=== PATIENT | male | born 1950 | race Caucasian/White ===

== ENCOUNTER 2020-01-05 08:23 | Outpatient (REF) | payer MEDICARE, SELFPAY ==
[2020-01-05 10:24] LABS: Basophils Absolute Auto 0.1 X10*3/uL (0.0-0.2); Basophils Percent Auto 0.5 % (0-2); Eosinophils Absolute Auto 1.3 X10*3/uL (0.0-0.4); Eosinophils Percent Auto 11.3 % (0-4); Hematocrit 42.3 % (42-52); Hemoglobin 14.7 g/dl (14.0-18.0); Imm Gran Abs Auto 0.03 X10*3/uL (0.00-0.03); Imm Gran Pct Auto 0.3 % (0.0-0.4); Lymphocytes Absolute Auto 5.7 X10*3/uL (1.2-4.9); Lymphocytes Percent Auto 49.9 % (20-40); MANUAL DIFF FLAG SCAN; Mean Corpuscular HGB Conc 34.8 g/dl (31.0-36.0); Mean Corpuscular Volume 97.9 fL (80-98); Mean Platelet Volume 10.9 fL (9.4-12.4); Monocytes Absolute Auto 1.2 X10*3/uL (0.1-1.2); Monocytes Percent Auto 10.2 % (2-11); Neutrophils Absolute Auto 3.2 X10*3/uL (2.0-8.3); Neutrophils Percent Auto 27.8 % (45-73); Platelet Count 380 X10*3/uL (160-400); Red Blood Count 4.32 X10*6/uL (4.60-5.80); Red Cell Distribution Width 15.2 % (11.0-16.0); SCAN SMEAR FLAG 1; White Blood Count 11.5 X10*3/uL (4.8-10.8)
[2020-01-05 10:30] LABS: Glucose Urine UA NEG (NEG); Leukocyte Esterase Urine NEG (NEG); Nitrite Urine NEG (NEG); Specific Gravity - Urine 1.025 (1.005-1.025); Urine Blood 1+ (NEG); Urine Ketones NEG (NEG); Urine Protein NEG (NEG-TRACE)
[2020-01-05 10:32] LABS: Appearance Urine CLEAR; Color Urine YELLOW
[2020-01-05 10:47] LABS: Alanine Aminotransferase 21 U/L (0-40); Albumin Level 4.1 g/dL (3.5-5.0); Alkaline Phosphatase 109 U/L (39-117); Anion Gap 13 (12-20); Aspartate Amino Transferase 24 U/L (5-37); Bilirubin Total 2.7 mg/dL (0.0-1.0); Blood Urea Nitrogen 24 mg/dL (9-16); Calcium 9.5 mg/dL (8.4-10.2); Carbon Dioxide 26 mmol/L (22-29); Chloride 104 mmol/L (96-108); Cholesterol 118 mg/dL; Estimated Glomerular Filt Rate > 60; Glucose Fasting 87 mg/dL (60-99); HDL Cholesterol 35 mg/dL; LDL Cholesterol Calculated 65 mg/dl; Potassium 4.7 mmol/l (3.3-5.1); Sodium 138 mmol/L (135-145); Triglycerides 93 mg/dL
[2020-01-05 10:57] LABS: SLIDE REVIEW VERIFIED
[2020-01-05 11:11] LABS: TSH reflex Free T4 2.04 mIU/mL (0.32-4.0); Vitamin D 25-OH Total 44.1 ng/mL (>30)
[2020-01-05 11:21] LABS: Folate 6.2 ng/mL (> or = 4.0); Vitamin B12 301 pg/mL (200-900)
[2020-01-05 13:56] LABS: RBC Urine 0-2 /HPF (0); WBC Urine 0 /HPF (0-4)
== END 2020-01-05 08:24 | disposition home or self-care (01) ==
LOC: HO.LAB 08:23
PROVIDERS: PCP Internal Medicine; Visit Provider Internal Medicine
DX: I25.10 Atherosclerotic heart disease of native coronary artery without angina pectoris (principal); E78.5 Hyperlipidemia, unspecified; K21.9 Gastro-esophageal reflux disease without esophagitis; R20.2 Paresthesia of skin; E55.9 Vitamin D deficiency, unspecified; E66.3 Overweight; I44.2 Atrioventricular block, complete; Z86.2 Personal history of diseases of the blood and blood-forming organs and certain disorders involving the immune mechanism
CPT/HCPCS: 36415; 80053; 80061; 81001; 82306; 82607; 82746; 84443; 85025

== ENCOUNTER → 2020-03-02 08:56 | Outpatient (BNV) | payer MEDICARE, SELFPAY | PROVIDERS: PCP Internal Medicine; Visit Provider Internal Medicine Medical Oncology | DX: R91.1 Solitary pulmonary nodule (principal) | CPT/HCPCS: 99213; 99214 ==

== ENCOUNTER → 2020-03-25 10:17 | Outpatient (BNVA) | payer MEDICARE, SELFPAY | PROVIDERS: PCP Internal Medicine; Visit Provider Internal Medicine Cardiovascular Disease | DX: Z45.018 Encounter for adjustment and management of other part of cardiac pacemaker (principal); I25.10 Atherosclerotic heart disease of native coronary artery without angina pectoris; I10 Essential (primary) hypertension; E78.00 Pure hypercholesterolemia, unspecified | CPT/HCPCS: 99212 ==

== ENCOUNTER 2020-04-28 08:46 | Outpatient (REF) | payer MEDICARE, SELFPAY ==
[2020-04-28 10:27] LABS: Basophils Absolute Auto 0.1 X10*3/uL (0.0-0.2); Basophils Percent Auto 0.7 % (0-2); Eosinophils Absolute Auto 1.2 X10*3/uL (0.0-0.4); Hematocrit 42.3 % (42-52); Hemoglobin 14.7 g/dl (14.0-18.0); Imm Gran Abs Auto 0.04 X10*3/uL (0.00-0.03); Imm Gran Pct Auto 0.3 % (0.0-0.4); Lymphocytes Absolute Auto 5.3 X10*3/uL (1.2-4.9); Lymphocytes Percent Auto 46.1 % (20-40); MANUAL DIFF FLAG SCAN; Mean Corpuscular HGB Conc 34.8 g/dl (31.0-36.0); Mean Corpuscular Hemoglobin 34.5 pg (27.0-33.0); Mean Corpuscular Volume 99.3 fL (80-98); Monocytes Absolute Auto 1.3 X10*3/uL (0.1-1.2); Monocytes Percent Auto 11.2 % (2-11); Neutrophils Absolute Auto 3.7 X10*3/uL (2.0-8.3); Neutrophils Percent Auto 31.7 % (45-73); Platelet Count 407 X10*3/uL (160-400); Red Blood Count 4.26 X10*6/uL (4.60-5.80); Red Cell Distribution Width 15.3 % (11.0-16.0); SCAN SMEAR FLAG 1; White Blood Count 11.6 X10*3/uL (4.8-10.8)
[2020-04-28 10:48] LABS: Glucose Urine UA NEG (NEG); Leukocyte Esterase Urine NEG (NEG); Nitrite Urine NEG (NEG); Urine Blood 1+ (NEG); Urine Ketones NEG (NEG); Urine Protein NEG (NEG-TRACE)
[2020-04-28 10:56] LABS: Appearance Urine CLEAR; Color Urine YELLOW
[2020-04-28 11:05] LABS: Alanine Aminotransferase 19 U/L (0-40); Alkaline Phosphatase 107 U/L (39-117); Anion Gap 13 (12-20); Aspartate Amino Transferase 25 U/L (5-37); Bilirubin Total 2.8 mg/dL (0.0-1.0); Blood Urea Nitrogen 24 mg/dL (9-16); Calcium 9.2 mg/dL (8.4-10.2); Carbon Dioxide 27 mmol/L (22-29); Chloride 103 mmol/L (96-108); Cholesterol 113 mg/dL; Estimated Glomerular Filt Rate > 60; Glucose Fasting 85 mg/dL (60-99); HDL Cholesterol 37 mg/dL; LDL Cholesterol Calculated 61 mg/dl; Potassium 4.9 mmol/L (3.3-5.1); Sodium 138 mmol/L (135-145); Total Protein 7.8 g/dL (6.5-8.0); Triglycerides 79 mg/dL
[2020-04-28 11:14] LABS: TSH reflex Free T4 2.56 uIU/mL (0.32-4.0); Vitamin D 25-OH Total 39.8 ng/mL (>30)
[2020-04-28 11:40] LABS: Squamous Epithelial Cell Urine TRACE /LPF; WBC Urine 0 /HPF (0-4)
[2020-04-28 12:11] LABS: SLIDE REVIEW VERIFIED
== END 2020-04-28 08:47 | disposition home or self-care (01) ==
LOC: HO.LAB 08:46
PROVIDERS: PCP Internal Medicine; Visit Provider Internal Medicine
DX: I25.10 Atherosclerotic heart disease of native coronary artery without angina pectoris (principal); K21.9 Gastro-esophageal reflux disease without esophagitis; E78.00 Pure hypercholesterolemia, unspecified; I44.2 Atrioventricular block, complete; E66.3 Overweight; R31.1 Benign essential microscopic hematuria; E55.9 Vitamin D deficiency, unspecified
CPT/HCPCS: 36415; 80053; 80061; 81001; 81003; 82306; 84443; 85025

== ENCOUNTER 2020-08-20 10:25 | Outpatient (REF) | payer MEDICARE, SELFPAY ==
[2020-08-20 11:24] LABS: Glucose Urine UA NEG (NEG); Leukocyte Esterase Urine NEG (NEG); Nitrite Urine NEG (NEG); Urine Blood 1+ (NEG); Urine Ketones NEG (NEG); Urine Protein TRACE MG/DL (NEG-TRACE)
[2020-08-20 11:28] LABS: Appearance Urine CLEAR; Color Urine YELLOW
[2020-08-20 11:40] LABS: Basophils Absolute Auto 0.1 X10*3/uL (0.0-0.2); Basophils Percent Auto 0.5 % (0-2); Eosinophils Absolute Auto 1.2 X10*3/uL (0.0-0.4); Eosinophils Percent Auto 9.9 % (0-4); Hematocrit 37.7 % (42-52); Hemoglobin 13.6 g/dl (14.0-18.0); Imm Gran Abs Auto 0.08 X10*3/uL (0.00-0.03); Imm Gran Pct Auto 0.7 % (0.0-0.4); Lymphocytes Percent Auto 51.3 % (20-40); MANUAL DIFF FLAG SCAN; Mean Corpuscular HGB Conc 36.1 g/dl (31.0-36.0); Mean Corpuscular Hemoglobin 36.4 pg (27.0-33.0); Mean Corpuscular Volume 100.8 fL (80-98); Monocytes Absolute Auto 1.2 X10*3/uL (0.1-1.2); Monocytes Percent Auto 10.5 % (2-11); Neutrophils Absolute Auto 3.2 X10*3/uL (2.0-8.3); Neutrophils Percent Auto 27.1 % (45-73); Platelet Count 415 X10*3/uL (160-400); Red Blood Count 3.74 X10*6/uL (4.60-5.80); Red Cell Distribution Width 15.1 % (11.0-16.0); SCAN SMEAR FLAG 1; White Blood Count 11.7 X10*3/uL (4.8-10.8)
[2020-08-20 12:00] LABS: Squamous Epithelial Cell Urine TRACE /LPF; WBC Urine 0 /HPF (0-4)
[2020-08-20 12:04] LABS: SLIDE REVIEW VERIFIED
[2020-08-20 12:13] LABS: TSH reflex Free T4 1.55 uIU/mL (0.32-4.0)
[2020-08-20 12:20] LABS: Alanine Aminotransferase 18 U/L (0-40); Albumin Level 4.1 g/dL (3.5-5.0); Alkaline Phosphatase 112 U/L (39-117); Anion Gap 14 (12-20); Aspartate Amino Transferase 25 U/L (5-37); Bilirubin Total 5.3 mg/dL (0.0-1.0); Blood Urea Nitrogen 22 mg/dL (9-16); Calcium 9.3 mg/dL (8.4-10.2); Carbon Dioxide 25 mmol/L (22-29); Chloride 106 mmol/L (96-108); Cholesterol 106 mg/dL; Estimated Glomerular Filt Rate > 60; Glucose Fasting 88 mg/dL (60-99); HDL Cholesterol 38 mg/dL; LDL Cholesterol Calculated 53 mg/dl; Potassium 4.8 mmol/L (3.3-5.1); Sodium 140 mmol/L (135-145); Triglycerides 76 mg/dL
== END 2020-08-20 10:26 | disposition home or self-care (01) ==
LOC: HO.LAB 10:25
PROVIDERS: Absent Provider Internal Medicine; PCP Internal Medicine; Visit Provider Internal Medicine Medical Oncology
DX: R31.1 Benign essential microscopic hematuria (principal); D59.10 Autoimmune hemolytic anemia, unspecified; E78.00 Pure hypercholesterolemia, unspecified; E66.3 Overweight; E55.9 Vitamin D deficiency, unspecified
CPT/HCPCS: 36415; 80053; 80061; 81001; 82306; 84443; 85025

== ENCOUNTER 2020-10-11 03:55 | Emergency (ER) | payer MEDICARE, SELFPAY ==
--- NOTE | ~2020-10-11 | US_ITS ---
EXAMINATION: US ABDOMEN LIMITED CLINICAL INFORMATION: Right upper quadrant pain. COMPARISON: Previous CT of the abdomen and pelvis September 2020 and abdominal ultrasound April 2018 TECHNIQUE: Real-time imaging of the right upper quadrant abdominal viscera. Exam is limited due to body habitus and bowel gas. FINDINGS: PANCREAS: Not visualized due to bowel gas LIVER: Visualization of the liver is limited. Liver echotexture is normal. The liver is normal in size. No focal liver lesion or biliary duct dilatation. GALLBLADDER: There are multiple gallstones in the gallbladder. The gallbladder is normal in size. The gallbladder wall is minimally thickened measuring 4 mm. No gallbladder wall edema or pericholecystic fluid is seen. COMMON BILE DUCT: Normal in caliber measuring 0.3 cm in diameter. RIGHT KIDNEY: Normal. No hydronephrosis. No renal calculi or focal parenchymal lesions. The kidney measures 9.7 cm in maximum dimension. FREE FLUID: None. US/US abdomen limited IMPRESSION: Limited exam. Gallstones. Minimal minimally thickened gallbladder wall.
--- NOTE | ~2020-10-11 | CT_ITS ---
EXAMINATION: CT ABDOMEN AND PELVIS WITH CONTRAST CLINICAL INFORMATION: Epigastric and diffuse abdominal pain COMPARISON: 04/27/2018 TECHNIQUE: Multidetector volumetric images were obtained from the superior aspect of the liver through the pubic symphysis following administration 85 mL of Omnipaque 350 intravenous contrast. Sagittal and coronal reformatted images were obtained on the technologist's workstation. Oral contrast: No This CT examination was performed using dose optimization techniques as appropriate, variously including the following: *Automated exposure control *Adjustment of mA and/or kV according to patient size (this includes techniques or standardized protocols for targeted exams where dose is matched to indication/reason for exam; i.e. extremities or head) *Use of iterative reconstruction technique DLP: 562 mGy-cm FINDINGS: LUNG BASES: The visualized lung bases demonstrate subpleural reticulation which may reflect early pulmonary fibrosis. LIVER, GALLBLADDER, AND BILIARY TREE: The liver has a somewhat nodular contour which could reflect underlying cirrhosis. No focal hepatic lesion or biliary ductal dilatation is present. Cholelithiasis is noted. PANCREAS: Unremarkable. SPLEEN: Status post splenectomy. ADRENAL GLANDS: Unremarkable. KIDNEYS AND URETERS: The kidneys are normal in size, shape, and attenuation. No hydronephrosis, hydroureter, or obstructing calculi seen. Small left renal cyst is noted. No perinephric stranding. BLADDER: Unremarkable. GASTROINTESTINAL TRACT: The small and large bowel are unremarkable. The appendix is suspected to be collapsed. No free fluid or free air is seen. ABDOMINAL WALL: No significant hernia is appreciated. LYMPH NODES: There is redemonstration of enlarged left inguinal lymph nodes which have increased in size from prior, for example measuring 1.7 cm in short axis dimension on image 83/97 versus 1.2 cm when measured in similar fashion previously. VASCULAR: There is atherosclerotic calcification along the aorta. PELVIC VISCERA: Unremarkable. OSSEOUS STRUCTURES: A few endplate Schmorl's node at L1 is new from prior. Vacuum disc phenomena is redemonstrated at L5-S1. CT/CT abdomen pelvis w con IMPRESSION: 1. Interval increase in size of enlarged left inguinal lymph nodes compared to 05/07/2018. These could be reactive, though a malignant etiology cannot be excluded; CLL would be a consideration. Clinical correlation recommended. 2. Cholelithiasis. 3. Somewhat nodular hepatic contour which may reflect cirrhosis.
[2020-10-11 04:13] VITALS: BP 105/60; PULSE 59; RESP 18; TEMP 36.6; O2SAT 99; BMI 26.9
[2020-10-11 04:25] VITALS: BP 105/60; PULSE 60; RESP 16; O2SAT 97
--- NOTE | 2020-10-11 04:27 | ECG_ITS ---
Test Reason : ABD PAIN Blood Pressure : / mmHG Vent. Rate : 064 BPM Atrial Rate : 064 BPM P-R Int : 190 ms QRS Dur : 140 ms QT Int : 444 ms P-R-T Axes : 039 029 027 degrees QTc Int : 458 ms Atrial-paced rhythm with Premature atrial complexes Right bundle branch block Abnormal ECG When compared with ECG of 27-APR-2018 09:18, Electronic atrial pacemaker has replaced Sinus rhythm Referred By: Sherri Frankel Electronically Signed By:ALEX PYLE
--- NOTE | 2020-10-11 04:38 | ED_ITS ---
HPI - Abdominal Pain General Chief Complaint: Abdominal Pain Stated Complaint: abd pain/vomiting Time Seen by Provider: 10/11/20 04:27 Source: patient Mode of arrival: ambulatory Limitations: no limitations History of Present Illness HPI narrative: Patient comes emergency room complaining of abdominal pain and vomiting. Patient states 3 days ago he started having intermittent abdominal pain, intermittent vomiting. Yesterday he was doing well but this morning the pain and the vomiting returned. Patient denies chest pain, no shortness of breath. Denies fever or chills. Prior to arrival patient took a tablet of omeprazole but did not help with the symptoms. Related Data Home Medications Medication Instructions Recorded Confirmed aspirin 81 mg tablet,delayed 81 mg PO DAILY 01/11/20 08/25/20 release cholecalciferol (vitamin D3) 50 mcg PO DAILY 08/31/20 08/31/20 [Vitamin D3] Previous Rx's Medication Instructions Recorded butenafine [Lotrimin Ultra] 1 appl TOPICAL BID 30 Days #3 g 03/02/20 metoprolol succinate 50 mg 50 mg PO DAILY #30 tab 05/14/20 tablet,extended release 24 hr rosuvastatin 20 mg tablet 20 mg PO DAILY #90 tab 05/27/20 pantoprazole 40 mg tablet,delayed 40 mg PO DAILY #90 tab 10/04/20 release Allergies Allergy/AdvReac Type Severity Reaction Status Date / Time atorvastatin [ATORVASTATIN] AdvReac Mild MUSCLE Verified 08/25/20 19:02 PAIN ALL OVER rosuvastatin AdvReac Mild itchiness Verified 08/25/20 19:02 Review of Systems Review of Systems Constitutional : No Weight loss, No Fever, No Chills, No Night Sweats, No Fatigue, No Malaise ENT/Mouth : No Hearing loss, No Ear Pain, No Nasal Congestion, No Sinus Pain, No Hoarseness, No sore throat, No Rhinorrhea, No Swallowing Difficulty Eyes: No Eye Pain, No Swelling, No Redness, No Foreign Body, No Discharge, No Vision Changes Cardiovascular : No Chest Pain, No SOB, No Dyspnea on Exertion, No Orthopnea, No Edema, No Palpitations Respiratory : No Cough, No Sputum, No Wheezing, No Smoke Exposure, No Dyspnea Gastrointestinal : Complaining of nausea and vomiting, No Diarrhea, No Constipa tion, complaining of epigastric and periumbilical pain, No Hematochezia, No Melena Genitourinary : no irregular bleeding, No Dysuria, No Urinary Frequency, No Hematuria, No Urinary Incontinence, No Urgency, No Flank Pain, No Urinary Flow Changes, No Hesitancy Musculoskeletal : No joint pain, No Myalgias, No Joint Swelling Skin : No Skin Lesions, No rash Neuro : No Weakness, No Numbness, No Paresthesias, No Loss of Consciousness, No Dizziness, No Headache Psych : No Anxiety/Panic, No Depression, No SI/HI/AH/VH, No Social Issues, Heme/Lymph: No Bruising, No Bleeding,No Lymphadenopathy Endocrine : No Polyuria, No Polydipsia, No Temperature Intolerance Physical Exam Vital Signs: Vital Signs: Last Vital Signs Temp 97.8 F 10/11/20 04:13 Pulse 63 10/11/20 05:50 Resp 16 10/11/20 04:25 BP 115/58 L 10/11/20 05:50 Pulse Ox 97 10/11/20 04:25 Body Mass Index 26.9 Appearance: Alert. Oriented X3. No acute distress. Eyes: Pupils equal, round and reactive to light. ENT: Pharynx normal. Neck: Normal inspection. Neck supple. No lymph nodes noted. No crepitus CVS: Normal heart rate and rhythm. Pulses normal. Normal S1 and S2, palpable pacemaker on the left side of the chest Respiratory: No respiratory distress. Breath sounds normal. No Wheezing. No rales Abdomen: Soft , mildly tender to palpation over the epigastric and periumbilical area. No rigidity. No distention. Skin: Skin warm and dry. Normal skin color. Normal skin turgor. Extremities: No lower extremity edema. No Lacerations. No Rash Neuro: Oriented X 3. No motor deficit. No sensory deficit. Moving all extermities. No slurred speech. Course Course Course Narrative: I discussed the CT scan patient, patient will follow-up with Hematology-Oncology possible CLL workup. Patient states that he feels much better, however still having upper quadrant pain. Ultrasound pending Sign-out given to Dr. Marr [facility] - Abdominal Pain Lab Data Result diagrams: 10/11/20 04:51 10/11/20 04:50 Labs: Lab Results 10/11/20 10/11/20 10/11/20 Range/Units 04:50 04:51 04:52 WBC 13.1 H (4.8-10.8) X10*3/uL RBC 3.66 L (4.60-5.80) X10*6/uL Hgb 13.3 L (14.0-18.0) g/dl Hct 37.0 L (42-52) % MCV 101.1 H (80-98) fL MCH 36.3 H (27.0-33.0) pg MCHC 35.9 (31.0-36.0) g/dl RDW 15.2 (11.0-16.0) % Plt Count 451 H (160-400) X10*3/uL MPV 10.0 (9.4-12.4) fL Immature Gran % (Auto) 0.7 H (0.0-0.4) % Neut % (Auto) 45.1 (45-73) % Lymph % (Auto) 33.0 (20-40) % [place] % (Auto) 12.4 H (2-11) % Eos % (Auto) 8.5 H (0-4) % Baso % (Auto) 0.3 (0-2) % Lymph # (Auto) 4.3 (1.2-4.9) X10*3/uL [place] # (Auto) 1.6 H (0.1-1.2) X10*3/uL Eos # (Auto) 1.1 H (0.0-0.4) X10*3/uL Baso # (Auto) 0.0 (0.0-0.2) X10*3/uL Abs Immat Gran (auto) 0.09 H (0.00-0.03) X10*3/uL Absolute Neuts (auto) 5.9 (2.0-8.3) X10*3/uL Absolute Nucleated RBC 0.020 H (0.0-0.012) X10*3/uL Nucleated RBC % (auto) 0.2 (0.0-0.2) /100WBC PT (9.9-13.0) SEC INR (0.9-1.1) Sodium 139 (135-145) mmol/L Potassium 4.6 (3.3-5.1) mmol/L Chloride 103 (96-108) mmol/L Carbon Dioxide 27 (22-29) mmol/L Anion Gap 14 (12-20) BUN 17 H (9-16) mg/dL Creatinine 1.15 (0.5-1.4) mg/dL Estim Creat Clear Calc 57.0 Estimated GFR > 60 Random Glucose 127 H (60-115) mg/dL Calcium 9.5 (8.4-10.2) mg/dL Total Bilirubin 4.6 H (0.0-1.0) mg/dL Direct Bilirubin 0.6 H (0.0-0.5) mg/dL AST 24 (5-37) U/L ALT 15 (0-40) U/L Alkaline Phosphatase 116 (39-117) U/L Troponin I High Sens < 3.5 (<3.5-35.0) ng/L Total Protein 8.2 H (6.5-8.0) g/dL Albumin 4.0 (3.5-5.0) g/dL Lipase 34 (8-78) U/L 10/11/20 Range/Units 04:55 WBC (4.8-10.8) X10*3/uL RBC (4.60-5.80) X10*6/uL Hgb (14.0-18.0) g/dl Hct (42-52) % MCV (80-98) fL MCH (27.0-33.0) pg MCHC (31.0-36.0) g/dl RDW (11.0-16.0) % Plt Count (160-400) X10*3/uL MPV (9.4-12.4) fL Immature Gran % (Auto) (0.0-0.4) % Neut % (Auto) (45-73) % Lymph % (Auto) (20-40) % [place] % (Auto) (2-11) % Eos % (Auto) (0-4) % Baso % (Auto) (0-2) % Lymph # (Auto) (1.2-4.9) X10*3/uL [place] # (Auto) (0.1-1.2) X10*3/uL Eos # (Auto) (0.0-0.4) X10*3/uL Baso # (Auto) (0.0-0.2) X10*3/uL Abs Immat Gran (auto) (0.00-0.03) X10*3/uL Absolute Neuts (auto) (2.0-8.3) X10*3/uL Absolute Nucleated RBC (0.0-0.012) X10*3/uL Nucleated RBC % (auto) (0.0-0.2) /100WBC PT 13.0 (9.9-13.0) SEC INR 1.1 (0.9-1.1) Sodium (135-145) mmol/L Potassium (3.3-5.1) mmol/L Chloride (96-108) mmol/L Carbon Dioxide (22-29) mmol/L Anion Gap (12-20) BUN (9-16) mg/dL Creatinine (0.5-1.4) mg/dL Estim Creat Clear Calc Estimated GFR Random Glucose (60-115) mg/dL Calcium (8.4-10.2) mg/dL Total Bilirubin (0.0-1.0) mg/dL Direct Bilirubin (0.0-0.5) mg/dL AST (5-37) U/L ALT (0-40) U/L Alkaline Phosphatase (39-117) U/L Troponin I High Sens (<3.5-35.0) ng/L Total Protein (6.5-8.0) g/dL Albumin (3.5-5.0) g/dL Lipase (8-78) U/L Imaging Data CT scan - abdomen: Radiologist's impression: FINDINGS: LUNG BASES: The visualized lung bases demonstrate subpleural reticulation which may reflect early pulmonary fibrosis. LIVER, GALLBLADDER, AND BILIARY TREE: The liver has a somewhat nodular contour which could reflect underlying cirrhosis. No focal hepatic lesion or biliary ductal dilatation is present. Cholelithiasis is noted. PANCREAS: Unremarkable. SPLEEN: Status post splenectomy. ADRENAL GLANDS: Unremarkable. KIDNEYS AND URETERS: The kidneys are normal in size, shape, and attenuation. No hydronephrosis, hydroureter, or obstructing calculi seen. Small left renal cyst is noted. No perinephric stranding. BLADDER: Unremarkable. GASTROINTESTINAL TRACT: The small and large bowel are unremarkable. The appendix is suspected to be collapsed. No free fluid or free air is seen. ABDOMINAL WALL: No significant hernia is appreciated. LYMPH NODES: There is redemonstration of enlarged left inguinal lymph nodes which have increased in size from prior, for example measuring 1.7 cm in short axis dimension on image 83/97 versus 1.2 cm when measured in similar fashion previously. VASCULAR: There is atherosclerotic calcification along the aorta. PELVIC VISCERA: Unremarkable. OSSEOUS STRUCTURES: A few endplate Schmorl's node at L1 is new from prior. Vacuum disc phenomena is redemonstrated at L5-S1. CT/CT abdomen pelvis w con IMPRESSION: 1. Interval increase in size of enlarged left inguinal lymph nodes compared to 05/07/2018. These could be reactive, though a malignant etiology cannot be excluded; CLL would be a consideration. Clinical correlation recommended. 2. Cholelithiasis. 3. Somewhat nodular hepatic contour which may reflect cirrhosis. ECG Data Attestation: I personally reviewed and interpreted this ECG as follows: (Atrial paced rhythm, right bundle branch block, no ST segment depression or elevation, nonspecific T-wave inversion in V1. No EKG changes since April 2018) Discharge Plan Discharge Clinical Impression: Abdominal pain Instructions: Abdominal Pain (ED) Additional Instructions: Please follow-up with Hematology-Oncology. Please follow-up with your primary care physician tomorrow. If you have any worsening or new symptoms, please return to the emergency room or call 911 Prescriptions: No Action metoprolol succinate 50 mg tablet extended release 24 hr 50 mg PO DAILY Qty: 30 RF: 5 rosuvastatin 20 mg tablet 20 mg PO DAILY Qty: 90 RF: 1 pantoprazole 40 mg tablet,delayed release (DR/EC) 40 mg PO DAILY Qty: 90 RF: 0 butenafine [Lotrimin Ultra] 1 % Cream 1 appl TOPICAL BID 30 Days Qty: 3 RF: 3 cholecalciferol (vitamin D3) [Vitamin D3] 50 mcg (2,000 unit) Tablet 50 mcg PO DAILY RF: 0 aspirin [Adult Aspirin Regimen] 81 mg tablet,delayed release (DR/EC) 81 mg PO DAILY RF: 0 Referrals: Cammie Young MD [Physician] - 2 days [facility] Past Medical History Medical History Autoimmune hemolytic anemia Benign microscopic hematuria CAD (coronary artery disease) Cardiac pacemaker Complete heart block GERD (gastroesophageal reflux disease) History of autoimmune hemolytic anemia HTN (hypertension) Overweight (BMI 25.0-29.9) Pulmonary nodules Pure hypercholesterolemia Vitamin D deficiency Surgical History History of colonoscopy History of permanent cardiac pacemaker placement History of splenectomy S/P CABG (coronary artery bypass graft) Family History Family History Father Tuberculosis Mother No problems noted. Brother Colon cancer Brother Schizophrenia Family/Other FH: mental illness Social History Social History Alcohol intake: current Alcohol intake frequency: a few times a week Alcohol type: beer Patient Tobacco Use Status: Never used Tobacco Advance Directives: No
[2020-10-11] MEDS: 0.9 % Sodium Chloride 1,000 ML 999 ML IVCONT (04:49)
[2020-10-11] MEDS: Morphine Sulfate 2 MG/ML CARTRIDGE IVPUSH (04:50)
[2020-10-11 05:00] LABS: Basophils Percent Auto 0.3 % (0-2); Eosinophils Absolute Auto 1.1 X10*3/uL (0.0-0.4); Eosinophils Percent Auto 8.5 % (0-4); Hemoglobin 13.3 g/dl (14.0-18.0); Imm Gran Abs Auto 0.09 X10*3/uL (0.00-0.03); Imm Gran Pct Auto 0.7 % (0.0-0.4); Lymphocytes Absolute Auto 4.3 X10*3/uL (1.2-4.9); Mean Corpuscular HGB Conc 35.9 g/dl (31.0-36.0); Mean Corpuscular Hemoglobin 36.3 pg (27.0-33.0); Mean Corpuscular Volume 101.1 fL (80-98); Monocytes Absolute Auto 1.6 X10*3/uL (0.1-1.2); Monocytes Percent Auto 12.4 % (2-11); NRBC Pct Auto 0.2 /100WBC (0.0-0.2); Neutrophils Absolute Auto 5.9 X10*3/uL (2.0-8.3); Neutrophils Percent Auto 45.1 % (45-73); Platelet Count 451 X10*3/uL (160-400); Red Blood Count 3.66 X10*6/uL (4.60-5.80); Red Cell Distribution Width 15.2 % (11.0-16.0); SCAN SMEAR FLAG 1; White Blood Count 13.1 X10*3/uL (4.8-10.8)
[2020-10-11 05:01] LABS: MANUAL DIFF FLAG NO
[2020-10-11 05:07] LABS: INTERNATIONAL NORM RATIO 1.1 (0.9-1.1)
[2020-10-11 05:23] LABS: Alanine Aminotransferase 15 U/L (0-40); Alkaline Phosphatase 116 U/L (39-117); Anion Gap 14 (12-20); Aspartate Amino Transferase 24 U/L (5-37); Bilirubin Direct 0.6 mg/dL (0.0-0.5); Bilirubin Total 4.6 mg/dL (0.0-1.0); Blood Urea Nitrogen 17 mg/dL (9-16); Calcium 9.5 mg/dL (8.4-10.2); Carbon Dioxide 27 mmol/L (22-29); Chloride 103 mmol/L (96-108); Estimated Glomerular Filt Rate > 60; Glucose Random 127 mg/dL (60-115); Lipase 34 U/L (8-78); Potassium 4.6 mmol/L (3.3-5.1); Sodium 139 mmol/L (135-145); Total Protein 8.2 g/dL (6.5-8.0)
[2020-10-11 05:25] LABS: Troponin-I High Sensitivity < 3.5 ng/L (<3.5-35.0)
[2020-10-11 05:30] VITALS: BP 121/56; PULSE 60
[2020-10-11 05:50] VITALS: BP 115/58; PULSE 63
[2020-10-11] MEDS: iohexoL 350 MG/ML 100 ML INFUS..BTL 85 ML IV (06:00)
[2020-10-11 07:40] LABS: Glucose Urine UA NEG (NEG); Leukocyte Esterase Urine NEG (NEG); Nitrite Urine NEG (NEG); PH 6.5 (5.0-8.0); Specific Gravity - Urine <= 1.005 (1.005-1.025); Urine Blood TRACE (NEG); Urine Ketones NEG (NEG); Urine Protein NEG (NEG-TRACE)
[2020-10-11 07:41] LABS: Appearance Urine CLEAR; Color Urine YELLOW
[2020-10-11 08:04] LABS: RBC Urine 0-2 /HPF (0); WBC Urine 0-2 /HPF (0-4)
[2020-10-11 09:12] VITALS: BP 103/54; PULSE 83; RESP 16; TEMP 36.6; O2SAT 98
== END 2020-10-11 11:09 | disposition home or self-care (01) ==
PROVIDERS: Emergency Medicine; Emergency Provider Emergency Medicine Emergency Medical Services; PCP Internal Medicine
DX: R10.11 Right upper quadrant pain (principal); K80.20 Calculus of gallbladder without cholecystitis without obstruction; I10 Essential (primary) hypertension; Z95.0 Presence of cardiac pacemaker; Z95.1 Presence of aortocoronary bypass graft
CPT/HCPCS: 36415; 74177; 76705; 80048; 80076; 81001; 83690; 84484; 85025; 85610; 93005; 96361; 96374; 96375; 99284; J2270; J2405; Q9967

== ENCOUNTER → 2020-10-12 12:21 | Outpatient (BNVA) | payer MEDICARE, SELFPAY | PROVIDERS: PCP Internal Medicine; Referring Provider Internal Medicine; Visit Provider Internal Medicine Cardiovascular Disease | DX: I25.10 Atherosclerotic heart disease of native coronary artery without angina pectoris (principal); Z45.018 Encounter for adjustment and management of other part of cardiac pacemaker; Z95.1 Presence of aortocoronary bypass graft | CPT/HCPCS: 99212 ==

== ENCOUNTER → 2020-10-25 12:45 | Outpatient (BNVA) | payer MEDICARE, SELFPAY | PROVIDERS: PCP Internal Medicine; Referring Provider Internal Medicine; Visit Provider Surgery | DX: K80.50 Calculus of bile duct without cholangitis or cholecystitis without obstruction (principal) | CPT/HCPCS: 99202 ==

== ENCOUNTER → 2020-11-17 09:07 | Outpatient (REF) | payer MEDICARE, SELFPAY ==
--- NOTE | ~2020-11-17 | NM_ITS ---
Lexiscan Myocardial perfusion study Indication: Coronary artery disease, history of bypass surgery, assess for ischemia Technique: The patient was brought in for a Lexiscan perfusion study on 11/17/2020 and was injected 0.4 mg of Lexiscan intravenously. Within a minute of this injection 30 mCi of sestamibi was given intravenously. Images were obtained using the SPECT gamma camera interlaced with the gating device. Images were obtained in supine position. Resting perfusion study was performed on 11/18/2020. Patient was administered 30 mCi of sestamibi intravenously at rest. Images were then obtained in supine position. Total DLP 79mGy-cm. Images were processed with the software and compared side to side in short axis, horizontal long axis and vertical long axis views. Findings: Raw acquisition was reviewed. The stress perfusion study showed no significant perfusion abnormality. Both uncorrected as well as CT attenuation corrected images were reviewed. The gated study shows normal LV systolic function with calculated LVEF of 59%. LV cavity is normal in size. The gated study shows normal wall thickening and contraction of segments. Resting study shows no significant perfusion abnormality. Gating at rest reveals normal wall motion with ejection fraction at 63%. The findings are consistent with no reversible or fixed perfusion abnormality. NM/NM peter perf SPECT rest & str Impression: 1. Myocardial perfusion imaging study shows normal myocardial perfusion. 2. Gated LVEF is 59% during stress and 63% during rest. 3. Transient ischemic dilatation not present. EKG component of the test reported separately.
--- NOTE | 2020-11-17 09:10 | CA_ITS ---
Acquisition Time: 2020-11-17 09:20:43 Total Exercise Time: 00:02:00 Test Indications: I25.10, I44.2 Medications: SEE CHART Protocol: LEXISCAN Max HR: 133 BPM 89% of Pred: 149 BPM Max BP: 136/068 mmHG Max Work Load: 1.6 METS Pharmacological stress test with Lexiscan injection, while walking on treadmill without anginal symptoms, with isolated PVC, with normotensive response to injection, with nondiagnostic EKG for ischemia. Nuclear images pending. Test reviewed with Dr Jo. Referred By: Preston Cash Overread By: KELLY ARNDT
== END ==
LOC: HO.CARD 09:07
PROVIDERS: PCP Internal Medicine; Visit Provider Internal Medicine Cardiovascular Disease
DX: I25.10 Atherosclerotic heart disease of native coronary artery without angina pectoris (principal); I44.2 Atrioventricular block, complete
CPT/HCPCS: 78452; 93017; A9500; J0280; J2785

== ENCOUNTER 2020-12-16 05:57 | Day surgery (SDC) | payer MEDICARE, SELFPAY ==
--- NOTE | 2020-12-01 12:06 | HO.ANESPROP2 ---
Documented by User: Huyen Garcia NP 12/15/20 11:09 HPI - Anesthesia Eval Consult details Narrative: Labs pending from Dr Fuller visit 70yo M for Cholecystectomy Laparoscopic on 12/16/20 Cardiac cleared at low risk Pacer in situ (CHB, implanted 07/2017) s/p splenectomy (hemolytic anemia) [facility] Active Problems Active Problems: All Active Problems (Updated 10/25/20 @ 14:14 by Mahsa Corral MD) Cholelithiasis (Acute) Biliary colic (Acute) Abdominal pain (Acute) Encounter for Medicare annual wellness exam (Acute) Pulmonary nodules (Acute) Autoimmune hemolytic anemia (Acute) CAD (coronary artery disease) (Acute) Cardiac pacemaker (Acute) HTN (hypertension) (Acute) Complete heart block (Acute) Hemolytic anemia (Acute) Pulmonary nodule (Acute) Benign microscopic hematuria (Acute) Overweight (BMI 25.0-29.9) (Acute) Vitamin D deficiency (Acute) GERD (gastroesophageal reflux disease) (Acute) Pure hypercholesterolemia (Acute) S/P CABG (coronary artery bypass graft) (Acute) Past Medical History Medical History Abdominal pain Autoimmune hemolytic anemia Benign microscopic hematuria CAD (coronary artery disease) Cardiac pacemaker Complete heart block GERD (gastroesophageal reflux disease) History of autoimmune hemolytic anemia HTN (hypertension) Overweight (BMI 25.0-29.9) Pulmonary nodules Pure hypercholesterolemia Vitamin D deficiency Family History Family History Father Tuberculosis Mother No problems noted. Brother Colon cancer Brother Schizophrenia Lung disease Family/Other FH: mental illness Brother Alcoholism Other Mental health problem Family history of problems with anesthesia: No Surgical History Surgical History History of colonoscopy History of permanent cardiac pacemaker placement History of splenectomy S/P CABG (coronary artery bypass graft) History of Problems with Anesthesia: No Social History Social History Housing: House Are you a primary rn patient care to a significant other at home: No Do you presently have visiting nurse or other home services: No Alcohol intake: current Alcohol intake frequency: holidays/special occasions only Alcohol type: beer Patient Tobacco Use Status: Never used Tobacco Second Hand Smoke Exposure: Yes Use of substances other than those prescribed or required for medical reasons: No Have you been hit, kicked, punched, or otherwise hurt by someone within the past year? If so, by whom?: No Are you DNR?: No Advance Directives: No Advance Directives Information Provided: No Advance Directives on File: No Recently lost weight without trying: No service: No Current occupational status: retired Narrative Narrative: No recent illness No CP/SOB with walking ~ 1h Meds Allergies Allergy/AdvReac Type Severity Reaction Status Date / Time atorvastatin [ATORVASTATIN] AdvReac Mild MUSCLE Verified 12/01/20 13:55 PAIN ALL OVER Home Medications Medication Instructions Recorded Confirmed Last Taken Type aspirin 81 mg tablet,delayed 81 mg PO DAILY 01/11/20 12/03/20 Unknown History release (Adult Aspirin Regimen) cholecalciferol (vitamin D3) 50 50 mcg PO DAILY 08/31/20 12/03/20 Unknown History mcg (2,000 unit) tablet (Vitamin D3) coQ10 (ubiquinol) 100 mg capsule 200 mg PO DAILY 12/01/20 12/03/20 Unknown History Exam Exam Date and Time: December 01, 2020 1206 Height,Weight and Vital Signs: Height 5 ft 8 in Weight 79.379 kg Pulse Resp BP Pulse Ox 66 16 142/72 H 100 12/01/20 13:59 12/01/20 13:59 12/01/20 13:59 12/01/20 13:59 Pertinent Lab Results Pertinent Lab Results: Laboratory Tests 12/03/20 12/03/20 08:11 08:11 WBC 11.8 H Hgb 12.9 L Hct 36.1 L Plt Count 394 Sodium 137 Potassium 4.6 Chloride 107 Carbon Dioxide 26 BUN 20 H Creatinine 1.03 Narrative Narrative: NM peter perf SPECT rest & str 11/2020 Impression: ? 1.? Myocardial perfusion imaging study shows normal myocardial perfusion. 2.? Gated LVEF is 59% during stress and 63% during rest. 3. Transient ischemic dilatation not present. ? EKG component of the test reported separately. (non-diagnostic for ischemia) EKG 09/2020 Vent. Rate : 064 BPM ? ? Atrial Rate : 064 BPM ?? P-R Int : 190 ms? QRS Dur : 140 ms ? ? QT Int : 444 ms ? ? ? P-R-T Axes : 039 029 027 degrees ?? QTc Int : 458 ms ? Atrial-paced rhythm with Premature atrial complexes Right bundle branch block Abnormal ECG When compared with ECG of 27-APR-2018 09:18, Electronic atrial pacemaker has replaced Sinus rhythm Pacer Check 10/20/20 [place] DDDR-60 AP 21% >95% battery capacity remaining until BHARATH Airway Mallampati Class: I TM Dist: >3cm Neck ROM: Full Denture: Upper and Lower Heart: RRR Lungs: CTAB Assessment and Plan Assessment Anesthesia Assessment: Anesthesia Plan Discussed and PAT Visit Final Anesthetic Review Family History of Problems with Anesthesia: No History of Problems with Anesthesia: No Documented by User: Jolene Tillman MD 12/16/20 07:40 [facility] Past Medical History Medical History Abdominal pain Autoimmune hemolytic anemia Benign microscopic hematuria CAD (coronary artery disease) Cardiac pacemaker Complete heart block GERD (gastroesophageal reflux disease) History of autoimmune hemolytic anemia HTN (hypertension) Overweight (BMI 25.0-29.9) Pulmonary nodules Pure hypercholesterolemia Vitamin D deficiency Family History Family History Father Tuberculosis Mother No problems noted. Brother Colon cancer Brother Schizophrenia Lung disease Family/Other FH: mental illness Brother Alcoholism Other Mental health problem Surgical History Surgical History History of colonoscopy History of permanent cardiac pacemaker placement History of splenectomy S/P CABG (coronary artery bypass graft) Social History Social History Housing: House Are you a primary rn patient care to a significant other at home: No Do you presently have visiting nurse or other home services: No Alcohol intake: current Alcohol intake frequency: holidays/special occasions only Alcohol type: beer Patient Tobacco Use Status: Never used Tobacco Second Hand Smoke Exposure: Yes Use of substances other than those prescribed or required for medical reasons: No Have you been hit, kicked, punched, or otherwise hurt by someone within the past year? If so, by whom?: No Are you DNR?: No Advance Directives: No Advance Directives Information Provided: No Advance Directives on File: No Recently lost weight without trying: No service: No Current occupational status: retired Meds Allergies Allergy/AdvReac Type Severity Reaction Status Date / Time atorvastatin [ATORVASTATIN] AdvReac Mild MUSCLE Verified 12/01/20 13:55 PAIN ALL OVER Home Medications Medication Instructions Recorded Confirmed Last Taken Type aspirin 81 mg tablet,delayed 81 mg PO DAILY 01/11/20 12/03/20 Unknown History release (Adult Aspirin Regimen) cholecalciferol (vitamin D3) 50 50 mcg PO DAILY 08/31/20 12/03/20 Unknown History mcg (2,000 unit) tablet (Vitamin D3) coQ10 (ubiquinol) 100 mg capsule 200 mg PO DAILY 12/01/20 12/03/20 Unknown History Exam Airway Mallampati Class: II (Edentulous) Assessment and Plan Final Anesthetic Review ASA Class: III Final Preanesthetic Review: Meds/Allgs Chart Reviewed, Consent Obtained/Reviewed and Anes Risks/Benef Reviewed Patient Risk: Intermediate Procedure Risk: Intermediate Anesthetic Plan Anesthetic Plan: GA Disposition: Standard PACU
[2020-12-01 13:59] VITALS: BP 142/72; PULSE 66; RESP 16; O2SAT 100; BMI 26.6
--- NOTE | 2020-12-15 15:50 | MHC.SHP ---
Pre-Procedural Eval Section A Date of Service: 12/15/20 Section B Chief Complaint: Calculus of Gallbladder Allergies: Allergies Allergy/AdvReac Type Severity Reaction Status Date / Time atorvastatin [ATORVASTATIN] AdvReac Mild MUSCLE Verified 12/01/20 13:55 PAIN ALL OVER Plan I have reviewed the history and physical and performed a pertinent physical examination on my patient. No changes have occurred unless specified. No significant changes in medical history. Plan is to perform a laparoscopic cholecystectomy
[2020-12-16] VITALS (7 sets, daily range): BP systolic 115–146; BP diastolic 52–62; PULSE 60–76; RESP 16–18; TEMP 36.1–36.6; O2SAT 98–100
[2020-12-16 06:55] LABS: COVID-19 Test Negative (Negative); IDNOW Serial# 9DD0AD1C
[2020-12-16] MEDS: Lactated Ringers 1,000 ML 100 ML IVCONT (07:09)
--- NOTE | 2020-12-16 07:50 | P.BOP_ITS ---
Brief Operative Note Date of Service: 12/16/20 Pre-op diagnosis: Biliary colic and cholelithiasis Post-op diagnosis: same Procedure: Laparoscopic cholecystectomy Surgeon: Mahsa Corral MD Anesthesia: GETA Was an Insurance Case Manager used for this Procedure?: No Estimated blood loss (mL): 10 Pathology: other (Gallbladder) Condition: stable Disposition: PACU
--- NOTE | 2020-12-16 07:51 | W.PM.OPN ---
Operative Note Operative Note Date of Service: 12/16/20 Narrative: Patient was brought into the operating room, placed on operating table in the supine position. Normal DVT prophylaxis was instituted. Patient received 2 g of IV cefotetan preoperatively. General anesthesia was induced. The abdomen was prepped and draped in the normal sterile fashion using ChloraPrep. A safety time-out was performed. Next a mixture of 1% lidocaine with epinephrine and 0.25% Marcaine plain was used to anesthetize the planned incision site in the infraumbilical position. A 11. Scalpel was used to make a 2 cm infraumbilical transverse surgical incision through which the subcutaneous tissues were dissected down to level the fascia. The fascia was grasped did between 2 Darci clamps and entered using a 11. Scalpel for about 1 cm vertically. An 0 Vicryl suture was placed on either side of the open fascia. A finger was used to bluntly gain access to the intra-abdominal cavity. A 12 mm Miller trocar was introduced into the abdomen and secured to the abdominal wall using sutures on the fascia. The abdomen was insufflated to 15 mmHg. Next a 5 mm 30 degree laparoscope was introduced into the abdomen and used to survey the abdominal cavity which was normal. Next 3 additional 5 mm ports were placed. One port was placed in the epigastrium to the right of the falciform ligament, 2 ports were placed in the right upper quadrant 1 laterally and 1 more medially. The patient was placed in reverse Trendelenburg and left side tilted down. A grasper was placed through the right lateral port and used to grasp the fundus of the gallbladder and retracted it cephalad. Another grasper was used to grasp the infundibulum of the gallbladder retracted inferior and laterally. We cleared the cystic artery and cystic duct circumferentially and the distal 1/3 of the gallbladder with the gallbladder fossa. This gave us the critical view of safety. We then placed 3 clips on the cystic duct distal to the gallbladder 1 clip on the cystic duct proximal to the gallbladder. We placed 1 clip on the cystic artery proximal to the gallbladder and 2 clips on the cystic artery distal to the gallbladder and transected both structures in between clips. We took the remainder of the gallbladder off the gallbladder fossa and placed in Endo-Catch bag and removed it from the abdomen. In the process of removing the gallbladder from the gallbladder fossa I did create 2 small holes in the fundus of the gallbladder with a small amount of spillage of bile. We control the spillage. We irrigated underneath the liver edge and over the liver edge into the effluent was clear. We then evaluated the gallbladder fossa it was hemostatic there was no evidence of any bile draining or any bleeding noted. The clips were in place on the cystic artery and cystic duct stumps. We then removed the 5 mm ports under direct vision there was no bleeding noted from these port sites. We desufflated the abdomen through the last remaining port and removed the last port and laparoscope. We reapproximated the fascial defect at the umbilicus using a [id number] 0 Vicryl suture and tied the original fascial sutures over that closure. There was no residual fascial defect. We placed an additional amount of local anesthetic into the fascia closure site. We closed all skin incisions with a 4 Monocryl subcuticular stitch. We cleaned and dried the skin and applied Dermabond skin glue to all skin incisions. All counts were correct at the end the case there were no complications. The patient was awake and in stable condition prior to extubation and transfer to the recovery room.
[2020-12-16] MEDS: ondansetron HCL 4 MG/2 ML VIAL IVPUSH (08:58)
== END 2020-12-16 10:12 | disposition home or self-care (01) ==
PROVIDERS: PCP Internal Medicine; Visit Provider Surgery
PROC: 0FT44ZZ Resection of Gallbladder, Percutaneous Endoscopic Approach (ICD-10-PCS; CPT 47562; principal; 2020-12-16 07:30)
DX: K80.10 Calculus of gallbladder with chronic cholecystitis without obstruction (principal); Z20.822 Contact with and (suspected) exposure to COVID-19; Z90.81 Acquired absence of spleen; Z86.2 Personal history of diseases of the blood and blood-forming organs and certain disorders involving the immune mechanism; K21.9 Gastro-esophageal reflux disease without esophagitis; I25.10 Atherosclerotic heart disease of native coronary artery without angina pectoris; I10 Essential (primary) hypertension; E55.9 Vitamin D deficiency, unspecified; R91.8 Other nonspecific abnormal finding of lung field; Z95.1 Presence of aortocoronary bypass graft; Z95.0 Presence of cardiac pacemaker; Z79.82 Long term (current) use of aspirin; Z79.899 Other long term (current) drug therapy; Z88.8 Allergy status to other drugs, medicaments and biological substances
CPT/HCPCS: 47562; 36415; 87635; 88304; J0131; J1100; J1170; J2370; J2405; J3010

== ENCOUNTER → 2020-12-21 11:40 | Outpatient (BNVA) | payer MEDICARE, SELFPAY | PROVIDERS: PCP Internal Medicine; Referring Provider Internal Medicine; Visit Provider Surgery | DX: Z90.49 Acquired absence of other specified parts of digestive tract (principal) | CPT/HCPCS: 99212 ==

== ENCOUNTER 2021-02-24 09:02 | Outpatient (REF) | payer MEDICARE, SELFPAY ==
[2021-02-24 09:51] LABS: Basophils Absolute Auto 0.1 X10*3/uL (0.0-0.2); Basophils Percent Auto 0.5 % (0-2); Eosinophils Absolute Auto 1.3 X10*3/uL (0.0-0.4); Hematocrit 42.2 % (42.0-52.0); Hemoglobin 15.1 g/dl (14.0-18.0); Imm Gran Abs Auto 0.04 X10*3/uL (0.00-0.03); Imm Gran Pct Auto 0.4 % (0.0-0.4); Lymphocytes Absolute Auto 5.5 X10*3/uL (1.2-4.9); MANUAL DIFF FLAG SCAN; Mean Corpuscular HGB Conc 35.8 g/dl (31.0-36.0); Mean Corpuscular Hemoglobin 34.8 pg (27.0-33.0); Mean Corpuscular Volume 97.2 fL (80.0-98.0); Monocytes Absolute Auto 1.1 X10*3/uL (0.1-1.2); NRBC Pct Auto 0.2 /100WBC (0.0-0.2); Neutrophils Absolute Auto 2.8 x10*3/uL (2.0-8.3); Neutrophils Percent Auto 26.1 % (45-73); Platelet Count 431 X10*3/uL (160-400); Red Blood Count 4.34 X10*6/uL (4.60-5.80); Red Cell Distribution Width 15.2 % (11.0-16.0); SCAN SMEAR FLAG 1; White Blood Count 10.8 X10*3/uL (4.8-10.8)
[2021-02-24 10:17] LABS: Alanine Aminotransferase 23 U/L (0-40); Albumin Level 4.1 g/dL (3.5-5.0); Alkaline Phosphatase 117 U/L (39-117); Anion Gap 11 (12-20); Aspartate Amino Transferase 28 U/L (5-37); Bilirubin Total 3.5 mg/dL (0.0-1.0); Blood Urea Nitrogen 21 mg/dL (9-16); Calcium 9.8 mg/dL (8.4-10.2); Carbon Dioxide 27 mmol/L (22-29); Chloride 106 mmol/L (96-108); Cholesterol 134 mg/dL; Estimated Glomerular Filt Rate 56; Glucose Fasting 96 mg/dL (60-99); HDL Cholesterol 40 mg/dL; LDL Cholesterol Calculated 75 mg/dl; Potassium 4.9 mmol/L (3.3-5.1); Sodium 139 mmol/L (135-145); Total Protein 8.2 g/dL (6.5-8.0); Triglycerides 96 mg/dL
[2021-02-24 10:35] LABS: SLIDE REVIEW VERIFIED
== END 2021-02-24 09:03 | disposition home or self-care (01) ==
LOC: HO.LAB 09:02
PROVIDERS: Absent Provider Internal Medicine Medical Oncology; PCP Internal Medicine; Visit Provider Internal Medicine
DX: D59.10 Autoimmune hemolytic anemia, unspecified (principal); I10 Essential (primary) hypertension; E78.00 Pure hypercholesterolemia, unspecified; I25.10 Atherosclerotic heart disease of native coronary artery without angina pectoris
CPT/HCPCS: 36415; 80053; 80061; 85025

== ENCOUNTER 2021-02-24 21:27 | Observation (INO) | payer MEDICARE, SELFPAY ==
--- NOTE | ~2021-02-24 | MR_ITS ---
EXAMINATION: MR BRAIN WITHOUT CONTRAST CLINICAL INFORMATION: Double vision. Lightheaded. COMPARISON: Head CTA 02/24/2021. TECHNIQUE: Multiplanar, multisequence imaging of the brain was performed without intravenous contrast. FINDINGS: A small focus of acute lacunar infarction is seen within the left aspect of the midbrain (series 4 image ). There is no mass, hemorrhage, or extra-axial fluid collection. Mild patchy T2/FLAIR hyperintensity is seen within the cerebral white matter, typical of chronic microangiopathy. The ventricles are normal in size without hydrocephalus. The major arterial flow voids are preserved at the skull base. The orbital contents appear normal. The extracranial structures appear normal. MR/MR head/brain wo con IMPRESSION: Small focus of acute lacunar infarction in the left aspect of the midbrain. The site of this infarct (cranial nerve III nucleus) likely explains the patient's reported diplopia. No large territory infarction, hemorrhage, or mass. Mild background changes of chronic microangiopathy.
--- NOTE | ~2021-02-24 | CT_ITS ---
EXAMINATION: CT ANGIOGRAM NECK AND HEAD CLINICAL INFORMATION: Double vision, suspected TIA COMPARISON: None. TECHNIQUE: Initial noncontrast head CT was performed. Test bolus sequences followed by intravenous administration 70 mL of Omnipaque 350. Helical imaging was performed in the axial plane from the thoracic inlet to the skull vertex. Delayed postcontrast imaging of the head was also performed. The data was processed at the fibre technologist's workstation for generation of MIP sequences. Angled MIPs and volume rendered reformatted images were also generated at an offline 3D workstation. Stenoses are assessed in accordance with NASCET criteria unless otherwise indicated. DOSE LOWERING TECHNIQUES: This CT examination was performed using dose optimization techniques as appropriate, variously including the following: - Automated exposure control - Adjustment of mA and/or kV according to patient size (this includes techniques or standardized protocols for targeted exams were dose is matched to indication/reason for exam; i.e. extremities or head) - Use of iterative reconstruction technique DLP: 2353 mGy-cm FINDINGS: Neck CTA: There is a classic 3 vessel branching pattern of the aortic arch. There are scattered calcification in the visualized aorta. No evidence of stenosis at the branch origins. Both vertebral arteries are widely patent throughout their extracranial cervical course. There is mild noncalcified and calcified plaque at the right common carotid artery bifurcation without significant stenosis. Otherwise normal appearance of the common and internal carotid arteries without focal stenosis. Brain CTA: Normal appearance of the intradural vertebral and posterior inferior cerebellar arteries. Normal appearance of the basilar and superior cerebellar arteries. Normal appearance of the posterior cerebral arteries bilaterally. Normal appearance of the intradural internal carotid arteries without focal stenosis. Normal appearance of the anterior cerebral and middle cerebral arteries without focal occlusion or stenosis. Normal anterior communicating artery. Normal arborization of the middle cerebral arteries. CT Head: No intracranial mass, hemorrhage, extra-axial collection, or midline shift. The odom-white matter differentiation is preserved. No pathologic intra-axial enhancement or regional oligemia. No hydrocephalus. The mastoid air cells and paranasal sinuses remain well aerated. CT Neck: The thyroid gland and remaining cervical soft tissues are normal in appearance. No cervical spine abnormalities demonstrated. Upper Chest: No acute abnormalities in the visualized lung apices or upper mediastinum. Patient is status post CABG. CT/CT angio head neck IMPRESSION: 1. No acute intracranial findings. 2. No hemodynamically significant stenosis in the major arteries of the neck. No large vessel occlusion or significant stenosis in the intracranial circulation.
[2021-02-24 21:55] VITALS: BP 110/65; PULSE 68; RESP 16; TEMP 36.8; O2SAT 99; BMI 27.0
--- NOTE | 2021-02-24 22:18 | ED_ITS ---
HPI - Neuro Symptoms/Deficit General Chief Complaint: Neuro Symptoms/Deficit Stated Complaint: Dizzy, double vision Time Seen by Provider: 02/24/21 22:18 Source: patient Mode of arrival: ambulatory History of Present Illness HPI Narrative: 70-year-old male with history and clinical presentation double vision that started at 9:30 a.m. and at this time has completely resolved. Patient states that he was playing solitaire on his phone when he notice that there were 2 sets of cards and when he held his fingers he saw 4 fingers instead of to. Patient denies any other symptoms speech or hearing and denies any unilateral extremity numbness/ tingling /weakness, denies any recent illness or palpitations. Patient reports feeling lightheaded but denies any nausea, vomiting and denies that the room was spinning around him. Patient reports that when he closed 1 of his eyes that the double vision disappeared but when both eyes were open was when he experienced the phenomenon. Related Data Home Medications Medication Instructions Recorded Confirmed aspirin 81 mg tablet,delayed 81 mg PO DAILY 01/11/20 12/03/20 release (Adult Aspirin Regimen) cholecalciferol (vitamin D3) 50 50 mcg PO DAILY 08/31/20 12/03/20 mcg (2,000 unit) tablet (Vitamin D3) coQ10 (ubiquinol) 100 mg capsule 200 mg PO DAILY 12/01/20 12/03/20 Previous Rx's Medication Instructions Recorded butenafine 1 % topical cream 1 appl TOPICAL BID 30 Days #3 g 03/02/20 (Lotrimin Ultra) metoprolol succinate 50 mg 50 mg PO DAILY #30 tab 11/24/20 tablet,extended release 24 hr acetaminophen 500 mg tablet 1,000 mg PO Q6H #60 tab 12/16/20 docusate sodium 100 mg capsule 100 mg PO BID #30 cap 12/16/20 (Colace) oxycodone 5 mg tablet 5 mg PO Q4H PRN 7 Days #20 tab 12/16/20 pantoprazole 40 mg tablet,delayed 40 mg PO DAILY #90 tab 12/27/20 release rosuvastatin 20 mg tablet 20 mg PO DAILY #90 tab 12/28/20 Allergies Allergy/AdvReac Type Severity Reaction Status Date / Time atorvastatin [ATORVASTATIN] AdvReac Mild MUSCLE Verified 02/24/21 21:55 PAIN ALL OVER Review of Systems Review of Systems: Pertinent positives and negatives as stated in HPI point review of systems is otherwise negative. [facility] Past Medical History Source: nursing notes reviewed Medical History Abdominal pain Autoimmune hemolytic anemia Benign microscopic hematuria CAD (coronary artery disease) Cardiac pacemaker Complete heart block GERD (gastroesophageal reflux disease) History of autoimmune hemolytic anemia HTN (hypertension) Overweight (BMI 25.0-29.9) Pulmonary nodules Pure hypercholesterolemia Vitamin D deficiency Surgical History History of colonoscopy History of laparoscopic cholecystectomy History of permanent cardiac pacemaker placement History of splenectomy S/P CABG (coronary artery bypass graft) Family History Family History Father Tuberculosis Mother No problems noted. Brother Colon cancer Brother Schizophrenia Lung disease Family/Other FH: mental illness Brother Alcoholism Other Mental health problem Social History Social History Housing: House Are you a primary critical care paramedic to a significant other at home: No Do you presently have visiting nurse or other home services: No Alcohol intake: current Alcohol intake frequency: holidays/special occasions only Alcohol type: beer Patient Tobacco Use Status: Never used Tobacco Second Hand Smoke Exposure: Yes Advance Directives: No Advance Directives Information Provided: Yes service: No Current occupational status: retired Physical Exam Vital Signs: Vital Signs: Last Vital Signs Temp 98.2 F 02/24/21 22:27 Pulse 66 02/25/21 00:00 Resp 18 02/25/21 00:00 BP 128/83 02/25/21 00:00 Pulse Ox 99 02/25/21 00:00 BMI result Body Mass Index 27.0 VITAL SIGNS: Reviewed. GENERAL: Well developed, well nourished, in no acute distress. HEAD: Normocephalic/atraumatic EYES: PERRLA, EOMI intact without pain, no nystagmus/ No gaze palsy OROPHARYNX: no oral lesions noted, posterior pharynx clear NECK: Supple, no adenopathy LUNGS: Normal breath sounds. No adventitious sounds or accessory muscle use. SpO2<98> CARDIOVASCULAR: Regular rate and rhythm without noted murmurs, no JVD or lower extremity edema. ABDOMEN: Soft, non-tender, non-distended with bowel sounds. MUSCULOSKELETAL: No tenderness, deformities, or effusions noted on gross inspection. EXTREMITIES: No cyanosis, clubbing or edema. SKIN: Inspection of the skin reveals no rashes, ulcerations, jaundice, pallor, or petechiae. NEUROLOGIC: Alert and oriented x 4. Strength and sensation to light touch were grossly intact x 4, no facial asymmetry, no pronator drift, cranial nerves 2-12 are grossly intact, cerebellar testing is grossly normal. Course Course Course Narrative: 70-year-old male with history and clinical presentation consistent with possible TIA, pituitary pathology, aneurysmal pathology. Patient is currently asymptomatic and nonfocal. Review and re-evaluation there are no acute findings and patient remains asymptomatic. Patient informed that he will be admitted with scheduled MRI in the morning. Reevaluation(s) Reevaluation #1: I discussed the case with Dr. Shultz, neurology, who recommends MRI tomorrow. Time: 01:39 MDM - Neuro Symptoms/Deficit Lab Data Result diagrams: 02/24/21 22:56 02/24/21 22:56 Labs: Lab Results 02/24/21 02/24/21 02/24/21 Range/Units 22:56 22:56 22:56 WBC 12.0 H (4.8-10.8) X10*3/uL RBC 4.07 L (4.60-5.80) X10*6/uL Hgb 14.4 (14.0-18.0) g/dl Hct 39.8 L (42.0-52.0) % MCV 97.8 (80.0-98.0) fL MCH 35.4 H (27.0-33.0) pg MCHC 36.2 H (31.0-36.0) g/dl RDW 15.2 (11.0-16.0) % Plt Count 408 H (160-400) X10*3/uL MPV 9.8 (9.4-12.4) fL Immature Gran % (Auto) 0.3 (0.0-0.4) % Neut % (Auto) 24.5 L (45-73) % Lymph % (Auto) 50.5 H (20-40) % Franklin % (Auto) 11.9 H (2-11) % Eos % (Auto) 12.2 H (0-4) % Baso % (Auto) 0.6 (0-2) % Lymph # (Auto) 6.1 H (1.2-4.9) X10*3/uL Franklin # (Auto) 1.4 H (0.1-1.2) X10*3/uL Eos # (Auto) 1.5 H (0.0-0.4) X10*3/uL Baso # (Auto) 0.1 (0.0-0.2) X10*3/uL Abs Immat Gran (auto) 0.04 H (0.00-0.03) X10*3/uL Absolute Neuts (auto) 2.9 (2.0-8.3) x10*3/uL Absolute Nucleated RBC 0.020 H (0.0-0.012) X10*3/uL Nucleated RBC % (auto) 0.2 (0.0-0.2) /100WBC Smear Tech's Comments VERIFIED PT 12.6 (9.9-13.0) SEC INR 1.1 (0.9-1.1) Sodium 141 (135-145) mmol/L Potassium 4.7 (3.3-5.1) mmol/L Chloride 106 (96-108) mmol/L Carbon Dioxide 28 (22-29) mmol/L Anion Gap 12 (12-20) BUN 25 H (9-16) mg/dL Creatinine 1.34 (0.5-1.4) mg/dL Estim Creat Clear Calc 48.9 Estimated GFR 53 POC Glucose (60-115) mg/dL Random Glucose 107 (60-115) mg/dL Calcium 10.0 (8.4-10.2) mg/dL Total Bilirubin 2.4 H (0.0-1.0) mg/dL AST 26 (5-37) U/L ALT 22 (0-40) U/L Alkaline Phosphatase 120 H (39-117) U/L Troponin I High Sens (<3.5-35.0) ng/L Total Protein 8.1 H (6.5-8.0) g/dL Albumin 4.1 (3.5-5.0) g/dL Urine Color Urine Appearance Urine pH (5.0-8.0) Ur Specific [place] (1.005-1.025) Urine Protein (NEG-TRACE) MG/DL Urine Glucose (UA) (NEG) MG/DL Urine Ketones (NEG) MG/DL Urine Blood (NEG) Urine Nitrite (NEG) Ur Leukocyte Esterase (NEG) Urine RBC (0) /HPF Urine WBC (0-4) /HPF Ur Squamous Epith Cells /LPF Urine Bacteria /LPF 02/24/21 02/24/21 02/25/21 Range/Units 22:56 23:02 00:12 WBC (4.8-10.8) X10*3/uL RBC (4.60-5.80) X10*6/uL Hgb (14.0-18.0) g/dl Hct (42.0-52.0) % MCV (80.0-98.0) fL MCH (27.0-33.0) pg MCHC (31.0-36.0) g/dl RDW (11.0-16.0) % Plt Count (160-400) X10*3/uL MPV (9.4-12.4) fL Immature Gran % (Auto) (0.0-0.4) % Neut % (Auto) (45-73) % Lymph % (Auto) (20-40) % Franklin % (Auto) (2-11) % Eos % (Auto) (0-4) % Baso % (Auto) (0-2) % Lymph # (Auto) (1.2-4.9) X10*3/uL Franklin # (Auto) (0.1-1.2) X10*3/uL Eos # (Auto) (0.0-0.4) X10*3/uL Baso # (Auto) (0.0-0.2) X10*3/uL Abs Immat Gran (auto) (0.00-0.03) X10*3/uL Absolute Neuts (auto) (2.0-8.3) x10*3/uL Absolute Nucleated RBC (0.0-0.012) X10*3/uL Nucleated RBC % (auto) (0.0-0.2) /100WBC Smear Tech's Comments PT (9.9-13.0) SEC INR (0.9-1.1) Sodium (135-145) mmol/L Potassium (3.3-5.1) mmol/L Chloride (96-108) mmol/L Carbon Dioxide (22-29) mmol/L Anion Gap (12-20) BUN (9-16) mg/dL Creatinine (0.5-1.4) mg/dL Estim Creat Clear Calc Estimated GFR POC Glucose 103 (60-115) mg/dL Random Glucose (60-115) mg/dL Calcium (8.4-10.2) mg/dL Total Bilirubin (0.0-1.0) mg/dL AST (5-37) U/L ALT (0-40) U/L Alkaline Phosphatase (39-117) U/L Troponin I High Sens < 3.5 (<3.5-35.0) ng/L Total Protein (6.5-8.0) g/dL Albumin (3.5-5.0) g/dL Urine Color YELLOW Urine Appearance CLEAR Urine pH 6.0 (5.0-8.0) Ur Specific [place] 1.020 (1.005-1.025) Urine Protein NEG (NEG-TRACE) MG/DL Urine Glucose (UA) NEG (NEG) MG/DL Urine Ketones NEG (NEG) MG/DL Urine Blood TRACE (NEG) Urine Nitrite NEG (NEG) Ur Leukocyte Esterase NEG (NEG) Urine RBC 0-2 (0) /HPF Urine WBC 0 (0-4) /HPF Ur Squamous Epith Cells NONE /LPF Urine Bacteria NONE /LPF ECG Data Attestation: I personally reviewed and interpreted this ECG as follows: Prior ECG tracings: available for review Interpretation: Sinus rhythm, HR - 62, RBBB, no STEMI, WA /QTC are within normal limits. NIH Stroke Scale Internal: Initial- Upon Arrival Level of Consciousness: Alert Level of Consciousness Questions: Answers both questions correctly Level of Consciousness Commands: Performs both tasks correctly Best Gaze: Normal Visual: No visual loss Facial Palsy: Normal Motor Arm (Right): No drift Motor Arm (Left): No drift Motor Leg (Right): No drift Motor Leg (Left): No drift Limb Ataxia: Absent Sensory: Normal Best Language: No aphasia Dysarthia: Normal Extinction and Inattention: No abnormality Score: 0 Discharge Plan Discharge Clinical Impression: Double vision with both eyes open, Lightheadedness Patient Disposition: Admitted As Inpatient
--- NOTE | 2021-02-24 22:19 | ECG_ITS ---
Test Reason : BLURRED VISION Blood Pressure : / mmHG Vent. Rate : 062 BPM Atrial Rate : 062 BPM P-R Int : 176 ms QRS Dur : 134 ms QT Int : 440 ms P-R-T Axes : 053 052 036 degrees QTc Int : 446 ms Poor data quality Undetermined rhytm Right bundle branch block Abnormal ECG When compared with ECG of 11-OCT-2020 04:32, Poor data quality in current ECG precludes serial comparison Referred By: Jolene Yates Electronically Signed By:Blayne Jo
[2021-02-24 22:27] VITALS: BP 141/68; PULSE 64; RESP 18; TEMP 36.8; O2SAT 98
[2021-02-24 22:38] VITALS: BP 125/64; PULSE 63
[2021-02-24 22:39] VITALS: BP 155/78; PULSE 70
[2021-02-24 22:41] VITALS: BP 157/74; PULSE 70
[2021-02-24 23:03] LABS: Basophils Percent Auto 0.6 % (0-2); Hemoglobin 14.4 g/dl (14.0-18.0); Monocytes Percent Auto 11.9 % (2-11); SCAN SMEAR FLAG 1
[2021-02-24 23:07] LABS: Glucose, Whole Blood 103 mg/dL (60-115)
[2021-02-24 23:08] LABS: INTERNATIONAL NORM RATIO 1.1 (0.9-1.1); Prothrombin Time 12.6 SEC (9.9-13.0)
[2021-02-24 23:09] LABS: Basophils Absolute Auto 0.1 X10*3/uL (0.0-0.2); Eosinophils Absolute Auto 1.5 X10*3/uL (0.0-0.4); Eosinophils Percent Auto 12.2 % (0-4); Hematocrit 39.8 % (42.0-52.0); Imm Gran Abs Auto 0.04 X10*3/uL (0.00-0.03); Imm Gran Pct Auto 0.3 % (0.0-0.4); Lymphocytes Percent Auto 50.5 % (20-40); MANUAL DIFF FLAG SCAN; Mean Corpuscular HGB Conc 36.2 g/dl (31.0-36.0); Mean Corpuscular Hemoglobin 35.4 pg (27.0-33.0); Mean Corpuscular Volume 97.8 fL (80.0-98.0); Mean Platelet Volume 9.8 fL (9.4-12.4); Monocytes Absolute Auto 1.4 X10*3/uL (0.1-1.2); NRBC Pct Auto 0.2 /100WBC (0.0-0.2); Neutrophils Absolute Auto 2.9 x10*3/uL (2.0-8.3); Neutrophils Percent Auto 24.5 % (45-73); Platelet Count 408 X10*3/uL (160-400); Red Blood Count 4.07 X10*6/uL (4.60-5.80); Red Cell Distribution Width 15.2 % (11.0-16.0)
[2021-02-24 23:19] LABS: Alanine Aminotransferase 22 U/L (0-40); Albumin Level 4.1 g/dL (3.5-5.0); Alkaline Phosphatase 120 U/L (39-117); Anion Gap 12 (12-20); Aspartate Amino Transferase 26 U/L (5-37); Bilirubin Total 2.4 mg/dL (0.0-1.0); Blood Urea Nitrogen 25 mg/dL (9-16); Carbon Dioxide 28 mmol/L (22-29); Chloride 106 mmol/L (96-108); Creatinine Clr Calc Pharmacy 48.9; Estimated Glomerular Filt Rate 53; Glucose Random 107 mg/dL (60-115); Potassium 4.7 mmol/L (3.3-5.1); Sodium 141 mmol/L (135-145); Total Protein 8.1 g/dL (6.5-8.0)
[2021-02-24 23:22] LABS: Troponin-I High Sensitivity < 3.5 ng/L (<3.5-35.0)
[2021-02-24 23:31] LABS: Lymphocytes Absolute Auto 6.1 X10*3/uL (1.2-4.9)
[2021-02-24 23:32] LABS: SLIDE REVIEW VERIFIED
[2021-02-25] VITALS: BP 128/83; PULSE 66; RESP 18; O2SAT 99
[2021-02-25] MEDS: iohexoL 350 MG/ML 100 ML INFUS..BTL 70 ML IV (00:02)
[2021-02-25 00:19] LABS: Appearance Urine CLEAR; Color Urine YELLOW; Glucose Urine UA NEG (NEG); Leukocyte Esterase Urine NEG (NEG); Nitrite Urine NEG (NEG); UACC Culture Trigger NO; Urine Blood TRACE (NEG); Urine Ketones NEG (NEG); Urine Protein NEG (NEG-TRACE)
[2021-02-25 00:24] LABS: RBC Urine 0-2 /HPF (0); WBC Urine 0 /HPF (0-4)
--- NOTE | 2021-02-25 01:05 | PC.NURSE ---
Pt resting on stretcher in NAD, breathing with ease on RA, skin warm dry and normal in appearance for age and race. Pt reports I feel fine, denies blurred/double vision at this time, denies pain/discomfort. Pt NSR on centrifugal casting machine tender, VSS. Pt's stretcher in lowest locked position, rails raised, call gaston within reach.
[2021-02-25 02:00] VITALS: BP 126/66; PULSE 65; RESP 16; O2SAT 100
--- NOTE | 2021-02-25 02:32 | PC.NURSE ---
Patient is alert and oriented x4, MRI form completed, patient aware of MRI, patient was COVID swabbed, swab sent to lab. Will continue to monitor
[2021-02-25 02:52] LABS: COVID-19 Test Negative (Negative); IDNOW Serial# 9DD0AD1C
--- NOTE | 2021-02-25 03:10 | P.HPHOSP_ITS ---
History of Present Illness Date of Service: 02/25/21 Chief Complaint: double vision 70-year-old male with a past medical history of hypertension, hyperlipidemia, diabetes, CAD status post CABG, GERD, hemolytic anemia, history of complete heart block status post pacemaker, pulmonary nodule, presented to the hospital today with a chief complaint of double vision. Patient mentions that on night around 9:30 p.m. he noted to have double vision - seeing 2 things including his fingers; which lasted for few minutes and subsequently subsided. At the same time he felt mildly lightheaded; which also resolved. Denied any chest pain palpitations. At the time of my interview patient denies any lightheadedness dizziness or visual symptoms. Reports he is back to his baseline. Denies any fever chills cough. Denies any recent travel or sick contacts. Review of all other systems is negative except mentioned above ER course: Per ER team patient exam was nonfocal; NIH stroke scale was 0. CT angio head and neck showed no acute findings. Labs essentially benign. Discussed with Dr. Lewis from Neurology who suggested admission to the hospital for MRI. [facility] Medical History Abdominal pain Autoimmune hemolytic anemia Benign microscopic hematuria CAD (coronary artery disease) Cardiac pacemaker Complete heart block GERD (gastroesophageal reflux disease) History of autoimmune hemolytic anemia HTN (hypertension) Overweight (BMI 25.0-29.9) Pulmonary nodules Pure hypercholesterolemia Vitamin D deficiency Family History Father Tuberculosis Mother No problems noted. Brother Colon cancer Brother Schizophrenia Lung disease Family/Other FH: mental illness Brother Alcoholism Other Mental health problem Pertinent family history: As mentioned above Surgical History History of colonoscopy History of laparoscopic cholecystectomy History of permanent cardiac pacemaker placement History of splenectomy S/P CABG (coronary artery bypass graft) Social History Housing: House Are you a primary long term care phlebotomist to a significant other at home: No Do you presently have visiting nurse or other home services: No Alcohol intake: current Alcohol intake frequency: holidays/special occasions only Alcohol type: beer Patient Tobacco Use Status: Never used Tobacco Second Hand Smoke Exposure: Yes Advance Directives: No Advance Directives Information Provided: Yes service: No Current occupational status: retired Meds Allergies Allergy/AdvReac Type Severity Reaction Status Date / Time atorvastatin [ATORVASTATIN] AdvReac Mild MUSCLE Verified 02/24/21 21:55 PAIN ALL OVER Active Medications: Current Medications Acetaminophen (Acetaminophen 325 Mg Tablet) 650 mg PO Q6H PRN PRN Reason: Pain, Mild (Pain Scale 1-3) Melatonin (Melatonin 3 Mg Tablet) 6 mg PO BEDTIME PRN PRN Reason: Insomnia Senna (Sennosides 8.6 Mg Tablet) 17.2 mg PO BEDTIME PRN PRN Reason: Constipation Sodium Chloride (0.9 % Sodium Chloride Flush 3 Ml Syringe) 3 ml IVFLUSH QSHIFT [facility] Home Medications Medication Instructions Recorded Confirmed Last Taken Type aspirin 81 mg tablet,delayed 81 mg PO DAILY 01/11/20 02/25/21 Unknown History release (Adult Aspirin Regimen) cholecalciferol (vitamin D3) 50 50 mcg PO DAILY 08/31/20 02/25/21 Unknown History mcg (2,000 unit) tablet (Vitamin D3) coQ10 (ubiquinol) 100 mg capsule 200 mg PO DAILY 12/01/20 02/25/21 Unknown History Physical Exam Vital Signs and Narrative: Vital Signs: Last Vital Signs Temp 98.2 F 02/24/21 22:27 Pulse 65 02/25/21 02:00 Resp 16 02/25/21 02:00 BP 126/66 02/25/21 02:00 Pulse Ox 100 02/25/21 02:00 BMI result Body Mass Index 27.0 Gen: Appears be in no acute distress HEENT: NCAT, Moist mucosa. Pulmonary: Vesicular breath sounds, fair air entry CVS: Normal S1-S2 Abdomen: BS+, Soft, Nontender Extremities: Warm well perfused Neuro: Alert and awake. grossly nonfocal. No visual field deficits. Cranial nerves intact. Strength equal bilaterally. Sensations intact. Ocakol-an-ypao test intact. Results Labs CBC and Chem 7: 02/24/21 22:56 02/24/21 22:56 Labs: Laboratory Results - last 24 hr 02/24/21 02/24/21 02/24/21 22:56 22:56 22:56 MCV 97.8 MCH 35.4 H MCHC 36.2 H RDW 15.2 Plt Count 408 H MPV 9.8 Immature Gran % (Auto) 0.3 Neut % (Auto) 24.5 L Lymph % (Auto) 50.5 H Gilchrist % (Auto) 11.9 H Eos % (Auto) 12.2 H Baso % (Auto) 0.6 Lymph # (Auto) 6.1 H Gilchrist # (Auto) 1.4 H Eos # (Auto) 1.5 H Baso # (Auto) 0.1 Abs Immat Gran (auto) 0.04 H Absolute Neuts (auto) 2.9 Absolute Nucleated RBC 0.020 H Nucleated RBC % (auto) 0.2 Smear Tech's Comments VERIFIED PT 12.6 INR 1.1 Anion Gap 12 Estim Creat Clear Calc 48.9 Estimated GFR 53 POC Glucose Random Glucose 107 Calcium 10.0 Total Bilirubin 2.4 H AST 26 ALT 22 Alkaline Phosphatase 120 H Troponin I High Sens Total Protein 8.1 H Albumin 4.1 Urine Color Urine Appearance Urine pH Ur Specific [place] Urine Protein Urine Glucose (UA) Urine Ketones Urine Blood Urine Nitrite Ur Leukocyte Esterase Urine RBC Urine WBC Ur Squamous Epith Cells Urine Bacteria COVID-19 (JULIUS) COVID-[employer] Com 02/24/21 02/24/21 02/25/21 22:56 23:02 00:12 MCV MCH MCHC RDW Plt Count MPV Immature Gran % (Auto) Neut % (Auto) Lymph % (Auto) Gilchrist % (Auto) Eos % (Auto) Baso % (Auto) Lymph # (Auto) Gilchrist # (Auto) Eos # (Auto) Baso # (Auto) Abs Immat Gran (auto) Absolute Neuts (auto) Absolute Nucleated RBC Nucleated RBC % (auto) Smear Tech's Comments PT INR Anion Gap Estim Creat Clear Calc Estimated GFR POC Glucose 103 Random Glucose Calcium Total Bilirubin AST ALT Alkaline Phosphatase Troponin I High Sens < 3.5 Total Protein Albumin Urine Color YELLOW Urine Appearance CLEAR Urine pH 6.0 Ur Specific [place] 1.020 Urine Protein NEG Urine Glucose (UA) NEG Urine Ketones NEG Urine Blood TRACE Urine Nitrite NEG Ur Leukocyte Esterase NEG Urine RBC 0-2 Urine WBC 0 Ur Squamous Epith Cells NONE Urine Bacteria NONE COVID-19 (JULIUS) COVID-19 Clin Com 02/25/21 02:31 MCV MCH MCHC RDW Plt Count MPV Immature Gran % (Auto) Neut % (Auto) Lymph % (Auto) Gilchrist % (Auto) Eos % (Auto) Baso % (Auto) Lymph # (Auto) Gilchrist # (Auto) Eos # (Auto) Baso # (Auto) Abs Immat Gran (auto) Absolute Neuts (auto) Absolute Nucleated RBC Nucleated RBC % (auto) Smear Tech's Comments PT INR Anion Gap Estim Creat Clear Calc Estimated GFR POC Glucose Random Glucose Calcium Total Bilirubin AST ALT Alkaline Phosphatase Troponin I High Sens Total Protein Albumin Urine Color Urine Appearance Urine pH Ur Specific [place] Urine Protein Urine Glucose (UA) Urine Ketones Urine Blood Urine Nitrite Ur Leukocyte Esterase Urine RBC Urine WBC Ur Squamous Epith Cells Urine Bacteria COVID-19 (JULIUS) Negative COVID-19 Clin Com See Note Imaging Radiologist's Impressions: Impressions Head/Neck CTA 02/25/21 00:01 IMPRESSION: 1. No acute intracranial findings. 2. No hemodynamically significant stenosis in the major arteries of the neck. No large vessel occlusion or significant stenosis in the intracranial circulation. Assessment and Plan (1) Double vision with both eyes open: Status: Acute 70-year-old male with a past medical history of hypertension, hyper lipidemia, diabetes, CAD status post CABG, GERD, hemolytic anemia, history of complete heart block status post pacemaker, pulmonary nodule, presented to the hospital today with a chief complaint of double vision. brief episode of double vision/ lightheadedness: Currently resolved. Exam nonfocal. CT head / CT angio head and neck showed no acute findings. Neurology consult recommended MRI brain. Telemetry Cycle cardiac enzymes echocardiogram with bubble study. Hypertension/hyperlipidemia: Continue home medications Diabetes: Insulin sliding scale DVT prophylaxis: SCD boots Code status: Full code Quality Stroke Does the patient have a stroke diagnosis?: No VTE Prior VTE?: No VTE Risk Level:: Medical - moderate - high VTE Device Contraindication: N/A - Device Ordered VTE Drug Contraindication: Treatment Not Indicated
[2021-02-25 05:55] VITALS: BP 105/52; PULSE 82; RESP 19; O2SAT 96
--- NOTE | 2021-02-25 05:56 | PC.NURSE ---
Pt MRI form completed at bedside with pt who is aaox4, MRI formed faxed to MRI and hard copy remains in chart.
[2021-02-25 06:43] LABS: MANUAL DIFF FLAG NO
[2021-02-25 06:46] LABS: Basophils Absolute Auto 0.1 X10*3/uL (0.0-0.2); Basophils Percent Auto 0.5 % (0-2); Eosinophils Absolute Auto 1.5 X10*3/uL (0.0-0.4); Eosinophils Percent Auto 15.7 % (0-4); Hematocrit 39.3 % (42.0-52.0); Hemoglobin 13.9 g/dl (14.0-18.0); Imm Gran Abs Auto 0.03 X10*3/uL (0.00-0.03); Imm Gran Pct Auto 0.3 % (0.0-0.4); Lymphocytes Absolute Auto 4.4 X10*3/uL (1.2-4.9); Lymphocytes Percent Auto 44.9 % (20-40); Mean Corpuscular HGB Conc 35.4 g/dl (31.0-36.0); Mean Corpuscular Hemoglobin 34.3 pg (27.0-33.0); Monocytes Absolute Auto 1.2 X10*3/uL (0.1-1.2); Monocytes Percent Auto 12.7 % (2-11); Neutrophils Absolute Auto 2.5 x10*3/uL (2.0-8.3); Neutrophils Percent Auto 25.9 % (45-73); Platelet Count 393 X10*3/uL (160-400); Red Blood Count 4.05 X10*6/uL (4.60-5.80); Red Cell Distribution Width 15.1 % (11.0-16.0); White Blood Count 9.8 X10*3/uL (4.8-10.8)
[2021-02-25 07:20] LABS: Anion Gap 9 (12-20); Blood Urea Nitrogen 22 mg/dL (9-16); Calcium 9.5 mg/dL (8.4-10.2); Carbon Dioxide 26 mmol/L (22-29); Chloride 108 mmol/L (96-108); Creatinine Clr Calc Pharmacy 60.1; Estimated Glomerular Filt Rate > 60; Glucose Random 95 mg/dL (60-115); Potassium 4.3 mmol/L (3.3-5.1); Sodium 139 mmol/L (135-145)
--- NOTE | 2021-02-25 07:20 | PHA.MEDREC ---
Pharmacy Consult ? Medication Reconciliation Pharmacy has completed the medication reconciliation.Checked meds in am based on claim history and matches
[2021-02-25 07:43] VITALS: BP 119/66; PULSE 69; RESP 17; TEMP 36.5; O2SAT 99
[2021-02-25] MEDS: 0.9 % Sodium Chloride Flush 3 ML SYRINGE IVFLUSH (07:45)
[2021-02-25 10:19] VITALS: BP 126/69; PULSE 70; RESP 17; O2SAT 99
[2021-02-25] MEDS: Aspirin Enteric Coated 81 MG TABLET.DR PO (10:20)
[2021-02-25] MEDS: Omeprazole 20 MG CAPSULE.DR PO (10:20)
[2021-02-25] MEDS: Metoprolol Succinate ER 50 MG TAB.ER.24H PO (10:20)
[2021-02-25] MEDS: Cholecalciferol (Vitamin D3) 25 MCG TABLET 50 MCG PO (10:20)
--- NOTE | 2021-02-25 10:30 | CA_ITS ---
Transthoracic Echocardiogram Patient (Last, First, Middle): Dallin Barnett, Gender: Male Date of : 1950 Age: 70 Procedure Date: 02/25/2021 Procedure Type: Transthoracic E[place]ogram [place] [facility] [place]: 172.72 cm Weight: 80.74 kg BSA: 1.95 m2 Heart Rate: bpm BP: 105 / 52 mmHg Hand Grinder: Referring MD: Aquiles Michaels MD Symptoms: Double vision, possibe TIA Study Quality: Fair ECG Rhythm: Sinus Conclusions: - Normal left ventricular size and systolic function. - E/E prime ratio is between 8 and 15 consistent with indeterminate filling pressures. - The basal inferior segment is hypokinetic. - Normal right ventricular cavity size and systolic function. Findings Left Ventricle Normal left ventricular size and systolic function. There is mildly increased left ventricular wall thickness. The visually estimated ejection fraction is between 55-60%. There is evidence of regional wall motion abnormalities. Abnormal diastolic function is noted. Spectral Doppler is indicative of an impaired relaxation filling pattern. E/E prime ratio is between 8 and 15 consistent with indeterminate filling pressures. Wall Motion Rest Echo Findings The basal inferior segment is hypokinetic. Right Ventricle Normal right ventricular cavity size and systolic function. Atria Both atria are normal in size. Aortic Valve Normal aortic valve structure and function. There is no aortic valve stenosis. There is no aortic valve regurgitation. Mitral Valve Normal mitral valve structure and function. There is no mitral valve regurgitation. There is no mitral valve stenosis. Pulmonic Valve Normal pulmonic valve structure and function. There is trace pulmonic valve regurgitation. Tricuspid Valve Normal tricuspid valve structure and function. There is trace tricuspid valve regurgitation. Normal right atrial pressure. There is no evidence of pulmonary hypertension. Great Vessels All visible segments of the aorta are normal in size. The visualized portions of the pulmonary artery and branches are normal. Venous The inferior vena cava is normal in size and collapses greater than 50% with inspiration. Pericardium/Pleural There is no evidence of pericardial effusion. Prior Study Comparison Changes noted compared to prior study dated: 10/23/2017. Diastolic dysfunction present. Measurements 2D Linear Measurements IVSd: 1.11 0.6-0.9/0.6-1.0 cm LVIDd: 4.26 3.9-5.3/4.2-5.9 cm LVIDd Index: 2.18 2.4-3.2/2.2-3.1 cm/m2 LVIDs: 2.75 2.0-3.6 cm LVPWd: 1.11 0.7-1.1 cm Ao Root: 3.40 2.1-3.5 cm LA Diam: 4.30 2.7-3.8/3.0-4.0 cm LAIDs Index: 2.21 1.5-2.3 cm/m2 LV Mass: 202.58 67-162/88-224 g LV Mass Index: 103.89 43-95/49-115 g/m2 LVOT Diam: 2.20 3.0+(-)1.3 cm 2D Systolic Function EF 4C: 63.90 >55% EF 2C: 63.10 >55% EF BiP: 64.50 >55% Mitral Valve MV Pk E: 0.70 MV PK A: 0.62 MV Decel Time: 257.00 E/A: 1.10 E'Lateral: 12.90 E'Medial: 5.87 E/E' Med: 11.90 E/E' Lat: 5.40 PHT: 75.00 MVA PHT: 2.93 Decel [place]: 2.72 Aortic Valve AoV Pk Elvis: 1.49 AoV Mn Elvis: 0.89 AoV VTI: 0.32 AoV Pk Grad: 9.00 Aov Mn Grad: 4.00 JUSTIN Cont.VTI: 2.15 LVOT LVOT Pk Elvis: 0.92 LVOT Mn Elvis: 0.59 LVOT VTI: 0.18 LVOT Pk Grad: 3.00 LVOT Mn Grad: 2.00 LVOT Diam: 2.20 LVOT Area: 3.80 Diastolic Function MV Pk E: 0.70 MV Pk A: 0.62 E/A: 1.10 E'Medial: 5.87 E/E' Med: 11.90 E' Laterial: 12.90 E/E' Lat: 5.40 Right Ventricle TAPSE (mm): 18.00 Tricuspid Valve TR Pk Elvis: 1.88 TR Pk Grad: 14.00 Great Vessels Aorta Ao Root-2D: 3.40 2.0-3.7 cm Ao Asc: 3.30 2.1-3.4 cm Pulmonary Valve PV Pk Elvis: 0.98 Peak PV Grad: 4.00 Updated in Other Vendor System with Status of Final Blayne Jo MD electronically signed on 02/27/2021 10:17:54 AM with status of Final
--- NOTE | 2021-02-25 10:34 | MHC.CM.PN ---
Met with patient in regards to discharge planning. Patient lives with his , ambulates independently and had no services prior to coming to the hospital. No services anticipated to be needed because patient is not homebound. PCP verified as Dr Walters. Patient has a HCP at home and will attempt to obtain a copy. Obs notice explained and signed. Patient's will transport patient at d/c. Continue to monitor for d/c needs.
--- NOTE | 2021-02-25 10:49 | P.CNNE_ITS ---
History of Present Illness Data of Consult Service Date: 02/25/21 Primary Care Provider: Emile Walters MD HPI Reason for consult: Double vision 70 years old man who came to hospital with new onset of double vision. He said that he was in usual state of health not sick and playing solitaire on his phone when suddenly he noted that he was seeing double of everything. He looked at his finger and it seem like he was seeing in the double or multiples of his finger. He did not have any headache. There was no numbness or tingling or speech or language difficulty associated with it. This episode lasted minutes to an hour or so. He right away came to emergency room and the episode was resolved. He was evaluated with a CT of brain and CTA of brain and then ultimately with an MRI. He did not have any further recurrence of this symptom. Onset of symptom was about 20:35 last night. Review of Systems Review of Systems: No recent cold or flu-like illness PMFSH Past Medical History Medical History Abdominal pain Autoimmune hemolytic anemia Benign microscopic hematuria CAD (coronary artery disease) Cardiac pacemaker Complete heart block GERD (gastroesophageal reflux disease) History of autoimmune hemolytic anemia HTN (hypertension) Overweight (BMI 25.0-29.9) Pulmonary nodules Pure hypercholesterolemia Vitamin D deficiency Family History Family History Father Tuberculosis Mother No problems noted. Brother Colon cancer Brother Schizophrenia Lung disease Family/Other FH: mental illness Brother Alcoholism Other Mental health problem Surgical History Surgical History History of colonoscopy History of laparoscopic cholecystectomy History of permanent cardiac pacemaker placement History of splenectomy S/P CABG (coronary artery bypass graft) Social History Social History Housing: House Are you a primary pet caregiver to a significant other at home: No Do you presently have visiting nurse or other home services: No Alcohol intake: current Alcohol intake frequency: holidays/special occasions only Alcohol type: beer Patient Tobacco Use Status: Never used Tobacco Second Hand Smoke Exposure: Yes Advance Directives: No Advance Directives Information Provided: Yes service: No Current occupational status: retired Meds Allergies Allergy/AdvReac Type Severity Reaction Status Date / Time atorvastatin [ATORVASTATIN] AdvReac Mild MUSCLE Verified 02/24/21 21:55 PAIN ALL OVER Active Medications: Current Medications Acetaminophen (Acetaminophen 325 Mg Tablet) 650 mg PO Q6H PRN PRN Reason: Pain, Mild (Pain Scale 1-3) Aspirin (Aspirin Enteric Coated 81 Mg Tablet.) 81 mg PO DAILY [facility] Last Admin: 02/25/21 10:20 Dose: 81 mg Documented by: Clotrimazole (Clotrimazole 1 % Cream 15 Gm Tube) 1 appl TOPICAL BID [facility] Last Admin: 02/25/21 10:21 Dose: Not Given Documented by: Melatonin (Melatonin 3 Mg Tablet) 6 mg PO BEDTIME PRN PRN Reason: Insomnia Metoprolol Succinate (Metoprolol Succinate Er 50 Mg Tab.Er.24h) 50 mg PO DAILY [facility]; Protocol Last Admin: 02/25/21 10:20 Dose: 50 mg Documented by: Non-Formulary Medication (Rosuvastatin) 20 mg PO DAILY [facility] Omeprazole (Omeprazole 20 Mg Capsule.) 20 mg PO DAILY [facility] Last Admin: 02/25/21 10:20 Dose: 20 mg Documented by: Pharmacy Consult (Consult Rx Perform Med Rec) 1 each MISCELLANE ONCE PRN PRN Reason: Consult order Senna (Sennosides 8.6 Mg Tablet) 17.2 mg PO BEDTIME PRN PRN Reason: Constipation Sodium Chloride (0.9 % Sodium Chloride Flush 3 Ml Syringe) 3 ml IVFLUSH QSHIFT [facility] Last Admin: 02/25/21 07:45 Dose: 3 ml Documented by: Vitamin D (Cholecalciferol (Vitamin D3) 25 Mcg Tablet) 50 mcg PO DAILY [facility] Last Admin: 02/25/21 10:20 Dose: 50 mcg Documented by: Home Medications Medication Instructions Recorded Confirmed Last Taken Type aspirin 81 mg tablet,delayed 81 mg PO DAILY 01/11/20 02/25/21 Unknown History release (Adult Aspirin Regimen) cholecalciferol (vitamin D3) 50 50 mcg PO DAILY 08/31/20 02/25/21 Unknown History mcg (2,000 unit) tablet (Vitamin D3) coQ10 (ubiquinol) 100 mg capsule 200 mg PO DAILY 12/01/20 02/25/21 Unknown History Physical Exam Vital Signs: Vital Signs: Last Vital Signs Temp 97.7 F 02/25/21 07:43 Pulse 70 02/25/21 10:19 Resp 17 02/25/21 10:19 BP 126/69 02/25/21 10:19 Pulse Ox 99 02/25/21 10:19 BMI result Body Mass Index 27.0 Neuro: Other: He was alert and awake with normal spontaneity of speech fluency comprehension and affect. Pupils were about 3 mm round reactive. There was mild left-sided ptosis. Face otherwise was symmetrical. There was no focal weakness. Deep tendon reflexes were about 1+ with flexor plantars. Speech was normal. Results Labs CBC & Chem 7: 02/25/21 06:31 02/25/21 06:31 Labs: Short CBC 02/24/21 02/25/21 Range/Units 22:56 06:31 WBC 12.0 H 9.8 (4.8-10.8) X10*3/uL Hgb 14.4 13.9 L (14.0-18.0) g/dl Hct 39.8 L 39.3 L (42.0-52.0) % Plt Count 408 H 393 (160-400) X10*3/uL BMP 02/24/21 02/25/21 22:56 06:31 Sodium 141 139 Potassium 4.7 4.3 Chloride 106 108 Carbon Dioxide 28 26 BUN 25 H 22 H Creatinine 1.34 1.09 Calcium 10.0 9.5 Liver Function 02/24/21 Range/Units 22:56 Total Bilirubin 2.4 H (0.0-1.0) mg/dL AST 26 (5-37) U/L ALT 22 (0-40) U/L Alkaline Phosphatase 120 H (39-117) U/L Albumin 4.1 (3.5-5.0) g/dL Urine 02/25/21 Range/Units 00:12 Urine Color YELLOW Urine Appearance CLEAR Urine pH 6.0 (5.0-8.0) Ur Specific [place] 1.020 (1.005-1.025) Urine Protein NEG (NEG-TRACE) MG/DL Urine Glucose (UA) NEG (NEG) MG/DL His noncontrast head CT, CTA of brain and neck, and MRI of brain without contrast were reviewed. There was no obvious acute process. Mild chronic microvascular ischemic changes were noted. There was no sign of any vascular lesion or an aneurysm. Assessment and Plan (1) Double vision with both eyes open: Status: Acute 70 years old man with an episode of double vision, binocular, with brain imaging not revealing any obvious explanation. His examination was suggestive of mild left-sided ptosis. Other than structural abnormality, neuromuscular disorder was another consideration. I recommend covering him for vascular disease with anti-platelet agent blood pressure control and statin but also ordering acetylcholine Receptor antibody titer. Please order acetylcholine Receptor antibody binding, blocking, and modulating levels. Procedures Date of Service Date of Service: 02/25/21
--- NOTE | 2021-02-25 12:12 | P.DS_ITS ---
DS: Providers Provider Date of Service: 02/25/21 Date of admission: 02/25/21 03:08 Primary care physician: Emile Walters MD Consults: 02/25/21 08:37 Consult to Neurology Routine Consulting Provider: [facility] Reason for consultation: Transietn dyplopia DS: Diagnosis Discharge Diagnosis (1) Double vision with both eyes open: Status: Acute DS: Summary Hospital Course Hospital Course: ? Patient was observe and underwent evaluation by Dr. Shultz Neurologist with the following recommendation ? I recommend covering him for vascular disease with anti-platelet agent blood pressure control and statin but also ordering acetylcholine Receptor antibody titer.? Please order acetylcholine Receptor antibody binding, blocking, and modulating levels. --Lab levels drawn, to follow up with Dr. Shultz Time Spent with Patient Time attestation: Total time spent providing and/or coordinating discharge services: Discharge coordination time: Greater than 30 minutes Quality: Stroke Does the patient have a stroke diagnosis?: No Physical Exam Verdana 4l Vital Signs: Verdana 4d Verdana 4d Vital Signs: Verdana 4d Verdana 4Bd Last Vital Signs Verdana 4d Track Grinder Operator New 4d Track Grinder Operator New 4d Temp 97.7 F 02/25/21 07:43 Track Grinder Operator New 4d Pulse 70 02/25/21 10:19 Track Grinder Operator NewNew 4d Resp 17 02/25/21 10:19 BP 126/69 02/25/21 10:19 Pulse Ox 99 02/25/21 10:19 BMI result Body Mass Index 27.0 DS: Data Data Completed and Pending Labs on day of discharge: Laboratory Results - last 24 hr 02/24/21 02/24/21 02/24/21 22:56 22:56 22:56 WBC 12.0 H RBC 4.07 L Hgb 14.4 Hct 39.8 L MCV 97.8 MCH 35.4 H MCHC 36.2 H RDW 15.2 Plt Count 408 H MPV 9.8 Immature Gran % (Auto) 0.3 Neut % (Auto) 24.5 L Lymph % (Auto) 50.5 H Nance % (Auto) 11.9 H Eos % (Auto) 12.2 H Baso % (Auto) 0.6 Lymph # (Auto) 6.1 H [place] # (Auto) 1.4 H Eos # (Auto) 1.5 H Baso # (Auto) 0.1 Abs Immat Gran (auto) 0.04 H Absolute Neuts (auto) 2.9 Absolute Nucleated RBC 0.020 H Nucleated RBC % (auto) 0.2 Smear Tech's Comments VERIFIED Smear Path Review SEE NOTE PT 12.6 INR 1.1 Sodium 141 Potassium 4.7 Chloride 106 Carbon Dioxide 28 Anion Gap 12 BUN 25 H Creatinine 1.34 Estim Creat Clear Calc 48.9 Estimated GFR 53 POC Glucose Random Glucose 107 Calcium 10.0 Total Bilirubin 2.4 H AST 26 ALT 22 Alkaline Phosphatase 120 H Troponin I High Sens Total Protein 8.1 H Albumin 4.1 Urine Color Urine Appearance Urine pH Ur Specific [place] Urine Protein Urine Glucose (UA) Urine Ketones Urine Blood Urine Nitrite Ur Leukocyte Esterase Urine RBC Urine WBC Ur Squamous Epith Cells Urine Bacteria COVID-19 (JULIUS) COVID-19 [employer] 02/24/21 02/24/21 02/25/21 22:56 23:02 00:12 WBC RBC Hgb Hct MCV MCH MCHC RDW Plt Count MPV Immature Gran % (Auto) Neut % (Auto) Lymph % (Auto) [place] % (Auto) Eos % (Auto) Baso % (Auto) Lymph # (Auto) [place]ance # (Auto) Eos # (Auto) Baso # (Auto) Abs Immat Gran (auto) Absolute Neuts (auto) Absolute Nucleated RBC Nucleated RBC % (auto) Smear Tech's Comments Smear Path Review PT INR Sodium Potassium Chloride Carbon Dioxide Anion Gap BUN Creatinine Estim Creat Clear Calc Estimated GFR POC Glucose 103 Random Glucose Calcium Total Bilirubin AST ALT Alkaline Phosphatase Troponin I High Sens < 3.5 Total Protein Albumin Urine Color YELLOW Urine Appearance CLEAR Urine pH 6.0 Ur Specific [place] 1.020 Urine Protein NEG Urine Glucose (UA) NEG Urine Ketones NEG Urine Blood TRACE Urine Nitrite NEG Ur Leukocyte Esterase NEG Urine RBC 0-2 Urine WBC 0 Ur Squamous Epith Cells NONE Urine Bacteria NONE COVID-19 (JULIUS) COVID-19 [employer] 02/25/21 02/25/21 02/25/21 02:31 06:31 06:31 WBC 9.8 RBC 4.05 L Hgb 13.9 L Hct 39.3 L MCV 97.0 MCH 34.3 H MCHC 35.4 RDW 15.1 Plt Count 393 MPV 10.0 Immature Gran % (Auto) 0.3 Neut % (Auto) 25.9 L Lymph % (Auto) 44.9 H Nance % (Auto) 12.7 H Eos % (Auto) 15.7 H Baso % (Auto) 0.5 Lymph # (Auto) 4.4 Nance # (Auto) 1.2 Eos # (Auto) 1.5 H Baso # (Auto) 0.1 Abs Immat Gran (auto) 0.03 Absolute Neuts (auto) 2.5 Absolute Nucleated RBC 0.000 Nucleated RBC % (auto) 0.0 Smear Tech's Comments Smear Path Review PT INR Sodium 139 Potassium 4.3 Chloride 108 Carbon Dioxide 26 Anion Gap 9 L BUN 22 H Creatinine 1.09 Estim Creat Clear Calc 60.1 Estimated GFR > 60 POC Glucose Random Glucose 95 Calcium 9.5 Total Bilirubin AST ALT Alkaline Phosphatase Troponin I High Sens Total Protein Albumin Urine Color Urine Appearance Urine pH Ur Specific [place] Urine Protein Urine Glucose (UA) Urine Ketones Urine Blood Urine Nitrite Ur Leukocyte Esterase Urine RBC Urine WBC Ur Squamous Epith Cells Urine Bacteria COVID-19 (JULIUS) Negative COVID-19 Clin Com See Note Discharge Plan Discharge Anticipated Discharge Date/Time: 02/25/21 12:09 Patient Disposition: Home, Self-Care Discharge Diagnosis: Transient double vision Referrals: Emile Walters MD [Primary Care Provider] - 1 Week Ronald Shultz MD [Physician] - 2 Weeks Discharge Medications: Continued metoprolol succinate 50 mg tablet extended release 24 hr 50 mg PO DAILY Qty: 30 RF: 5 pantoprazole 40 mg tablet,delayed release (DR/EC) 40 mg PO DAILY Qty: 90 RF: 0 rosuvastatin 20 mg tablet 20 mg PO DAILY Qty: 90 RF: 1 butenafine [Lotrimin Ultra] 1 % Cream 1 appl TOPICAL BID 30 Days Qty: 3 RF: 3 cholecalciferol (vitamin D3) [Vitamin D3] 50 mcg (2,000 unit) Tablet 50 mcg PO DAILY RF: 0 coQ10 (ubiquinol) 100 mg Capsule 200 mg PO DAILY RF: 0 aspirin [Adult Aspirin Regimen] 81 mg tablet,delayed release (DR/EC) 81 mg PO DAILY RF: 0 Diet: advance to usual diet Activity on Discharge: As tolerated Stand Alone Forms: Patient Portal Discharge page Care Plan Goals: Full work up of double vision Health Concerns: double vision that has resolved, Plan of Treatment: Continue taking all your medications as directed and follow up with Neurologist in the office, Assessment: As above
[2021-03-03 18:32] LABS: Acetylcholine Receptor Binding <0.30 nmol/L
[2021-03-04 20:17] LABS: Acetylcholine Recept. Blocking <15 (<15)
[2021-03-08 15:10] LABS: Acetylcholine Recep Modulating 7
== END 2021-02-25 15:15 | disposition home or self-care (01) ==
LOC: HO.ED 02-25 01:44 → HO.EDOVER 02-25 03:53
PROVIDERS: Admitting Provider Hospitalist; Emergency Provider Student in an Organized Health Care Education/Training Program; PCP Internal Medicine; Visit Provider Internal Medicine
DX: H53.2 Diplopia (principal); R42 Dizziness and giddiness; D59.10 Autoimmune hemolytic anemia, unspecified; R31.1 Benign essential microscopic hematuria; I44.2 Atrioventricular block, complete; I25.10 Atherosclerotic heart disease of native coronary artery without angina pectoris; I10 Essential (primary) hypertension; E78.00 Pure hypercholesterolemia, unspecified; E55.9 Vitamin D deficiency, unspecified; Z90.49 Acquired absence of other specified parts of digestive tract; Z90.81 Acquired absence of spleen; Z95.1 Presence of aortocoronary bypass graft; Z95.0 Presence of cardiac pacemaker; Z88.8 Allergy status to other drugs, medicaments and biological substances; Z79.899 Other long term (current) drug therapy; Z20.822 Contact with and (suspected) exposure to COVID-19
CPT/HCPCS: 36415; 70496; 70498; 70551; 80048; 80053; 80061; 81001; 82947; 83519; 84484; 85025; 85610; 87635; 93005; 93306; 99219; 99285; Q9967

== ENCOUNTER → 2021-03-28 12:14 | Outpatient (BNVA) | payer MEDICARE, SELFPAY | PROVIDERS: PCP Internal Medicine; Referring Provider Internal Medicine; Visit Provider Internal Medicine Cardiovascular Disease | DX: Z45.018 Encounter for adjustment and management of other part of cardiac pacemaker (principal); I25.10 Atherosclerotic heart disease of native coronary artery without angina pectoris | CPT/HCPCS: 99212 ==

== ENCOUNTER 2021-04-27 14:42 | Emergency (ER) | payer MEDICARE, SELFPAY ==
[2021-04-27 15:05] VITALS: BP 133/64; PULSE 78; RESP 18; TEMP 36.6; O2SAT 98; BMI 27.0
--- NOTE | 2021-04-27 19:41 | ED.GIBLEED ---
HPI - GI Bleed General Chief complaint: GI Bleed Stated complaint: blood in stools Time Seen by Provider: 04/27/21 19:41 Source: patient Mode of arrival: ambulatory Limitations: no limitations History of Present Illness HPI Narrative: Patient complaining of dark stool for last 1 week cyst stools are black in color no weakness no dizziness no abdominal pain had colonoscopy few years ago was negative no history of any ulcers to not take any NSAID not any blood thinner no shortness of breath Related Data Home Medications Medication Instructions Recorded Confirmed aspirin 81 mg tablet,delayed 81 mg PO DAILY 01/11/20 04/15/21 release (Adult Aspirin Regimen) cholecalciferol (vitamin D3) 50 50 mcg PO DAILY 08/31/20 04/15/21 mcg (2,000 unit) tablet (Vitamin D3) coQ10 (ubiquinol) 100 mg capsule 200 mg PO DAILY 12/01/20 04/15/21 Previous Rx's Medication Instructions Recorded butenafine 1 % topical cream 1 appl TOPICAL BID 30 Days #3 g 03/02/20 (Lotrimin Ultra) carbamide peroxide 6.5 % ear drops 5 drp OTIC (EAR) LEFT DAILY 4 Days 03/07/21 (Debrox) #15 ml pantoprazole 40 mg tablet,delayed 40 mg PO DAILY #90 tab 03/07/21 release ezetimibe 10 mg tablet (Zetia) 10 mg PO DAILY #30 tab 03/28/21 metoprolol succinate 100 mg 100 mg PO DAILY 90 Days #90 tab 04/15/21 tablet,extended release 24 hr mometasone 0.1 % topical cream 1 appl TOPICAL DAILY PRN #45 g 04/15/21 rosuvastatin 20 mg tablet 40 mg PO DAILY 90 Days #180 tab 04/15/21 Allergies Allergy/AdvReac Type Severity Reaction Status Date / Time clopidogrel AdvReac Intermediate Diarrhea Verified 04/15/21 14:41 atorvastatin [ATORVASTATIN] AdvReac Mild MUSCLE Verified 04/15/21 14:41 PAIN ALL OVER Review of Systems Review of Systems: Yes all other systems are reviewed and are negative PMFSH Past Medical History Medical History Acute lacunar infarction Autoimmune hemolytic anemia Benign essential hypertension Benign microscopic hematuria CAD (coronary artery disease) Cardiac pacemaker Complete heart block GERD (gastroesophageal reflux disease) History of autoimmune hemolytic anemia HTN (hypertension) Overweight (BMI 25.0-29.9) Pulmonary nodules Pure hypercholesterolemia Vitamin D deficiency Surgical History History of colonoscopy History of laparoscopic cholecystectomy History of permanent cardiac pacemaker placement History of splenectomy S/P CABG (coronary artery bypass graft) Family History Family History Father Tuberculosis Mother No problems noted. Brother Colon cancer Brother Schizophrenia Lung disease Family/Other FH: mental illness Brother Alcoholism Other Mental health problem Social History Social History Housing: House Are you a primary workforce investment act career manager to a significant other at home: No Do you presently have visiting nurse or other home services: No Alcohol intake: never Patient Tobacco Use Status: Never used Tobacco e-Cigarette/Vaping Use: Never Used Second Hand Smoke Exposure: Yes Use of substances other than those prescribed or required for medical reasons: No Advance Directives: No service: No Current occupational status: retired Cognitive needs: No Hearing needs: No Vision needs: No Physical Exam Vital Signs: Vital Signs: Last Vital Signs Temp 98.0 F 04/27/21 20:12 Pulse 63 04/27/21 20:12 Resp 18 04/27/21 20:12 BP 131/63 04/27/21 20:12 Pulse Ox 100 04/27/21 20:12 BMI result Body Mass Index 27.0 Appearance: Alert. Oriented X3. No acute distress. Eyes: No pallor or icterus ENT: Pharynx normal. Oral Mucosa moist Neck: Normal inspection. Neck supple. CVS: Normal heart rate and rhythm. Pulses normal. Respiratory: No respiratory distress. Equal air entry bilateral, no wheezing/rales/rhonchi Abdomen: Soft and nontender. Bowel sounds are present, no mass palpable, no CVA tenderness rectal: Dark green stool negative for occult blood Skin: Skin warm and dry. Normal skin color. Normal skin turgor. Extremities: No lower extremity edema. No calf tenderness Neuro: Oriented X 3. MDM - GI Bleed MDM Narrative Medical decision making narrative: Patient with dark stool but negative for occult blood H&H stable likely from the food he eating discharge patient home Lab Data Attestation: I reviewed the patient's lab results. Result diagrams: 04/27/21 19:59 04/27/21 19:59 Labs: Lab Results 04/27/21 04/27/21 04/27/21 Range/Units 19:59 19:59 19:59 WBC 12.7 H (4.8-10.8) X10*3/uL RBC 3.99 L (4.60-5.80) X10*6/uL Hgb 14.1 (14.0-18.0) g/dl Hct 39.0 L (42.0-52.0) % MCV 97.7 (80.0-98.0) fL MCH 35.3 H (27.0-33.0) pg MCHC 36.2 H (31.0-36.0) g/dl RDW 15.1 (11.0-16.0) % Plt Count 431 H (160-400) X10*3/uL MPV 10.0 (9.4-12.4) fL Immature Gran % (Auto) 0.4 (0.0-0.4) % Neut % (Auto) 31.6 L (45-73) % Lymph % (Auto) 48.8 H (20-40) % [place] % (Auto) 8.9 (2-11) % Eos % (Auto) 9.8 H (0-4) % Baso % (Auto) 0.5 (0-2) % Lymph # (Auto) 6.2 H (1.2-4.9) X10*3/uL [place] # (Auto) 1.1 (0.1-1.2) X10*3/uL Eos # (Auto) 1.2 H (0.0-0.4) X10*3/uL Baso # (Auto) 0.1 (0.0-0.2) X10*3/uL Abs Immat Gran (auto) 0.05 H (0.00-0.03) X10*3/uL Absolute Neuts (auto) 4.0 (2.0-8.3) x10*3/uL Absolute Nucleated RBC 0.000 (0.0-0.012) X10*3/uL Nucleated RBC % (auto) 0.0 (0.0-0.2) /100WBC Smear Tech's Comments VERIFIED PT 12.8 (9.9-13.0) SEC INR 1.1 (0.9-1.1) APTT 35.2 (24.1-38.0) SEC Sodium 138 (135-145) mmol/L Potassium 4.3 (3.3-5.1) mmol/L Chloride 104 (96-108) mmol/L Carbon Dioxide 27 (22-29) mmol/L Anion Gap 11 L (12-20) BUN 18 H (9-16) mg/dL Creatinine 1.08 (0.5-1.4) mg/dL Estim Creat Clear Calc 60.6 Estimated GFR > 60 Random Glucose 103 (60-115) mg/dL Calcium 9.8 (8.4-10.2) mg/dL Stool Occult Blood (NEGATIVE) Blood Type Antibody Screen 04/27/21 04/27/21 Range/Units 20:02 20:14 WBC (4.8-10.8) X10*3/uL RBC (4.60-5.80) X10*6/uL Hgb (14.0-18.0) g/dl Hct (42.0-52.0) % MCV (80.0-98.0) fL MCH (27.0-33.0) pg MCHC (31.0-36.0) g/dl RDW (11.0-16.0) % Plt Count (160-400) X10*3/uL MPV (9.4-12.4) fL Immature Gran % (Auto) (0.0-0.4) % Neut % (Auto) (45-73) % Lymph % (Auto) (20-40) % [place] % (Auto) (2-11) % Eos % (Auto) (0-4) % Baso % (Auto) (0-2) % Lymph # (Auto) (1.2-4.9) X10*3/uL [place] # (Auto) (0.1-1.2) X10*3/uL Eos # (Auto) (0.0-0.4) X10*3/uL Baso # (Auto) (0.0-0.2) X10*3/uL Abs Immat Gran (auto) (0.00-0.03) X10*3/uL Absolute Neuts (auto) (2.0-8.3) x10*3/uL Absolute Nucleated RBC (0.0-0.012) X10*3/uL Nucleated RBC % (auto) (0.0-0.2) /100WBC Smear Tech's Comments PT (9.9-13.0) SEC INR (0.9-1.1) APTT (24.1-38.0) SEC Sodium (135-145) mmol/L Potassium (3.3-5.1) mmol/L Chloride (96-108) mmol/L Carbon Dioxide (22-29) mmol/L Anion Gap (12-20) BUN (9-16) mg/dL Creatinine (0.5-1.4) mg/dL Estim Creat Clear Calc Estimated GFR Random Glucose (60-115) mg/dL Calcium (8.4-10.2) mg/dL Stool Occult Blood NEGATIVE (NEGATIVE) Blood Type A Positive Antibody Screen POSITIVE Discharge Plan Discharge Clinical Impression: Dark stools Patient Disposition: Home, Self-Care Instructions: Normal Exam (ED) Additional Instructions: Your stools are negative for blood, what for food what you eating as may be the cause for dark stool Follow-up with PCP Report if increased bleeding Prescriptions: No Action butenafine [Lotrimin Ultra] 1 % Cream 1 appl TOPICAL BID 30 Days Qty: 3 3RF Rx Instructions: apply to cleansed affected area and immediate surrounding areas cholecalciferol (vitamin D3) [Vitamin D3] 50 mcg (2,000 unit) Tablet 50 mcg PO DAILY 0RF coQ10 (ubiquinol) 100 mg Capsule 200 mg PO DAILY 0RF aspirin [Adult Aspirin Regimen] 81 mg tablet,delayed release (DR/EC) 81 mg PO DAILY 0RF metoprolol succinate 100 mg tablet extended release 24 hr 100 mg PO DAILY 90 Days Qty: 90 3RF rosuvastatin 20 mg tablet 40 mg PO DAILY 90 Days Qty: 180 3RF mometasone 0.1 % cream 1 appl topical DAILY PRN (Reason: skin irritation) Qty: 45 2RF pantoprazole 40 mg tablet,delayed release (DR/EC) 40 mg PO DAILY Qty: 90 0RF carbamide peroxide [Debrox] 6.5 % drops 5 drp otic (ear) left DAILY 4 Days Qty: 15 0RF ezetimibe [Zetia] 10 mg tablet 10 mg PO DAILY Qty: 30 5RF Interventions: ED Discharge Assessment Last Done: 04/27/21 21:03
[2021-04-27 20:08] LABS: Basophils Absolute Auto 0.1 X10*3/uL (0.0-0.2); Basophils Percent Auto 0.5 % (0-2); Eosinophils Absolute Auto 1.2 X10*3/uL (0.0-0.4); Eosinophils Percent Auto 9.8 % (0-4); Hemoglobin 14.1 g/dl (14.0-18.0); Imm Gran Abs Auto 0.05 X10*3/uL (0.00-0.03); Imm Gran Pct Auto 0.4 % (0.0-0.4); Lymphocytes Absolute Auto 6.2 X10*3/uL (1.2-4.9); Lymphocytes Percent Auto 48.8 % (20-40); MANUAL DIFF FLAG SCAN; Mean Corpuscular HGB Conc 36.2 g/dl (31.0-36.0); Mean Corpuscular Hemoglobin 35.3 pg (27.0-33.0); Mean Corpuscular Volume 97.7 fL (80.0-98.0); Monocytes Absolute Auto 1.1 X10*3/uL (0.1-1.2); Monocytes Percent Auto 8.9 % (2-11); Neutrophils Percent Auto 31.6 % (45-73); Platelet Count 431 X10*3/uL (160-400); Red Blood Count 3.99 X10*6/uL (4.60-5.80); Red Cell Distribution Width 15.1 % (11.0-16.0); SCAN SMEAR FLAG 1; White Blood Count 12.7 X10*3/uL (4.8-10.8)
[2021-04-27 20:12] VITALS: BP 131/63; PULSE 63; RESP 18; TEMP 36.7; O2SAT 100
[2021-04-27 20:13] LABS: INTERNATIONAL NORM RATIO 1.1 (0.9-1.1); Prothrombin Time 12.8 SEC (9.9-13.0)
[2021-04-27 20:16] LABS: Partial Thromboplastin Time 35.2 SEC (24.1-38.0)
[2021-04-27 20:19] LABS: Anion Gap 11 (12-20); Calcium 9.8 mg/dL (8.4-10.2); Carbon Dioxide 27 mmol/L (22-29); Chloride 104 mmol/L (96-108); Creatinine Clr Calc Pharmacy 60.6; Estimated Glomerular Filt Rate > 60; Glucose Random 103 mg/dL (60-115); Potassium 4.3 mmol/L (3.3-5.1); Sodium 138 mmol/L (135-145)
[2021-04-27 20:20] LABS: OBS Int Ctl Valid YES; OBS1 NEGATIVE (NEGATIVE)
[2021-04-27 20:30] LABS: Blood Urea Nitrogen 18 mg/dL (9-16)
[2021-04-27 20:36] LABS: SLIDE REVIEW VERIFIED
== END 2021-04-27 21:16 | disposition home or self-care (01) ==
PROVIDERS: Emergency Provider Internal Medicine; PCP Internal Medicine
DX: R19.5 Other fecal abnormalities (principal); I10 Essential (primary) hypertension; Z95.0 Presence of cardiac pacemaker; Z95.1 Presence of aortocoronary bypass graft
CPT/HCPCS: 36415; 80048; 82272; 85025; 85610; 85730; 86850; 86870; 86900; 86901; 99283; 99284

== ENCOUNTER 2021-07-12 08:48 | Outpatient (REF) | payer MEDICARE, SELFPAY ==
[2021-07-12 09:55] LABS: Appearance Urine CLEAR; Color Urine DK YELLOW; Glucose Urine UA NEG (NEG); Leukocyte Esterase Urine NEG (NEG); Nitrite Urine NEG (NEG); UACC Culture Trigger NO; Urine Blood TRACE (NEG); Urine Ketones NEG (NEG); Urine Protein NEG (NEG-TRACE)
[2021-07-12 10:09] LABS: Basophils Absolute Auto 0.1 X10*3/uL (0.0-0.2); Basophils Percent Auto 0.7 % (0-2); Eosinophils Absolute Auto 1.6 X10*3/uL (0.0-0.4); Eosinophils Percent Auto 12.5 % (0-4); Hemoglobin 13.8 g/dl (14.0-18.0); Imm Gran Abs Auto 0.05 X10*3/uL (0.00-0.03); Imm Gran Pct Auto 0.4 % (0.0-0.4); Lymphocytes Absolute Auto 5.8 X10*3/uL (1.2-4.9); Lymphocytes Percent Auto 45.5 % (20-40); MANUAL DIFF FLAG SCAN; Mean Corpuscular HGB Conc 35.4 g/dl (31.0-36.0); Mean Corpuscular Hemoglobin 36.2 pg (27.0-33.0); Mean Corpuscular Volume 102.4 fL (80.0-98.0); Mean Platelet Volume 10.6 fL (9.4-12.4); Monocytes Absolute Auto 1.3 X10*3/uL (0.1-1.2); Monocytes Percent Auto 10.3 % (2-11); Neutrophils Absolute Auto 3.9 x10*3/uL (2.0-8.3); Neutrophils Percent Auto 30.6 % (45-73); Platelet Count 460 X10*3/uL (160-400); Red Blood Count 3.81 X10*6/uL (4.60-5.80); Red Cell Distribution Width 15.3 % (11.0-16.0); SCAN SMEAR FLAG 1; White Blood Count 12.7 X10*3/uL (4.8-10.8)
[2021-07-12 10:18] LABS: WBC Urine 0 /HPF (0-4)
[2021-07-12 10:33] LABS: Alanine Aminotransferase 19 U/L (0-40); Albumin Level 3.9 g/dL (3.5-5.0); Alkaline Phosphatase 101 U/L (39-117); Anion Gap 11 (12-20); Aspartate Amino Transferase 22 U/L (5-37); Bilirubin Total 4.1 mg/dL (0.0-1.0); Blood Urea Nitrogen 23 mg/dL (9-16); Calcium 9.9 mg/dL (8.4-10.2); Carbon Dioxide 27 mmol/L (22-29); Chloride 105 mmol/L (96-108); Cholesterol 123 mg/dL; Estimated Glomerular Filt Rate > 60; Glucose Fasting 99 mg/dL (60-99); HDL Cholesterol 35 mg/dL; LDL Cholesterol Calculated 67 mg/dl; Potassium 5.5 mmol/L (3.3-5.1); Sodium 137 mmol/L (135-145); Total Protein 7.7 g/dL (6.5-8.0); Triglycerides 106 mg/dL
[2021-07-12 10:43] LABS: SLIDE REVIEW VERIFIED
[2021-07-12 10:57] LABS: Vitamin D 25-OH Total 37.2 ng/mL (>30)
== END 2021-07-12 08:49 | disposition home or self-care (01) ==
LOC: HO.LAB 08:48
PROVIDERS: PCP Internal Medicine; Visit Provider Internal Medicine
DX: E78.00 Pure hypercholesterolemia, unspecified (principal); I10 Essential (primary) hypertension; E55.9 Vitamin D deficiency, unspecified
CPT/HCPCS: 36415; 80053; 80061; 81001; 82306; 84443; 85025

== ENCOUNTER → 2021-08-04 14:53 | Outpatient (REF) | payer MEDICARE, SELFPAY | LOC: HO.SL 14:53 | PROVIDERS: PCP Internal Medicine; Visit Provider Nurse Practitioner Family | DX: G47.33 Obstructive sleep apnea (adult) (pediatric) (principal); G47.10 Hypersomnia, unspecified; I10 Essential (primary) hypertension; I47.2 Ventricular tachycardia | CPT/HCPCS: 95806 ==

== ENCOUNTER 2021-09-26 08:05 | Outpatient (REF) | payer MEDICARE, SELFPAY ==
[2021-09-26 09:37] LABS: Cholesterol 171 mg/dL; HDL Cholesterol 68 mg/dL; LDL Cholesterol Calculated 84 mg/dl; Triglycerides 98 mg/dL
== END 2021-09-26 08:06 | disposition home or self-care (01) ==
LOC: HO.LAB 08:05
PROVIDERS: PCP Internal Medicine; Visit Provider Internal Medicine Cardiovascular Disease
DX: I25.10 Atherosclerotic heart disease of native coronary artery without angina pectoris (principal)
CPT/HCPCS: 36415; 80061

== ENCOUNTER → 2021-09-27 12:48 | Outpatient (BNVA) | payer MEDICARE, SELFPAY | PROVIDERS: PCP Internal Medicine; Referring Provider Internal Medicine; Visit Provider Internal Medicine Cardiovascular Disease | DX: Z45.018 Encounter for adjustment and management of other part of cardiac pacemaker (principal); I25.10 Atherosclerotic heart disease of native coronary artery without angina pectoris | CPT/HCPCS: 93280; 99212 ==

== ENCOUNTER → 2021-11-08 09:42 | Outpatient (BNVA) | payer MEDICARE, SELFPAY | PROVIDERS: PCP Internal Medicine; Visit Provider Nurse Practitioner Family | DX: G47.33 Obstructive sleep apnea (adult) (pediatric) (principal); I10 Essential (primary) hypertension; I25.10 Atherosclerotic heart disease of native coronary artery without angina pectoris; Z95.1 Presence of aortocoronary bypass graft | CPT/HCPCS: 99202 ==

== ENCOUNTER 2021-12-08 09:11 | Outpatient (REF) | payer MEDICARE, SELFPAY ==
[2021-12-08 10:31] LABS: Basophils Absolute Auto 0.1 X10*3/uL (0.0-0.2); Basophils Percent Auto 0.6 % (0-2); Eosinophils Absolute Auto 1.1 X10*3/uL (0.0-0.4); Eosinophils Percent Auto 9.2 % (0-4); Hematocrit 48.2 % (42.0-52.0); Hemoglobin 16.6 g/dl (14.0-18.0); Imm Gran Abs Auto 0.03 X10*3/uL (0.00-0.03); Imm Gran Pct Auto 0.3 % (0.0-0.4); Lymphocytes Absolute Auto 5.4 X10*3/uL (1.2-4.9); Lymphocytes Percent Auto 46.5 % (20-40); MANUAL DIFF FLAG SCAN; Mean Corpuscular HGB Conc 34.4 g/dl (31.0-36.0); Mean Corpuscular Hemoglobin 32.7 pg (27.0-33.0); Mean Corpuscular Volume 95.1 fL (80.0-98.0); Mean Platelet Volume 10.2 fL (9.4-12.4); Monocytes Absolute Auto 1.2 X10*3/uL (0.1-1.2); Monocytes Percent Auto 10.7 % (2-11); Neutrophils Absolute Auto 3.8 x10*3/uL (2.0-8.3); Neutrophils Percent Auto 32.7 % (45-73); Platelet Count 390 X10*3/uL (160-400); Red Blood Count 5.07 X10*6/uL (4.60-5.80); SCAN SMEAR FLAG 1; White Blood Count 11.5 X10*3/uL (4.8-10.8)
[2021-12-08 10:59] LABS: SLIDE REVIEW VERIFIED
[2021-12-08 11:06] LABS: Alanine Aminotransferase 26 U/L (0-40); Alkaline Phosphatase 81 U/L (39-117); Anion Gap 15 (12-20); Aspartate Amino Transferase 24 U/L (5-37); Bilirubin Total 2.1 mg/dL (0.0-1.0); Blood Urea Nitrogen 19 mg/dL (9-16); Calcium 9.4 mg/dL (8.4-10.2); Carbon Dioxide 26 mmol/L (22-29); Chloride 103 mmol/L (96-108); Cholesterol 107 mg/dL; Estimated Glomerular Filt Rate > 60; Glucose Fasting 91 mg/dL (60-99); HDL Cholesterol 35 mg/dL; LDL Cholesterol Calculated 53 mg/dl; Potassium 4.7 mmol/L (3.3-5.1); Sodium 139 mmol/L (135-145); Triglycerides 99 mg/dL
[2021-12-08 11:15] LABS: Appearance Urine Clear; Color Urine Yellow; Glucose Urine UA Negative (Negative); Leukocyte Esterase Urine Negative (Negative); Nitrite Urine Negative (Negative); UMIC TRIGGER UACC YES; Urine Blood Moderate (2+) (Negative); Urine Ketones Negative (Negative); Urine Protein Negative (Neg-Trace)
[2021-12-08 11:22] LABS: Bacteria Urine None Seen (None Seen); Hyaline Casts Urine 0-2 /LPF (0-2); Squamous Epithelial Cell Urine 0-2 /HPF (0-2); WBC Urine 0-5 /HPF (0-5)
[2021-12-08 11:28] LABS: TSH reflex Free T4 1.78 uIU/mL (0.32-4.0); Vitamin D 25-OH Total 40.5 ng/mL (>30)
== END 2021-12-08 09:12 | disposition home or self-care (01) ==
LOC: HO.LAB 09:11
PROVIDERS: PCP Internal Medicine; Visit Provider Internal Medicine
DX: E78.00 Pure hypercholesterolemia, unspecified (principal); D59.10 Autoimmune hemolytic anemia, unspecified; E55.9 Vitamin D deficiency, unspecified; I10 Essential (primary) hypertension
CPT/HCPCS: 36415; 80053; 80061; 81001; 82306; 84443; 85025

== ENCOUNTER 2022-03-08 07:35 | Outpatient (REF) | payer MEDICARE, SELFPAY ==
[2022-03-08 08:30] LABS: Appearance Urine Clear; Color Urine Yellow; Glucose Urine UA Negative (Negative); Leukocyte Esterase Urine Negative (Negative); Nitrite Urine Negative (Negative); PH 5.5 (5.0-9.0); Specific Gravity - Urine 1.025 (1.005-1.025); UMIC TRIGGER UACC YES; Urine Blood Moderate (2+) (Negative); Urine Ketones Negative (Negative); Urine Protein Trace mg/dL (Neg-Trace)
[2022-03-08 08:30] LABS: Basophils Absolute Auto 0.1 X10*3/uL (0.0-0.2); Basophils Percent Auto 0.7 % (0-2); Eosinophils Absolute Auto 1.4 X10*3/uL (0.0-0.4); Eosinophils Percent Auto 13.7 % (0-4); Hematocrit 46.7 % (42.0-52.0); Hemoglobin 15.7 g/dl (14.0-18.0); Imm Gran Abs Auto 0.03 X10*3/uL (0.00-0.03); Imm Gran Pct Auto 0.3 % (0.0-0.4); Lymphocytes Absolute Auto 5.1 X10*3/uL (1.2-4.9); Lymphocytes Percent Auto 48.7 % (20-40); MANUAL DIFF FLAG SCAN; Mean Corpuscular HGB Conc 33.6 g/dl (31.0-36.0); Mean Corpuscular Hemoglobin 31.7 pg (27.0-33.0); Mean Corpuscular Volume 94.2 fL (80.0-98.0); Mean Platelet Volume 10.4 fL (9.4-12.4); Monocytes Absolute Auto 1.2 X10*3/uL (0.1-1.2); Monocytes Percent Auto 11.7 % (2-11); Neutrophils Absolute Auto 2.6 x10*3/uL (2.0-8.3); Neutrophils Percent Auto 24.9 % (45-73); Platelet Count 391 X10*3/uL (160-400); Red Blood Count 4.96 X10*6/uL (4.60-5.80); Red Cell Distribution Width 15.2 % (11.0-16.0); SCAN SMEAR FLAG 1; White Blood Count 10.4 X10*3/uL (4.8-10.8)
[2022-03-08 08:41] LABS: Bacteria Urine None Seen (None Seen); Hyaline Casts Urine 0-2 /LPF (0-2); Squamous Epithelial Cell Urine 0-2 /HPF (0-2); WBC Urine 0-5 /HPF (0-5)
[2022-03-08 08:54] LABS: SLIDE REVIEW VERIFIED
[2022-03-08 09:22] LABS: Alanine Aminotransferase 32 U/L (0-40); Albumin Level 4.1 g/dL (3.5-5.0); Alkaline Phosphatase 108 U/L (39-117); Anion Gap 13 (12-20); Aspartate Amino Transferase 26 U/L (5-37); Bilirubin Total 2.2 mg/dL (0.0-1.0); Blood Urea Nitrogen 24 mg/dL (9-16); Calcium 9.7 mg/dL (8.4-10.2); Carbon Dioxide 27 mmol/L (22-29); Chloride 106 mmol/L (96-108); Cholesterol 99 mg/dL; Estimated Glomerular Filt Rate > 60; Glucose Fasting 91 mg/dL (60-99); HDL Cholesterol 38 mg/dL; LDL Cholesterol Calculated 43 mg/dl; Potassium 4.9 mmol/L (3.3-5.1); Sodium 141 mmol/L (135-145); TSH reflex Free T4 2.12 uIU/mL (0.32-4.0); Total Protein 7.2 g/dL (6.5-8.0); Triglycerides 90 mg/dL; Vitamin D 25-OH Total 39.8 ng/mL (>30)
== END 2022-03-08 07:36 | disposition home or self-care (01) ==
LOC: HO.LAB 07:35
PROVIDERS: PCP Internal Medicine; Visit Provider Internal Medicine
DX: E55.9 Vitamin D deficiency, unspecified (principal); E78.00 Pure hypercholesterolemia, unspecified; I10 Essential (primary) hypertension
CPT/HCPCS: 36415; 80053; 80061; 81001; 82306; 84443; 85025

== ENCOUNTER 2022-03-16 09:18 | Outpatient (REF) | payer MEDICARE, SELFPAY ==
[2022-03-16 10:26] LABS: Appearance Urine Clear; Color Urine Dark Yellow; Glucose Urine UA Negative (Negative); Leukocyte Esterase Urine Negative (Negative); Nitrite Urine Negative (Negative); PH 5.5 (5.0-9.0); Specific Gravity - Urine 1.025 (1.005-1.025); UMIC TRIGGER UACC YES; Urine Blood Moderate (2+) (Negative); Urine Ketones Negative (Negative); Urine Protein Trace mg/dL (Neg-Trace)
[2022-03-16 10:33] LABS: Basophils Absolute Auto 0.1 X10*3/uL (0.0-0.2); Basophils Percent Auto 0.4 % (0-2); Eosinophils Absolute Auto 1.5 X10*3/uL (0.0-0.4); Eosinophils Percent Auto 12.2 % (0-4); Hematocrit 47.5 % (42.0-52.0); Imm Gran Abs Auto 0.03 X10*3/uL (0.00-0.03); Imm Gran Pct Auto 0.2 % (0.0-0.4); Lymphocytes Absolute Auto 5.2 X10*3/uL (1.2-4.9); Lymphocytes Percent Auto 42.9 % (20-40); MANUAL DIFF FLAG SCAN; Mean Corpuscular HGB Conc 33.7 g/dl (31.0-36.0); Mean Corpuscular Hemoglobin 31.5 pg (27.0-33.0); Mean Corpuscular Volume 93.5 fL (80.0-98.0); Mean Platelet Volume 10.2 fL (9.4-12.4); Monocytes Absolute Auto 1.1 X10*3/uL (0.1-1.2); Monocytes Percent Auto 9.4 % (2-11); Neutrophils Absolute Auto 4.2 x10*3/uL (2.0-8.3); Neutrophils Percent Auto 34.9 % (45-73); Platelet Count 416 X10*3/uL (160-400); Red Blood Count 5.08 X10*6/uL (4.60-5.80); Red Cell Distribution Width 15.4 % (11.0-16.0); SCAN SMEAR FLAG 1; White Blood Count 12.1 X10*3/uL (4.8-10.8)
[2022-03-16 10:50] LABS: Bacteria Urine None Seen (None Seen); Hyaline Casts Urine 0-2 /LPF (0-2); Squamous Epithelial Cell Urine 0-2 /HPF (0-2); WBC Urine 0-5 /HPF (0-5)
[2022-03-16 11:25] LABS: SLIDE REVIEW VERIFIED
[2022-03-16 12:49] LABS: Alanine Aminotransferase 34 U/L (0-40); Albumin Level 4.3 g/dL (3.5-5.0); Alkaline Phosphatase 113 U/L (39-117); Anion Gap 14 (12-20); Aspartate Amino Transferase 28 U/L (5-37); Bilirubin Total 2.3 mg/dL (0.0-1.0); Blood Urea Nitrogen 25 mg/dL (9-16); Calcium 9.8 mg/dL (8.4-10.2); Carbon Dioxide 25 mmol/L (22-29); Chloride 104 mmol/L (96-108); Cholesterol 116 mg/dL; Estimated Glomerular Filt Rate > 60; Glucose Random 105 mg/dL (60-115); HDL Cholesterol 44 mg/dL; LDL Cholesterol Calculated 53 mg/dl; Lactate Dehydrogenase 200 U/L (118-273); Potassium 4.2 mmol/L (3.3-5.1); Sodium 139 mmol/L (135-145); Total Protein 7.6 g/dL (6.5-8.0); Triglycerides 95 mg/dL
== END 2022-03-16 09:19 | disposition home or self-care (01) ==
LOC: HO.LAB 09:18
PROVIDERS: Internal Medicine Medical Oncology; PCP Internal Medicine; Visit Provider Internal Medicine Cardiovascular Disease
DX: D58.9 Hereditary hemolytic anemia, unspecified (principal); I10 Essential (primary) hypertension
CPT/HCPCS: 36415; 80053; 80061; 81001; 83615; 85025; 86880

== ENCOUNTER → 2022-03-21 12:21 | Outpatient (BNVA) | payer MEDICARE, SELFPAY | PROVIDERS: PCP Internal Medicine; Referring Provider Internal Medicine; Visit Provider Internal Medicine Cardiovascular Disease | DX: I25.10 Atherosclerotic heart disease of native coronary artery without angina pectoris (principal); I10 Essential (primary) hypertension; E78.00 Pure hypercholesterolemia, unspecified; E55.9 Vitamin D deficiency, unspecified; Z77.22 Contact with and (suspected) exposure to environmental tobacco smoke (acute) (chronic); Z95.1 Presence of aortocoronary bypass graft; Z45.018 Encounter for adjustment and management of other part of cardiac pacemaker | CPT/HCPCS: 93280; 99212 ==

== ENCOUNTER 2022-07-10 09:53 | Outpatient (REF) | payer MEDICARE, SELFPAY ==
[2022-07-10 11:23] LABS: Appearance Urine Clear; Color Urine Dark Yellow; Glucose Urine UA Negative (Negative); Leukocyte Esterase Urine Negative (Negative); Nitrite Urine Negative (Negative); PH 6.5 (5.0-9.0); Specific Gravity - Urine 1.015 (1.005-1.025); UMIC TRIGGER UACC YES; Urine Blood Trace (Negative); Urine Ketones Negative (Negative); Urine Protein Trace mg/dL (Neg-Trace)
[2022-07-10 11:26] LABS: Bacteria Urine None Seen (None Seen); Hyaline Casts Urine 0-2 /LPF (0-2); RBC Urine 0-2 /HPF (0-2); Squamous Epithelial Cell Urine 0-2 /HPF (0-2); WBC Urine 0-5 /HPF (0-5)
[2022-07-10 11:45] LABS: Basophils Absolute Auto 0.1 X10*3/uL (0.0-0.2); Basophils Percent Auto 0.6 % (0-2); Eosinophils Absolute Auto 1.7 X10*3/uL (0.0-0.4); Hematocrit 35.2 % (42.0-52.0); Hemoglobin 12.2 g/dl (14.0-18.0); Imm Gran Abs Auto 0.11 X10*3/uL (0.00-0.03); Imm Gran Pct Auto 0.7 % (0.0-0.4); Lymphocytes Percent Auto 42.9 % (20-40); MANUAL DIFF FLAG SCAN; Mean Corpuscular HGB Conc 34.7 g/dl (31.0-36.0); Mean Corpuscular Hemoglobin 36.6 pg (27.0-33.0); Mean Corpuscular Volume 105.7 fL (80.0-98.0); Mean Platelet Volume 10.5 fL (9.4-12.4); Monocytes Absolute Auto 1.8 X10*3/uL (0.1-1.2); Monocytes Percent Auto 11.6 % (2-11); NRBC Pct Auto 0.3 /100WBC (0.0-0.2); Neutrophils Absolute Auto 5.2 x10*3/uL (2.0-8.3); Neutrophils Percent Auto 33.2 % (45-73); Platelet Count 521 X10*3/uL (160-400); Red Blood Count 3.33 X10*6/uL (4.60-5.80); Red Cell Distribution Width 17.7 % (11.0-16.0); SCAN SMEAR FLAG 1; White Blood Count 15.6 X10*3/uL (4.8-10.8)
[2022-07-10 11:46] LABS: Lymphocytes Absolute Auto 6.7 X10*3/uL (1.2-4.9)
[2022-07-10 12:22] LABS: SLIDE REVIEW VERIFIED
[2022-07-10 12:23] LABS: Alanine Aminotransferase 24 U/L (0-40); Albumin Level 4.1 g/dL (3.5-5.0); Alkaline Phosphatase 109 U/L (39-117); Anion Gap 14 (12-20); Aspartate Amino Transferase 36 U/L (5-37); Bilirubin Total 7.8 mg/dL (0.0-1.0); Blood Urea Nitrogen 16 mg/dL (9-16); Calcium 9.3 mg/dL (8.4-10.2); Carbon Dioxide 26 mmol/L (22-29); Chloride 104 mmol/L (96-108); Cholesterol 91 mg/dL; Estimated Glomerular Filt Rate > 60; Glucose Fasting 96 mg/dL (60-99); HDL Cholesterol 32 mg/dL; LDL Cholesterol Calculated 36 mg/dl; Potassium 5.1 mmol/L (3.3-5.1); Sodium 139 mmol/L (135-145); Total Protein 7.1 g/dL (6.5-8.0); Triglycerides 118 mg/dL
== END 2022-07-10 09:54 | disposition home or self-care (01) ==
LOC: HO.LAB 09:53
PROVIDERS: PCP Internal Medicine; Visit Provider Internal Medicine
DX: E78.00 Pure hypercholesterolemia, unspecified (principal); I10 Essential (primary) hypertension
CPT/HCPCS: 36415; 80053; 80061; 81001; 85025

== ENCOUNTER → 2022-09-21 12:25 | Outpatient (BNVA) | payer MEDICARE, SELFPAY | PROVIDERS: PCP Internal Medicine; Referring Provider Internal Medicine; Visit Provider Internal Medicine Cardiovascular Disease | DX: Z45.018 Encounter for adjustment and management of other part of cardiac pacemaker (principal); I25.10 Atherosclerotic heart disease of native coronary artery without angina pectoris; I48.0 Paroxysmal atrial fibrillation | CPT/HCPCS: 93005; 93280; 99212 ==

== ENCOUNTER → 2022-10-18 23:59 | Outpatient (BNV) | payer MEDICARE, SELFPAY ==
--- NOTE | 2022-10-23 12:59 | A.OFFVIS_ITS ---
Intake Intake Visit Reasons: Remote Device Check- [facility] Allergies clopidogrel Adverse Reaction (Intermediate, Verified 09/26/22 09:08) Diarrhea atorvastatin [ATORVASTATIN] Adverse Reaction (Mild, Verified 09/26/22 09:08) MUSCLE PAIN ALL OVER [facility] Medical History Acute lacunar infarction Autoimmune hemolytic anemia Benign essential hypertension Benign microscopic hematuria CAD (coronary artery disease) Cardiac pacemaker Complete heart block GERD (gastroesophageal reflux disease) History of autoimmune hemolytic anemia HTN (hypertension) Overweight (BMI 25.0-29.9) Pulmonary nodules Pure hypercholesterolemia Vitamin D deficiency Surgical History History of colonoscopy History of laparoscopic cholecystectomy History of permanent cardiac pacemaker placement History of splenectomy S/P CABG (coronary artery bypass graft) Family History Father Tuberculosis Mother No problems noted. Brother Colon cancer Brother Schizophrenia Lung disease Family/Other FH: mental illness Brother Alcoholism Other Mental health problem Social History Household Members: Spouse Housing: House Are you a primary care management associate to a significant other at home: No Do you presently have visiting nurse or other home services: No Alcohol intake: never Patient Tobacco Use Status: Never used Tobacco e-Cigarette/Vaping Use: Never Used Second Hand Smoke Exposure: Yes Use of substances other than those prescribed or required for medical reasons: No Have you been hit, kicked, punched, or otherwise hurt by someone within the past year? If so, by whom?: No Do you feel safe in your current relationship?: Yes Do you have thoughts of harming others: None Do you have a plan to hurt others: No Plan Do you have the means to hurt others: No Recently lost weight without trying: No service: No Current occupational status: retired Cognitive needs: No Hearing needs: No Vision needs: No Office Procedures Cardiac Device Check Cardiac Device Check Details: Remote pacemaker report generated 10/18/2022. Pacemaker function is adequate [id number] Cardiac Device Interrogation, pacemaker Procedure code (CPT) selection complete Coding Level of Care Code Procedure Only Diagnoses CPT Codes Cardiac Device Check - Cardiac Device 12: [id number] Cardiac Device Interrogation, pacemaker ([id number])
== END ==
PROVIDERS: PCP Internal Medicine; Visit Provider Internal Medicine Cardiovascular Disease
DX: I48.0 Paroxysmal atrial fibrillation (principal); Z95.0 Presence of cardiac pacemaker
CPT/HCPCS: 93294

== ENCOUNTER 2022-11-09 08:42 | Outpatient (REF) | payer MEDICARE, SELFPAY ==
[2022-11-09 10:10] LABS: Basophils Absolute Auto 0.1 X10*3/uL (0.0-0.2); Basophils Percent Auto 0.7 % (0-2); Eosinophils Absolute Auto 2.1 X10*3/uL (0.0-0.4); Eosinophils Percent Auto 18.3 % (0-4); Hematocrit 46.2 % (42.0-52.0); Hemoglobin 15.7 g/dl (14.0-18.0); Imm Gran Abs Auto 0.04 X10*3/uL (0.00-0.03); Imm Gran Pct Auto 0.4 % (0.0-0.4); Lymphocytes Absolute Auto 4.4 X10*3/uL (1.2-4.9); Lymphocytes Percent Auto 38.8 % (20-40); MANUAL DIFF FLAG SCAN; Mean Corpuscular Hemoglobin 32.6 pg (27.0-33.0); Mean Corpuscular Volume 95.9 fL (80.0-98.0); Mean Platelet Volume 10.6 fL (9.4-12.4); Monocytes Absolute Auto 1.5 X10*3/uL (0.1-1.2); Monocytes Percent Auto 13.2 % (2-11); Neutrophils Absolute Auto 3.2 x10*3/uL (2.0-8.3); Neutrophils Percent Auto 28.6 % (45-73); Platelet Count 365 X10*3/uL (160-400); Red Blood Count 4.82 X10*6/uL (4.60-5.80); Red Cell Distribution Width 14.5 % (11.0-16.0); SCAN SMEAR FLAG 1; White Blood Count 11.2 X10*3/uL (4.8-10.8)
[2022-11-09 10:30] LABS: SLIDE REVIEW VERIFIED
[2022-11-09 10:41] LABS: Appearance Urine Clear; Color Urine Yellow; Glucose Urine UA Negative (Negative); Leukocyte Esterase Urine Negative (Negative); Nitrite Urine Negative (Negative); PH 6.5 (5.0-9.0); UMIC TRIGGER UACC YES; Urine Blood Trace (Negative); Urine Ketones Negative (Negative); Urine Protein Negative (Neg-Trace)
[2022-11-09 10:48] LABS: Bacteria Urine None Seen (None Seen); Hyaline Casts Urine 0-2 /LPF (0-2); Squamous Epithelial Cell Urine 0-2 /HPF (0-2); WBC Urine 0-5 /HPF (0-5)
[2022-11-09 10:49] LABS: Alanine Aminotransferase 20 U/L (0-40); Albumin Level 3.9 g/dL (3.5-5.0); Alkaline Phosphatase 80 U/L (39-117); Anion Gap 10 (12-20); Aspartate Amino Transferase 23 U/L (5-37); Bilirubin Total 2.5 mg/dL (0.0-1.0); Blood Urea Nitrogen 20 mg/dL (9-16); Calcium 9.6 mg/dL (8.4-10.2); Carbon Dioxide 28 mmol/L (22-29); Chloride 105 mmol/L (96-108); Cholesterol 96 mg/dL (<200); Estimated Glomerular Filt Rate > 60; Glucose Fasting 90 mg/dL (60-99); HDL Cholesterol 35 mg/dL (>40); LDL Cholesterol Calculated 43 mg/dL (<100); Potassium 4.3 mmol/L (3.3-5.1); Sodium 139 mmol/L (135-145); Total Protein 7.3 g/dL (6.5-8.0); Triglycerides 93 mg/dL (<150)
[2022-11-09 11:06] LABS: TSH reflex Free T4 2.13 uIU/mL (0.32-4.0); Vitamin D 25-OH Total 61.2 ng/mL (>30)
== END 2022-11-09 08:43 | disposition home or self-care (01) ==
LOC: HO.LAB 08:42
PROVIDERS: PCP Internal Medicine; Visit Provider Internal Medicine
DX: E78.00 Pure hypercholesterolemia, unspecified (principal); R30.0 Dysuria; E55.9 Vitamin D deficiency, unspecified; I10 Essential (primary) hypertension
CPT/HCPCS: 36415; 80053; 80061; 81001; 82306; 84443; 85025

== ENCOUNTER 2022-11-13 10:28 | Outpatient (AMB) | payer MEDICARE, SELFPAY ==
[2022-11-13 10:30] VITALS: BP 118/62; PULSE 76; O2SAT 98; BMI 27.1
--- NOTE | 2022-11-13 10:30 | A.OFFPC_ITS ---
Vital Signs 11/13/22 10:30 Height 5 ft 8 in Weight 178 lb 2 oz BMI 27.1 BP 118/62 Blood Pressure Location Lt brachial Position Sitting Pulse 76 Pulse Source Pulse Oximeter Pulse Oximetry (%) 98 Oxygen Delivery Method Room Air Intake Visit Reasons: hyperlipidemia, hemolytic anemia House Sitter Required: No Accompanied by: Self / Same As Patient Allergies clopidogrel Adverse Reaction (Intermediate, Verified 11/13/22 11:05) Diarrhea atorvastatin [ATORVASTATIN] Adverse Reaction (Mild, Verified 11/13/22 11:05) MUSCLE PAIN ALL OVER Medication List - Last Reconciled 11/13/22 by Emile Walters MD aspirin (Adult Aspirin Regimen) 81 mg PO DAILY cholecalciferol (vitamin D3) (Vitamin D3) 50 mcg PO DAILY coQ10 (ubiquinol) 200 mg PO DAILY ezetimibe (Zetia) 10 mg PO DAILY 90 days metoprolol succinate ER 100 mg PO DAILY 90 days pantoprazole 40 mg PO DAILY rosuvastatin 40 mg PO DAILY Tobacco use date assessed: 11/13/22 Fall risk assessment: No Falls in past year Last assessed Fall Risk: 11/13/22 Dental Screening Dental Screen Date: 11/13/22 Did you have a dental visit in the last 12 months?: No Did you have a dental problem in the last 6 months where you did not have access to dental care?: No Was dental information given to patient?: No HPI hyperlipidemia, hemolytic anemia HPI Details Patient comes in today for his follow up visit States that he feels okay He denies any headaches or dizziness Denies any chest pains, no SOB No nausea/vomiting, no abdominal pain No change in bowel habits noted Had his follow up labs done a few days ago - to discuss his results [facility] Medical History Acute lacunar infarction Autoimmune hemolytic anemia Benign essential hypertension Benign microscopic hematuria CAD (coronary artery disease) Cardiac pacemaker Complete heart block GERD (gastroesophageal reflux disease) History of autoimmune hemolytic anemia HTN (hypertension) Overweight (BMI 25.0-29.9) Pulmonary nodules Pure hypercholesterolemia Vitamin D deficiency Surgical History History of colonoscopy History of laparoscopic cholecystectomy History of permanent cardiac pacemaker placement History of splenectomy S/P CABG (coronary artery bypass graft) Family History Father Tuberculosis Mother No problems noted. Brother Colon cancer Brother Schizophrenia Lung disease Family/Other FH: mental illness Brother Alcoholism Other Mental health problem Social History Household Members: Spouse Housing: House Are you a primary home care companion to a significant other at home: No Do you presently have visiting nurse or other home services: No Alcohol intake: never Patient Tobacco Use Status: Never used Tobacco e-Cigarette/Vaping Use: Never Used Second Hand Smoke Exposure: Yes service: No Current occupational status: retired Cognitive needs: No Hearing needs: No Vision needs: No Questionnaire PHQ-9 Over the last 2 weeks, how often have you been bothered by any of the following problems? 1. Little interest or pleasure in doing things: not at all 2. Feeling down, depressed, or hopeless: not at all 3. Trouble falling or staying asleep, or sleeping too much: not at all 4. Feeling tired or having little energy: not at all 5. Poor appetite or overeating: not at all 6. Feeling bad about yourself - or that you are a failure or have let yourself or your family down: not at all 7. Trouble concentrating on things, such as reading the newspaper or watching television: not at all 8. Moving or speaking so slowly that other people could have noticed. Or the opposite - being so fidgety or restless that you have been moving around a lot more than usual: not at all 9. Thoughts that you would be better off or of hurting yourself in some way: not at all Total score: 0 Depression Screening Interpretation: Negative 21065 - PHQ-9 Billing: Yes Source: Developed by Drs. Tim Hoyos, Adelaide Yo, Tone Light and colleagues, with an educational donna from [employer]. Thrive Questionnaire Date Thrive assessed: 11/13/22 I am a: Patient What is your living situation today?: I have a steady place to live Within the past 12 months, did the food you bought not last and you didn't have the money to get more?: Never true Within the past 12 months, did you worry whether your food would run out before you got money to buy more?: Never true Do you have trouble paying for medicines?: No Do you have trouble getting transportation to medical appointments?: No Do you have trouble paying your heating and electricity bill?: No Do you have trouble taking care of your child, family member or friend?: No Do you have trouble with day-to-day activities such as bathing, preparing meals, shopping, managing finances, etc.?: No Are you currently unemployed and looking for a job?: No Are you interested in more education?: No Please select the resources that you would like help with: None Currently or been in a relationship where the following occur: no concerns reported AUDIT C Alcohol Use Questionnaire (AUDIT-C) 1. How often do you have a drink containing alcohol?: Monthly or less 2. How many drinks containing alcohol do you have on a typical day when you are drinking?: 1 or 2 3. How often do you have six or more drinks on one occasion?: Never Total Score: 1 Score Reviewed/Action Taken: Yes RYAN-7 AMB Questionnaire RYAN-7 Date RYAN - 7 assessed: 11/13/22 Feeling nervous, anxious, or on edge: 0 = Not at all Not being able to stop or control worryin = Not at all Worrying too much about different things: 0 = Not at all Trouble relaxin = Not at all Being so restless that it is hard to sit still: 0 = Not at all Becoming easily annoyed or irritable: 0 = Not at all Feeling afraid as if something awful might happen: 0 = Not at all Total RYAN-7 score (0-4 normal; 5-9 mild; 10-14 moderate; 15-21 severe): 0 Source: Developed by Drs. Tim Hoyos, Adelaide Yo, Tone Light and colleagues, with an educational donna from [employer]. Review of Systems Const Denies fatigue, Denies fever(s) and Denies headache(s) ENT Denies dysphagia, Denies dizziness, Denies otalgia, Denies headache(s) and Denies sore throat Card Denies chest pain, Denies palpitations and Denies dyspnea Resp Denies cough and Denies dyspnea GI Denies abdominal pain, Denies constipation, Denies dysphagia, Denies heartburn, Denies diarrhea, Denies nausea and Denies vomiting Denies dysuria, Denies nocturia and Denies urinary frequency Neuro Denies dizziness and Denies headache(s) Endo Denies fatigue and Denies palpitations Physical exam (Primary Care) Vital Signs: Last Vital Signs Pulse 76 11/13/22 10:30 BP 118/62 11/13/22 10:30 Pulse Ox 98 11/13/22 10:30 Oxygen Delivery Method Room Air 11/13/22 10:30 BMI result Body Mass Index 27.1 Tobacco/Smoking Status: Tobacco use Status Tobacco use date assessed 11/13/22 11/13/22 10:36 Patient Tobacco Use Status Never used Tobacco 11/13/22 10:36 e-Cigarette/Vaping Use Never Used 11/13/22 10:36 PHQ-9: PHQ-9 Score PHQ-9: Total score 0 11/13/22 11:09 Depression Screening Interpretation: Negative Thrive Assessment: Date of Thrive Assessment Date Thrive assessed 11/13/22 11/13/22 10:36 Currently or been in a relationship where the following occur: no concerns rep orted Const General: no acute distress and alert HENMT Ears: TM's normal bilaterally and EAC's normal Throat: Yes posterior oropharynx normal and Yes tonsils normal (no TP congestion) Neck Neck: Yes no lymphadenopathy and Yes supple Resp Auscultation: clear to auscultation bilaterally, no rales and no wheezes Cardio Rate: regular rate Rhythm: regular rhythm Heart sounds: no murmurs GI Palpation (GI): Soft to palpation and nontender Auscultation: normal bowel sounds Extrem General: Yes no clubbing, cyanosis or edema Results Reviewed Results Reviewed: Laboratory Tests 11/09/22 11/09/22 11/09/22 08:58 09:00 09:00 WBC 11.2 H Hgb 15.7 Hct 46.2 Plt Count 365 Sodium 139 Potassium 4.3 Creatinine 1.01 Estimated GFR > 60 Fasting Glucose 90 Calcium 9.6 AST 23 ALT 20 Triglycerides 93 Cholesterol 96 LDL Cholesterol, Calc 43 HDL Cholesterol 35 L 25-OH Vitamin D Total 61.2 TSH 2.13 Ur Specific [place] 1.020 Urine Protein Negative Urine Glucose (UA) Negative Urine Blood Trace H Assessment and Plan Assessment & Plan (1) CAD (coronary artery disease): Comment: 3-vessel bypass in 2013 Code(s): I25.10 - Atherosclerotic heart disease of [place] coronary artery without angina pectoris Qualifiers: Associated angina: without angina Coronary Disease-Associated Artery/Lesion type: [place] artery [place] vs. transplanted heart: [place] heart Qualified Code(s): I25.10 - Atherosclerotic heart disease of [place] coronary artery without angina pectoris Plan: S/P triple vessel bypass in 2013 Myocardial perfusion study done in November 2020 came out normal; graft remains patent Continue Aspirin 81 mg QD Follow up with cardiology as scheduled (2) S/P CABG (coronary artery bypass graft): Comment: Status post 3 vessel coronary artery bypass grafting, 2013 Code(s): Z95.1 - Presence of aortocoronary bypass graft Plan: Repeat myocardial perfusion study in November 2020 came out normal, with patent graft Continue Aspirin 81 mg QD (needs to be on lifelong anticoagulation) and aggressive risk reduction and secondary prevention (3) Complete heart block: Comment: S/P pacemaker insertion Code(s): I44.2 - Atrioventricular block, complete Plan: S/P pacemaker insertion - pacer has been working properly and is being monitored remotely by cardiology Follow up with cardiology as scheduled (4) Pure hypercholesterolemia: Code(s): E78.00 - Pure hypercholesterolemia, unspecified Plan: Results of his labs done a few days ago reviewed and discussed with patient Reinforced low cholesterol diet Continue Rosuvastatin 40 mg QD and Ezetimibe 10 mg QD Will recheck his labs and fasting lipids in 4 months for follow up (5) Benign essential hypertension: Code(s): I10 - Essential (primary) hypertension Plan: Reinforced low sodium diet - goal is systolic BP of at least 130 mm or less Continue Metoprolol ER 100 mg QD (6) Autoimmune hemolytic anemia: Comment: S/P Tx with prednisone and splenectomy back in 2014; restarted Tx with prednisone and started on Rituximab from 09/15/21 to 10/06/21; prednisone D/Jae on 12/09/21 Code(s): D59.10 - Autoimmune hemolytic anemia, unspecified Plan: S/P Tx with Rituximab x 4 weeks, from 09/15/21 to 10/06/21 Was also started on oral Prednisone on 09/07/21 and this was tapered OFF over a few months His H/H is currently normal at 15.7/46.2 on his labs done a few days ago; [facility]omb's test remains positive recently Hematology continues to monitor his CBC every few weeks (now at 6 weeks interval) Follow up with hematology (Dr. Fuller) as scheduled (7) Acute lacunar infarction: Code(s): I63.81 - Other cerebral infarction due to occlusion or stenosis of small artery Plan: Brain MRI done in February 2021 revealed (+) small focus of lacunar infarction in the left brainstem - patient presented to the ER then with transient diplopia, which gradually resolved and has not recurred since; no other symptoms at present Continue Aspirin 81 mg QD; was also started on Clopidogrel 75 mg QD by neurology but could not tolerate Rx (diarrhea) Recommend again aggressive risk reduction to minimize/prevent recurrence - need to get BP and cholesterol level controlled as tightly as possible Follow up with neurology as scheduled (8) GERD (gastroesophageal reflux disease): Code(s): K21.9 - Gastro-esophageal reflux disease without esophagitis Qualifiers: Esophagitis presence: without esophagitis Qualified Code(s): K21.9 - Gastro-esophageal reflux disease without esophagitis Plan: Dietary restrictions reinforced Continue Pantoprazole 40 mg QD (9) Vitamin D deficiency: Code(s): E55.9 - Vitamin D deficiency, unspecified Plan: Continue Vitamin D3 2000 units QD (10) Pulmonary nodules: Code(s): R91.8 - Other nonspecific abnormal finding of lung field Plan: Stable - continue yearly CT screening and follow-up with Dr. Shirley as scheduled (11) Benign microscopic hematuria: Code(s): R31.1 - Benign essential microscopic hematuria Plan: Asymptomatic - will continue to monitor regularly Workups done in the past have all been negative/normal (12) Overweight (BMI 25.0-29.9): Code(s): E66.3 - Overweight Plan: Reinforced diet/exercise as tolerated/lose weight Plan Follow up in 4 months Orders: Orders Comprehensive [place]. Panel Fast 4 Months E78.00 - Pure hypercholesterolemia, unspecified Lipid Panel 4 Months E78.00 - Pure hypercholesterolemia, unspecified TSH reflex Free T4 4 Months E78.00 - Pure hypercholesterolemia, unspecified Vitamin D 25-OH Total 4 Months E55.9 - Vitamin D deficiency, unspecified Complete Blood Count Auto Diff 4 Months I10 - Essential (primary) hypertension UA CC w/rflx Micro + Cult 4 Months R30.0 - Dysuria Coding Level of Care Code Est Pt Level 4 (47309) Diagnoses CAD (coronary artery disease) I25.10 Associated angina: without angina Coronary Disease-Associated Artery/Lesion type: [place] artery [place] vs. transplanted heart: [place] heart S/P CABG (coronary artery bypass graft) Z95.1 Complete heart block I44.2 Pure hypercholesterolemia E78.00 Benign essential hypertension I10 Autoimmune hemolytic anemia D59.10 Acute lacunar infarction I63.81 GERD (gastroesophageal reflux disease) K21.9 Esophagitis presence: without esophagitis Vitamin D deficiency E55.9 Pulmonary nodules R91.8 Benign microscopic hematuria R31.1 Overweight (BMI 25.0-29.9) E66.3
== END 2022-11-13 11:19 | disposition home or self-care (01) ==
PROVIDERS: Visit Provider Internal Medicine
DX: I25.10 Atherosclerotic heart disease of native coronary artery without angina pectoris (principal); Z95.1 Presence of aortocoronary bypass graft; I63.81 Other cerebral infarction due to occlusion or stenosis of small artery; E55.9 Vitamin D deficiency, unspecified; I10 Essential (primary) hypertension; I44.2 Atrioventricular block, complete; D59.10 Autoimmune hemolytic anemia, unspecified; K21.9 Gastro-esophageal reflux disease without esophagitis; E78.00 Pure hypercholesterolemia, unspecified; R91.8 Other nonspecific abnormal finding of lung field; R31.1 Benign essential microscopic hematuria; E66.3 Overweight
CPT/HCPCS: 99214

== ENCOUNTER → 2023-01-17 23:59 | Outpatient (BNV) | payer MEDICARE, SELFPAY ==
--- NOTE | 2023-01-18 15:54 | A.OFFVIS_ITS ---
Intake Intake Visit Reasons: Remote Device Check- [facility] [place] Allergies clopidogrel Adverse Reaction (Intermediate, Verified 01/18/23 14:24) Diarrhea atorvastatin [ATORVASTATIN] Adverse Reaction (Mild, Verified 01/18/23 14:24) MUSCLE PAIN ALL OVER PFSH Medical History Acute lacunar infarction Autoimmune hemolytic anemia Benign essential hypertension Benign microscopic hematuria CAD (coronary artery disease) Cardiac pacemaker Complete heart block GERD (gastroesophageal reflux disease) History of autoimmune hemolytic anemia HTN (hypertension) Overweight (BMI 25.0-29.9) Pulmonary nodules Pure hypercholesterolemia Vitamin D deficiency Surgical History History of colonoscopy History of laparoscopic cholecystectomy History of permanent cardiac pacemaker placement History of splenectomy S/P CABG (coronary artery bypass graft) Family History Father Tuberculosis Mother No problems noted. Brother Colon cancer Brother Schizophrenia Lung disease Family/Other FH: mental illness Brother Alcoholism Other Mental health problem Social History Household Members: Spouse Housing: House Are you a primary animal care specialist to a significant other at home: No Do you presently have visiting nurse or other home services: No Alcohol intake: never Patient Tobacco Use Status: Never used Tobacco e-Cigarette/Vaping Use: Never Used Second Hand Smoke Exposure: Yes Use of substances other than those prescribed or required for medical reasons: No Have you been hit, kicked, punched, or otherwise hurt by someone within the past year? If so, by whom?: No Do you feel safe in your current relationship?: Yes Do you have thoughts of harming others: None Do you have a plan to hurt others: No Plan Do you have the means to hurt others: No Recently lost weight without trying: No service: No Current occupational status: retired Cognitive needs: No Hearing needs: No Vision needs: No Office Procedures Cardiac Device Check Cardiac Device Check Details: Remote pacemaker report generated 01/17/2023. Pacemaker function is adequate [id number] Cardiac Device Interrogation, pacemaker Procedure code (CPT) selection complete Coding Level of Care Code Procedure Only CPT Codes Cardiac Device Check - Cardiac Device 12: [id number] Cardiac Device Interrogation, pacemaker ([id number])
== END ==
PROVIDERS: PCP Internal Medicine; Visit Provider Internal Medicine Cardiovascular Disease
DX: I48.0 Paroxysmal atrial fibrillation (principal); Z95.0 Presence of cardiac pacemaker
CPT/HCPCS: 93294

== ENCOUNTER 2023-03-15 09:15 | Outpatient (REF) | payer MEDICARE, SELFPAY ==
[2023-03-15 09:25] LABS: MANUAL DIFF FLAG NO
[2023-03-15 09:35] LABS: Basophils Absolute Auto 0.1 X10*3/uL (0.0-0.2); Basophils Percent Auto 0.5 % (0-2); Eosinophils Absolute Auto 1.5 X10*3/uL (0.0-0.4); Eosinophils Percent Auto 12.2 % (0-4); Hematocrit 45.1 % (42.0-52.0); Hemoglobin 15.5 g/dl (14.0-18.0); Imm Gran Abs Auto 0.06 X10*3/uL (0.00-0.03); Imm Gran Pct Auto 0.5 % (0.0-0.4); Lymphocytes Absolute Auto 4.6 X10*3/uL (1.2-4.9); Lymphocytes Percent Auto 38.4 % (20-40); Mean Corpuscular HGB Conc 34.4 g/dl (31.0-36.0); Mean Corpuscular Hemoglobin 32.5 pg (27.0-33.0); Mean Corpuscular Volume 94.5 fL (80.0-98.0); Mean Platelet Volume 9.9 fL (9.4-12.4); Monocytes Absolute Auto 1.4 X10*3/uL (0.1-1.2); Monocytes Percent Auto 11.9 % (2-11); Neutrophils Absolute Auto 4.4 x10*3/uL (2.0-8.3); Neutrophils Percent Auto 36.5 % (45-73); Platelet Count 393 X10*3/uL (160-400); Red Blood Count 4.77 X10*6/uL (4.60-5.80); Red Cell Distribution Width 15.9 % (11.0-16.0)
[2023-03-15 10:18] LABS: Appearance Urine Clear; Color Urine Yellow; Glucose Urine UA Negative (Negative); Leukocyte Esterase Urine Negative (Negative); Nitrite Urine Negative (Negative); Specific Gravity - Urine 1.015 (1.005-1.025); UMIC TRIGGER UACC YES; Urine Blood Small (1+) (Negative); Urine Ketones Negative (Negative); Urine Protein Negative (Neg-Trace)
[2023-03-15 10:33] LABS: Bacteria Urine None Seen (None Seen); Hyaline Casts Urine 0-2 /LPF (0-2); Squamous Epithelial Cell Urine 0-2 /HPF (0-2); WBC Urine 0-5 /HPF (0-5)
[2023-03-15 10:52] LABS: Alanine Aminotransferase 26 U/L (0-40); Alkaline Phosphatase 97 U/L (39-117); Anion Gap 13 (12-20); Aspartate Amino Transferase 24 U/L (5-37); Bilirubin Total 2.1 mg/dL (0.0-1.0); Blood Urea Nitrogen 16 mg/dL (9-16); Calcium 9.5 mg/dL (8.4-10.2); Carbon Dioxide 28 mmol/L (22-29); Chloride 104 mmol/L (96-108); Cholesterol 96 mg/dL (<200); Estimated Glomerular Filt Rate > 60; Glucose Fasting 108 mg/dL (60-99); HDL Cholesterol 40 mg/dL (>40); LDL Cholesterol Calculated 39 mg/dL (<100); Potassium 4.3 mmol/L (3.3-5.1); Sodium 141 mmol/L (135-145); Total Protein 7.3 g/dL (6.5-8.0); Triglycerides 87 mg/dL (<150)
[2023-03-15 11:13] LABS: TSH reflex Free T4 2.07 uIU/mL (0.32-4.0); Vitamin D 25-OH Total 57.4 ng/mL (>30)
== END 2023-03-15 09:16 | disposition home or self-care (01) ==
LOC: HO.LAB 09:15
PROVIDERS: PCP Internal Medicine; Visit Provider Internal Medicine
DX: E78.00 Pure hypercholesterolemia, unspecified (principal); E55.9 Vitamin D deficiency, unspecified; R30.0 Dysuria; I10 Essential (primary) hypertension
CPT/HCPCS: 36415; 80053; 80061; 81001; 82306; 84443; 85025

== ENCOUNTER 2023-03-16 09:36 | Outpatient (AMB) | payer MEDICARE, SELFPAY ==
[2023-03-16 09:38] VITALS: BP 100/56; PULSE 94; O2SAT 96; BMI 28.2
--- NOTE | 2023-03-16 09:38 | A.OFFPC_ITS ---
Vital Signs 03/16/23 09:38 Height 5 ft 8 in Weight 185 lb 6 oz BMI 28.2 BP 100/56 L Blood Pressure Location Lt brachial Position Sitting Pulse 94 Pulse Source Pulse Oximeter Pulse Oximetry (%) 96 Oxygen Delivery Method Room Air Intake Visit Reasons: 4mth f/u Manager Linux Required: No Accompanied by: Self / Same As Patient Allergies clopidogrel Adverse Reaction (Intermediate, Verified 03/16/23 10:12) Diarrhea atorvastatin [ATORVASTATIN] Adverse Reaction (Mild, Verified 03/16/23 10:12) MUSCLE PAIN ALL OVER Medication List - Last Reconciled 03/16/23 by Emile Walters MD aspirin (Adult Aspirin Regimen) 81 mg PO DAILY cholecalciferol (vitamin D3) (Vitamin D3) 50 mcg PO DAILY coQ10 (ubiquinol) 200 mg PO DAILY ezetimibe (Zetia) 10 mg PO DAILY 90 days metoprolol succinate ER 100 mg PO DAILY 90 days pantoprazole 40 mg PO DAILY rosuvastatin 40 mg PO DAILY Tobacco use date assessed: 11/13/22 Last assessed Fall Risk: 03/16/23 Dental Screening Dental Screen Date: 03/16/23 Did you have a dental visit in the last 12 months?: No Did you have a dental problem in the last 6 months where you did not have access to dental care?: No Was dental information given to patient?: No (Dentures) HPI 4mt f/u HPI Details Patient comes in today for his follow up visit States that he feels okay He denies any headaches or dizziness Denies any chest pains, no SOB No nausea/vomiting, no abdominal pain No change in bowel habits noted Relates experiencing frequent and increased itching for the past few months now - notes that the itching is especially worse over his lower legs and are more prominent in the late afternoon States that he has tried several OTC remedies for itching lately with no significant relief Also relates (+) frequent bilateral knee pain lately - has been taking OTC Tylenol but these would only provide him temporary relief of his knee pains Denies any knee swelling and any history of knee injury or trauma Had his follow up labs done yesterday - to discuss his results [facility] Medical History Benign essential hypertension Acute lacunar infarction Pulmonary nodules Autoimmune hemolytic anemia HTN (hypertension) Benign microscopic hematuria Overweight (BMI 25.0-29.9) Vitamin D deficiency History of autoimmune hemolytic anemia GERD (gastroesophageal reflux disease) Pure hypercholesterolemia Cardiac pacemaker Complete heart block CAD (coronary artery disease) Surgical History History of laparoscopic cholecystectomy S/P CABG (coronary artery bypass graft) History of permanent cardiac pacemaker placement History of splenectomy History of colonoscopy Family History Father Tuberculosis Mother No problems noted. Brother Colon cancer Brother Schizophrenia Lung disease Family/Other FH: mental illness Brother Alcoholism Other Mental health problem Social History Household Members: Spouse Housing: House Are you a primary home care chaplain to a significant other at home: No Do you presently have visiting nurse or other home services: No Alcohol intake: never Patient Tobacco Use Status: Never used Tobacco e-Cigarette/Vaping Use: Never Used Second Hand Smoke Exposure: Yes service: No Current occupational status: retired Cognitive needs: No Hearing needs: No Vision needs: No Questionnaire PHQ-9 Over the last 2 weeks, how often have you been bothered by any of the following problems? Depression Screening Interpretation: Negative Depression Screening Done: Yes Source: Developed by Drs. Tim Hoyos, Tone Vidal and colleagues, with an educational donna from [employer]. Thrive Questionnaire Date Thrive assessed: 11/13/22 Currently or been in a relationship where the following occur: no concerns reported RYAN-7 AMB Questionnaire RYAN-7 Date RYAN - 7 assessed: 11/13/22 Source: Developed by Drs. Tim Hoyos, Tone iVdal and colleagues, with an educational donna from [employer]. Review of Systems Const Denies chills, Denies fatigue, Denies fever(s) and Denies headache(s) ENT Denies dysphagia, Denies dizziness, Denies otalgia, Denies headache(s), Denies odynophagia and Denies sore throat Card Denies chest pain, Denies palpitations and Denies dyspnea Resp Denies cough and Denies dyspnea GI Denies abdominal pain, Denies constipation, Denies dysphagia, Denies heartburn, Denies diarrhea, Denies nausea, Denies odynophagia and Denies vomiting Denies dysuria, Denies nocturia and Denies urinary frequency Musc Reports arthralgias (on and off over both knees) Skin/Breast Reports pruritus (recurrent, especially over both lower legs) and Denies rash Neuro Denies dizziness and Denies headache(s) Endo Denies fatigue and Denies palpitations Physical exam (Primary Care) Vital Signs: Last Vital Signs Pulse 94 03/16/23 09:38 BP 100/56 L 03/16/23 09:38 Pulse Ox 96 03/16/23 09:38 Oxygen Delivery Method Room Air 03/16/23 09:38 BMI result Body Mass Index 28.2 Tobacco/Smoking Status: Tobacco use Status Tobacco use date assessed 11/13/22 03/16/23 09:39 Patient Tobacco Use Status Never used Tobacco 03/16/23 09:39 e-Cigarette/Vaping Use Never Used 03/16/23 09:39 Depression Screening Interpretation: Negative Thrive Assessment: Date of Thrive Assessment Date Thrive assessed 11/13/22 03/16/23 09:39 Currently or been in a relationship where the following occur: no concerns reported Const General: no acute distress and alert HENMT Ears: TM's normal bilaterally and EAC's normal Throat: Yes posterior oropharynx normal and Yes tonsils normal (no TP congestion) Neck Neck: Yes no lymphadenopathy and Yes supple Resp Auscultation: clear to auscultation bilaterally, no rales and no wheezes Cardio Rate: regular rate Rhythm: regular rhythm Heart sounds: no murmurs GI Palpation (GI): Soft to palpation and nontender Auscultation: normal bowel sounds Skin General skin exam: dry skin Rashes: no rashes Extrem General: Yes no clubbing, cyanosis or edema Right lower extremity: knee Details: tenderness; no swelling Left lower extremity: knee Details: tenderness; no swelling Results Reviewed Results Reviewed: Laboratory Tests 03/15/23 03/15/23 03/15/23 09:21 09:21 09:24 WBC Hgb Hct 45.1 Plt Count 393 Sodium 141 Potassium 4.3 Creatinine 1.08 Estimated GFR > 60 Fasting Glucose 108 H Calcium 9.5 Total Bilirubin 2.1 H AST 24 ALT 26 Alkaline Phosphatase 97 Triglycerides 87 Cholesterol 96 LDL Cholesterol, Calc 39 HDL Cholesterol 40 L 25-OH Vitamin D Total 57.4 TSH Ur Specific [place] 1.015 Urine Protein Negative Urine Glucose (UA) Negative Urine Blood Small (1+) H Urine Nitrite Negative Ur Leukocyte Esterase Negative 03/15/23 03/15/23 09:24 09:24 WBC 12.0 H Hgb 15.5 Hct Plt Count Sodium Potassium Creatinine Estimated GFR Fasting Glucose Calcium Total Bilirubin AST ALT Alkaline Phosphatase Triglycerides Cholesterol LDL Cholesterol, Calc HDL Cholesterol 25-OH Vitamin D Total TSH 2.07 Ur Specific [place] Urine Protein Urine Glucose (UA) Urine Blood Urine Nitrite Ur Leukocyte Esterase Assessment and Plan Assessment & Plan (1) CAD (coronary artery disease): Comment: 3-vessel bypass in 2013 Code(s): I25.10 - Atherosclerotic heart disease of [place] coronary artery without angina pectoris Qualifiers: Coronary Disease-Associated Artery/Lesion type: [place] artery [place] vs. transplanted heart: [place] heart Associated angina: without angina Qualified Code(s): I25.10 - Atherosclerotic heart disease of [place] coronary artery without angina pectoris Plan: S/P triple vessel bypass in 2013 Myocardial perfusion study done in November 2020 came out normal; graft remains patent Continue Aspirin 81 mg QD Follow up with cardiology as scheduled (2) S/P CABG (coronary artery bypass graft): Comment: Status post 3 vessel coronary artery bypass grafting, 2013 Code(s): Z95.1 - Presence of aortocoronary bypass graft Plan: Repeat myocardial perfusion study in November 2020 came out normal, with patent graft Continue Aspirin 81 mg QD (needs to be on lifelong anticoagulation) and aggressive risk reduction and secondary prevention (3) Complete heart block: Comment: S/P pacemaker insertion Code(s): I44.2 - Atrioventricular block, complete Plan: S/P pacemaker insertion - pacer has been working properly and is being monitored remotely by cardiology Follow up with cardiology as scheduled (4) Pure hypercholesterolemia: Code(s): E78.00 - Pure hypercholesterolemia, unspecified Plan: Results of his labs done yesterday reviewed and discussed with patient Reinforced low cholesterol diet Continue Rosuvastatin 40 mg QD and Ezetimibe 10 mg QD Will recheck his labs and fasting lipids in 4 months for follow up (5) Benign essential hypertension: Code(s): I10 - Essential (primary) hypertension Plan: Reinforced low sodium diet - goal is systolic BP of at least 130 mm or less Continue Metoprolol ER 100 mg QD (6) Autoimmune hemolytic anemia: Comment: S/P Tx with prednisone and splenectomy back in 2014; restarted Tx with prednisone and started on Rituximab from 09/15/21 to 10/06/21; prednisone D/Jae on 12/09/21 Code(s): D59.10 - Autoimmune hemolytic anemia, unspecified Plan: S/P Tx with Rituximab x 4 weeks, from 09/15/21 to 10/06/21 Was also started on oral Prednisone on 09/07/21 and this was tapered OFF over a few months His Coomb's test remained positive recently His H/H is currently normal at 15.5/45.1 on his labs done yesterday Hematology continues to monitor his CBC regularly - now at 2 months interval Follow up with hematology (Dr. Fuller) as scheduled (7) Acute lacunar infarction: Code(s): I63.81 - Other cerebral infarction due to occlusion or stenosis of small artery Plan: Brain MRI done in February 2021 revealed (+) small focus of lacunar infarction in the left brainstem - patient presented to the ER then with transient diplopia, which gradually resolved and has not recurred since; no other symptoms at present Continue Aspirin 81 mg QD; was also started on Clopidogrel 75 mg QD by neurology but could not tolerate Rx (diarrhea) Recommend again aggressive risk reduction to minimize/prevent recurrence - need to get BP and cholesterol level controlled as tightly as possible Follow up with neurology as scheduled (8) Impaired fasting glucose: Code(s): R73.01 - Impaired fasting glucose Plan: Patient is cautioned that his FBS is elevated at 108 mg/dl on his recent labs and that this is the first time his FBS is higher than normal on all of his labs done over the years - is likely due to his diet and recent weight gain Reinforced low calorie/low carb diet, exercise as tolerated and to lose the weight that he recently gained Will recheck his FBS and also check his HgbA1c in 4 months for further evaluation (9) GERD (gastroesophageal reflux disease): Code(s): K21.9 - Gastro-esophageal reflux disease without esophagitis Qualifiers: Esophagitis presence: without esophagitis Qualified Code(s): K21.9 - Gastro-esophageal reflux disease without esophagitis Plan: Dietary restrictions reinforced Continue Pantoprazole 40 mg QD (10) Vitamin D deficiency: Code(s): E55.9 - Vitamin D deficiency, unspecified Plan: Continue Vitamin D3 2000 units QD (11) Pruritus: Code(s): L29.9 - Pruritus, unspecified Plan: Is most likely due to dry skin dermatitis Will start him on a trial of [place] Hydrin 12% lotion BID - TID PRN Advised that washing his legs in hot water will actually cause his skin to dry out more and aggravate his symptoms further (12) Pulmonary nodules: Code(s): R91.8 - Other nonspecific abnormal finding of lung field Plan: Stable - continue yearly CT screening and follow-up with Dr. Shirley as scheduled (13) Bilateral knee pain: Code(s): M25.561 - Pain in right knee; M25.562 - Pain in left knee Qualifiers: Chronicity: unspecified Qualified Code(s): M25.561 - Pain in right knee; M25.562 - Pain in left knee Plan: Suspect knee OA as the reason for his recurrent knee pain Will send him for x-rays of both knees for further evaluation (14) Benign microscopic hematuria: Code(s): R31.1 - Benign essential microscopic hematuria Plan: Asymptomatic - will continue to monitor regularly Workups done in the past have all been negative/normal (15) Overweight (BMI 25.0-29.9): Code(s): E66.3 - Overweight Plan: Reinforced diet/exercise as tolerated/lose weight - cautioned that he has gained some weight (about 7 to 8 pounds) since his last visit Plan Follow up in 4 months Orders: Orders XR knee standing BI Today M25.561 - Pain in right knee, M25.562 - Pain in left knee Hemoglobin A1c 4 Months R73.01 - Impaired fasting glucose Complete Blood Count Auto Diff 4 Months D59.10 - Autoimmune hemolytic anemia, unspecified, I10 - Essential (primary) hypertension Vitamin D 25-OH Total 4 Months E55.9 - Vitamin D deficiency, unspecified Lipid Panel 4 Months E78.00 - Pure hypercholesterolemia, unspecified Comprehensive [place]. Panel Fast 4 Months E78.00 - Pure hypercholesterolemia, unspecified TSH reflex Free T4 4 Months E78.00 - Pure hypercholesterolemia, unspecified UA CC w/rflx Micro + Cult 4 Months R30.0 - Dysuria Medications: New ammonium lactate 12% 1 appl topical BID-TID PRN 400 grams 3RF dry skin Coding Level of Care Code Est Pt Level 4 (39092) Diagnoses Coronary artery disease involving [place] coronary artery of [place] heart without angina pectoris I25.10 Coronary Disease-Associated Artery/Lesion type: [place] artery [place] vs. transplanted heart: [place] heart Associated angina: without angina S/P CABG (coronary artery bypass graft) Z95.1 Complete heart block I44.2 Pure hypercholesterolemia E78.00 Benign essential hypertension I10 Autoimmune hemolytic anemia D59.10 Acute lacunar infarction I63.81 Impaired fasting glucose R73.01 Gastroesophageal reflux disease without esophagitis K21.9 Esophagitis presence: without esophagitis Vitamin D deficiency E55.9 Pruritus L29.9 Pulmonary nodules R91.8 Pain in both knees, unspecified chronicity M25.561; M25.562 Chronicity: unspecified Benign microscopic hematuria R31.1 Overweight (BMI 25.0-29.9) E66.3
== END 2023-03-16 10:31 | disposition home or self-care (01) ==
PROVIDERS: PCP Internal Medicine; Visit Provider Internal Medicine
DX: I44.2 Atrioventricular block, complete (principal); D59.10 Autoimmune hemolytic anemia, unspecified; I63.81 Other cerebral infarction due to occlusion or stenosis of small artery; I25.10 Atherosclerotic heart disease of native coronary artery without angina pectoris; Z95.1 Presence of aortocoronary bypass graft; E78.00 Pure hypercholesterolemia, unspecified; I10 Essential (primary) hypertension; R73.01 Impaired fasting glucose; K21.9 Gastro-esophageal reflux disease without esophagitis; E55.9 Vitamin D deficiency, unspecified; L29.9 Pruritus, unspecified; R91.8 Other nonspecific abnormal finding of lung field
CPT/HCPCS: 99214

== ENCOUNTER 2023-03-16 10:41 | Outpatient (REF) | payer MEDICARE, SELFPAY | END 2023-03-16 10:42 | disposition home or self-care (01) | LOC: HO.XRAY 10:41 | PROVIDERS: PCP Internal Medicine; Visit Provider Internal Medicine | DX: M25.562 Pain in left knee (principal); M25.561 Pain in right knee | CPT/HCPCS: 73565 ==

== ENCOUNTER 2023-03-29 12:26 | Outpatient (AMB) | payer MEDICARE, SELFPAY ==
[2023-03-29 12:41] VITALS: BP 120/72; PULSE 70; BMI 27.8
--- NOTE | 2023-03-29 12:41 | MHC.OFFVIS ---
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 Required: No Allergies clopidogrel Adverse Reaction (Intermediate, Verified 03/16/23 10:12) Diarrhea atorvastatin [ATORVASTATIN] Adverse Reaction (Mild, Verified 03/16/23 10:12) MUSCLE PAIN ALL OVER Medication List - Last Reconciled 03/29/23 by Preston Cash MD ammonium lactate 12% 1 appl topical BID-TID PRN aspirin (Adult Aspirin Regimen) 81 mg PO DAILY cholecalciferol (vitamin D3) (Vitamin D3) 50 mcg PO DAILY coQ10 (ubiquinol) 200 mg PO DAILY ezetimibe (Zetia) 10 mg PO DAILY 90 days metoprolol succinate ER 100 mg PO DAILY 90 days pantoprazole 40 mg PO DAILY rosuvastatin 40 mg PO DAILY HPI HPI Comments History of Present Illness Details Dallin comes for follow-up. He has no new cardiac complaints at this point time. Denies any exertional chest pain or shortness of breath. Remains very active. Denies any heart failure symptoms. Denies any leg edema, claudication. His hemoglobin has remained stable. He denies any prolonged palpitations irregular heartbeat. [facility] Medical History Benign essential hypertension Acute lacunar infarction Pulmonary nodules Autoimmune hemolytic anemia HTN (hypertension) Benign microscopic hematuria Overweight (BMI 25.0-29.9) Vitamin D deficiency History of autoimmune hemolytic anemia GERD (gastroesophageal reflux disease) Pure hypercholesterolemia Cardiac pacemaker Complete heart block CAD (coronary artery disease) Surgical History History of laparoscopic cholecystectomy S/P CABG (coronary artery bypass graft) History of permanent cardiac pacemaker placement History of splenectomy History of colonoscopy Family History Father Tuberculosis Mother No problems noted. Brother Colon cancer Brother Schizophrenia Lung disease Family/Other FH: mental illness Brother Alcoholism Other Mental health problem Social History Household Members: Spouse Housing: House Are you a primary home care giver to a significant other at home: No Do you presently have visiting nurse or other home services: No Alcohol intake: never Patient Tobacco Use Status: Never used Tobacco e-Cigarette/Vaping Use: Never Used Second Hand Smoke Exposure: Yes service: No Current occupational status: retired Cognitive needs: No Hearing needs: No Vision needs: No Review of Systems Const Denies chills, Denies fatigue, Denies fever(s), Denies frequent falls, Denies weakness, Denies weight gain and Denies weight loss ENT Denies dizziness Card Denies chest pain, Denies leg edema, Denies lightheadedness, Denies palpitations, Denies dyspnea, Denies dyspnea on exertion, Denies orthopnea and Denies other (loss of consciousness) Resp Denies cough, Denies dyspnea and Denies dyspnea on exertion GI Denies hematochezia and Denies change in stool character Musc Denies abnormal gait, Denies muscle weakness, Denies numbness, Denies radiating pain into limb and Denies tingling Neuro Denies abnormal gait, Denies dizziness, Denies frequent falls, Denies numbness, Denies tingling and Denies weakness Endo Denies fatigue and Denies palpitations Physical Exam Vital Signs: Last Vital Signs Pulse 70 03/29/23 12:41 BP 120/72 03/29/23 12:41 BMI result Body Mass Index 27.8 Const General: cooperative, comfortable, no acute distress, alert and awake Nutritional Appearance: average body habitus Orientation/consciousness: patient oriented x3 Limitations: no limitations Neck Neck: Yes trachea midline, Yes supple and Yes no JVD Carotids: no bruits Resp Effort & Inspection: normal respiratory effort Auscultation: clear to auscultation bilaterally Cardio Jugular venous distension: no JVD Palpation: normal PMI Rate: regular rate Rhythm: regular rhythm Heart sounds: S1 normal heart sound present, S2 normal heart sound present, no click, no gallops, no murmurs and no rubs GI Auscultation: normal bowel sounds Skin General skin exam: no rashes or lesions noted Neuro General: patient oriented x3 and no focal motor deficits Extrem General: Yes no clubbing, cyanosis or edema Office Procedures Cardiac Device Check Cardiac Device Check Details: Dual-chamber [place] pacemaker in place. Programmed in DDDR at 60 beats per minute. Atrial pacing 12% of time. No episodes of atrial fibrillation noted. Atrial ventricular capture thresholds adequate. Atrial ventricular sensing is adequate. Pacing lead impedance is stable. Battery life is excellent at about 11 years [id number]-[id number] Cardiac Device Check, pacemaker dual lead Procedure code (CPT) selection complete Assessment & Plan Assessment & Plan (1) CAD (coronary artery disease): Comment: 3-vessel bypass in 2013 Code(s): I25.10 - Atherosclerotic heart disease of [place] coronary artery without angina pectoris Qualifiers: Coronary Disease-Associated Artery/Lesion type: [place] artery [place] vs. transplanted heart: [place] heart Associated angina: without angina Qualified Code(s): I25.10 - Atherosclerotic heart disease of [place] coronary artery without angina pectoris Plan: CAD with remote coronary artery bypass grafting. Doing very well from cardiac perspective. Will repeat myocardial perfusion imaging at 10 year anniversary in 6 months. He has no symptoms of angina at current point time. Continue low-dose aspirin therapy for life. Continue current lipid modification with LDL very well optimized. Blood pressure is very well optimized at this point in time as well. Advised to monitor blood pressure at home maintain a log. Continue maintain heart healthy lifestyle. (2) Cardiac pacemaker: Code(s): Z95.0 - Presence of cardiac pacemaker Plan: Cardiac pacemaker in-situ for transient AV block. Currently doing well. Will continue follow remotely every 3 months (3) Paroxysmal atrial fibrillation: Code(s): I48.0 - Paroxysmal atrial fibrillation Plan: Paroxysmal atrial fibrillation, currently without any clinical recurrences. No significant episodes with indication for anticoagulation. Will continue monitor pacer telemetry. Will follow up in the clinic in 6 months time, sooner p.r.n.. Thank you for allowing me to partake in his care Coding Level of Care Code Est Pt Level 4 (46308) Diagnoses Coronary artery disease involving [place] coronary artery of [place] heart without angina pectoris I25.10 Coronary Disease-Associated Artery/Lesion type: [place] artery [place] vs. transplanted heart: [place] heart Associated angina: without angina Cardiac pacemaker Z95.0 Paroxysmal atrial fibrillation I48.0 CPT Codes Cardiac Device Check - Cardiac Device 2: 14004-[id number] Cardiac Device Check, pacemaker dual lead ([id number])
== END 2023-03-29 13:02 | disposition home or self-care (01) ==
PROVIDERS: PCP Internal Medicine; Visit Provider Internal Medicine Cardiovascular Disease
DX: I25.10 Atherosclerotic heart disease of native coronary artery without angina pectoris (principal); I48.0 Paroxysmal atrial fibrillation; Z95.0 Presence of cardiac pacemaker
CPT/HCPCS: 93280; 99214

== ENCOUNTER → 2023-03-29 12:26 | Outpatient (BNVA) | payer MEDICARE, SELFPAY | PROVIDERS: PCP Internal Medicine; Visit Provider Internal Medicine Cardiovascular Disease | DX: Z45.018 Encounter for adjustment and management of other part of cardiac pacemaker (principal); I25.10 Atherosclerotic heart disease of native coronary artery without angina pectoris; I48.0 Paroxysmal atrial fibrillation | CPT/HCPCS: 93280; 99212 ==

== ENCOUNTER → 2023-04-18 23:59 | Outpatient (BNV) | payer MEDICARE, SELFPAY ==
--- NOTE | 2023-04-18 16:22 | MHC.OFFVIS ---
Intake Intake Visit Reasons: Remote Device Check- [facility] [place] Allergies clopidogrel Adverse Reaction (Intermediate, Verified 03/16/23 10:12) Diarrhea atorvastatin [ATORVASTATIN] Adverse Reaction (Mild, Verified 03/16/23 10:12) MUSCLE PAIN ALL OVER PFSH Medical History Benign essential hypertension Acute lacunar infarction Pulmonary nodules Autoimmune hemolytic anemia HTN (hypertension) Benign microscopic hematuria Overweight (BMI 25.0-29.9) Vitamin D deficiency History of autoimmune hemolytic anemia GERD (gastroesophageal reflux disease) Pure hypercholesterolemia Cardiac pacemaker Complete heart block CAD (coronary artery disease) Surgical History History of laparoscopic cholecystectomy S/P CABG (coronary artery bypass graft) History of permanent cardiac pacemaker placement History of splenectomy History of colonoscopy Family History Father Tuberculosis Mother No problems noted. Brother Colon cancer Brother Schizophrenia Lung disease Family/Other FH: mental illness Brother Alcoholism Other Mental health problem Social History Household Members: Spouse Housing: House Are you a primary associate director career services to a significant other at home: No Do you presently have visiting nurse or other home services: No Alcohol intake: never Patient Tobacco Use Status: Never used Tobacco e-Cigarette/Vaping Use: Never Used Second Hand Smoke Exposure: Yes service: No Current occupational status: retired Cognitive needs: No Hearing needs: No Vision needs: No Office Procedures Cardiac Device Check Cardiac Device Check Details: Remote pacemaker report generated 04/18/2023. Pacemaker function is adequate [id number] Cardiac Device Interrogation, pacemaker Procedure code (CPT) selection complete Assessment & Plan Assessment & Plan (1) Cardiac pacemaker: Code(s): Z95.0 - Presence of cardiac pacemaker Plan: See above Coding Level of Care Code Procedure Only Diagnoses Cardiac pacemaker Z95.0 CPT Codes Cardiac Device Check - Cardiac Device 12: [id number] Cardiac Device Interrogation, pacemaker ([id number])
== END ==
PROVIDERS: PCP Internal Medicine; Visit Provider Internal Medicine Cardiovascular Disease
DX: I44.2 Atrioventricular block, complete (principal); Z95.0 Presence of cardiac pacemaker
CPT/HCPCS: 93294

== ENCOUNTER 2023-07-18 08:17 | Outpatient (REF) | payer MEDICARE, SELFPAY ==
[2023-07-18 08:42] LABS: Basophils Absolute Auto 0.1 X10*3/uL (0.0-0.2); Basophils Percent Auto 0.6 % (0-2); Eosinophils Percent Auto 14.3 % (0-4); Hemoglobin 9.7 g/dl (14.0-18.0); Imm Gran Abs Auto 0.19 X10*3/uL (0.00-0.03); Imm Gran Pct Auto 1.4 % (0.0-0.4); Lymphocytes Percent Auto 28.9 % (20-40); MANUAL DIFF FLAG SCAN; Mean Corpuscular HGB Conc 34.6 g/dl (31.0-36.0); Mean Platelet Volume 10.3 fL (9.4-12.4); Monocytes Absolute Auto 2.3 X10*3/uL (0.1-1.2); Monocytes Percent Auto 16.9 % (2-11); Neutrophils Absolute Auto 5.2 x10*3/uL (2.0-8.3); Neutrophils Percent Auto 37.9 % (45-73); Platelet Count 415 X10*3/uL (160-400); Red Blood Count 2.49 X10*6/uL (4.60-5.80); SCAN SMEAR FLAG 1; White Blood Count 13.8 X10*3/uL (4.8-10.8)
[2023-07-18 08:44] LABS: Mean Corpuscular Volume 112.4 fL (80.0-98.0); NRBC Pct Auto 1.7 /100WBC (0.0-0.2)
[2023-07-18 09:03] LABS: SLIDE REVIEW VERIFIED
[2023-07-18 09:20] LABS: Alanine Aminotransferase 20 U/L (0-40); Albumin Level 3.9 g/dL (3.5-5.0); Alkaline Phosphatase 107 U/L (39-117); Anion Gap 11 (12-20); Aspartate Amino Transferase 42 U/L (5-37); Blood Urea Nitrogen 19 mg/dL (9-16); Calcium 9.2 mg/dL (8.4-10.2); Carbon Dioxide 24 mmol/L (22-29); Chloride 105 mmol/L (96-108); Cholesterol 75 mg/dL (<200); Estimated Glomerular Filt Rate > 60; Glucose Fasting 104 mg/dL (60-99); HDL Cholesterol 31 mg/dL (>40); LDL Cholesterol Calculated 21 mg/dL (<100); Potassium 4.4 mmol/L (3.3-5.1); Sodium 136 mmol/L (135-145); Total Protein 7.2 g/dL (6.5-8.0); Triglycerides 116 mg/dL (<150)
[2023-07-18 09:35] LABS: TSH reflex Free T4 2.28 uIU/mL (0.32-4.0); Vitamin D 25-OH Total 49.4 ng/mL (>30)
[2023-07-18 10:11] LABS: Appearance Urine Clear; Color Urine Yellow; Glucose Urine UA Negative (Negative); Leukocyte Esterase Urine Negative (Negative); Nitrite Urine Negative (Negative); PH 6.5 (5.0-9.0); Specific Gravity - Urine <= 1.005 (1.005-1.025); UMIC TRIGGER UACC YES; Urine Blood Trace (Negative); Urine Ketones Negative (Negative); Urine Protein Negative (Neg-Trace)
[2023-07-18 10:21] LABS: Bacteria Urine None Seen (None Seen); Hyaline Casts Urine 0-2 /LPF (0-2); RBC Urine 0-2 /HPF (0-2); Squamous Epithelial Cell Urine 0-2 /HPF (0-2); WBC Urine 0-5 /HPF (0-5)
== END 2023-07-18 08:18 | disposition home or self-care (01) ==
LOC: HO.LAB 08:17
PROVIDERS: PCP Internal Medicine; Visit Provider Internal Medicine
DX: I10 Essential (primary) hypertension (principal); D59.10 Autoimmune hemolytic anemia, unspecified; E78.00 Pure hypercholesterolemia, unspecified; R73.01 Impaired fasting glucose; E55.9 Vitamin D deficiency, unspecified; R30.0 Dysuria
CPT/HCPCS: 36415; 80053; 80061; 81001; 81003; 82306; 83036; 84443; 85025

== ENCOUNTER → 2023-07-18 23:59 | Outpatient (BNV) | payer MEDICARE, SELFPAY ==
--- NOTE | 2023-07-19 12:53 | MHC.OFFVIS ---
Intake Visit Reasons: Remote device check- [facility] Allergies clopidogrel Adverse Reaction (Intermediate, Verified 07/09/23 11:34) Diarrhea atorvastatin [ATORVASTATIN] Adverse Reaction (Mild, Verified 07/09/23 11:34) MUSCLE PAIN ALL OVER PFSH Medical History Benign essential hypertension Acute lacunar infarction Pulmonary nodules Autoimmune hemolytic anemia HTN (hypertension) Benign microscopic hematuria Overweight (BMI 25.0-29.9) Vitamin D deficiency History of autoimmune hemolytic anemia GERD (gastroesophageal reflux disease) Pure hypercholesterolemia Cardiac pacemaker Complete heart block CAD (coronary artery disease) Surgical History History of laparoscopic cholecystectomy S/P CABG (coronary artery bypass graft) History of permanent cardiac pacemaker placement History of splenectomy History of colonoscopy Family History Father Tuberculosis Mother No problems noted. Brother Colon cancer Brother Schizophrenia Lung disease Family/Other FH: mental illness Brother Alcoholism Other Mental health problem Social History Household Members: Spouse Housing: House Are you a primary md do resident urgent care to a significant other at home: No Do you presently have visiting nurse or other home services: No Alcohol intake: never Patient Tobacco Use Status: Never used Tobacco e-Cigarette/Vaping Use: Never Used Second Hand Smoke Exposure: Yes service: No Current occupational status: retired Cognitive needs: No Hearing needs: No Vision needs: No Office Procedures Cardiac Device Check Cardiac Device Check Details: Remote pacemaker report generated 07/18/2023. Pacemaker function is adequate [id number] Cardiac Device Interrogation, pacemaker Procedure code (CPT) selection complete Assessment & Plan Assessment & Plan (1) Cardiac pacemaker: Code(s): Z95.0 - Presence of cardiac pacemaker Category: Medical Plan: See above Coding Level of Care Code Procedure Only Diagnoses Cardiac pacemaker Z95.0 CPT Codes Cardiac Device Check - Cardiac Device 12: [id number] Cardiac Device Interrogation, pacemaker ([id number])
== END ==
PROVIDERS: PCP Internal Medicine; Visit Provider Internal Medicine Cardiovascular Disease
DX: Z45.018 Encounter for adjustment and management of other part of cardiac pacemaker (principal)
CPT/HCPCS: 93294

== ENCOUNTER 2023-07-20 09:38 | Outpatient (AMB) | payer MEDICARE, SELFPAY ==
--- NOTE | 2023-07-20 09:54 | A.OFFPC_ITS ---
Vital Signs 07/20/23 09:58 Height 5 ft 8 in Weight 186 lb 6 oz BMI 28.3 BP 110/50 L Blood Pressure Location Lt brachial Position Sitting Pulse 66 Pulse Source Pulse Oximeter Pulse Oximetry (%) 98 Oxygen Delivery Method Room Air Intake Visit Reasons: hyperlipidemia, CAD, CVA, IFG Intake Note: Patient is here to follow up on HLD, CAD, CVA, IFG. Recreation Activities Coordinator Required: No Hospital Insurance Representative: Not Required per policy Accompanied by: Self / Same As Patient Allergies clopidogrel Adverse Reaction (Intermediate, Verified 07/20/23 10:27) Diarrhea atorvastatin [ATORVASTATIN] Adverse Reaction (Mild, Verified 07/20/23 10:27) MUSCLE PAIN ALL OVER Medication List - Last Reconciled 07/20/23 by Emile Walters MD aspirin (Adult Aspirin Regimen) 81 mg PO DAILY cholecalciferol (vitamin D3) (Vitamin D3) 50 mcg PO DAILY coQ10 (ubiquinol) 200 mg PO DAILY ezetimibe 10 mg PO DAILY metoprolol succinate ER 100 mg PO DAILY 90 days pantoprazole 40 mg PO DAILY rosuvastatin 40 mg PO DAILY Tobacco use date assessed: 07/20/23 Fall risk assessment: No Falls in past year Last assessed Fall Risk: 07/20/23 Dental Screening Dental Screen Date: 07/20/23 Did you have a dental visit in the last 12 months?: No Did you have a dental problem in the last 6 months where you did not have access to dental care?: No Was dental information given to patient?: No (Dentures) HPI hyperlipidemia, CAD, CVA, IFG HPI Details Patient comes in today for his follow up visit Relates (+) fatigue but denies any headaches or dizziness He denies any chest pains but has noticed some SOB/KOVACS lately Started chemotherapy again earlier this week for his anemia and will be getting his treatments weekly - next dose is on next Sunday He denies any nausea/vomiting, no abdominal pain No change in bowel habits noted Had his follow up labs done a couple of days ago - to discuss his results [facility] Medical History Benign essential hypertension Acute lacunar infarction Pulmonary nodules Autoimmune hemolytic anemia HTN (hypertension) Benign microscopic hematuria Overweight (BMI 25.0-29.9) Vitamin D deficiency History of autoimmune hemolytic anemia GERD (gastroesophageal reflux disease) Pure hypercholesterolemia Cardiac pacemaker Complete heart block CAD (coronary artery disease) Surgical History History of laparoscopic cholecystectomy S/P CABG (coronary artery bypass graft) History of permanent cardiac pacemaker placement History of splenectomy History of colonoscopy Family History Father Tuberculosis Mother No problems noted. Brother Colon cancer Brother Schizophrenia Lung disease Family/Other FH: mental illness Brother Alcoholism Other Mental health problem Social History Household Members: Spouse Housing: House Are you a primary childcare administrator to a significant other at home: No Do you presently have visiting nurse or other home services: No Alcohol intake: never Patient Tobacco Use Status: Never used Tobacco e-Cigarette/Vaping Use: Never Used Second Hand Smoke Exposure: Yes service: No Current occupational status: retired Cognitive needs: No Hearing needs: No Vision needs: No Questionnaire PHQ-9 Over the last 2 weeks, how often have you been bothered by any of the following problems? 1. Little interest or pleasure in doing things: not at all 2. Feeling down, depressed, or hopeless: not at all 3. Trouble falling or staying asleep, or sleeping too much: not at all 4. Feeling tired or having little energy: not at all 5. Poor appetite or overeating: not at all 6. Feeling bad about yourself - or that you are a failure or have let yourself or your family down: not at all 7. Trouble concentrating on things, such as reading the newspaper or watching television: not at all 8. Moving or speaking so slowly that other people could have noticed. Or the opposite - being so fidgety or restless that you have been moving around a lot more than usual: not at all 9. Thoughts that you would be better off or of hurting yourself in some way: not at all Total score: 0 Depression Screening Interpretation: Negative Depression Screening Done: Yes 47308 - PHQ-9 Billing: Yes Source: Developed by Drs. Tim Hoyos, Adelaide Yo, Tone Light and colleagues, with an educational donna from [employer]. Thrive Questionnaire Date Thrive assessed: 07/20/23 I am a: Patient What is your living situation today?: I have a steady place to live Within the past 12 months, did the food you bought not last and you didn't have the money to get more?: Never true Within the past 12 months, did you worry whether your food would run out before you got money to buy more?: Never true Do you have trouble paying for medicines?: No Do you have trouble getting transportation to medical appointments?: No Do you have trouble paying your heating and electricity bill?: No Do you have trouble taking care of your child, family member or friend?: No Do you have trouble with day-to-day activities such as bathing, preparing meals, shopping, managing finances, etc.?: No Are you currently unemployed and looking for a job?: No Are you interested in more education?: No Currently or been in a relationship where the following occur: no concerns reported THRIVE Score: 0 AUDIT C Alcohol Use Questionnaire (AUDIT-C) 1. How often do you have a drink containing alcohol?: Monthly or less 2. How many drinks containing alcohol do you have on a typical day when you are drinking?: 1 or 2 3. How often do you have six or more drinks on one occasion?: Never Total Score: 1 Score Reviewed/Action Taken: Yes RYAN-7 AMB Questionnaire RYAN-7 Date RYAN - 7 assessed: 07/20/23 Feeling nervous, anxious, or on edge: 0 = Not at all Not being able to stop or control worryin = Not at all Worrying too much about different things: 0 = Not at all Trouble relaxin = Not at all Being so restless that it is hard to sit still: 0 = Not at all Becoming easily annoyed or irritable: 0 = Not at all Feeling afraid as if something awful might happen: 0 = Not at all Total RYAN-7 score (0-4 normal; 5-9 mild; 10-14 moderate; 15-21 severe): 0 Source: Developed by Drs. Tim Hoyos, Adelaide Yo, Tone Light and colleagues, with an educational donna from [employer]. Review of Systems Const Denies chills, Reports fatigue, Denies fever(s) and Denies headache(s) ENT Denies dysphagia, Denies dizziness, Denies otalgia, Denies headache(s), Denies odynophagia and Denies sore throat Card Denies chest pain, Denies palpitations and Reports dyspnea on exertion (mild) Resp Denies cough and Reports dyspnea on exertion (mild) GI Denies abdominal pain, Denies constipation, Denies dysphagia, Denies heartburn, Denies diarrhea, Denies nausea, Denies odynophagia and Denies vomiting Denies dysuria, Denies nocturia and Denies urinary frequency Musc Reports arthralgias (on and off over both knees) Skin/Breast Denies rash Neuro Denies dizziness and Denies headache(s) Endo Reports fatigue and Denies palpitations Physical exam (Primary Care) Vital Signs: Last Vital Signs Pulse 66 07/20/23 09:58 BP 110/50 L 07/20/23 09:58 Pulse Ox 98 07/20/23 09:58 Oxygen Delivery Method Room Air 07/20/23 09:58 BMI result Body Mass Index 28.3 Tobacco/Smoking Status: Tobacco use Status Tobacco use date assessed 07/20/23 07/20/23 10:03 Patient Tobacco Use Status Never used Tobacco 07/20/23 09:56 e-Cigarette/Vaping Use Never Used 07/20/23 09:56 PHQ-9: PHQ-9 Score PHQ-9: Total score 0 07/20/23 09:56 Depression Screening Interpretation: Negative Thrive Assessment: Date of Thrive Assessment Date Thrive assessed 07/20/23 07/20/23 09:56 Currently or been in a relationship where the following occur: no concerns reported Const General: no acute distress and alert HENMT Ears: TM's normal bilaterally and EAC's normal Throat: Yes posterior oropharynx normal and Yes tonsils normal (no TP congestion) Neck Neck: Yes no lymphadenopathy and Yes supple Thyroid: Thyroid normal Resp Auscultation: clear to auscultation bilaterally, no rales and no wheezes Cardio Rate: regular rate Rhythm: regular rhythm Heart sounds: no murmurs GI Palpation (GI): Soft to palpation and nontender Auscultation: normal bowel sounds Skin Rashes: no rashes Extrem General: Yes no clubbing, cyanosis or edema Right lower extremity: knee Details: tenderness; no swelling Left lower extremity: knee Details: tenderness; no swelling Results Reviewed Results Reviewed: Laboratory Tests 07/18/23 07/18/23 08:30 09:28 WBC 13.8 H Hgb 9.7 L Hct 28.0 L Plt Count 415 H Sodium 136 Potassium 4.4 Creatinine 0.92 Estimated GFR > 60 Fasting Glucose 104 H Calcium 9.2 D Total Bilirubin 6.0 H AST 42 H ALT 20 Triglycerides 116 Cholesterol 75 LDL Cholesterol, Calc 21 HDL Cholesterol 31 L 25-OH Vitamin D Total 49.4 TSH 2.28 Ur Specific [place] <= 1.005 Urine Protein Negative Urine Glucose (UA) Negative Urine Blood Trace H Urine Nitrite Negative Ur Leukocyte Esterase Negative Assessment and Plan Assessment & Plan (1) Autoimmune hemolytic anemia: Comment: S/P Tx with prednisone and splenectomy back in 2014; restarted Tx with prednisone and started on Rituximab from 09/15/21 to 10/06/21; prednisone D/Jae on 12/09/21 Code(s): D59.10 - Autoimmune hemolytic anemia, unspecified Plan: Patient currently is experiencing a relapse of his hemolytic anemia, and his H/H was at 9.7/28.0 on his labs done a couple of days ago He was started back on Rituximab earlier this week and will continue to receive Rituxan once a week - next dose is next Sunday Follow up with hematology (Dr. Fuller) as scheduled (2) CAD (coronary artery disease): Comment: 3-vessel bypass in 2013 Code(s): I25.10 - Atherosclerotic heart disease of [place] coronary artery without angina pectoris Qualifiers: Coronary Disease-Associated Artery/Lesion type: [place] artery [place] vs. transplanted heart: [place] heart Associated angina: without angina Qualified Code(s): I25.10 - Atherosclerotic heart disease of [place] coronary artery without angina pectoris Plan: S/P triple vessel bypass in 2013 Myocardial perfusion study done in November 2020 came out normal; graft remained patent at the time Continue Aspirin 81 mg QD Follow up with cardiology as scheduled (3) S/P CABG (coronary artery bypass graft): Comment: Status post 3 vessel coronary artery bypass grafting, 2013 Code(s): Z95.1 - Presence of aortocoronary bypass graft Plan: Repeat myocardial perfusion study in November 2020 came out normal, with patent graft Continue Aspirin 81 mg QD (needs to be on lifelong anticoagulation) and aggressive risk reduction and secondary prevention (4) Complete heart block: Comment: S/P pacemaker insertion Code(s): I44.2 - Atrioventricular block, complete Plan: S/P pacemaker insertion - pacer has been working properly and is being monitored remotely by cardiology Follow up with cardiology as scheduled (5) Pure hypercholesterolemia: Code(s): E78.00 - Pure hypercholesterolemia, unspecified Plan: Results of his labs done a couple of days ago reviewed and discussed with patient Reinforced low cholesterol diet Continue Rosuvastatin 40 mg QD and Ezetimibe 10 mg QD Will recheck his labs and fasting lipids in 4 months for follow up (6) Benign essential hypertension: Code(s): I10 - Essential (primary) hypertension Plan: Reinforced low sodium diet - goal is systolic BP of at least 130 mm or less Continue Metoprolol ER 100 mg QD (7) Acute lacunar infarction: Code(s): I63.81 - Other cerebral infarction due to occlusion or stenosis of small artery Plan: Brain MRI done in February 2021 revealed (+) small focus of lacunar infarction in the left brainstem - patient presented to the ER then with transient diplopia, which gradually resolved and has not recurred since; no other symptoms at present Continue Aspirin 81 mg QD; he was also started on Clopidogrel 75 mg QD by neurology but he could not tolerate Rx (diarrhea) Have recommended again aggressive risk reduction to minimize/prevent recurrence - need to get BP and cholesterol level controlled as tightly as possible Follow up with neurology as scheduled (8) Impaired fasting glucose: Code(s): R73.01 - Impaired fasting glucose Plan: His FBS was at 104 mg/dl on his recent labs; HgbA1c was not done due to icteric specimen Reinforced low calorie/low carb diet, exercise as tolerated Will recheck his FBS and also check his HgbA1c in 4 months for further evaluation (9) GERD (gastroesophageal reflux disease): Code(s): K21.9 - Gastro-esophageal reflux disease without esophagitis Qualifiers: Esophagitis presence: without esophagitis Qualified Code(s): K21.9 - Gastro-esophageal reflux disease without esophagitis Plan: Dietary restrictions reinforced Continue Pantoprazole 40 mg QD (10) Vitamin D deficiency: Code(s): E55.9 - Vitamin D deficiency, unspecified Plan: Continue Vitamin D3 2000 units QD (11) Pulmonary nodules: Code(s): R91.8 - Other nonspecific abnormal finding of lung field Plan: Stable - continue yearly CT screening and follow-up with Dr. Shirley as scheduled (12) Benign microscopic hematuria: Code(s): R31.1 - Benign essential microscopic hematuria Plan: Asymptomatic - will continue to monitor regularly Workups done in the past have all been negative/normal (13) Overweight (BMI 25.0-29.9): Code(s): E66.3 - Overweight Plan: Reinforced diet/exercise as tolerated/lose weight Plan Follow up in 4 months Orders: Orders Complete Blood Count Auto Diff 4 Months D64.9 - Anemia, unspecified Hemoglobin A1c 4 Months E11.9 - Type 2 diabetes mellitus without complications UA CC w/rflx Micro + Cult 4 Months R30.0 - Dysuria Vitamin D 25-OH Total 4 Months E55.9 - Vitamin D deficiency, unspecified Comprehensive Renovo. Panel Fast 4 Months E78.00 - Pure hypercholesterolemia, unspecified Lipid Panel 4 Months E78.00 - Pure hypercholesterolemia, unspecified TSH reflex Free T4 4 Months E78.00 - Pure hypercholesterolemia, unspecified Coding Level of Care Code Est Pt Level 4 (38330) Diagnoses Autoimmune hemolytic anemia D59.10 Coronary artery disease involving [place] coronary artery of [place] heart without angina pectoris I25.10 Coronary Disease-Associated Artery/Lesion type: [place] artery [place] vs. transplanted heart: [place] heart Associated angina: without angina S/P CABG (coronary artery bypass graft) Z95.1 Complete heart block I44.2 Pure hypercholesterolemia E78.00 Benign essential hypertension I10 Acute lacunar infarction I63.81 Impaired fasting glucose R73.01 Gastroesophageal reflux disease without esophagitis K21.9 Esophagitis presence: without esophagitis Vitamin D deficiency E55.9 Pulmonary nodules R91.8 Benign microscopic hematuria R31.1 Overweight (BMI 25.0-29.9) E66.3
[2023-07-20 09:58] VITALS: BP 110/50; PULSE 66; O2SAT 98; BMI 28.3
== END 2023-07-20 10:39 | disposition home or self-care (01) ==
PROVIDERS: PCP Internal Medicine; Visit Provider Internal Medicine
DX: D59.10 Autoimmune hemolytic anemia, unspecified (principal); I44.2 Atrioventricular block, complete; I63.81 Other cerebral infarction due to occlusion or stenosis of small artery; I25.10 Atherosclerotic heart disease of native coronary artery without angina pectoris; Z95.1 Presence of aortocoronary bypass graft; E78.00 Pure hypercholesterolemia, unspecified; I10 Essential (primary) hypertension; R73.01 Impaired fasting glucose; K21.9 Gastro-esophageal reflux disease without esophagitis; E55.9 Vitamin D deficiency, unspecified; R91.8 Other nonspecific abnormal finding of lung field; R31.1 Benign essential microscopic hematuria
CPT/HCPCS: 99214

== ENCOUNTER 2023-09-25 09:21 | Day surgery (SDC) | payer MEDICARE, SELFPAY ==
--- NOTE | 2023-09-24 10:23 | HO.ANESPROP2 ---
HPI - Anesthesia Eval Consult details Narrative: 72yo M for Colonoscopy Follows [facility] cardiology for CAD s/p CABG x 3 2013. Stable at routine 6 month office visit 03/2023 Pacer in situ for transient AV block Last K elevated at 5.7. Will repeat DOS. PMFSH Active Problems Active Problems: All Active Problems Pruritus (Acute) Impaired fasting glucose (Acute) Bilateral knee pain (Acute) Paroxysmal atrial fibrillation (Acute) Obstructive sleep apnea hypopnea, mild (Acute) Hypersomnia (Acute) NSVT (nonsustained ventricular tachycardia) (Acute) Benign essential hypertension (Acute) Acute lacunar infarction (Acute) Hospital discharge follow-up (Acute) Impacted cerumen (Acute) Diplopia (Acute) History of laparoscopic cholecystectomy (Acute) Cholelithiasis (Acute) Biliary colic (Acute) Abdominal pain (Acute) Encounter for Medicare annual wellness exam (Acute) Pulmonary nodules (Acute) Autoimmune hemolytic anemia (Acute) CAD (coronary artery disease) (Acute) Cardiac pacemaker (Acute) HTN (hypertension) (Acute) Complete heart block (Acute) Hemolytic anemia (Acute) Pulmonary nodule (Acute) Benign microscopic hematuria (Acute) Overweight (BMI 25.0-29.9) (Acute) Vitamin D deficiency (Acute) GERD (gastroesophageal reflux disease) (Acute) Pure hypercholesterolemia (Acute) S/P CABG (coronary artery bypass graft) (Acute) Past Medical History Medical History Benign essential hypertension Acute lacunar infarction Pulmonary nodules Autoimmune hemolytic anemia HTN (hypertension) Benign microscopic hematuria Overweight (BMI 25.0-29.9) Vitamin D deficiency History of autoimmune hemolytic anemia GERD (gastroesophageal reflux disease) Pure hypercholesterolemia Cardiac pacemaker Complete heart block CAD (coronary artery disease) Family History Family History Father Tuberculosis Mother No problems noted. Brother Colon cancer Brother Schizophrenia Lung disease Family/Other FH: mental illness Brother Alcoholism Other Mental health problem Family history of problems with anesthesia: No Surgical History Surgical History History of laparoscopic cholecystectomy S/P CABG (coronary artery bypass graft) History of permanent cardiac pacemaker placement History of splenectomy History of colonoscopy History of Problems with Anesthesia: No Social History Social History Household Members: Spouse Housing: House Are you a primary lawn care professional to a significant other at home: No Do you presently have visiting nurse or other home services: No Alcohol intake: never Comment: iv d/robert Patient Tobacco Use Status: Never used Tobacco e-Cigarette/Vaping Use: Never Used Second Hand Smoke Exposure: Yes Use of substances other than those prescribed or required for medical reasons: No Are you DNR?: No Advance Directives: No Advance Directives Information Provided: Yes service: No Current occupational status: retired Cognitive needs: No Hearing needs: No Vision needs: No Meds Allergies Allergy/AdvReac Type Severity Reaction Status Date / Time clopidogrel AdvReac Intermediate Diarrhea Verified 09/17/23 10:34 atorvastatin [ATORVASTATIN] AdvReac Mild MUSCLE Verified 09/17/23 10:34 PAIN ALL OVER Home Medications ?Medication ?Instructions ?Recorded ?Confirmed ?Last Taken ?Type aspirin 81 mg tablet,delayed 81 mg PO DAILY 01/11/20 09/17/23 Unknown History release (Adult Aspirin Regimen) cholecalciferol (vitamin D3) 50 50 mcg PO DAILY 08/31/20 09/17/23 Unknown History mcg (2,000 unit) tablet (Vitamin D3) coQ10 (ubiquinol) 100 mg capsule 200 mg PO DAILY 12/01/20 09/17/23 Unknown History Exam Narrative Narrative: Cardiac Device Check 07/2023 Details: Remote pacemaker report generated 07/18/2023. Pacemaker function is adequate Cardiac Device Check 03/2023 Details: Dual-chamber [facility] pacemaker in place. Programmed in DDDR at 60 beats per minute. Atrial pacing 12% of time. No episodes of atrial fibrillation noted. Atrial ventricular capture thresholds adequate. Atrial ventricular sensing is adequate. Pacing lead impedance is stable. Battery life is excellent at about 11 years Assessment and Plan Assessment Anesthesia Assessment: Chart Reviewed Final Anesthetic Review Family History of Problems with Anesthesia: No History of Problems with Anesthesia: No
[2023-09-25 10:42] VITALS: BMI 27.3
[2023-09-25 10:55] VITALS: BP 138/75; PULSE 94; RESP 16; TEMP 36.5; O2SAT 96
[2023-09-25 11:05] LABS: Anion Gap 13 (12-20); Blood Urea Nitrogen 20 mg/dL (9-16); Calcium 9.8 mg/dL (8.4-10.2); Carbon Dioxide 27 mmol/L (22-29); Chloride 104 mmol/L (96-108); Creatinine Clr Calc Pharmacy 50.5; Estimated Glomerular Filt Rate 56; Glucose Fasting 133 mg/dL (60-99); Potassium 4.1 mmol/L (3.3-5.1); Sodium 140 mmol/L (135-145)
[2023-09-25] MEDS: Lactated Ringers 1,000 ML 100 ML IVCONT (11:06)
--- NOTE | 2023-09-25 12:28 | MHC.SHP ---
Pre-Procedural Eval Section A - 24 Hr Update-Section A only Date of Service: 09/25/23 The patient is an INPATIENT: No Changes since office visit: No Cold of Flu in the past 2 weeks, No New Medical Problems, No Changes in Medication and No Patient answered all questions The patient has been examined within 24 hours of the surgical procedure. The History & Physical has been completed within 30 days and I have reviewed it.: Yes Section B - Complete if H&P > 30 days Chief Complaint: Encounter for screening for malignant neoplasm of Allergies: Allergies Allergy/AdvReac Type Severity Reaction Status Date / Time clopidogrel AdvReac Intermediate Diarrhea Verified 09/17/23 10:34 atorvastatin [ATORVASTATIN] AdvReac Mild MUSCLE Verified 09/17/23 10:34 PAIN ALL OVER Plan I have reviewed the history and physical and performed a pertinent physical examination on my patient. No changes have occurred unless specified. Time Spent With Patient Time: Total time managing care of this patient today ____ minutes.
[2023-09-25 13:04] VITALS: BP 117/65; PULSE 70; RESP 16; TEMP 36.1; O2SAT 97
[2023-09-25 13:19] VITALS: BP 138/77; PULSE 65; RESP 18; TEMP 36.2; O2SAT 99
--- NOTE | 2023-09-25 13:22 | PC.NURSE ---
iv d/robert pt pending d/c
--- NOTE | 2023-09-25 13:33 | PC.NURSE ---
dr martin at bedside going over results
--- NOTE | 2023-09-25 13:43 | OP_ITS ---
DATE OF SERVICE: 09/25/2023 SURGEON: William Slade MD INDICATIONS: Colon cancer screening and prior history of adenomatous colon polyps. PREOPERATIVE DIAGNOSIS: POSTOPERATIVE DIAGNOSIS: PROCEDURE PERFORMED: Colonoscopy to the cecum. ESTIMATED BLOOD LOSS: COMPLICATIONS: ANESTHESIA: Monitored anesthesia care. ASSISTANTS: SPECIMENS: DESCRIPTION OF PROCEDURE: A history and physical was performed. The risks and benefits of the procedure were explained to the patient. Informed consent was obtained. The patient was placed in the left lateral decubitus position. A digital rectal exam was performed and was found to be normal. The Olympus pediatric video colonoscope was introduced into the rectum and advanced to the cecum. The cecum was identified by transillumination, palpation, and identification of ileocecal valve. Examination was performed. The scope was removed. He tolerated the procedure well and was returned to the recovery area in stable condition. FINDINGS: The terminal ileum was not examined. The visualized colonic mucosa was normal. The quality of the prep was good. There was some liquid stool, which was washed and suctioned. No polyps were identified. Retroflexed examination showed some internal hemorrhoids. IMPRESSION: Normal colonoscopy. RECOMMENDATION: 1. Follow up as needed. 2. Repeat colonoscopy is recommended in 10 years for average-risk individuals. This is optional based on age. MD NICK Collado/ROSALIE / [phone]
== END 2023-09-25 14:15 | disposition home or self-care (01) ==
PROVIDERS: Nurse Practitioner; PCP Internal Medicine; Visit Provider Internal Medicine Gastroenterology
PROC: 0DJD8ZZ Inspection of Lower Intestinal Tract, Via Natural or Artificial Opening Endoscopic (ICD-10-PCS; CPT 45378; principal; 2023-09-25 12:50)
DX: Z12.11 Encounter for screening for malignant neoplasm of colon (principal); K64.8 Other hemorrhoids; Z80.0 Family history of malignant neoplasm of digestive organs; I10 Essential (primary) hypertension; E78.00 Pure hypercholesterolemia, unspecified; I48.0 Paroxysmal atrial fibrillation; D58.9 Hereditary hemolytic anemia, unspecified; G47.33 Obstructive sleep apnea (adult) (pediatric); Z90.49 Acquired absence of other specified parts of digestive tract; Z95.0 Presence of cardiac pacemaker; Z95.1 Presence of aortocoronary bypass graft; Z79.82 Long term (current) use of aspirin; Z79.02 Long term (current) use of antithrombotics/antiplatelets; Z79.899 Other long term (current) drug therapy
CPT/HCPCS: G0105; 36415; 80048; J2704

== ENCOUNTER 2023-10-10 13:36 | Outpatient (AMB) | payer MEDICARE, SELFPAY ==
[2023-10-10 13:38] VITALS: BP 130/76; PULSE 67; BMI 27.5
--- NOTE | 2023-10-10 13:38 | MHC.OFFVIS ---
Vital Signs 10/10/23 13:38 Height 5 ft 8 in Weight 180 lb 12.465 oz BMI 27.5 BP 130/76 Blood Pressure Location Lt brachial Position Sitting Pulse 67 Intake Visit Reasons: 6 mth fu w/ st brent Intake Note: 6 month follow-up with ekg and st brent check Allergies clopidogrel Adverse Reaction (Intermediate, Verified 09/17/23 10:34) Diarrhea atorvastatin [ATORVASTATIN] Adverse Reaction (Mild, Verified 09/17/23 10:34) MUSCLE PAIN ALL OVER Medication List - Last Reconciled 10/10/23 by Preston Cash MD aspirin (Adult Aspirin Regimen) 81 mg PO DAILY cholecalciferol (vitamin D3) (Vitamin D3) 50 mcg PO DAILY coQ10 (ubiquinol) 200 mg PO DAILY ezetimibe 10 mg PO DAILY folic acid 1 mg PO DAILY metoprolol succinate ER 100 mg PO DAILY 90 days pantoprazole 40 mg PO DAILY prednisone 5 mg PO DIRECTED rosuvastatin 40 mg PO DAILY HPI Comments Details: Dallin comes for a follow-up for his pacemaker and coronary artery disease. Overall he has been doing extremely well. He maintains activity level without any restriction since his hemoglobin has been normal. Denies any exertional chest pain or shortness of breath. Takes all his medications regularly. Denies any heart failure symptoms. Denies any prolonged palpitation irregular heartbeat. Comes for his pacer evaluation as well. [facility] Medical History Benign essential hypertension Acute lacunar infarction Pulmonary nodules Autoimmune hemolytic anemia HTN (hypertension) Benign microscopic hematuria Overweight (BMI 25.0-29.9) Vitamin D deficiency History of autoimmune hemolytic anemia GERD (gastroesophageal reflux disease) Pure hypercholesterolemia Cardiac pacemaker Complete heart block CAD (coronary artery disease) Surgical History History of laparoscopic cholecystectomy S/P CABG (coronary artery bypass graft) History of permanent cardiac pacemaker placement History of splenectomy History of colonoscopy Family History Father Tuberculosis Mother No problems noted. Brother Colon cancer Brother Schizophrenia Lung disease Family/Other FH: mental illness Brother Alcoholism Other Mental health problem Social History Household Members: Spouse Housing: House Are you a primary pet care attendant to a significant other at home: No Do you presently have visiting nurse or other home services: No Alcohol intake: never Comment: iv d/robert Patient Tobacco Use Status: Never used Tobacco e-Cigarette/Vaping Use: Never Used Second Hand Smoke Exposure: Yes service: No Current occupational status: retired Cognitive needs: No Hearing needs: No Vision needs: No Review of Systems Const Denies chills, Denies fatigue, Denies fever(s), Denies frequent falls, Denies weakness, Denies weight gain and Denies weight loss ENT Denies dizziness Card Denies chest pain, Denies leg edema, Denies lightheadedness, Denies palpitations, Denies dyspnea, Denies dyspnea on exertion, Denies orthopnea and Denies other (loss of consciousness) Resp Denies cough, Denies dyspnea and Denies dyspnea on exertion GI Denies hematochezia and Denies change in stool character Musc Denies abnormal gait, Denies muscle weakness, Denies numbness, Denies radiating pain into limb and Denies tingling Neuro Denies abnormal gait, Denies dizziness, Denies frequent falls, Denies numbness, Denies tingling and Denies weakness Endo Denies fatigue and Denies palpitations Physical Exam Vital Signs: Last Vital Signs Pulse 67 10/10/23 13:38 BP 130/76 10/10/23 13:38 BMI result Body Mass Index 27.5 Const General: cooperative, comfortable, no acute distress, alert and awake Nutritional Appearance: average body habitus Orientation/consciousness: patient oriented x3 Limitations: no limitations Neck Neck: Yes trachea midline, Yes supple and Yes no JVD Carotids: no bruits Chest Chest palpation & inspection: Pacemaker present Resp Effort & Inspection: normal respiratory effort Auscultation: clear to auscultation bilaterally Cardio Jugular venous distension: no JVD Palpation: normal PMI Rate: regular rate Rhythm: regular rhythm Heart sounds: S1 normal heart sound present, S2 normal heart sound present, no click, no gallops, no murmurs and no rubs GI Auscultation: normal bowel sounds Skin General skin exam: no rashes or lesions noted Neuro General: patient oriented x3 and no focal motor deficits Extrem General: Yes no clubbing, cyanosis or edema Office Procedures Cardiac Device Check Cardiac Device Check Details: Dual-chamber [place] pacemaker in place. Programmed in DDDR at 60 beats per minute. Atrial pacing 12% time. One brief episode of atrial fibrillation noted that lasted for less than 30 seconds. Atrial ventricular pacing thresholds adequate and in our capture mode. Atrial ventricular sensing is adequate. Pacing lead impedance is stable. Battery life is at about 5 and half years 43763-QG Cardiac Device Check, pacemaker dual lead Procedure code (CPT) selection complete EKG Details: EKG shows normal sinus rhythm with right bundle-branch block with Q-wave in lead 3 most likely due to body habitus 89914-Nhinylwxowhrtsnjr, Complete Assessment & Plan Assessment & Plan (1) CAD (coronary artery disease): Comment: 3-vessel bypass in 2013 Code(s): I25.10 - Atherosclerotic heart disease of [place] coronary artery without angina pectoris Category: Medical Qualifiers: Associated angina: without angina Coronary Disease-Associated Artery/Lesion type: [place] artery [place] vs. transplanted heart: [place] heart Qualified Code(s): I25.10 - Atherosclerotic heart disease of [place] coronary artery without angina pectoris Plan: Coronary artery disease remote coronary artery bypass grafting with no recurrent symptoms of angina at current point time. Currently doing extremely well from cardiac perspective. Continue current low-dose aspirin therapy for life. Continue high-intensity statin therapy with ezetimibe with target goal LDL less than 70 mg/dL. Advised lipid panel at least on a yearly basis. Continue metoprolol therapy. Blood pressure is currently well optimized encouraged to continue to participate in physical activity as tolerated. Myocardial perfusion imaging in 2020 with within normal limits. No further workup is indicated at this point time. (2) Cardiac pacemaker: Code(s): Z95.0 - Presence of cardiac pacemaker Category: Medical Plan: Cardiac pacemaker in-situ for complete heart block although currently pacing in the atrium 12% time. He is doing well from cardiac pacemaker perspective follow remotely. Follow up in the clinic in 6 months time. Follow up in the clinic in 6 months time, sooner p.r.n.. Thank you for allowing me to partake in his care Medications: Refilled ezetimibe 10 mg PO DAILY 90 tabs 0RF rosuvastatin 40 mg PO DAILY 90 tabs 3RF Coding Level of Care Code Est Pt Level 4 (96734) Diagnoses Coronary artery disease involving [place] coronary artery of [place] heart without angina pectoris I25.10 Associated angina: without angina Coronary Disease-Associated Artery/Lesion type: [place] artery [place] vs. transplanted heart: [place] heart Cardiac pacemaker Z95.0 CPT Codes Cardiac Device Check - Cardiac Device 2: 60228-WN Cardiac Device Check, pacemaker dual lead ([id number]) EKG - CPT: 54049-Zdokkstehawdvosox, Complete ([id number])
== END 2023-10-10 14:08 | disposition home or self-care (01) ==
PROVIDERS: PCP Internal Medicine; Visit Provider Internal Medicine Cardiovascular Disease
DX: I25.10 Atherosclerotic heart disease of native coronary artery without angina pectoris (principal); I48.91 Unspecified atrial fibrillation; Z95.0 Presence of cardiac pacemaker; R94.31 Abnormal electrocardiogram [ECG] [EKG]
CPT/HCPCS: 93010; 93280; 99214

== ENCOUNTER → 2023-10-10 13:36 | Outpatient (BNVA) | payer MEDICARE, SELFPAY | PROVIDERS: PCP Internal Medicine; Visit Provider Internal Medicine Cardiovascular Disease | DX: Z45.018 Encounter for adjustment and management of other part of cardiac pacemaker (principal); I25.10 Atherosclerotic heart disease of native coronary artery without angina pectoris | CPT/HCPCS: 93005; 93280; 99212 ==

== ENCOUNTER → 2023-10-17 23:59 | Outpatient (BNV) | payer MEDICARE, SELFPAY ==
--- NOTE | 2023-10-22 17:04 | MHC.OFFVIS ---
Intake Visit Reasons: Remote device check- [facility] Allergies clopidogrel Adverse Reaction (Intermediate, Verified 10/18/23 08:34) Diarrhea atorvastatin [ATORVASTATIN] Adverse Reaction (Mild, Verified 10/18/23 08:34) MUSCLE PAIN ALL OVER [facility] Medical History Benign essential hypertension Acute lacunar infarction Pulmonary nodules Autoimmune hemolytic anemia HTN (hypertension) Benign microscopic hematuria Overweight (BMI 25.0-29.9) Vitamin D deficiency History of autoimmune hemolytic anemia GERD (gastroesophageal reflux disease) Pure hypercholesterolemia Cardiac pacemaker Complete heart block CAD (coronary artery disease) Surgical History History of laparoscopic cholecystectomy S/P CABG (coronary artery bypass graft) History of permanent cardiac pacemaker placement History of splenectomy History of colonoscopy Family History Father Tuberculosis Mother No problems noted. Brother Colon cancer Brother Schizophrenia Lung disease Family/Other FH: mental illness Brother Alcoholism Other Mental health problem Social History Household Members: Spouse Housing: House Are you a primary healthcare architect to a significant other at home: No Do you presently have visiting nurse or other home services: No Alcohol intake: never Comment: iv d/robert Patient Tobacco Use Status: Never used Tobacco e-Cigarette/Vaping Use: Never Used Second Hand Smoke Exposure: Yes Use of substances other than those prescribed or required for medical reasons: No Have you been hit, kicked, punched, or otherwise hurt by someone within the past year? If so, by whom?: No Do you feel safe in your current relationship?: Yes Do you have thoughts of harming others: None Do you have a plan to hurt others: No Plan Do you have the means to hurt others: No Recently lost weight without trying: No service: No Current occupational status: retired Cognitive needs: No Hearing needs: No Vision needs: No Office Procedures Cardiac Device Check Cardiac Device Check Details: Remote pacemaker report generated 10/17/2023. Pacemaker function is adequate [id number]-[id number] Cardiac Device Interrogation, pacemaker Procedure code (CPT) selection complete Assessment & Plan Assessment & Plan (1) Cardiac pacemaker: Code(s): Z95.0 - Presence of cardiac pacemaker Category: Medical Plan: See above Coding Level of Care Code Procedure Only Diagnoses Cardiac pacemaker Z95.0 CPT Codes Cardiac Device Check - Cardiac Device 12: 51087-Qqpiml Cardiac Device Interrogation, pacemaker ([id number])
== END ==
PROVIDERS: PCP Internal Medicine; Visit Provider Internal Medicine Cardiovascular Disease
DX: Z45.018 Encounter for adjustment and management of other part of cardiac pacemaker (principal)
CPT/HCPCS: 93294

== ENCOUNTER 2023-10-29 12:39 | Emergency (ER) | payer MEDICARE, SELFPAY ==
--- NOTE | ~2023-10-29 | XR_ITS ---
EXAMINATION: XR LUMBOSACRAL SPINE CLINICAL INFORMATION: Atraumatic low back COMPARISON: None available. TECHNIQUE: Three views of the lumbosacral spine. FINDINGS: The vertebral bodies and posterior elements are normal. The disc spaces are preserved and the vertebral alignment is normal. The paraspinal soft tissues are normal. XR/XR lumbar spine 2-3V IMPRESSION: Unremarkable examination.
[2023-10-29 12:53] VITALS: BP 132/68; PULSE 74; RESP 18; TEMP 36.4; O2SAT 98; BMI 27.0
--- NOTE | 2023-10-29 12:55 | ED_ITS ---
HPI - General Adult General Chief complaint: Back Pain/Injury Stated complaint: l side pain Time Seen by Provider: 10/29/23 14:13 Related Data Home Medications ?Medication ?Instructions ?Recorded ?Confirmed aspirin 81 mg tablet,delayed 81 mg PO DAILY 01/11/20 10/18/23 release (Adult Aspirin Regimen) cholecalciferol (vitamin D3) 50 50 mcg PO DAILY 08/31/20 10/18/23 mcg (2,000 unit) tablet (Vitamin D3) coQ10 (ubiquinol) 100 mg capsule 200 mg PO DAILY 12/01/20 10/18/23 Previous Rx's ?Medication ?Instructions ?Recorded metoprolol succinate 100 mg 100 mg PO DAILY 90 days #90 tabs 06/22/23 tablet,extended release 24 hr folic acid 1 mg tablet 1 mg PO DAILY #89 tabs 08/06/23 pantoprazole 40 mg tablet,delayed 40 mg PO DAILY #90 tabs 08/11/23 release prednisone 5 mg tablet 5 mg PO DIRECTED #100 tabs 08/28/23 rosuvastatin 40 mg tablet 40 mg PO DAILY #90 tabs 10/10/23 ezetimibe 10 mg tablet 10 mg PO DAILY #90 tabs 10/15/23 acetaminophen 650 mg 650 mg PO Q8H PRN pain #30 tabs 10/29/23 tablet,extended release (Tylenol Arthritis Pain) lidocaine 5 % topical patch 1 patch topical DAILY #15 ea 10/29/23 Allergies Allergy/AdvReac Type Severity Reaction Status Date / Time clopidogrel AdvReac Intermediate Diarrhea Verified 10/29/23 12:56 atorvastatin [ATORVASTATIN] AdvReac Mild MUSCLE Verified 10/29/23 12:56 PAIN ALL OVER [facility] Past Medical History Medical History Benign essential hypertension Acute lacunar infarction Pulmonary nodules Autoimmune hemolytic anemia HTN (hypertension) Benign microscopic hematuria Overweight (BMI 25.0-29.9) Vitamin D deficiency History of autoimmune hemolytic anemia GERD (gastroesophageal reflux disease) Pure hypercholesterolemia Cardiac pacemaker Complete heart block CAD (coronary artery disease) Surgical History History of laparoscopic cholecystectomy S/P CABG (coronary artery bypass graft) History of permanent cardiac pacemaker placement History of splenectomy History of colonoscopy Family History Family History Father Tuberculosis Mother No problems noted. Brother Colon cancer Brother Schizophrenia Lung disease Family/Other FH: mental illness Brother Alcoholism Other Mental health problem Social History Social History Household Members: Spouse Housing: House Are you a primary critical care physician assistant to a significant other at home: No Do you presently have visiting nurse or other home services: No Alcohol intake: never Comment: iv d/robert Patient Tobacco Use Status: Never used Tobacco e-Cigarette/Vaping Use: Never Used Second Hand Smoke Exposure: Yes Advance Directives: No Advance Directives Information Provided: No Do you have a plan to hurt others: No Plan service: No Current occupational status: retired Cognitive needs: No Hearing needs: No Vision needs: No Physical Exam ED Vital Signs: Vital Signs - 24 hr 10/29/23 12:53 10/29/23 14:54 10/29/23 16:40 Temperature 97.5 F 97.5 F 97.5 F Pulse Rate 74 61 61 Respiratory Rate 18 16 16 Blood Pressure 132/68 131/74 131/74 Pulse Oximetry 98 98 98 Oxygen Delivery Method Room Air Room Air Room Air BMI result Body Mass Index 27.0 Course Course Course Narrative: RME performed by Mallory Ding PA-C. Patient is a 73 year old assigned male at presenting to the emergency department with left sided low back pain. Patient states over the last few days his left low back has been hurting him and his legs have been getting weak. Patient denies any trauma. Detailed physical exam and review of systems are deferred to the physician primary care sports medicine. Labs and imaging ordered. Patient placed back in the waiting room pending room availability and results. Patient seen and discharged by LUIS Reece. Please refer to her note from same visit date. Medical Decision Making Lab Data 10/29/23 13:24 10/29/23 13:24 Labs: Lab Results 10/29/23 Range/Units 13:24 WBC 9.6 (4.8-10.8) X10*3/uL RBC 4.81 (4.60-5.80) X10*6/uL Hgb 16.4 (14.0-18.0) g/dl Hct 45.5 (42.0-52.0) % MCV 94.6 (80.0-98.0) fL MCH 34.1 H (27.0-33.0) pg MCHC 36.0 (31.0-36.0) g/dl RDW 14.6 (11.0-16.0) % Plt Count 408 H (160-400) X10*3/uL MPV 9.6 (9.4-12.4) fL Immature Gran % (Auto) 0.9 H (0.0-0.4) % Neut % (Auto) 65.5 (45-73) % Lymph % (Auto) 23.4 (20-40) % Power % (Auto) 8.3 (2-11) % Eos % (Auto) 1.3 (0-4) % Baso % (Auto) 0.6 (0-2) % Lymph # (Auto) 2.2 (1.2-4.9) X10*3/uL Power # (Auto) 0.8 (0.1-1.2) X10*3/uL Eos # (Auto) 0.1 (0.0-0.4) X10*3/uL Baso # (Auto) 0.1 (0.0-0.2) X10*3/uL Abs Immat Gran (auto) 0.09 H (0.00-0.03) X10*3/uL Absolute Neuts (auto) 6.3 (2.0-8.3) x10*3/uL Absolute Nucleated RBC 0.000 (0.0-0.012) X10*3/uL Nucleated RBC % (auto) 0.0 (0.0-0.2) /100WBC ESR 24 H (0-15) MM/HR Sodium 140 (135-145) mmol/L Potassium 4.8 (3.3-5.1) mmol/L Chloride 106 (96-108) mmol/L Carbon Dioxide 26 (22-29) mmol/L Anion Gap 13 (12-20) BUN 16 (9-16) mg/dL Creatinine 1.15 (0.5-1.4) mg/dL Estim Creat Clear Calc 54.5 Estimated GFR > 60 Random Glucose 127 H (60-115) mg/dL Calcium 9.8 (8.4-10.2) mg/dL Total Bilirubin 3.5 H (0.0-1.0) mg/dL AST 39 H (5-37) U/L ALT 39 (0-40) U/L Alkaline Phosphatase 92 (39-117) U/L C-Reactive Protein 0.47 (< or = 0.50) mg/dL Total Protein 7.3 (6.5-8.0) g/dL Albumin 4.1 (3.5-5.0) g/dL Urine Color Yellow Urine Appearance Clear Urine pH 6.5 (5.0-9.0) Ur Specific [place] 1.010 (1.005-1.025) Urine Protein Negative (Neg-Trace) mg/dL Urine Glucose (UA) Negative (Negative) mg/dL Urine Ketones Negative (Negative) mg/dL Urine Blood Small (1+) H (Negative) Urine Nitrite Negative (Negative) Ur Leukocyte Esterase Negative (Negative) Urine RBC 3-5 H (0-2) /HPF Urine WBC 0-5 (0-5) /HPF Ur Squamous Epith Cells 0-2 (0-2) /HPF Urine Bacteria None Seen (None Seen) Hyaline Casts 0-2 (0-2) /LPF Discharge Plan Discharge Clinical Impression: Strain of lumbar region Qualifiers: Encounter type: initial encounter Qualified Code(s): S39.012A - Strain of muscle, fascia and tendon of lower back, initial encounter Patient Disposition: Home, Self-Care Instructions: Low Back Strain (ED), Lower Back Exercises (ED) Additional Instructions: Your xray today was normal. Your pain is most likely due to muscle strain and spasm. No bending, lifting or twisting. Use ice several times per day for 20 minutes at a time for the next 48 hours and then change to heat. Take the tylenol and lidocaine patches as needed for pain Follow up with your Primary Care Doctor as needed. If your pain worsens, if you develop new numbness, tingling, weakness, loss of function or incontinence call 911 or come back to the ER right away for evaluation. Prescriptions: New acetaminophen [Tylenol Arthritis Pain] 650 mg tablet extended release 650 mg PO Q8H PRN (Reason: pain) Qty: 30 0RF lidocaine 5 % adhesive patch,medicated 1 patch topical DAILY Qty: 15 0RF Rx Instructions: leave on most painful area for up to 12 hrs No Action metoprolol succinate 100 mg tablet extended release 24 hr 100 mg PO DAILY 90 Days Qty: 90 3RF pantoprazole 40 mg tablet,delayed release (DR/EC) 40 mg PO DAILY Qty: 90 0RF ezetimibe 10 mg tablet 10 mg PO DAILY Qty: 90 3RF cholecalciferol (vitamin D3) [Vitamin D3] 50 mcg (2,000 unit) Tablet 50 mcg PO DAILY folic acid 1 mg Tablet 1 mg PO DAILY Qty: 89 4RF prednisone 5 mg Tablet 5 mg PO DIRECTED Qty: 100 3RF Rx Instructions: see taper instructions: Decrease by 5 mg every week, coQ10 (ubiquinol) 100 mg Capsule 200 mg PO DAILY aspirin [Adult Aspirin Regimen] 81 mg tablet,delayed release (DR/EC) 81 mg PO DAILY rosuvastatin 40 mg tablet 40 mg PO DAILY Qty: 90 3RF Referrals: Emile Walters MD [Primary Care Provider] - Interventions: ED Discharge Assessment Last Done: 10/29/23 16:40 Discharge Date/Time: 10/29/23 16:41 Print Language: Korean
[2023-10-29 13:42] LABS: MANUAL DIFF FLAG NO
[2023-10-29 13:47] LABS: Basophils Absolute Auto 0.1 X10*3/uL (0.0-0.2); Basophils Percent Auto 0.6 % (0-2); Eosinophils Absolute Auto 0.1 X10*3/uL (0.0-0.4); Eosinophils Percent Auto 1.3 % (0-4); Hematocrit 45.5 % (42.0-52.0); Hemoglobin 16.4 g/dl (14.0-18.0); Imm Gran Abs Auto 0.09 X10*3/uL (0.00-0.03); Imm Gran Pct Auto 0.9 % (0.0-0.4); Lymphocytes Absolute Auto 2.2 X10*3/uL (1.2-4.9); Lymphocytes Percent Auto 23.4 % (20-40); Mean Corpuscular Hemoglobin 34.1 pg (27.0-33.0); Mean Corpuscular Volume 94.6 fL (80.0-98.0); Mean Platelet Volume 9.6 fL (9.4-12.4); Monocytes Absolute Auto 0.8 X10*3/uL (0.1-1.2); Monocytes Percent Auto 8.3 % (2-11); Neutrophils Absolute Auto 6.3 x10*3/uL (2.0-8.3); Neutrophils Percent Auto 65.5 % (45-73); Platelet Count 408 X10*3/uL (160-400); Red Blood Count 4.81 X10*6/uL (4.60-5.80); Red Cell Distribution Width 14.6 % (11.0-16.0); White Blood Count 9.6 X10*3/uL (4.8-10.8)
[2023-10-29 13:49] LABS: Appearance Urine Clear; Color Urine Yellow; Glucose Urine UA Negative (Negative); Leukocyte Esterase Urine Negative (Negative); Nitrite Urine Negative (Negative); PH 6.5 (5.0-9.0); UMIC TRIGGER UACC YES; Urine Blood Small (1+) (Negative); Urine Ketones Negative (Negative); Urine Protein Negative (Neg-Trace)
[2023-10-29 13:54] LABS: Bacteria Urine None Seen (None Seen); Hyaline Casts Urine 0-2 /LPF (0-2); Squamous Epithelial Cell Urine 0-2 /HPF (0-2); WBC Urine 0-5 /HPF (0-5)
[2023-10-29 13:59] LABS: Alanine Aminotransferase 39 U/L (0-40); Albumin Level 4.1 g/dL (3.5-5.0); Alkaline Phosphatase 92 U/L (39-117); Anion Gap 13 (12-20); Aspartate Amino Transferase 39 U/L (5-37); Bilirubin Total 3.5 mg/dL (0.0-1.0); Blood Urea Nitrogen 16 mg/dL (9-16); C Reactive Protein 0.47 mg/dL (< or = 0.50); Calcium 9.8 mg/dL (8.4-10.2); Carbon Dioxide 26 mmol/L (22-29); Chloride 106 mmol/L (96-108); Creatinine Clr Calc Pharmacy 54.5; Estimated Glomerular Filt Rate > 60; Glucose Random 127 mg/dL (60-115); Potassium 4.8 mmol/L (3.3-5.1); Sodium 140 mmol/L (135-145); Total Protein 7.3 g/dL (6.5-8.0)
[2023-10-29 14:26] LABS: Erythrocyte Sedimentation Rate 24 MM/HR (0-15)
--- NOTE | 2023-10-29 14:36 | ED.BACK ---
HPI - Back Pain/Injury General Chief Complaint: Back Pain/Injury Stated Complaint: l side pain Time Seen by Provider: 10/29/23 14:13 Source: patient Mode of arrival: ambulatory Limitations: no limitations History of Present Illness ED Provider: Nacho Carreno PA-C HPI Narrative: 73 year old male with PMH of HTN, Hypercholesteremia, GERD, Afib and CAD requiring a triple bypass in 2013 and pacemaker presented to the ED today with complaints of lower left back pain. Patient states over the last couple years the left lower back pain has been increasing. Over the last month or so, the pain has worse. States that now morning, the patient feels fine and there is no pain however as the patient continues to walk throughout the day the pain continues to increase. Patient states the pain does not radiate anywhere, and does not shoot down the leg, does not feel like electricity or burning, and stays localized some left lower back. Patient states that the pain was so bad this morning that it caused his knee to almost give out. He states the pain is not currently present. States the night the pain is worse, however when he takes a hot shower the pain is relieved. He has no problems falling asleep, and denies any shortness of breath, chest pain, shooting pain, radiculopathy, no incontinence, history of kidney stones, urinary frequency/urgency, and no burning with urination. He has not taken anything for the pain over the last month. MD elicited complaint: back pain Onset (ago): month(s) (1) Timing: intermittent Severity: moderate Quality: sharp Location: lumbar spine Radiation: none Exacerbating factors: walking (worse at night) Relieving factors: sitting upright (no pain if sitting all day) Associated symptoms: denies other symptoms Treatments prior to arrival: heat therapy (hot showers relieves pain) Work related injury: No Related Data Home Medications ?Medication ?Instructions ?Recorded ?Confirmed aspirin 81 mg tablet,delayed 81 mg PO DAILY 01/11/20 10/18/23 release (Adult Aspirin Regimen) cholecalciferol (vitamin D3) 50 50 mcg PO DAILY 08/31/20 10/18/23 mcg (2,000 unit) tablet (Vitamin D3) coQ10 (ubiquinol) 100 mg capsule 200 mg PO DAILY 12/01/20 10/18/23 Previous Rx's ?Medication ?Instructions ?Recorded metoprolol succinate 100 mg 100 mg PO DAILY 90 days #90 tabs 06/22/23 tablet,extended release 24 hr folic acid 1 mg tablet 1 mg PO DAILY #89 tabs 08/06/23 pantoprazole 40 mg tablet,delayed 40 mg PO DAILY #90 tabs 08/11/23 release prednisone 5 mg tablet 5 mg PO DIRECTED #100 tabs 08/28/23 rosuvastatin 40 mg tablet 40 mg PO DAILY #90 tabs 10/10/23 ezetimibe 10 mg tablet 10 mg PO DAILY #90 tabs 10/15/23 acetaminophen 650 mg 650 mg PO Q8H PRN pain #30 tabs 10/29/23 tablet,extended release (Tylenol Arthritis Pain) lidocaine 5 % topical patch 1 patch topical DAILY #15 ea 10/29/23 Allergies Allergy/AdvReac Type Severity Reaction Status Date / Time clopidogrel AdvReac Intermediate Diarrhea Verified 10/29/23 12:56 atorvastatin [ATORVASTATIN] AdvReac Mild MUSCLE Verified 10/29/23 12:56 PAIN ALL OVER Review of Systems Review of Systems: Yes all other systems are reviewed and are negative [facility] Past Medical History Medical History Benign essential hypertension Acute lacunar infarction Pulmonary nodules Autoimmune hemolytic anemia HTN (hypertension) Benign microscopic hematuria Overweight (BMI 25.0-29.9) Vitamin D deficiency History of autoimmune hemolytic anemia GERD (gastroesophageal reflux disease) Pure hypercholesterolemia Cardiac pacemaker Complete heart block CAD (coronary artery disease) Surgical History History of laparoscopic cholecystectomy S/P CABG (coronary artery bypass graft) History of permanent cardiac pacemaker placement History of splenectomy History of colonoscopy Family History Family History Father Tuberculosis Mother No problems noted. Brother Colon cancer Brother Schizophrenia Lung disease Family/Other FH: mental illness Brother Alcoholism Other Mental health problem Social History Social History Household Members: Spouse Housing: House Are you a primary career information specialist to a significant other at home: No Do you presently have visiting nurse or other home services: No Alcohol intake: never Comment: iv d/robert Patient Tobacco Use Status: Never used Tobacco e-Cigarette/Vaping Use: Never Used Second Hand Smoke Exposure: Yes Advance Directives: No Advance Directives Information Provided: No Do you have a plan to hurt others: No Plan service: No Current occupational status: retired Cognitive needs: No Hearing needs: No Vision needs: No Physical Exam Vital Signs: Vital Signs: Last Vital Signs Temp 97.5 F 10/29/23 16:40 Pulse 61 10/29/23 16:40 Resp 16 10/29/23 16:40 BP 131/74 10/29/23 16:40 Pulse Ox 98 10/29/23 16:40 O2 Del Method Room Air 10/29/23 16:40 BMI result Body Mass Index 27.0 Appearance: Alert. Oriented X3. No acute distress. HEENT: normal inspection CVS: Normal heart rate and rhythm. Pulses normal. Respiratory: No respiratory distress. Skin: Skin warm and dry. Normal skin color. Normal skin turgor. No rashes. Extremities: No trauma or injuries, normal strength and sensation. MSK: No pain with palpation, no pain with movement (rotation, flexion/extension, hip abduction/adduction/extension/flexion), no radiculopathy Neuro: Oriented X 3. No motor deficit. No sensory deficit. Medical Decision Making Medical Decision Making [facility] Narrative: 73 year old male with PMH of HTN, Hypercholesteremia, GERD, Afib and CAD requiring a triple bypass in 2013 presented to the ED today with complaints of lower left back pain. Patient states over the last couple years the left lower back pain has been increasing. Over the last month or so, the pain has worse. Patient arrives to the ER pain-free. His physical exam is unremarkable. Strength is equal and symmetrical throughout. DTRs are intact. His gait is steady. X-ray of the lumbar spine was done and is normal. Has no CVA tenderness, no urinary symptoms. No red flag symptoms of low back pain. He has not taken any medications for the pain. We discussed options for pain management with Tylenol and Lidoderm patches. Patient agrees with plan. Stable for discharge home with outpatient follow-up as needed. Differential Diagnosis Differential Diagnoses: The differential diagnosis associated with the presentation includes Mechanical back pain, Muscle Strain, kidney stone, nerve impingement lumbar spine, sciatica Lab Data [facility] Lab Attestation statement: I reviewed the patient's lab results. No leukocytosis, normal renal function, microscopic hematuria, no evidence of infection 10/29/23 13:24 10/29/23 13:24 Labs: Lab Results 10/29/23 Range/Units 13:24 WBC 9.6 (4.8-10.8) X10*3/uL RBC 4.81 (4.60-5.80) X10*6/uL Hgb 16.4 (14.0-18.0) g/dl Hct 45.5 (42.0-52.0) % MCV 94.6 (80.0-98.0) fL MCH 34.1 H (27.0-33.0) pg MCHC 36.0 (31.0-36.0) g/dl RDW 14.6 (11.0-16.0) % Plt Count 408 H (160-400) X10*3/uL MPV 9.6 (9.4-12.4) fL Immature Gran % (Auto) 0.9 H (0.0-0.4) % Neut % (Auto) 65.5 (45-73) % Lymph % (Auto) 23.4 (20-40) % [place] % (Auto) 8.3 (2-11) % Eos % (Auto) 1.3 (0-4) % Baso % (Auto) 0.6 (0-2) % Lymph # (Auto) 2.2 (1.2-4.9) X10*3/uL [place] # (Auto) 0.8 (0.1-1.2) X10*3/uL Eos # (Auto) 0.1 (0.0-0.4) X10*3/uL Baso # (Auto) 0.1 (0.0-0.2) X10*3/uL Abs Immat Gran (auto) 0.09 H (0.00-0.03) X10*3/uL Absolute Neuts (auto) 6.3 (2.0-8.3) x10*3/uL Absolute Nucleated RBC 0.000 (0.0-0.012) X10*3/uL Nucleated RBC % (auto) 0.0 (0.0-0.2) /100WBC ESR 24 H (0-15) MM/HR Sodium 140 (135-145) mmol/L Potassium 4.8 (3.3-5.1) mmol/L Chloride 106 (96-108) mmol/L Carbon Dioxide 26 (22-29) mmol/L Anion Gap 13 (12-20) BUN 16 (9-16) mg/dL Creatinine 1.15 (0.5-1.4) mg/dL Estim Creat Clear Calc 54.5 Estimated GFR > 60 Random Glucose 127 H (60-115) mg/dL Calcium 9.8 (8.4-10.2) mg/dL Total Bilirubin 3.5 H (0.0-1.0) mg/dL AST 39 H (5-37) U/L ALT 39 (0-40) U/L Alkaline Phosphatase 92 (39-117) U/L C-Reactive Protein 0.47 (< or = 0.50) mg/dL Total Protein 7.3 (6.5-8.0) g/dL Albumin 4.1 (3.5-5.0) g/dL Urine Color Yellow Urine Appearance Clear Urine pH 6.5 (5.0-9.0) Ur Specific [place] 1.010 (1.005-1.025) Urine Protein Negative (Neg-Trace) mg/dL Urine Glucose (UA) Negative (Negative) mg/dL Urine Ketones Negative (Negative) mg/dL Urine Blood Small (1+) H (Negative) Urine Nitrite Negative (Negative) Ur Leukocyte Esterase Negative (Negative) Urine RBC 3-5 H (0-2) /HPF Urine WBC 0-5 (0-5) /HPF Ur Squamous Epith Cells 0-2 (0-2) /HPF Urine Bacteria None Seen (None Seen) Hyaline Casts 0-2 (0-2) /LPF Independent Interpretation I performed an independent interpretation of an: Plain X-Ray Interpretation: X-ray without any compression fracture, agree with radiology read Radiology Impression Discussion of test interpretation with radiology: I have reviewed the radiologist's reading. Radiologist Impression: EXAMINATION: XR LUMBOSACRAL SPINE CLINICAL INFORMATION: Atraumatic low back COMPARISON: None available. TECHNIQUE: Three views of the lumbosacral spine. FINDINGS: The vertebral bodies and posterior elements are normal. The disc spaces are preserved and the vertebral alignment is normal. The paraspinal soft tissues are normal. XR/XR lumbar spine 2-3V IMPRESSION: Unremarkable examination. External Record Review External record reviewed: Prior outpatient labs and Prior outpatient radiology Prescription Management I considered prescription management with: Pain Medication and Antibiotic Critical Care Time Critical Care Time Critical Care Time: No Discharge Plan Discharge Clinical Impression: Strain of lumbar region Qualifiers: Encounter type: initial encounter Qualified Code(s): S39.012A - Strain of muscle, fascia and tendon of lower back, initial encounter Patient Disposition: Home, Self-Care Instructions: Low Back Strain (ED), Lower Back Exercises (ED) Additional Instructions: Your xray today was normal. Your pain is most likely due to muscle strain and spasm. No bending, lifting or twisting. Use ice several times per day for 20 minutes at a time for the next 48 hours and then change to heat. Take the tylenol and lidocaine patches as needed for pain Follow up with your Primary Care Doctor as needed. If your pain worsens, if you develop new numbness, tingling, weakness, loss of function or incontinence call 911 or come back to the ER right away for evaluation. Prescriptions: New acetaminophen [Tylenol Arthritis Pain] 650 mg tablet extended release 650 mg PO Q8H PRN (Reason: pain) Qty: 30 0RF lidocaine 5 % adhesive patch,medicated 1 patch topical DAILY Qty: 15 0RF Rx Instructions: leave on most painful area for up to 12 hrs No Action metoprolol succinate 100 mg tablet extended release 24 hr 100 mg PO DAILY 90 Days Qty: 90 3RF pantoprazole 40 mg tablet,delayed release (DR/EC) 40 mg PO DAILY Qty: 90 0RF ezetimibe 10 mg tablet 10 mg PO DAILY Qty: 90 3RF cholecalciferol (vitamin D3) [Vitamin D3] 50 mcg (2,000 unit) Tablet 50 mcg PO DAILY folic acid 1 mg Tablet 1 mg PO DAILY Qty: 89 4RF prednisone 5 mg Tablet 5 mg PO DIRECTED Qty: 100 3RF Rx Instructions: see taper instructions: Decrease by 5 mg every week, coQ10 (ubiquinol) 100 mg Capsule 200 mg PO DAILY aspirin [Adult Aspirin Regimen] 81 mg tablet,delayed release (DR/EC) 81 mg PO DAILY rosuvastatin 40 mg tablet 40 mg PO DAILY Qty: 90 3RF Referrals: Emile Walters MD [Primary Care Provider] - Interventions: ED Discharge Assessment Last Done: 10/29/23 16:40 Discharge Date/Time: 10/29/23 16:41 Print Language: [place]an
[2023-10-29 14:54] VITALS: BP 131/74; PULSE 61; RESP 16; TEMP 36.4; O2SAT 98
[2023-10-29 16:40] VITALS: BP 131/74; PULSE 61; RESP 16; TEMP 36.4; O2SAT 98
== END 2023-10-29 16:41 | disposition home or self-care (01) ==
PROVIDERS: Physician Assistant Medical; Emergency Provider Emergency Medicine Emergency Medical Services; PCP Internal Medicine
DX: S39.012A Strain of muscle, fascia and tendon of lower back, initial encounter (principal); R53.83 Other fatigue; I25.10 Atherosclerotic heart disease of native coronary artery without angina pectoris; X58.XXXA Exposure to other specified factors, initial encounter; Y93.9 Activity, unspecified; Y92.89 Other specified places as the place of occurrence of the external cause; Y99.8 Other external cause status; Z79.899 Other long term (current) drug therapy
CPT/HCPCS: 36415; 72100; 80053; 81001; 85025; 85652; 86140; 99283

== ENCOUNTER 2023-12-04 09:04 | Outpatient (REF) | payer MEDICARE, SELFPAY ==
[2023-12-04 09:18] LABS: MANUAL DIFF FLAG NO
[2023-12-04 09:52] LABS: Basophils Absolute Auto 0.1 X10*3/uL (0.0-0.2); Basophils Percent Auto 0.7 % (0-2); Eosinophils Absolute Auto 1.3 X10*3/uL (0.0-0.4); Eosinophils Percent Auto 11.4 % (0-4); Hematocrit 45.1 % (42.0-52.0); Hemoglobin 15.7 g/dl (14.0-18.0); Imm Gran Abs Auto 0.03 X10*3/uL (0.00-0.03); Imm Gran Pct Auto 0.3 % (0.0-0.4); Lymphocytes Absolute Auto 4.5 X10*3/uL (1.2-4.9); Lymphocytes Percent Auto 38.7 % (20-40); Mean Corpuscular HGB Conc 34.8 g/dl (31.0-36.0); Mean Corpuscular Hemoglobin 33.1 pg (27.0-33.0); Mean Corpuscular Volume 94.9 fL (80.0-98.0); Mean Platelet Volume 10.2 fL (9.4-12.4); Monocytes Absolute Auto 1.4 X10*3/uL (0.1-1.2); Neutrophils Absolute Auto 4.3 x10*3/uL (2.0-8.3); Neutrophils Percent Auto 36.9 % (45-73); Platelet Count 428 X10*3/uL (160-400); Red Blood Count 4.75 X10*6/uL (4.60-5.80); Red Cell Distribution Width 16.3 % (11.0-16.0); White Blood Count 11.5 X10*3/uL (4.8-10.8)
[2023-12-04 10:15] LABS: Appearance Urine Clear; Color Urine Yellow; Glucose Urine UA Negative (Negative); Leukocyte Esterase Urine Negative (Negative); Nitrite Urine Negative (Negative); Specific Gravity - Urine 1.015 (1.005-1.025); UMIC TRIGGER UACC YES; Urine Blood Small (1+) (Negative); Urine Ketones Negative (Negative); Urine Protein Negative (Neg-Trace)
[2023-12-04 10:23] LABS: Bacteria Urine None Seen (None Seen); Hyaline Casts Urine 0-2 /LPF (0-2); Squamous Epithelial Cell Urine 0-2 /HPF (0-2); WBC Urine 0-5 /HPF (0-5)
[2023-12-04 10:37] LABS: Alanine Aminotransferase 29 U/L (0-40); Alkaline Phosphatase 93 U/L (39-117); Anion Gap 10 (12-20); Aspartate Amino Transferase 33 U/L (5-37); Bilirubin Total 3.4 mg/dL (0.0-1.0); Blood Urea Nitrogen 15 mg/dL (9-16); Calcium 9.8 mg/dL (8.4-10.2); Carbon Dioxide 29 mmol/L (22-29); Chloride 108 mmol/L (96-108); Cholesterol 95 mg/dL (<200); Estimated Glomerular Filt Rate > 60; Glucose Fasting 102 mg/dL (60-99); HDL Cholesterol 33 mg/dL (>40); LDL Cholesterol Calculated 41 mg/dL (<100); Potassium 4.5 mmol/L (3.3-5.1); Sodium 142 mmol/L (135-145); Total Protein 7.4 g/dL (6.5-8.0); Triglycerides 106 mg/dL (<150)
[2023-12-04 10:54] LABS: Estimated Average Glucose 82 mg/dL; Hemoglobin A1c % 4.5 % (<6.0); TSH reflex Free T4 1.82 uIU/mL (0.32-4.0); Vitamin D 25-OH Total 48.5 ng/mL (>30)
== END 2023-12-04 09:05 | disposition home or self-care (01) ==
LOC: HO.LAB 09:04
PROVIDERS: PCP Internal Medicine; Visit Provider Internal Medicine
DX: D64.9 Anemia, unspecified (principal); E55.9 Vitamin D deficiency, unspecified; E78.00 Pure hypercholesterolemia, unspecified; E11.9 Type 2 diabetes mellitus without complications; R30.0 Dysuria
CPT/HCPCS: 36415; 80053; 80061; 81001; 81003; 82306; 83036; 84443; 85025

== ENCOUNTER 2023-12-07 09:24 | Outpatient (REF) | payer MEDICARE, SELFPAY ==
[2023-12-07 11:41] LABS: Influenza A PCR NEGATIVE (Negative); Influenza B PCR NEGATIVE (Negative); Resp Syncy Virus RNA Qual PCR NEGATIVE (Negative); SARS COV2 PCR INHOUSE NEGATIVE (Negative)
== END 2023-12-07 09:25 | disposition home or self-care (01) ==
LOC: HO.LAB 09:24
PROVIDERS: PCP Internal Medicine; Visit Provider Internal Medicine
DX: J98.8 Other specified respiratory disorders (principal); D59.10 Autoimmune hemolytic anemia, unspecified; I25.10 Atherosclerotic heart disease of native coronary artery without angina pectoris; I44.2 Atrioventricular block, complete; E78.00 Pure hypercholesterolemia, unspecified; I10 Essential (primary) hypertension; R73.01 Impaired fasting glucose; K21.9 Gastro-esophageal reflux disease without esophagitis; E55.9 Vitamin D deficiency, unspecified; R91.8 Other nonspecific abnormal finding of lung field; R31.1 Benign essential microscopic hematuria; E66.3 Overweight; Z79.82 Long term (current) use of aspirin; Z79.899 Other long term (current) drug therapy; Z95.0 Presence of cardiac pacemaker; Z95.1 Presence of aortocoronary bypass graft
CPT/HCPCS: 0241U; 99212

== ENCOUNTER 2023-12-07 09:24 | Outpatient (AMB) | payer MEDICARE, SELFPAY ==
[2023-12-07 09:42] VITALS: BP 102/62; PULSE 80; O2SAT 95; BMI 27.1
--- NOTE | 2023-12-07 09:42 | MHC.PC.OV ---
Vital Signs 12/07/23 09:42 Height 5 ft 8 in Weight 178 lb BMI 27.1 BP 102/62 Blood Pressure Location Lt brachial Position Sitting Pulse 80 Pulse Source Pulse Oximeter Pulse Oximetry (%) 95 Oxygen Delivery Method Room Air Intake Visit Reasons: hemolytic anemia Statistical Engineer Required: No Accompanied by: Self / Same As Patient Allergies clopidogrel Adverse Reaction (Intermediate, Verified 12/07/23 10:10) Diarrhea atorvastatin [ATORVASTATIN] Adverse Reaction (Mild, Verified 12/07/23 10:10) MUSCLE PAIN ALL OVER Medication List - Last Reconciled 12/07/23 by Emile Walters MD acetaminophen ER (Tylenol Arthritis Pain) 650 mg PO Q8H PRN aspirin (Adult Aspirin Regimen) 81 mg PO DAILY cholecalciferol (vitamin D3) (Vitamin D3) 50 mcg PO DAILY coQ10 (ubiquinol) 200 mg PO DAILY ezetimibe 10 mg PO DAILY folic acid 1 mg PO DAILY lidocaine 5% 1 patch topical DAILY metoprolol succinate ER 100 mg PO DAILY 90 days pantoprazole 40 mg PO DAILY rosuvastatin 40 mg PO DAILY Tobacco use date assessed: 12/07/23 Fall risk assessment: No Falls in past year Last assessed Fall Risk: 12/07/23 Dental Screening Dental Screen Date: 12/07/23 Did you have a dental visit in the last 12 months?: No Did you have a dental problem in the last 6 months where you did not have access to dental care?: No Was dental information given to patient?: No HPI hemolytic anemia HPI Details Patient comes in today for his follow up visit States that he's had symptoms of recurrent cough, mild sore throat and nasal and sinus congestion for about a week now States that he often coughs up some thick whitish to yellowish phlegm lately Recalls that he felt slightly feverish a few days ago but that has since subsided; he denies any chills Denies any chest pains, no increased SOB No nausea/vomiting, no abdominal pain No change in bowel habits noted He had his follow up labs done a few days ago - to discuss his results He was seen by Dr. Fuller for hematology follow up earlier this month and is supposed to get some follow up labs for her early next month for additional work ups for his CLL, which appears to be a recent diagnosis for him [facility] Medical History Benign essential hypertension Acute lacunar infarction Pulmonary nodules Autoimmune hemolytic anemia HTN (hypertension) Benign microscopic hematuria Overweight (BMI 25.0-29.9) Vitamin D deficiency History of autoimmune hemolytic anemia GERD (gastroesophageal reflux disease) Pure hypercholesterolemia Cardiac pacemaker Complete heart block CAD (coronary artery disease) Surgical History History of laparoscopic cholecystectomy S/P CABG (coronary artery bypass graft) History of permanent cardiac pacemaker placement History of splenectomy History of colonoscopy Family History Father Tuberculosis Mother No problems noted. Brother Colon cancer Brother Schizophrenia Lung disease Family/Other FH: mental illness Brother Alcoholism Other Mental health problem Social History Household Members: Spouse Housing: House Are you a primary home health caregiver to a significant other at home: No Do you presently have visiting nurse or other home services: No Alcohol intake: never Comment: iv d/robert Patient Tobacco Use Status: Never used Tobacco e-Cigarette/Vaping Use: Never Used Second Hand Smoke Exposure: Yes service: No Current occupational status: retired Cognitive needs: No Hearing needs: No Vision needs: No Questionnaire PHQ-9 Over the last 2 weeks, how often have you been bothered by any of the following problems? 1. Little interest or pleasure in doing things: not at all 2. Feeling down, depressed, or hopeless: not at all 3. Trouble falling or staying asleep, or sleeping too much: not at all 4. Feeling tired or having little energy: not at all 5. Poor appetite or overeating: not at all 6. Feeling bad about yourself - or that you are a failure or have let yourself or your family down: not at all 7. Trouble concentrating on things, such as reading the newspaper or watching television: not at all 8. Moving or speaking so slowly that other people could have noticed. Or the opposite - being so fidgety or restless that you have been moving around a lot more than usual: not at all 9. Thoughts that you would be better off or of hurting yourself in some way: not at all Total score: 0 Depression Screening Interpretation: Negative Depression Screening Done: Yes 21385 - PHQ-9 Billing: Yes Source: Developed by Drs. Tim Hoyos, Adelaide Yo, Tone Light and colleagues, with an educational donna from [employer]. Thrive Questionnaire Date Thrive assessed: 12/07/23 I am a: Patient What is your living situation today?: I have a steady place to live Within the past 12 months, did the food you bought not last and you didn't have the money to get more?: Never true Within the past 12 months, did you worry whether your food would run out before you got money to buy more?: Never true Do you have trouble paying for medicines?: No Do you have trouble getting transportation to medical appointments?: No Do you have trouble paying your heating and electricity bill?: No Do you have trouble taking care of your child, family member or friend?: No Do you have trouble with day-to-day activities such as bathing, preparing meals, shopping, managing finances, etc.?: No Are you currently unemployed and looking for a job?: Yes Are you interested in more education?: No Currently or been in a relationship where the following occur: No concerns reported THRIVE Score: 0 AUDIT C Alcohol Use Questionnaire (AUDIT-C) 1. How often do you have a drink containing alcohol?: Monthly or less 2. How many drinks containing alcohol do you have on a typical day when you are drinking?: 1 or 2 3. How often do you have six or more drinks on one occasion?: Never Total Score: 1 Score Reviewed/Action Taken: Yes RYAN-7 AMB Questionnaire RYAN-7 Date RYAN - 7 assessed: 12/07/23 Feeling nervous, anxious, or on edge: 0 = Not at all Not being able to stop or control worryin = Not at all Worrying too much about different things: 0 = Not at all Trouble relaxin = Not at all Being so restless that it is hard to sit still: 0 = Not at all Becoming easily annoyed or irritable: 0 = Not at all Feeling afraid as if something awful might happen: 0 = Not at all Total RYAN-7 score (0-4 normal; 5-9 mild; 10-14 moderate; 15-21 severe): 0 Source: Developed by Drs. Tim Hoyos, Adelaide Yo, Tone Light and colleagues, with an educational donna from [employer]. Review of Systems Const Denies chills, Reports fatigue, Denies fever(s) (but he felt slightly feverish a few days ago), Denies headache(s) and Denies night sweats ENT Denies dysphagia, Denies dizziness, Denies otalgia, Denies headache(s), Reports nasal congestion, Denies odynophagia and Reports sore throat (mild) Card Denies chest pain, Denies palpitations and Reports dyspnea on exertion (mild) Resp Reports chest congestion (mild), Reports cough (recurrent - coughs up thick whitish to yellowish phlegm), Reports dyspnea on exertion (mild) and Denies wheezing GI Denies abdominal pain, Denies constipation, Denies dysphagia, Denies heartburn, Denies diarrhea, Denies nausea, Denies odynophagia and Denies vomiting Denies dysuria, Denies nocturia and Denies urinary frequency Musc Denies back pain and Reports arthralgias (on and off over both knees) Skin/Breast Denies rash Neuro Denies dizziness and Denies headache(s) Endo Reports fatigue and Denies palpitations Aller/Immun Denies wheezing Physical exam (Primary Care) Vital Signs: Last Vital Signs Pulse 80 12/07/23 09:42 BP 102/62 12/07/23 09:42 Pulse Ox 95 12/07/23 09:42 Oxygen Delivery Method Room Air 12/07/23 09:42 BMI result Body Mass Index 27.1 Tobacco/Smoking Status: Tobacco use Status Tobacco use date assessed 12/07/23 12/07/23 09:46 Patient Tobacco Use Status Never used Tobacco 12/07/23 09:46 e-Cigarette/Vaping Use Never Used 12/07/23 09:46 PHQ-9: PHQ-9 Score PHQ-9: Total score 0 12/07/23 09:46 Depression Screening Interpretation: Negative Thrive Assessment: Date of Thrive Assessment Date Thrive assessed 12/07/23 12/07/23 09:46 Currently or been in a relationship where the following occur: No concerns reported Const General: no acute distress and alert HENMT Ears: TM's normal bilaterally and EAC's normal Throat: Yes posterior oropharynx normal and Yes tonsils normal (no TP congestion) Neck Neck: Yes no lymphadenopathy and Yes supple Thyroid: Thyroid normal Resp Auscultation: clear to auscultation bilaterally, no rales, rhonchi (occasional) throughout and no wheezes Cardio Rate: regular rate Rhythm: regular rhythm Heart sounds: no murmurs GI Palpation (GI): Soft to palpation and nontender Auscultation: normal bowel sounds General: Yes no CVA tenderness Back/Spine/Pelvis Back: no CVA tenderness Thoracic/Lumbar Spine: No lumbar spinal tenderness Skin Rashes: no rashes Extrem General: Yes no clubbing, cyanosis or edema Right lower extremity: knee Details: tenderness; no swelling Left lower extremity: knee Details: tenderness; no swelling Results Reviewed Results Reviewed: Laboratory Tests 07/30/23 12/04/23 08:32 09:15 WBC 11.5 H Hgb 15.7 Hct 45.1 Plt Count 428 H Sodium 142 Potassium 4.5 Creatinine 1.03 Estimated GFR > 60 Fasting Glucose 102 H Hemoglobin A1c % 4.5 Calcium 9.8 Total Bilirubin 3.4 H Direct Bilirubin 0.8 H AST 33 ALT 29 Triglycerides 106 Cholesterol 95 LDL Cholesterol, Calc 41 HDL Cholesterol 33 L 25-OH Vitamin D Total 48.5 TSH 1.82 Ur Specific [place] 1.015 Urine Protein Negative Urine Glucose (UA) Negative Urine Blood Small (1+) H Urine Nitrite Negative Ur Leukocyte Esterase Negative Assessment and Plan Assessment & Plan (1) Respiratory tract infection: Code(s): J98.8 - Other specified respiratory disorders Plan: Will send patient for a complete respiratory panel for further evaluation Patient is advised that we will reach out to him as soon as his results are available with further instructions or Rx as appropriate (2) Autoimmune hemolytic anemia: Comment: S/P Tx with prednisone and splenectomy back in 2014; restarted Tx with prednisone and started on Rituximab from 09/15/21 to 10/06/21; prednisone D/Robert on 12/09/21 Code(s): D59.10 - Autoimmune hemolytic anemia, unspecified Plan: His H/H is now back to normal after Tx with oral prednisone, which has been tapered off a few weeks ago Per hematology, he seems to be exhibiting a delayed response to Rituximab Continue Rituximab IV infusion once a week Follow up with hematology (Dr. Fuller) as scheduled (3) CAD (coronary artery disease): Comment: 3-vessel bypass in 2013 Code(s): I25.10 - Atherosclerotic heart disease of [place] coronary artery without angina pectoris Qualifiers: Coronary Disease-Associated Artery/Lesion type: [place] artery [place] vs. transplanted heart: [place] heart Associated angina: without angina Qualified Code(s): I25.10 - Atherosclerotic heart disease of [place] coronary artery without angina pectoris Plan: S/P triple vessel bypass in 2013 Myocardial perfusion study done in November 2020 came out normal; graft remained patent at the time Continue Aspirin 81 mg QD Follow up with cardiology as scheduled (4) S/P CABG (coronary artery bypass graft): Comment: Status post 3 vessel coronary artery bypass grafting, 2013 Code(s): Z95.1 - Presence of aortocoronary bypass graft Plan: Repeat myocardial perfusion study in November 2020 came out normal, with patent graft Continue Aspirin 81 mg QD (needs to be on lifelong anticoagulation) and aggressive risk reduction and secondary prevention (5) Complete heart block: Comment: S/P pacemaker insertion Code(s): I44.2 - Atrioventricular block, complete Plan: S/P pacemaker insertion - pacer has been working properly and is being monitored remotely by cardiology Follow up with cardiology as scheduled (6) Pure hypercholesterolemia: Code(s): E78.00 - Pure hypercholesterolemia, unspecified Plan: Results of his labs done a few days ago reviewed and discussed with patient Reinforced low cholesterol diet Continue Rosuvastatin 40 mg QD and Ezetimibe 10 mg QD Will recheck his labs and fasting lipids in 4 months for follow up (7) Benign essential hypertension: Code(s): I10 - Essential (primary) hypertension Plan: Reinforced low sodium diet - goal is systolic BP of at least 130 mm or less Continue Metoprolol ER 100 mg QD (8) Acute lacunar infarction: Code(s): I63.81 - Other cerebral infarction due to occlusion or stenosis of small artery Plan: Brain MRI done in February 2021 revealed (+) small focus of lacunar infarction in the left brainstem - patient presented to the ER then with transient diplopia, which gradually resolved and has not recurred since; no other symptoms at present Continue Aspirin 81 mg QD; he was also started on Clopidogrel 75 mg QD by neurology but he could not tolerate Rx (diarrhea) Have recommended again aggressive risk reduction to minimize/prevent recurrence - need to keep his BP and cholesterol levels controlled as tightly as possible Follow up with neurology as scheduled (9) Impaired fasting glucose: Code(s): R73.01 - Impaired fasting glucose Plan: His FBS was at 102 mg/dl on his recent labs; HgbA1c was normal at 4.5% Reinforced low calorie/low carb diet, exercise as tolerated Will recheck his FBS and also check his HgbA1c in 4 months for further evaluation (10) GERD (gastroesophageal reflux disease): Code(s): K21.9 - Gastro-esophageal reflux disease without esophagitis Qualifiers: Esophagitis presence: without esophagitis Qualified Code(s): K21.9 - Gastro-esophageal reflux disease without esophagitis Plan: Dietary restrictions reinforced Continue Pantoprazole 40 mg QD (11) Vitamin D deficiency: Code(s): E55.9 - Vitamin D deficiency, unspecified Plan: Continue Vitamin D3 2000 units QD (12) Pulmonary nodules: Code(s): R91.8 - Other nonspecific abnormal finding of lung field Plan: Stable - continue yearly CT screening and follow-up with Dr. Shirley as scheduled (13) Benign microscopic hematuria: Code(s): R31.1 - Benign essential microscopic hematuria Plan: Asymptomatic - will continue to monitor regularly Workups done in the past have all been negative/normal (14) Overweight (BMI 25.0-29.9): Code(s): E66.3 - Overweight Plan: Reinforced diet/exercise as tolerated/lose weight Plan Follow up in 4 months Orders: Orders SARS-CoV2/FLU/RSV Today J98.8 - Other specified respiratory disorders Lipid Panel 4 Months E78.00 - Pure hypercholesterolemia, unspecified Comprehensive [place]. Panel Fast 4 Months E78.00 - Pure hypercholesterolemia, unspecified TSH reflex Free T4 4 Months E78.00 - Pure hypercholesterolemia, unspecified UA CC w/rflx Micro + Cult 4 Months R30.0 - Dysuria Complete Blood Count Auto Diff 4 Months D64.9 - Anemia, unspecified Hemoglobin A1c 4 Months R73.01 - Impaired fasting glucose Coding Level of Care Code Est Pt Level 4 (64106) Diagnoses Respiratory tract infection J98.8 Autoimmune hemolytic anemia D59.10 Coronary artery disease involving [place] coronary artery of [place] heart without angina pectoris I25.10 Coronary Disease-Associated Artery/Lesion type: [place] artery [place] vs. transplanted heart: [place] heart Associated angina: without angina S/P CABG (coronary artery bypass graft) Z95.1 Complete heart block I44.2 Pure hypercholesterolemia E78.00 Benign essential hypertension I10 Acute lacunar infarction I63.81 Impaired fasting glucose R73.01 Gastroesophageal reflux disease without esophagitis K21.9 Esophagitis presence: without esophagitis Vitamin D deficiency E55.9 Pulmonary nodules R91.8 Benign microscopic hematuria R31.1 Overweight (BMI 25.0-29.9) E66.3
== END 2023-12-07 10:26 | disposition home or self-care (01) ==
PROVIDERS: PCP Internal Medicine; Visit Provider Internal Medicine
DX: I63.81 Other cerebral infarction due to occlusion or stenosis of small artery (principal); D59.10 Autoimmune hemolytic anemia, unspecified; I44.2 Atrioventricular block, complete; J98.8 Other specified respiratory disorders; I25.10 Atherosclerotic heart disease of native coronary artery without angina pectoris; Z95.1 Presence of aortocoronary bypass graft; E78.00 Pure hypercholesterolemia, unspecified; I10 Essential (primary) hypertension; R73.01 Impaired fasting glucose; K21.9 Gastro-esophageal reflux disease without esophagitis; E55.9 Vitamin D deficiency, unspecified; R91.8 Other nonspecific abnormal finding of lung field

== ENCOUNTER → 2024-01-16 23:59 | Outpatient (BNV) | payer MEDICARE, SELFPAY ==
--- NOTE | 2024-01-21 16:58 | MHC.OFFVIS ---
Intake Visit Reasons: Remote device check- [facility] Allergies clopidogrel Adverse Reaction (Intermediate, Verified 12/28/23 09:42) Diarrhea atorvastatin [ATORVASTATIN] Adverse Reaction (Mild, Verified 12/28/23 09:42) MUSCLE PAIN ALL OVER PFSH Medical History Benign essential hypertension Acute lacunar infarction Pulmonary nodules Autoimmune hemolytic anemia HTN (hypertension) Benign microscopic hematuria Overweight (BMI 25.0-29.9) Vitamin D deficiency History of autoimmune hemolytic anemia GERD (gastroesophageal reflux disease) Pure hypercholesterolemia Cardiac pacemaker Complete heart block CAD (coronary artery disease) Surgical History History of laparoscopic cholecystectomy S/P CABG (coronary artery bypass graft) History of permanent cardiac pacemaker placement History of splenectomy History of colonoscopy Family History Father Tuberculosis Mother No problems noted. Brother Colon cancer Brother Schizophrenia Lung disease Family/Other FH: mental illness Brother Alcoholism Other Mental health problem Social History Household Members: Spouse Housing: House Are you a primary mall plant caretaker to a significant other at home: No Do you presently have visiting nurse or other home services: No Alcohol intake: never Comment: iv d/robert Patient Tobacco Use Status: Never used Tobacco e-Cigarette/Vaping Use: Never Used Second Hand Smoke Exposure: Yes Use of substances other than those prescribed or required for medical reasons: No Have you been hit, kicked, punched, or otherwise hurt by someone within the past year? If so, by whom?: No Do you feel safe in your current relationship?: Yes Do you have thoughts of harming others: None Do you have a plan to hurt others: No Plan Do you have the means to hurt others: No Recently lost weight without trying: No service: No Current occupational status: retired Cognitive needs: No Hearing needs: No Vision needs: No Office Procedures Cardiac Device Check Cardiac Device Check Details: Remote pacemaker report generated 01/16/2024. Pacemaker function is adequate [id number] Cardiac Device Interrogation, pacemaker Procedure code (CPT) selection complete Assessment & Plan Assessment & Plan (1) Cardiac pacemaker: Code(s): Z95.0 - Presence of cardiac pacemaker Category: Medical Plan: See above Coding Level of Care Code Procedure Only Diagnoses Cardiac pacemaker Z95.0 CPT Codes Cardiac Device Check - Cardiac Device 12: [id number] Cardiac Device Interrogation, pacemaker ([id number])
== END ==
PROVIDERS: PCP Internal Medicine; Visit Provider Internal Medicine Cardiovascular Disease
DX: Z45.018 Encounter for adjustment and management of other part of cardiac pacemaker (principal)
CPT/HCPCS: 93294

== ENCOUNTER 2024-04-09 08:07 | Outpatient (REF) | payer MEDICARE, SELFPAY ==
--- OUTSIDE RECORDS SUMMARY | 2024-04-09 08:10 | XMS_ITS | Patient Health Record ---
Author Organization [facility] Address [address] [place] [address] Care Team Providers Care Clerk Rating Name Role Phone Romeo RAHMAN, [place] Primary Care Provider William Harris Jr Unavailable [phone] ALLERGIES No Known Allergies RESULTS Component Value Reference Range Notes Basic Metabolic Panel Fastin g Reviewed date:09/26/2023 04:05:03 PM Interpretation: Performing Lab:[facility], [address] [place] [id number] Notes/Report: Sodium 140 135-145 mmol/L Potassium 4.1 3.3-5.1 mmol/L Chloride 104 96-108 mmol/L Carbon Dioxide 27 22-29 mmol/L Anion Gap 13 12-20 Blood Urea Nitrogen 20 9-16 mg/dL Creatinine 1.26 0.5-1.4 mg/dL Creatinine Clr Calc Pharmacy 50.5 eGFR (calculated from the MDRD study equation) and eCrCl (calculated from the Cockcroft-Gault equation) are based on different parameters and may not yield comparable results. If eCrCl result is absurd, please check patient's height/weight. Estimated Glomerular Filt Rate 56 NOTE: For -[place] individuals, multiply the result by 1.210. Chronic Kidney Disease: Estimated GFR < 60 mL/min/1.73m2 Severe Kidney Disease: Estimated GFR < 15 mL/min/1.73m2 Glucose Fasting 133 60-99 mg/dL A fasting glucose of 126 mg/dl or greater on more than one occasion is considered diagnostic of diabetes. Calcium 9.8 8.4-10.2 mg/dL REASON FOR REFERRAL No Information MEDICATIONS Medication SIG (Take, Route, Frequency, Duration) Notes Start Date End Date Status predniSONE 20 MG 1 tablet Orally Once a day for 30 day(s) twice a day Active Folic Acid 1 MG 1 tablet Orally Once a day for 30 day(s) Active Ezetimibe 10 MG 1 tablet Orally Once a day for 30 day(s) Active MiraLax (colon prep) 17 GM/SCOOP mixed with Gatorade or Crystal Light Orally begin at 5:00 p.m. the day before the procedure for 1 day 09/03/2023 Active Aspirin 81 MG 1 tablet Orally Once a day Active Co Q 10 100 MG 1 capsule with a dionne l Orally Once a day Active Vitamin D3 1000 UNIT 1 capsule Orally On ce a day Active Pantoprazole Sodium 40 MG 1 tablet Orally Once a day Active Rosuvastatin Calcium 40 MG 1 tablet Orally Once a day Active Metoprolol Succinate ER 100 MG 1 tablet Orally Once a day Active IMMUNIZATIONS Vaccine Route Administration Date Status Comme nts Influenza Unknown 01/24/2018 Administered Influenza Unknown 02/06/2023 Administered SOCIAL HISTORY Sex Assigned At : Social History Observation Description Sex Assigned At Unknown PROBLEMS Problem Type ICD Code Onset Dates Problem Status W/U Status Risk SNOMED Code Notes Problem Colon cancer screening (Z12.11) Active confirmed 424487012 Problem Personal history of colonic polyps (Z86.010) Active confirmed History of polyp of colon (situation) (867719637) Problem Encounter for other preprocedural examination (Z01.818) Active confirmed 59274103 Problem Gastroesophageal reflux disease without esophagitis (K21.9) Active confirmed 505471443 Problem Family history of colon cancer (Z80.0) Active confirmed 493473399 Problem Long-term use of aspirin therapy (Z79.82) Active confirmed 943397594 VITAL SIGNS Temperature 97.5 degrees Fahrenheit 09/03/2023 Blood pressure diastolic 00 mm Hg 09/03/2023 Height 68 in 09/03/2023 Blood pressure systolic 000 mm Hg 09/03/2023 Weight 188 lb 6 oz lbs 09/03/2023 BMI 28.64 kg/m2 09/03/2023 Encounters Encounter Location Date Provider Diagnosis [facility] Outpatient [address] [place] [id number] 09/25/2023 William Slade Jr Encounter for screening colonoscopy Z12.11 and Personal history of colonic polyps Z86.010 [facility] [address] [place] [address] 09/03/2023 William Slade Jr Colon cancer screening Z12.11 ; Gastroesophageal reflux disease without esophagitis K21.9 and Long-term use of aspirin therapy Z79.82 ASSESSMENTS Encounter Date Diagnosis Assessment Notes Treatment Notes Treatment Clinical Notes 09/25/2023 Encounter for screen ing colonoscopy (ICD-10 - Z12.11) 09/25/2023 Personal history of colonic polyps (ICD-10 - Z86.010) 09/03/2023 Colon cancer screeni ng (ICD-10 - Z12.11) 09/03/2023 Gastroesophageal ref lux disease without esophagitis (ICD-10 - K21.9) 09/03/2023 Long-term use of aspirin therapy (ICD-10 - Z79.82) PLAN OF TREATMENT Future Test Test Name Order Date UPPER GI ENDOSCOPY 12/22/2011 COLONOSCOPY 12/22/2011 COLONOSCOPY 04/12/2017 COLONOSCOPY 09/04/2018 COLONOSCOPY 09/03/2023 Insurance Providers Payer Name Payer Address Payer Phone Subscriber Number Group Number Insured Name Patient Relationship to Insured Coverage Start Date Coverage End Date MEDICARE OF [place] [address] [place] [address] [id number] DAYSI LOPEZ Self - patient is the insured [employer] ATT[employer] CLAIMS [address] [place] [address] [id number] DAYSI LOPEZ Self - patient is the insured MEDICAL (GENERAL) HISTORY Medical History History ICD Code colonoscopy 10/04, normal, five-year foll owup Hyperlipidemia coronary artery disease with history of CT, and bypass 2014 splenectomy gastroesophageal reflux disease, EGD 201 2, no BE or H&P Autoimmune hemolytic anemia/CLL Lacunar infarct Hypertension Pulmonary nodules Vitamin D deficiency Surgical History Surgery Date(Month/Year) dental extractions splenectomy CABG X 3 Pacemaker placement for complete heart b lock
--- OUTSIDE RECORDS SUMMARY | 2024-04-09 08:10 | XMS_ITS ---
Author Organization [facility] Address [address] [place] [address] Care Team Providers Care Belt Notcher Name Role Phone Romeo RAHMAN, [place] Primary Care Provider William Harris Jr Unavailable [phone] ALLERGIES No Known Allergies REASON FOR VISIT Patient presents today for a consultation MEDICATIONS Medication SIG (Take, Route, Frequency, Duration) [...] the procedure for 1 day 09/03/2023 Active Co Q 10 100 MG 1 capsule with a dionne l Orally Once a day Active Vitamin D3 1000 UNIT 1 capsule Orally On ce a day Active Pantoprazole Sodium 40 MG 1 tablet Orally Once a day Active Rosuvastatin Calcium 40 MG 1 tablet Orally Once a day Active Metoprolol Succinate ER 100 MG 1 tablet Orally Once a day Active Aspirin 81 MG 1 tablet Orally Once a day Active PROBLEMS Problem Type ICD Code Onset Dates Problem Status W/U Status Risk SNOMED Code Notes Problem Colon cancer screening (Z12.11) Active confirmed 241592837 Problem Long-term use of aspirin therapy (Z79.82) Active confirmed 061942948 VITAL SIGNS BMI 28.64 kg/m2 09/03/2023 Blood pressure systolic 000 mm Hg 09/03/19 24 Blood pressure diastolic 00 mm Hg 024 Height 68 in 09/03/2023 Temperature 97.5 degrees Fahrenheit 09/03/19 24 Weight 188 lb 6 oz lbs 09/03/2023 Encounters Encounter Location Date Provider Diagnosis [facility] [address] [place] [address] 09/03/2023 William Slade Jr Colon cancer screening Z12.11 ; Gastroesophageal reflux disease without esophagitis K21.9 and Long-term use of aspirin therapy Z79.82 ASSESSMENTS Encounter Date Diagnosis Assessment Notes Treatment Notes Treatment Clinical Notes 09/03/2023 Colon cancer screeni ng (ICD-10 - Z12.11) 09/03/2023 Gastroesophageal ref lux disease without esophagitis (ICD-10 - K21.9) 09/03/2023 Long-term use of aspirin therapy (ICD-10 - Z79.82) PLAN OF TREATMENT Medication Medication Name Sig Start Date Stop Date Notes MiraLax (colon prep) 17 GM/SCOOP mixed with Gatorade or Crystal Light Orally begin at 5:00 p.m. the day before the procedure for 1 day 09/03/2023 Future Test Test Name Order Date COLONOSCOPY 09/03/2023 Next Appt Details Follow Up: 1 Year, Reason: Progress Notes * Examination Category Sub-Category Detail Notes General Examination GENERAL APPEARANCE: in no ac [place] distress HEAD: normocephalic EYES: sclera non-icteric NECK/THYROID: no lymphadenopathy HEART: S1, S2 normal, no mu rmurs CHEST: normal shape and exp ansion LUNGS: clear to auscultatio n bilaterally ABDOMEN: soft, nontender, non distended, bowel sounds present, no organomegaly SKIN: anicteric EXTREMITIES: no clubbing, cyanosi s, or edema PSYCH: cognitive function i ntact ORAL CAVITY: mucosa moist
[2024-04-09 09:02] LABS: Basophils Absolute Auto 0.1 X10*3/uL (0.0-0.2); Basophils Percent Auto 0.7 % (0-2); Eosinophils Absolute Auto 1.7 X10*3/uL (0.0-0.4); Eosinophils Percent Auto 11.2 % (0-4); Hematocrit 38.3 % (42.0-52.0); Hemoglobin 13.8 g/dl (14.0-18.0); Imm Gran Abs Auto 0.19 X10*3/uL (0.00-0.03); Imm Gran Pct Auto 1.3 % (0.0-0.4); Lymphocytes Absolute Auto 5.7 X10*3/uL (1.2-4.9); Lymphocytes Percent Auto 37.8 % (20-40); MANUAL DIFF FLAG SCAN; Mean Corpuscular Hemoglobin 34.9 pg (27.0-33.0); Mean Platelet Volume 9.9 fL (9.4-12.4); Monocytes Absolute Auto 2.2 X10*3/uL (0.1-1.2); Monocytes Percent Auto 14.3 % (2-11); NRBC Pct Auto 0.3 /100WBC (0.0-0.2); Neutrophils Absolute Auto 5.2 x10*3/uL (2.0-8.3); Neutrophils Percent Auto 34.7 % (45-73); Platelet Count 487 X10*3/uL (160-400); Red Blood Count 3.95 X10*6/uL (4.60-5.80); Red Cell Distribution Width 15.9 % (11.0-16.0); SCAN SMEAR FLAG 1; White Blood Count 15.1 X10*3/uL (4.8-10.8)
[2024-04-09 09:11] LABS: Appearance Urine Clear; Color Urine Yellow; Glucose Urine UA Negative (Negative); Leukocyte Esterase Urine Negative (Negative); Nitrite Urine Negative (Negative); Specific Gravity - Urine 1.015 (1.005-1.025); UMIC TRIGGER UACC YES; Urine Blood Trace (Negative); Urine Ketones Negative (Negative); Urine Protein Negative (Neg-Trace)
[2024-04-09 09:15] LABS: Hemoglobin A1C 59.3063 umol/L; Hemoglobin A1c % < 4.0 % (<6.0); Total Hemoglobin (HGBA1C) 3302.7613 umol/L
[2024-04-09 09:16] LABS: Bacteria Urine None Seen (None Seen); Hyaline Casts Urine 0-2 /LPF (0-2); Squamous Epithelial Cell Urine 0-2 /HPF (0-2); WBC Urine 0-5 /HPF (0-5)
[2024-04-09 09:30] LABS: Alanine Aminotransferase 43 U/L (0-40); Albumin Level 3.7 g/dL (3.5-5.0); Alkaline Phosphatase 214 U/L (39-117); Anion Gap 9 (12-20); Aspartate Amino Transferase 47 U/L (5-37); Bilirubin Total 3.4 mg/dL (0.0-1.0); Blood Urea Nitrogen 18 mg/dL (9-16); Calcium 9.9 mg/dL (8.4-10.2); Carbon Dioxide 26 mmol/L (22-29); Chloride 105 mmol/L (96-108); Cholesterol 127 mg/dL (<200); Estimated Glomerular Filt Rate > 60; Glucose Fasting 103 mg/dL (60-99); HDL Cholesterol 31 mg/dL (>40); LDL Cholesterol Calculated 75 mg/dL (<100); Potassium 4.5 mmol/L (3.3-5.1); Sodium 135 mmol/L (135-145); Total Protein 8.1 g/dL (6.5-8.0); Triglycerides 108 mg/dL (<150)
[2024-04-09 09:44] LABS: TSH reflex Free T4 1.41 uIU/mL (0.32-4.0)
[2024-04-09 09:51] LABS: SLIDE REVIEW VERIFIED
== END 2024-04-09 08:08 | disposition home or self-care (01) ==
LOC: HO.LAB 08:07
PROVIDERS: PCP Internal Medicine; Visit Provider Internal Medicine
DX: E78.00 Pure hypercholesterolemia, unspecified (principal); D64.9 Anemia, unspecified; R73.01 Impaired fasting glucose; R30.0 Dysuria
CPT/HCPCS: 36415; 80053; 80061; 81001; 81003; 83036; 84443; 85025

== ENCOUNTER 2024-04-10 14:30 | Outpatient (AMB) | payer MEDICARE, SELFPAY ==
[2024-04-10 14:39] VITALS: BP 120/74; PULSE 76; BMI 28.5
--- NOTE | 2024-04-10 14:39 | MHC.OFFVIS ---
Vital Signs 04/10/24 14:39 Height 5 ft 8 in Weight 187 lb 6.287 oz BMI 28.5 BP 120/74 Blood Pressure Location Lt brachial Position Sitting Pulse 76 Intake Visit Reasons: 6 mthf/up Intake Note: 6 month follow-up with [facility] check feeling good Crisis Clinician Required: No Allergies clopidogrel Adverse Reaction (Intermediate, Verified 02/29/24 08:57) Diarrhea atorvastatin [ATORVASTATIN] Adverse Reaction (Mild, Verified 02/29/24 08:57) MUSCLE PAIN ALL OVER Medication List - Last Reconciled 04/10/24 by Preston Cash MD acetaminophen ER (Tylenol Arthritis Pain) 650 mg PO Q8H PRN aspirin (Adult Aspirin Regimen) 81 mg PO DAILY cholecalciferol (vitamin D3) (Vitamin D3) 50 mcg PO DAILY coQ10 (ubiquinol) 200 mg PO DAILY ezetimibe 10 mg PO DAILY folic acid 1 mg PO DAILY lidocaine 5% 1 patch topical DAILY metoprolol succinate ER 100 mg PO DAILY 90 days pantoprazole 40 mg PO DAILY HPI Comments Details: Dallin comes for follow-up. Denies any cardiac complaints. Denies any prolonged palpitation irregular heartbeat. No exertional chest pain. Takes all his medications. Currently not on statin therapy, he does not recall why. He said he has on rosuvastatin 40 mg daily at that time muscle ache and this was discontinued. Currently LDL at 75 mg/dL only on ezetimibe therapy. Denies any lightheadedness, syncope. Denies any exertional shortness of breath, orthopnea, PND, leg edema. Takes all his medications. His hematologic issues have been stable. REPLACED BY [facility] Medical History Benign essential hypertension Acute lacunar infarction Pulmonary nodules Autoimmune hemolytic anemia HTN (hypertension) Benign microscopic hematuria Overweight (BMI 25.0-29.9) Vitamin D deficiency History of autoimmune hemolytic anemia GERD (gastroesophageal reflux disease) Pure hypercholesterolemia Cardiac pacemaker Complete heart block CAD (coronary artery disease) Surgical History History of laparoscopic cholecystectomy S/P CABG (coronary artery bypass graft) History of permanent cardiac pacemaker placement History of splenectomy History of colonoscopy Family History Father Tuberculosis Mother No problems noted. Brother Colon cancer Brother Schizophrenia Lung disease Family/Other FH: mental illness Brother Alcoholism Other Mental health problem Social History Household Members: Spouse Housing: House Are you a primary medicare contact specialist to a significant other at home: No Do you presently have visiting nurse or other home services: No Alcohol intake: never Comment: iv d/robert Patient Tobacco Use Status: Never used Tobacco e-Cigarette/Vaping Use: Never Used Second Hand Smoke Exposure: Yes service: No Current occupational status: retired Cognitive needs: No Hearing needs: No Vision needs: No Review of Systems Const Denies chills, Denies fatigue, Denies fever(s), Denies frequent falls, Denies weakness, Denies weight gain and Denies weight loss ENT Denies dizziness Card Denies chest pain, Denies leg edema, Denies lightheadedness, Denies palpitations, Denies dyspnea, Denies dyspnea on exertion, Denies orthopnea and Denies other (loss of consciousness) Resp Denies cough, Denies dyspnea and Denies dyspnea on exertion GI Denies hematochezia and Denies change in stool character Musc Denies abnormal gait, Denies muscle weakness, Denies numbness, Denies radiating pain into limb and Denies tingling Neuro Denies abnormal gait, Denies dizziness, Denies frequent falls, Denies numbness, Denies tingling and Denies weakness Endo Denies fatigue and Denies palpitations Physical Exam Vital Signs: Last Vital Signs Pulse 76 04/10/24 14:39 BP 120/74 04/10/24 14:39 BMI result Body Mass Index 28.5 Const General: cooperative, comfortable, no acute distress, alert and awake Nutritional Appearance: average body habitus Orientation/consciousness: patient oriented x3 Limitations: no limitations Neck Neck: Yes trachea midline, Yes supple and Yes no JVD Carotids: no bruits Chest Chest palpation & inspection: Pacemaker present Resp Effort & Inspection: normal respiratory effort Auscultation: clear to auscultation bilaterally Cardio Jugular venous distension: no JVD Palpation: normal PMI Rate: regular rate Rhythm: regular rhythm Heart sounds: S1 normal heart sound present, S2 normal heart sound present, no click, no gallops, no murmurs and no rubs GI Auscultation: normal bowel sounds Skin General skin exam: no rashes or lesions noted Neuro General: patient oriented x3 and no focal motor deficits Extrem General: Yes no clubbing, cyanosis or edema Office Procedures Cardiac Device Check Cardiac Device Check Details: Dual-chamber [facility] pacemaker in place. Programmed in DDDR at 60 beats per minute. Atrial pacing at 4.9% time. No significant episodes of atrial fibrillation noted. Atrial ventricular pacing thresholds are adequate and in auto capture mode. Atrial ventricular sensing is adequate. Pacing lead impedance is stable. Battery life is at about 5 years. 30293-IR Cardiac Device Check, pacemaker dual lead Procedure code (CPT) selection complete Assessment & Plan Assessment & Plan (1) CAD (coronary artery disease): Comment: 3-vessel bypass in 2013 Code(s): I25.10 - Atherosclerotic heart disease of [place] coronary artery without angina pectoris Category: Medical Qualifiers: Coronary Disease-Associated Artery/Lesion type: [place] artery [place] vs. transplanted heart: [place] heart Associated angina: without angina Qualified Code(s): I25.10 - Atherosclerotic heart disease of [place] coronary artery without angina pectoris Plan: CAD with remote coronary artery bypass grafting without any symptoms of angina at current point time. Continue medical management. Continue low-dose aspirin therapy for life. His LDL is not well optimized at goal start low-dose Crestor at 10 mg. Discussed with him. Advised to call me with the fast any muscle aches. Continue ezetimibe therapy. Follow-up lipid panel in 6 weeks time. For follow-up liver panel at that point in time. Blood pressure is currently well optimized advised to continue to monitor blood pressure and maintain a log. Goal blood pressure less than 130/84. Low-salt diet was discussed advised to maintain activity level as tolerated. (2) Cardiac pacemaker: Code(s): Z95.0 - Presence of cardiac pacemaker Category: Medical Plan: Cardiac pacemaker in-situ, working well. Reprogrammed for adequate function. Will follow remotely. Follow up in the clinic in 6 months time. (3) HTN (hypertension): Code(s): I10 - Essential (primary) hypertension Category: Medical Plan: Hypertension is well optimized. Advised to monitor blood pressure at home maintain a log. Goal blood pressure less than 130/84. (4) Paroxysmal atrial fibrillation: Code(s): I48.0 - Paroxysmal atrial fibrillation Category: Medical Plan: Paroxysmal atrial fibrillation any major recurrence at this point time. Continue monitor by cardiac pacer telemetry. No blood thinner indicated at this point time. Will follow up in the clinic in 6 months time, sooner p.r.n.. Thank you for allowing me to partake in his care Orders: Orders Lipid Panel 6 Weeks I25.10 - Atherosclerotic heart disease of [place] coronary artery without angina pectoris Liver Panel 6 Weeks I25.10 - Atherosclerotic heart disease of [place] coronary artery without angina pectoris Medications: New rosuvastatin (Crestor) 10 mg PO DAILY 30 tabs 5RF I25.10 - Atherosclerotic heart disease of [place] coronary artery without angina pectoris Coding Level of Care Code Est Pt Level 4 (81382) Complex EM visit Add On G2211 Diagnoses Coronary artery disease involving [place] coronary artery of [place] heart without angina pectoris I25.10 Coronary Disease-Associated Artery/Lesion type: [place] artery [place] vs. transplanted heart: [place] heart Associated angina: without angina Cardiac pacemaker Z95.0 HTN (hypertension) I10 Paroxysmal atrial fibrillation I48.0 CPT Codes Cardiac Device Check - Cardiac Device 2: 60821-EB Cardiac Device Check, pacemaker dual lead ([id number])
== END 2024-04-10 15:02 | disposition home or self-care (01) ==
PROVIDERS: PCP Internal Medicine; Visit Provider Internal Medicine Cardiovascular Disease
DX: I25.10 Atherosclerotic heart disease of native coronary artery without angina pectoris (principal); Z95.0 Presence of cardiac pacemaker; I10 Essential (primary) hypertension; I48.0 Paroxysmal atrial fibrillation
CPT/HCPCS: 93280; 99214; G2211

== ENCOUNTER → 2024-04-10 14:30 | Outpatient (BNVA) | payer MEDICARE, SELFPAY | PROVIDERS: PCP Internal Medicine; Visit Provider Internal Medicine Cardiovascular Disease | DX: Z45.018 Encounter for adjustment and management of other part of cardiac pacemaker (principal); I25.10 Atherosclerotic heart disease of native coronary artery without angina pectoris; I48.0 Paroxysmal atrial fibrillation; I10 Essential (primary) hypertension | CPT/HCPCS: 93280; 99212 ==

== ENCOUNTER 2024-04-11 09:50 | Outpatient (AMB) | payer MEDICARE, SELFPAY ==
[2024-04-11 09:59] VITALS: BP 128/82; PULSE 106; O2SAT 96; BMI 28.3
--- NOTE | 2024-04-11 09:59 | A.OFFPC_ITS ---
Vital Signs 04/11/24 09:59 Height 5 ft 8 in Weight 186 lb BMI 28.3 BP 128/82 Blood Pressure Location Lt brachial Position Sitting Pulse 106 H Pulse Source Pulse Oximeter Pulse Oximetry (%) 96 Oxygen Delivery Method Room Air Intake Visit Reasons: CLL, Hx of hemolytic anemia, hyperlipidemia Polymerization Helper Required: No Accompanied by: Self / Same As Patient Allergies clopidogrel Adverse Reaction (Intermediate, Verified 04/11/24 10:47) Diarrhea atorvastatin [ATORVASTATIN] Adverse Reaction (Mild, Verified 04/11/24 10:47) MUSCLE PAIN ALL OVER Medication List - Last Reconciled 04/11/24 by Emile Walters MD acetaminophen ER (Tylenol Arthritis Pain) 650 mg PO Q8H PRN aspirin (Adult Aspirin Regimen) 81 mg PO DAILY cholecalciferol (vitamin D3) (Vitamin D3) 50 mcg PO DAILY coQ10 (ubiquinol) 200 mg PO DAILY ezetimibe 10 mg PO DAILY folic acid 1 mg PO DAILY lidocaine 5% 1 patch topical DAILY metoprolol succinate ER 100 mg PO DAILY 90 days pantoprazole 40 mg PO DAILY rosuvastatin (Crestor) 10 mg PO DAILY Tobacco use date assessed: 04/11/24 Fall risk assessment: No Falls in past year Last assessed Fall Risk: 04/11/24 Dental Screening Dental Screen Date: 04/11/24 Did you have a dental visit in the last 12 months?: No Did you have a dental problem in the last 6 months where you did not have access to dental care?: No Was dental information given to patient?: Patient has dentist HPI CLL, Hx of hemolytic anemia, hyperlipidemia HPI Details Patient comes in today for his follow up visit States that he has had increased cough and congestion for about a month now Relates that he also had some sore throat for a while last month but that has cleared up completely He denies any fever or chills; denies any headaches or dizziness Denies any chest pains, no increased SOB - chest still feels congested at times and reports that he still has on and off coughing, which seems more pronounced at night States that his cough is mostly non-productive although he coughs up some yellowish phlegm at times No nausea/vomiting, no abdominal pain No change in bowel habits noted He had his follow up labs done a couple of days ago - to discuss his results States that he was seen by cardiology for follow up yesterday and was started back on Rosuvastatin 10 mg QD as his LDL cholesterol went up a lot on his recent labs [facility] Medical History (Updated 04/11/24 @ 11:30 by Emile Walters MD) Chronic lymphocytic leukemia Benign essential hypertension Acute lacunar infarction Pulmonary nodules Autoimmune hemolytic anemia HTN (hypertension) Benign microscopic hematuria Overweight (BMI 25.0-29.9) Vitamin D deficiency History of autoimmune hemolytic anemia GERD (gastroesophageal reflux disease) Pure hypercholesterolemia Cardiac pacemaker Complete heart block CAD (coronary artery disease) Surgical History (Updated 04/11/24 @ 11:01 by Emile Walters MD) History of laparoscopic cholecystectomy S/P CABG (coronary artery bypass graft) History of permanent cardiac pacemaker placement History of splenectomy History of colonoscopy Family History Father Tuberculosis Mother No problems noted. Brother Colon cancer Brother Schizophrenia Lung disease Family/Other FH: mental illness Brother Alcoholism Other Mental health problem Social History Household Members: Spouse Housing: House Are you a primary child care supervisor to a significant other at home: No Do you presently have visiting nurse or other home services: No Alcohol intake: never Comment: iv d/robert Patient Tobacco Use Status: Never used Tobacco e-Cigarette/Vaping Use: Never Used Second Hand Smoke Exposure: Yes service: No Current occupational status: retired Cognitive needs: No Hearing needs: No Vision needs: No Questionnaire PHQ-9 Over the last 2 weeks, how often have you been bothered by any of the following problems? 1. Little interest or pleasure in doing things: not at all 2. Feeling down, depressed, or hopeless: not at all 3. Trouble falling or staying asleep, or sleeping too much: not at all 4. Feeling tired or having little energy: not at all 5. Poor appetite or overeating: not at all 6. Feeling bad about yourself - or that you are a failure or have let yourself or your family down: not at all 7. Trouble concentrating on things, such as reading the newspaper or watching television: not at all 8. Moving or speaking so slowly that other people could have noticed. Or the opposite - being so fidgety or restless that you have been moving around a lot more than usual: not at all 9. Thoughts that you would be better off or of hurting yourself in some way: not at all Total score: 0 Depression Screening Interpretation: Negative Depression Screening Done: Yes 22131 - PHQ-9 Billing: Yes Source: Developed by Drs. Tim Hoyos, Adelaide Yo, Tone Light and colleagues, with an educational donna from [employer]. Thrive Questionnaire Date Thrive assessed: 04/11/24 I am a: Patient What is your living situation today?: I have a steady place to live Within the past 12 months, did the food you bought not last and you didn't have the money to get more?: Never true Within the past 12 months, did you worry whether your food would run out before you got money to buy more?: Never true Do you have trouble paying for medicines?: No Do you have trouble getting transportation to medical appointments?: No Do you have trouble paying your heating and electricity bill?: No Do you have trouble taking care of your child, family member or friend?: No Do you have trouble with day-to-day activities such as bathing, preparing meals, shopping, managing finances, etc.?: No Are you currently unemployed and looking for a job?: Yes Are you interested in more education?: No Please select the resources that you would like help with: None Currently or been in a relationship where the following occur: No concerns reported THRIVE Score: 0 AUDIT C Alcohol Use Questionnaire (AUDIT-C) 1. How often do you have a drink containing alcohol?: Monthly or less 2. How many drinks containing alcohol do you have on a typical day when you are drinking?: 1 or 2 3. How often do you have six or more drinks on one occasion?: Never Total Score: 1 Score Reviewed/Action Taken: Yes RYAN-7 AMB Questionnaire RYAN-7 Date RYAN - 7 assessed: 04/11/24 Feeling nervous, anxious, or on edge: 0 = Not at all Not being able to stop or control worryin = Not at all Worrying too much about different things: 0 = Not at all Trouble relaxin = Not at all Being so restless that it is hard to sit still: 0 = Not at all Becoming easily annoyed or irritable: 0 = Not at all Feeling afraid as if something awful might happen: 0 = Not at all Total RYAN-7 score (0-4 normal; 5-9 mild; 10-14 moderate; 15-21 severe): 0 Source: Developed by Drs. Tim Hoyos, Adelaide Yo, Tone Light and colleagues, with an educational donna from [employer]. Review of Systems Const Denies chills, Reports fatigue, Denies fever(s), Denies headache(s) and Denies night sweats ENT Denies dysphagia, Denies dizziness, Denies otalgia, Denies headache(s), Reports nasal congestion, Denies odynophagia and Denies sore throat (had sore throat for a few days last month) Card Denies chest pain, Denies palpitations and Reports dyspnea on exertion (mild) Resp Reports chest congestion (mild), Reports cough (on and off - non-productive but coughs up some yellowish phlegm at times), Reports dyspnea on exertion (mild) and Denies wheezing GI Denies abdominal pain, Denies constipation, Denies dysphagia, Denies heartburn, Denies diarrhea, Denies nausea, Denies odynophagia and Denies vomiting Denies dysuria, Denies nocturia and Denies urinary frequency Musc Denies back pain and Reports arthralgias (on and off over both knees) Skin/Breast Denies rash Neuro Denies dizziness and Denies headache(s) Endo Reports fatigue and Denies palpitations Aller/Immun Denies wheezing Physical exam (Primary Care) Vital Signs: Last Vital Signs Pulse 106 H 04/11/24 09:59 BP 128/82 04/11/24 09:59 Pulse Ox 96 04/11/24 09:59 Oxygen Delivery Method Room Air 04/11/24 09:59 BMI result Body Mass Index 28.3 Tobacco/Smoking Status: Tobacco use Status Tobacco use date assessed 04/11/24 04/11/24 10:03 Patient Tobacco Use Status Never used Tobacco 04/11/24 10:03 e-Cigarette/Vaping Use Never Used 04/11/24 10:03 PHQ-9: PHQ-9 Score PHQ-9: Total score 0 04/11/24 10:03 Depression Screening Interpretation: Negative Thrive Assessment: Date of Thrive Assessment Date Thrive assessed 04/11/24 04/11/24 10:03 Currently or been in a relationship where the following occur: No concerns reported Const General: no acute distress and alert HENMT Ears: TM's normal bilaterally and EAC's normal Throat: Yes posterior oropharynx normal and Yes tonsils normal (no TP congestion) Neck Neck: Yes supple and No lymphadenopathy Thyroid: Thyroid normal Resp Auscultation: clear to auscultation bilaterally, no rales, rhonchi (occasional) throughout and no wheezes Cardio Rate: regular rate Rhythm: regular rhythm Heart sounds: no murmurs GI Palpation (GI): Soft to palpation and nontender Auscultation: normal bowel sounds General: Yes no CVA tenderness Back/Spine/Pelvis Back: no CVA tenderness Thoracic/Lumbar Spine: No lumbar spinal tenderness Skin Rashes: no rashes Extrem General: Yes no clubbing, cyanosis or edema Right lower extremity: knee Details: tenderness; no swelling Left lower extremity: knee Details: tenderness; no swelling Results Reviewed Results Reviewed: Laboratory Tests 04/09/24 08:30 WBC 15.1 H Hgb 13.8 L Hct 38.3 L Plt Count 487 H D Sodium 135 Potassium 4.5 Creatinine 1.05 Estimated GFR > 60 Fasting Glucose 103 H Hemoglobin A1c % < 4.0 Total Bilirubin 3.4 H AST 47 H ALT 43 H Alkaline Phosphatase 214 H Triglycerides 108 Cholesterol 127 LDL Cholesterol, Calc 75 HDL Cholesterol 31 L TSH 1.41 Ur Specific [place] 1.015 Urine Protein Negative Urine Glucose (UA) Negative Urine Blood Trace H Urine Nitrite Negative Ur Leukocyte Esterase Negative Coding Level of Care Code Est Pt Level 4 (11510) Complex EM visit Add On G2211 Diagnoses Respiratory tract infection J98.8 Autoimmune hemolytic anemia D59.10 Chronic lymphocytic leukemia C91.10 Coronary artery disease involving [place] coronary artery of [place] heart without angina pectoris I25.10 Coronary Disease-Associated Artery/Lesion type: [place] artery [place] vs. transplanted heart: [place] heart Associated angina: without angina S/P CABG (coronary artery bypass graft) Z95.1 Complete heart block I44.2 Pure hypercholesterolemia E78.00 Benign essential hypertension I10 Acute lacunar infarction I63.81 Impaired fasting glucose R73.01 Gastroesophageal reflux disease without esophagitis K21.9 Esophagitis presence: without esophagitis Vitamin D deficiency E55.9 Pulmonary nodule R91.1 Benign microscopic hematuria R31.1 Overweight (BMI 25.0-29.9) E66.3 Additional Codes PHQ-9 - 68425 - PHQ-9 Billing: Yes ([id number]) Assessment & Plan Assessment & Plan (1) Respiratory tract infection: Code(s): J98.8 - Other specified respiratory disorders Category: Medical Plan: As he's had his current respiratory symptoms for about a month now and with his comorbidities, I will go ahead and start him on empiric Abx Tx with Azithromycin QD x 5 days (2) Autoimmune hemolytic anemia: Comment: S/P Tx with prednisone and splenectomy back in 2014; restarted Tx with prednisone and started on Rituximab from 09/15/21 to 10/06/21; prednisone D/Robert on 12/09/21 Code(s): D59.10 - Autoimmune hemolytic anemia, unspecified Category: Medical Plan: His H/H is stable at 13.8/38.3 on his recent labs and he now appears stable again with NO relapse He's had Tx with Rituximab at least twice in the past, from 09/15/21 through 10/06/21 and from 07/16/2023 through 08/06/2023 He has also been treated with oral Prednisone a couple of times when he's had flare ups of his hemolytic anemia Follow up with hematology (Dr. Fuller) as scheduled (3) Chronic lymphocytic leukemia: Code(s): C91.10 - Chronic lymphocytic leukemia of B-cell type not having achieved remission Category: Medical Plan: Patient also has concomitant CLL and this appears stable Will continue to monitor his CBC regularly Follow up with hematology/oncology as scheduled (4) CAD (coronary artery disease): Comment: 3-vessel bypass in 2013 Code(s): I25.10 - Atherosclerotic heart disease of [place] coronary artery without angina pectoris Category: Medical Qualifiers: Coronary Disease-Associated Artery/Lesion type: [place] artery [place] vs. transplanted heart: [place] heart Associated angina: without angina Qualified Code(s): I25.10 - Atherosclerotic heart disease of [place] coronary artery without angina pectoris Plan: S/P triple vessel bypass in 2013 Myocardial perfusion study done in November 2020 came out normal; graft remained patent at the time Continue Aspirin 81 mg QD Follow up with cardiology as scheduled (5) S/P CABG (coronary artery bypass graft): Comment: Status post 3 vessel coronary artery bypass grafting, 2013 Code(s): Z95.1 - Presence of aortocoronary bypass graft Category: Surgical Plan: Repeat myocardial perfusion study in November 2020 came out normal, with patent graft Continue Aspirin 81 mg QD (needs to be on lifelong anticoagulation) and aggressive risk reduction and secondary prevention (6) Complete heart block: Comment: S/P pacemaker insertion Code(s): I44.2 - Atrioventricular block, complete Category: Medical Plan: S/P pacemaker insertion - pacer has been working properly and is being monitored remotely by cardiology Follow up with cardiology as scheduled (7) Pure hypercholesterolemia: Code(s): E78.00 - Pure hypercholesterolemia, unspecified Category: Medical Plan: Results of his labs done a couple of days ago reviewed and discussed with patient - his LDL cholesterol appears to have increased from previous Reinforced low cholesterol diet Continue Ezetimibe 10 mg QD He was also on Rosuvastatin 40 mg QD in the past but appears to have stopped taking this sometime last year - he is not sure why but thinks that it may have something to do with muscle pains He was started back on Rosuvastatin by cardiology yesterday but only on 10 mg QD He has been instructed by cardiology to recheck his fasting lipids and LFTs in 6 weeks Will also have him recheck his routine labs and fasting lipids in 4 months just before his next follow up appointment with me (8) Benign essential hypertension: Code(s): I10 - Essential (primary) hypertension Category: Medical Plan: Reinforced low sodium diet - goal is systolic BP of at least 130 mm or less Continue Metoprolol ER 100 mg QD (9) Acute lacunar infarction: Code(s): I63.81 - Other cerebral infarction due to occlusion or stenosis of small artery Category: Medical Plan: Brain MRI done in February 2021 revealed (+) small focus of lacunar infarction in the left brainstem - patient presented to the ER then with transient diplopia, which gradually resolved and has not recurred since; no other symptoms at present Continue Aspirin 81 mg QD; he was also started on Clopidogrel 75 mg QD by neurology but he could not tolerate Rx (diarrhea) Have recommended again aggressive risk reduction to minimize/prevent recurrence - need to keep his BP and cholesterol levels controlled as tightly as possible Follow up with neurology as scheduled (10) Impaired fasting glucose: Code(s): R73.01 - Impaired fasting glucose Category: Medical Plan: His FBS was at 103 mg/dl on his recent labs; HgbA1c was normal and < 4.0% although this may not be accurate due to his anemia and CLL Reinforced low calorie/low carb diet, exercise as tolerated Will recheck his FBS and HgbA1c in 4 months for follow up (11) GERD (gastroesophageal reflux disease): Code(s): K21.9 - Gastro-esophageal reflux disease without esophagitis Category: Medical Qualifiers: Esophagitis presence: without esophagitis Qualified Code(s): K21.9 - Gastro-esophageal reflux disease without esophagitis Plan: Dietary restrictions reinforced Continue Pantoprazole 40 mg QD (12) Vitamin D deficiency: Code(s): E55.9 - Vitamin D deficiency, unspecified Category: Medical Plan: Continue Vitamin D3 2000 units QD (13) Pulmonary nodule: Code(s): R91.1 - Solitary pulmonary nodule Category: Medical Plan: Stable - continue yearly CT screening and follow-up with Dr. Shirley as scheduled (14) Benign microscopic hematuria: Code(s): R31.1 - Benign essential microscopic hematuria Category: Medical Plan: Asymptomatic - will continue to monitor regularly Workups done in the past have all been negative/normal (15) Overweight (BMI 25.0-29.9): Code(s): E66.3 - Overweight Category: Medical Plan: Reinforced diet/exercise as tolerated/lose weight Plan Follow up in 4 months Orders: Orders Complete Blood Count Auto Diff 4 Months D64.9 - Anemia, unspecified Comprehensive [place]. Panel Fast 4 Months E78.00 - Pure hypercholesterolemia, unspecified Lipid Panel 4 Months E78.00 - Pure hypercholesterolemia, unspecified Medications: New azithromycin take 500 mg today (day 1), then 250 mg for 4 days (days 2-5) PO 6 tabs 0RF
--- OUTSIDE RECORDS SUMMARY | 2024-04-11 10:44 | XMS_ITS | Patient Health Record ---
Author Organization [facility] Address [address] [place] [address] Care Team Providers Care Cushion Sewer Name Role Phone Romeo RAHMAN, [place] Primary Care Provider William Harris Jr Unavailable [phone] ALLERGIES No Known Allergies RESULTS Component Value Reference Range Notes Basic Metabolic Panel Fastin g Reviewed date:09/26/2023 04:05:03 PM Interpretation: Performing Lab:[facility], [address] [place] [id number] Notes/Report: Sodium 140 135-145 mmol/L Potassium 4.1 [...] Estimated Glomerular Filt Rate 56 NOTE: For -[place] individuals, multiply the result by 1.210. Chronic [...] Problem Colon cancer screening (Z12.11) Active confirmed 699358921 Problem Personal history of colonic polyps (Z86.010) Active confirmed History of polyp of colon (situation) (533667729) Problem Encounter for other preprocedural examination (Z01.818) Active confirmed 12296705 Problem Gastroesophageal reflux disease without esophagitis (K21.9) Active confirmed 616649170 Problem Family history of colon cancer (Z80.0) Active confirmed 734110980 Problem Long-term use of aspirin therapy (Z79.82) Active confirmed 774901261 VITAL SIGNS Temperature 97.5 degrees Fahrenheit 09/03/2023 Blood pressure diastolic 00 mm Hg 09/03/2023 Height 68 in 09/03/2023 Blood pressure systolic 000 mm Hg 09/03/2023 Weight 188 lb 6 oz lbs 09/03/2023 BMI 28.64 kg/m2 09/03/2023 Encounters Encounter Location Date Provider Diagnosis [facility] Out[facility] [address] [place] [id number] 09/25/2023 William Slade Jr Encounter for screening colonoscopy Z12.11 and Personal history of colonic polyps Z86.010 [facility] [address] [place] [address] 09/03/2023 William Slade Jr Colon cancer screening [...] Date MEDICARE OF [place] [address] [place] [address] [id number] DAYSI LOPEZ Self - patient is the insured [employer] ATT[employer] CLAIMS [address] [place] [address] [phone] [id number] DAYSI LOPEZ Self - patient is the insured MEDICAL (GENERAL) HISTORY Medical History History ICD Code colonoscopy 10/04, normal, five-year foll owup Hyperlipidemia coronary artery disease with history of [place], and bypass 2014 splenectomy gastroesophageal reflux disease, EGD 201 2, no BE or H&P Autoimmune hemolytic anemia/CLL Lacunar infarct Hypertension Pulmonary nodules Vitamin D deficiency Surgical History Surgery Date(Month/Year) dental extractions splenectomy CABG X 3 Pacemaker placement for complete heart b lock
--- OUTSIDE RECORDS SUMMARY | 2024-04-11 10:44 | XMS_ITS ---
Author Organization [facility] Address [address] [place] [address] Care Team Providers Care Ankle Patch Molder Name Role Phone Romeo RAHMAN, [place] Primary Care Provider William Harris Jr Unavailable ALLERGIES No Known Allergies REASON FOR VISIT [...] Problem Colon cancer screening (Z12.11) Active confirmed 016046863 Problem Long-term use of aspirin therapy (Z79.82) Active confirmed 757649874 VITAL SIGNS BMI 28.64 kg/m2 09/03/2023 Blood pressure systolic 000 mm Hg 09/03/19 24 Blood pressure diastolic 00 mm Hg 024 Height 68 in 09/03/2023 Temperature 97.5 degrees Fahrenheit 09/03/19 24 Weight 188 lb 6 oz lbs 09/03/2023 Encounters Encounter Location Date Provider Diagnosis [facility] [address] [place] [address] 09/03/2023 William Slade Jr Colon cancer screening [...] General Examination GENERAL APPEARANCE: in no ac te-moak distress HEAD: normocephalic EYES: sclera non-icteric NECK/THYROID: no lymphadenopathy HEART: S1, S2 normal, no mu rmurs CHEST: normal shape and exp ansion LUNGS: clear to auscultatio n bilaterally ABDOMEN: soft, nontender, non distended, bowel sounds present, no organomegaly SKIN: anicteric EXTREMITIES: no clubbing, cyanosi s, or edema PSYCH: cognitive function i ntact ORAL CAVITY: mucosa moist
--- OUTSIDE RECORDS SUMMARY | 2024-04-11 10:45 | XMS_ITS ---
Author Organization [facility] Address [address] [place] [address] Care Team Providers Care Insurance Checker Name Role Phone Romeo RAHMAN, [place] Primary Care Provider William Harris Jr Unavailable [phone] REASON FOR VISIT screening PROBLEMS Problem Type ICD Code Onset Dates Problem Status W/U Status Risk SNOMED Code Notes Problem Personal history of colonic polyps (Z86.010) Active confirmed History of polyp of colon (situation) (129514278) Encounters Encounter Location Date Provider Diagnosis [facility] [place] Out[facility] [address] [place] [id number] 09/25/2023 William Slade Jr Encounter for screening colonoscopy Z12.11 and Personal history of colonic polyps Z86.010 ASSESSMENTS Encounter Date Diagnosis Assessment Notes Treatment Notes Treatment Clinical Notes 09/25/2023 Encounter for screening colonoscopy (ICD-10 - Z12.11) 09/25/2023 Personal history of colonic polyps (ICD-10 - Z86.010) PLAN OF TREATMENT No Information
== END 2024-04-11 10:59 | disposition home or self-care (01) ==
PROVIDERS: PCP Internal Medicine; Visit Provider Internal Medicine
DX: J98.8 Other specified respiratory disorders (principal); D59.10 Autoimmune hemolytic anemia, unspecified; C91.10 Chronic lymphocytic leukemia of B-cell type not having achieved remission; I25.10 Atherosclerotic heart disease of native coronary artery without angina pectoris; Z95.1 Presence of aortocoronary bypass graft; I44.2 Atrioventricular block, complete; E78.00 Pure hypercholesterolemia, unspecified; I10 Essential (primary) hypertension; I63.81 Other cerebral infarction due to occlusion or stenosis of small artery; R73.01 Impaired fasting glucose; K21.9 Gastro-esophageal reflux disease without esophagitis; E55.9 Vitamin D deficiency, unspecified; R91.1 Solitary pulmonary nodule; R31.1 Benign essential microscopic hematuria; E66.3 Overweight

== ENCOUNTER → 2024-04-11 09:50 | Outpatient (BNVA) | payer MEDICARE, SELFPAY | PROVIDERS: PCP Internal Medicine; Visit Provider Internal Medicine | DX: J98.8 Other specified respiratory disorders (principal); D59.10 Autoimmune hemolytic anemia, unspecified; C91.10 Chronic lymphocytic leukemia of B-cell type not having achieved remission; I25.10 Atherosclerotic heart disease of native coronary artery without angina pectoris; E78.00 Pure hypercholesterolemia, unspecified; Z95.1 Presence of aortocoronary bypass graft; I44.2 Atrioventricular block, complete; I10 Essential (primary) hypertension; I63.81 Other cerebral infarction due to occlusion or stenosis of small artery; R73.01 Impaired fasting glucose; K21.9 Gastro-esophageal reflux disease without esophagitis; E55.9 Vitamin D deficiency, unspecified; R91.1 Solitary pulmonary nodule; R31.1 Benign essential microscopic hematuria | CPT/HCPCS: 96127; 99212 ==

== ENCOUNTER → 2024-04-16 23:59 | Outpatient (BNV) | payer MEDICARE, SELFPAY ==
--- NOTE | 2024-04-23 15:54 | MHC.OFFVIS ---
Intake Visit Reasons: Remote device check- [facility] Allergies clopidogrel Adverse Reaction (Intermediate, Verified 04/11/24 10:47) Diarrhea atorvastatin [ATORVASTATIN] Adverse Reaction (Mild, Verified 04/11/24 10:47) MUSCLE PAIN ALL OVER PFSH Medical History (Updated 04/11/24 @ 11:30 by Emile Walters MD) Chronic lymphocytic leukemia Benign essential hypertension Acute lacunar infarction Pulmonary nodules Autoimmune hemolytic anemia HTN (hypertension) Benign microscopic hematuria Overweight (BMI 25.0-29.9) Vitamin D deficiency History of autoimmune hemolytic anemia GERD (gastroesophageal reflux disease) Pure hypercholesterolemia Cardiac pacemaker Complete heart block CAD (coronary artery disease) Surgical History (Updated 04/11/24 @ 11:01 by Emile Walters MD) History of laparoscopic cholecystectomy S/P CABG (coronary artery bypass graft) History of permanent cardiac pacemaker placement History of splenectomy History of colonoscopy Family History Father Tuberculosis Mother No problems noted. Brother Colon cancer Brother Schizophrenia Lung disease Family/Other FH: mental illness Brother Alcoholism Other Mental health problem Social History Household Members: Spouse Housing: House Are you a primary career placement services counselor to a significant other at home: No Do you presently have visiting nurse or other home services: No Alcohol intake: never Comment: iv d/robert Patient Tobacco Use Status: Never used Tobacco e-Cigarette/Vaping Use: Never Used Second Hand Smoke Exposure: Yes service: No Current occupational status: retired Cognitive needs: No Hearing needs: No Vision needs: No Office Procedures Cardiac Device Check Cardiac Device Check Details: Remote pacemaker report generated 04/16/2024. Pacemaker function is adequate [id number] Cardiac Device Interrogation, pacemaker Procedure code (CPT) selection complete Assessment & Plan Assessment & Plan (1) Cardiac pacemaker: Code(s): Z95.0 - Presence of cardiac pacemaker Category: Medical Plan: See above Coding Level of Care Code Procedure Only Diagnoses Cardiac pacemaker Z95.0 CPT Codes Cardiac Device Check - Cardiac Device 12: [id number] Cardiac Device Interrogation, pacemaker ([id number])
== END ==
PROVIDERS: PCP Internal Medicine; Visit Provider Internal Medicine Cardiovascular Disease
DX: Z45.018 Encounter for adjustment and management of other part of cardiac pacemaker (principal)
CPT/HCPCS: 93294

== ENCOUNTER 2024-05-07 21:01 | Emergency (ER) | payer MEDICARE, SELFPAY ==
--- NOTE | 2024-05-07 | ECG_ITS ---
Test Reason : syncopee Blood Pressure : */* mmHG Vent. Rate : 81 BPM Atrial Rate : 81 BPM P-R Int : 162 ms QRS Dur : 126 ms QT Int : 378 ms P-R-T Axes : 32 -4 24 degrees QTcB Int : 439 ms Normal sinus rhythm Right bundle branch block Abnormal ECG When compared with ECG of 24-Feb-2021 22:34, No significant changes seen Referred By: Generic ED Physician Electronically Signed By: ALEX PYLE
--- NOTE | ~2024-05-07 | CT_ITS ---
CLINICAL HISTORY: near syncope, CP, hx CLL CT angiography chest with contrast. 3D Postprocessing. Comparison: CT/SR - CT ABDOMEN PELVIS W IV CON - 05/08/24 00:[address]/PA/SR - CHEST WITH IV CONTRAST [id number] - 01/25/16 08:42 EST Findings: Cardiomegaly. No pericardial effusion. The thoracic aorta is normal caliber. No acute pulmonary embolus. The visualized thyroid and mediastinum are unremarkable. Mild peripheral reticular opacities. Fibrosis favored. No consolidation or effusion otherwise. Abdominal findings are discussed on the same day comparison. The bones are intact. IMPRESSION: 1. No acute pulmonary embolus. 2. Probable mild pulmonary fibrosis. This document has been electronically signed by: Emi Toribio MD on 05/08/2024 01:11:55
--- NOTE | ~2024-05-07 | CT_ITS ---
CLINICAL HISTORY: abd pain LUQ hx, splenectomy CT abdomen and pelvis with contrast Comparison: CT/SR - CT ANGIO CHEST PE PROTOCOL - 05/08/24 00:[address] - CT ABDOMEN PELVIS W CON - 10/11/20 06:03 EDT Findings: Chest findings are discussed on the comparison. Subcentimeter left inferior renal cyst. Cholecystectomy. Splenectomy. Abdominal solid organs otherwise unremarkable. No bowel obstruction, pneumoperitoneum, or pneumatosis. Small left inguinal hernia contains fat without induration. Mesenteric vessels patent. Moderate stool. Normal appendix. No acute fracture. IMPRESSION: Moderate stool without bowel obstruction. This document has been electronically signed by: Emi Toribio MD on 05/08/2024 01:10:39
--- NOTE | ~2024-05-07 | XR_ITS ---
CLINICAL HISTORY: cough 2 view chest x-ray Comparison: CR - CHEST 2 VIEWS - 04/27/18 14:55 EST Findings: Pulmonary vascular congestion. No consolidation, pleural effusion or pneumothorax. Heart size is normal. Left subclavian pacemaker with leads in the right atrium and right ventricle. Median sternotomy wires. No acute fracture. IMPRESSION: Pulmonary vascular congestion. This document has been electronically signed by: Mary Dawn MD on 05/07/2024 22:02:30
[2024-05-07 21:14] VITALS: BP 113/53; PULSE 84; RESP 20; TEMP 39.2; O2SAT 97; BMI 28.1
[2024-05-07] MEDS: Acetaminophen 325 MG TABLET 650 MG PO (21:20)
--- OUTSIDE RECORDS SUMMARY | 2024-05-07 22:08 | XMS_ITS ---
Author Organization [facility] Address [address] [place] [address] Care Team Providers Care Supervisor Curing Room Name Role Phone Romeo RAHMAN, [place] Primary Care Provider William Harris Jr Unavailable [...] Problem Colon cancer screening (Z12.11) Active confirmed [id number] Problem Long-term use of aspirin therapy (Z79.82) Active confirmed [id number] VITAL SIGNS BMI 28.64 kg/m2 09/03/2023 Blood pressure systolic 000 mm Hg 09/03/19 24 Blood pressure diastolic 00 mm Hg 024 Height 68 in 09/03/2023 Temperature 97.5 degrees Fahrenheit 09/03/19 24 Weight 188 lb 6 oz lbs 09/03/2023 Encounters Encounter Location Date Provider Diagnosis [facility] [address] [place] [address] 09/03/2023 William Slade Jr Colon cancer screening [...] General Examination GENERAL APPEARANCE: in no ac [place] distress HEAD: normocephalic EYES: sclera non-icteric NECK/THYROID: no lymphadenopathy HEART: S1, S2 normal, no mu rmurs CHEST: normal shape and exp ansion LUNGS: clear to auscultatio n bilaterally ABDOMEN: soft, nontender, non distended, bowel sounds present, no organomegaly SKIN: anicteric EXTREMITIES: no clubbing, cyanosi s, or edema PSYCH: cognitive function i ntact ORAL CAVITY: mucosa moist
--- OUTSIDE RECORDS SUMMARY | 2024-05-07 22:08 | XMS_ITS ---
Author Organization [facility] Address [address] [place] [address] Care Team Providers Care Replanter Name Role Phone Romeo RAHMAN, [place] Primary Care Provider William Harris Jr Unavailable [phone] REASON FOR VISIT screening PROBLEMS Problem Type ICD Code Onset Dates Problem Status W/U Status Risk SNOMED Code Notes Problem Personal history of colonic polyps (Z86.010) Active confirmed History of polyp of colon (situation) (316052530) Encounters Encounter Location Date Provider Diagnosis [facility] [address] [place] [phone] 09/25/2023 William Slade Jr Encounter for screening colonoscopy Z12.11 and Personal history of colonic polyps Z86.010 ASSESSMENTS Encounter Date Diagnosis Assessment Notes Treatment Notes Treatment Clinical Notes 09/25/2023 Encounter for screening colonoscopy (ICD-10 - Z12.11) 09/25/2023 Personal history of colonic polyps (ICD-10 - Z86.010) PLAN OF TREATMENT No Information
[2024-05-07 22:15] LABS: Hematocrit 30.8 % (42.0-52.0); Mean Corpuscular HGB Conc 35.7 g/dl (31.0-36.0); Mean Corpuscular Hemoglobin 37.5 pg (27.0-33.0); Mean Corpuscular Volume 105.1 fL (80.0-98.0); Mean Platelet Volume 9.9 fL (9.4-12.4); Platelet Count 300 X10*3/uL (160-400); Red Blood Count 2.93 X10*6/uL (4.60-5.80); Red Cell Distribution Width 17.4 % (11.0-16.0); White Blood Count 12.8 X10*3/uL (4.8-10.8)
[2024-05-07 22:35] LABS: Albumin Level 3.8 g/dL (3.5-5.0); Alkaline Phosphatase 162 U/L (39-117); Anion Gap 13 (12-20); Aspartate Amino Transferase 70 U/L (5-37); Bilirubin Total 4.1 mg/dL (0.0-1.0); Blood Urea Nitrogen 19 mg/dL (9-16); Calcium 8.9 mg/dL (8.4-10.2); Carbon Dioxide 22 mmol/L (22-29); Chloride 105 mmol/L (96-108); Creatinine Clr Calc Pharmacy 60.7; Estimated Glomerular Filt Rate > 60; Glucose Random 100 mg/dL (60-115); Potassium 4.6 mmol/L (3.3-5.1); Sodium 135 mmol/L (135-145); Total Protein 7.9 g/dL (6.5-8.0)
[2024-05-07 22:36] LABS: Troponin-I High Sensitivity 11.1 ng/L (<3.5-35.0)
[2024-05-07 22:46] LABS: Alanine Aminotransferase 32 U/L (0-40)
[2024-05-07 22:52] LABS: Influenza A PCR POSITIVE (Negative); Influenza B PCR NEGATIVE (Negative); Resp Syncy Virus RNA Qual PCR NEGATIVE (Negative); SARS COV2 PCR INHOUSE NEGATIVE (Negative)
[2024-05-07 23:05] VITALS: BP 103/50; PULSE 82; RESP 18; TEMP 36.6; O2SAT 95
[2024-05-08 00:02] VITALS: TEMP 37.6
--- NOTE | 2024-05-08 00:04 | PC.NURSE ---
Iv started and medicated per mar.
[2024-05-08] MEDS: 0.9 % Sodium Chloride 1,000 ML 999 ML IVCONT (00:17)
[2024-05-08] MEDS: iohexoL 350 MG/ML 100 ML INFUS..BTL 85 ML IV (00:26)
[2024-05-08 00:55] VITALS: BP 116/48; PULSE 81; RESP 20; TEMP 37.4; O2SAT 98
--- NOTE | 2024-05-08 02:10 | ED.GENADULT ---
HPI - General Adult General Chief complaint: Syncope Stated complaint: fainted,weakness h/o leukemia Time Seen by Provider: 05/07/24 23:05 Source: patient and family Mode of arrival: ambulatory Limitations: no limitations History of Present Illness ED Provider: Dr. Sherri Frankel HPI narrative: Patient comes in the emergency room complaining of weakness, cough, chills. Patient reports he has been feeling very tired all day. Patient states that he nearly fainted today. Patient states that he never had any chest pain, had slight shortness of breath but nothing significant. At this time, patient states that he feels well and has no symptoms. Related Data Home Medications ?Medication ?Instructions ?Recorded ?Confirmed aspirin 81 mg tablet,delayed 81 mg PO DAILY 01/11/20 04/11/24 release (Adult Aspirin Regimen) cholecalciferol (vitamin D3) 50 50 mcg PO DAILY 08/31/20 04/11/24 mcg (2,000 unit) tablet (Vitamin D3) coQ10 (ubiquinol) 100 mg capsule 200 mg PO DAILY 12/01/20 04/11/24 Previous Rx's ?Medication ?Instructions ?Recorded metoprolol succinate 100 mg 100 mg PO DAILY 90 days #90 tabs 06/22/23 tablet,extended release 24 hr folic acid 1 mg tablet 1 mg PO DAILY #89 tabs 08/06/23 ezetimibe 10 mg tablet 10 mg PO DAILY #90 tabs 10/15/23 acetaminophen 650 mg 650 mg PO Q8H PRN pain #30 tabs 10/29/23 tablet,extended release (Tylenol Arthritis Pain) lidocaine 5 % topical patch 1 patch topical DAILY #15 ea 10/29/23 rosuvastatin 10 mg tablet (Crestor) 10 mg PO DAILY #30 tabs 04/10/24 azithromycin 250 mg tablet See Rx Instructions PO .COMPLEX #6 04/11/24 tabs pantoprazole 40 mg tablet,delayed 40 mg PO DAILY #90 tabs 04/19/24 release acetaminophen 500 mg tablet 500 mg PO QID PRN fever or pain 05/08/24 #30 tabs Allergies Allergy/AdvReac Type Severity Reaction Status Date / Time clopidogrel AdvReac Intermediate Diarrhea Verified 05/07/24 21:17 atorvastatin [ATORVASTATIN] AdvReac Mild MUSCLE Verified 05/07/24 21:17 PAIN ALL OVER Review of Systems Review of Systems: Constitutional : No Weight loss, complaining of fever chills, fatigue, generalized malaise ENT/Mouth : No Hearing loss, No Ear Pain, No Nasal Congestion, No Sinus Pain, No Hoarseness, No sore throat, No Rhinorrhea, No Swallowing Difficulty Eyes: No Eye Pain, No Swelling, No Redness, No Foreign Body, No Discharge, No Vision Changes Cardiovascular : Complaining of near-syncope, No Chest Pain, No SOB, No Dyspnea on Exertion, No Orthopnea, No Edema, No Palpitations Respiratory : No Cough, No Sputum, No Wheezing, No Smoke Exposure, No Dyspnea Gastrointestinal : No Nausea, No Vomiting, No Diarrhea, No Constipation, No abdominal Pain, No Hematochezia, No Melena Genitourinary : no irregular bleeding, No Dysuria, No Urinary Frequency, No Hematuria, No Urinary Incontinence, No Urgency, No Flank Pain, No Urinary Flow Changes, No Hesitancy Musculoskeletal : No joint pain, No Myalgias, No Joint Swelling Skin : No Skin Lesions, No rash Neuro : No Weakness, No Numbness, No Paresthesias, No Loss of Consciousness, No Dizziness, No Headache Psych : No Anxiety/Panic, No Depression, No SI/HI/AH/VH, No Social Issues, Heme/Lymph: No Bruising, No Bleeding,No Lymphadenopathy Endocrine : No Polyuria, No Polydipsia, No Temperature Intolerance [facility] Past Medical History Medical History (Updated 05/08/24 @ 02:28 by Sherri Frankel MD) Chronic lymphocytic leukemia Benign essential hypertension Acute lacunar infarction Pulmonary nodules Autoimmune hemolytic anemia HTN (hypertension) Benign microscopic hematuria Overweight (BMI 25.0-29.9) Vitamin D deficiency History of autoimmune hemolytic anemia GERD (gastroesophageal reflux disease) Pure hypercholesterolemia Cardiac pacemaker Complete heart block CAD (coronary artery disease) Surgical History (Updated 04/11/24 @ 11:01 by Emile Walters MD) History of laparoscopic cholecystectomy S/P CABG (coronary artery bypass graft) History of permanent cardiac pacemaker placement History of splenectomy History of colonoscopy Family History Family History Father Tuberculosis Mother No problems noted. Brother Colon cancer Brother Schizophrenia Lung disease Family/Other FH: mental illness Brother Alcoholism Other Mental health problem Social History Social History Household Members: Spouse Housing: House Are you a primary nursing care partner to a significant other at home: No Do you presently have visiting nurse or other home services: No Alcohol intake: never Comment: iv d/robert Patient Tobacco Use Status: Never used Tobacco Smoked in Last 30 Days: No e-Cigarette/Vaping Use: Never Used Second Hand Smoke Exposure: Yes Use of substances other than those prescribed or required for medical reasons: No Advance Directives: No Advance Directives Information Provided: Yes service: No Current occupational status: retired Cognitive needs: No Hearing needs: No Vision needs: No Physical Exam ED Vital Signs: Vital Signs - 24 hr 05/07/24 21:14 05/07/24 23:05 05/08/24 00:02 Temperature 102.6 F H 97.9 F 99.6 F Pulse Rate 84 82 Respiratory Rate 20 18 Blood Pressure 113/53 L 103/50 L Pulse Oximetry 97 95 Oxygen Delivery Method Room Air Room Air 05/08/24 00:55 Temperature 99.3 F Pulse Rate 81 Respiratory Rate 20 Blood Pressure 116/48 L Pulse Oximetry 98 Oxygen Delivery Method Room Air BMI result Body Mass Index 28.1 Const Other: Appearance: Alert. Oriented X3. No acute distress. Eyes: Pupils equal, round and reactive to light. ENT: Pharynx normal. Neck: Normal inspection. Neck supple. No lymph nodes noted. No crepitus CVS: Normal heart rate and rhythm. Pulses normal. Normal S1 and S2 Respiratory: No respiratory distress. Breath sounds normal. No Wheezing. No rales Abdomen: Soft and nontender. No rigidity. No distention. Skin: Skin warm and dry. Slightly pale skin color. Normal skin turgor. Extremities: No lower extremity edema. No Lacerations. No Rash Neuro: Oriented X 3. No motor deficit. No sensory deficit. Moving all extremities. No slurred speech. CN 2 through 12 grossly intact Psych: calm, cooperative, normal affect Medications Administered Discontinued Medications Generic Name Dose Route Start Last Admin Trade Name Freq PRN Reason Stop Dose Admin Acetaminophen 650 mg 05/07/24 21:18 05/07/24 21:20 Acetaminophen 325 Mg Tablet PO 05/07/24 21:19 650 mg ONCE ONE Administration Sodium Chloride 1,000 mls @ 999 mls/hr 05/07/24 23:45 05/08/24 01:30 Ns IVCONT 02/20/25 00:45 Infused .Q1H1M ONE Infusion Iohexol 85 ml 05/08/24 00:25 05/08/24 00:26 Iohexol 350 Mg/Ml 100 Ml Infus..Btl IV 05/08/24 00:26 85 ml ONCE ONE Administration Medical Decision Making Medical Decision Making [facility] Narrative: My interpretation of labs: Patient's white blood cell count 12.8 which is chronic for the patient, patient has a hemoglobin of 11, hematocrit 30.8. Patient known to have hemolytic anemia. LFTs within normal limits. Chronically elevated T bili and LFTs. At baseline. Patient's serology positive for influenza a, negative for RSV and COVID. Chest x-ray negative for consolidations. Patient reported that he had a near syncopal episode. Patient has history of CLL. Given patient's past medical history and symptoms, CT a to rule pulmonary embolism was ordered. Also, patient complaining of some abdominal pain. Especially in the right upper quadrant, physical exam of the abdomen was unremarkable. CT scan of the chest does not show any acute pulmonary embolism. CT scan of the abdomen shows moderate stool without bowel obstruction. Patient states that his symptoms have been present for at least 4 days. I discussed with the patient that at this time, Tamiflu will not help his symptoms at this time and more likely to cause side effects rather than benefits. Patient decided to not take Tamiflu. Patient states that he feels well. Denies any symptoms at this time. Patient states that he feels a bit weak. Patient did well ambulating by himself in the emergency room. Patient states that already feeling a bit tired he was okay walking Urinalysis pending Sign out given to my colleague Dr. Marr Differential Diagnosis Differential Diagnoses: The differential diagnosis associated with the presentation includes (As above) Admission/Observation Consideration of admission/observation: Escalation of care including admission/observation considered (Given patient's past medical history and presentation, observation was considered.) Lab Data [facility] Lab Attestation statement: I reviewed the patient's lab results. 05/07/24 22:10 05/07/24 22:10 Labs: Lab Results 05/07/24 Range/Units 22:10 WBC 12.8 H (4.8-10.8) X10*3/uL RBC 2.93 L D (4.60-5.80) X10*6/uL Hgb 11.0 L D (14.0-18.0) g/dl Hct 30.8 L (42.0-52.0) % MCV 105.1 H (80.0-98.0) fL MCH 37.5 H (27.0-33.0) pg MCHC 35.7 (31.0-36.0) g/dl RDW 17.4 H (11.0-16.0) % Plt Count 300 D (160-400) X10*3/uL MPV 9.9 (9.4-12.4) fL Absolute Nucleated RBC 0.250 H (0.0-0.012) X10*3/uL Nucleated RBC % (auto) 2.0 H (0.0-0.2) /100WBC Sodium 135 (135-145) mmol/L Potassium 4.6 (3.3-5.1) mmol/L Chloride 105 (96-108) mmol/L Carbon Dioxide 22 (22-29) mmol/L Anion Gap 13 (12-20) BUN 19 H (9-16) mg/dL Creatinine 1.16 (0.5-1.4) mg/dL Estim Creat Clear Calc 60.7 Estimated GFR > 60 Random Glucose 100 (60-115) mg/dL Calcium 8.9 D (8.4-10.2) mg/dL Total Bilirubin 4.1 H (0.0-1.0) mg/dL AST 70 H (5-37) U/L ALT 32 (0-40) U/L Alkaline Phosphatase 162 H (39-117) U/L Troponin I High Sens 11.1 (<3.5-35.0) ng/L Total Protein 7.9 (6.5-8.0) g/dL Albumin 3.8 (3.5-5.0) g/dL Influenza Type A (PCR) POSITIVE A (Negative) Influenza Type B (PCR) NEGATIVE (Negative) RSV RNA Qual (PCR) NEGATIVE (Negative) SARS-CoV-2 RNA (RT-PCR) NEGATIVE (Negative) Independent Interpretation I performed an independent interpretation of an: CT Scan Radiology Impression Discussion of test interpretation with radiology: I have reviewed the radiologist's reading. Radiologist Impression: Cardiomegaly. No pericardial effusion. The thoracic aorta is normal caliber. No acute pulmonary embolus. The visualized thyroid and mediastinum are unremarkable. Mild peripheral reticular opacities. Fibrosis favored. No consolidation or effusion otherwise. Abdominal findings are discussed on the same day comparison. The bones are intact. Chest findings are discussed on the comparison. Subcentimeter left inferior renal cyst. Cholecystectomy. Splenectomy. Abdominal solid organs otherwise unremarkable. No bowel obstruction, pneumoperitoneum, or pneumatosis. Small left inguinal hernia contains fat without induration. Mesenteric vessels patent. Moderate stool. Normal appendix. No acute fracture. Critical Care Time Critical Care Time Critical Care Time: Yes Total Critical Care Time: 60 Attestation: I have personally provided critical care time. Time includes review of lab data, radiology results, discussion with consultants, and monitoring for potential decompensation. Intervention performed as documented. Discharge Plan Discharge Clinical Impression: Influenza A, Malaise Patient Disposition: Home, Self-Care Instructions: Influenza (ED), Fatigue (ED) Additional Instructions: Please follow-up with your primary care physician tomorrow. If you have any worsening or new symptoms, please return to the emergency room or call 911 Prescriptions: New acetaminophen 500 mg tablet 500 mg PO QID PRN (Reason: fever or pain) Qty: 30 0RF No Action metoprolol succinate 100 mg tablet extended release 24 hr 100 mg PO DAILY 90 Days Qty: 90 3RF ezetimibe 10 mg tablet 10 mg PO DAILY Qty: 90 3RF pantoprazole 40 mg tablet,delayed release (DR/EC) 40 mg PO DAILY Qty: 90 0RF cholecalciferol (vitamin D3) [Vitamin D3] 50 mcg (2,000 unit) Tablet 50 mcg PO DAILY folic acid 1 mg Tablet 1 mg PO DAILY Qty: 89 4RF coQ10 (ubiquinol) 100 mg Capsule 200 mg PO DAILY acetaminophen [Tylenol Arthritis Pain] 650 mg tablet extended release 650 mg PO Q8H PRN (Reason: pain) Qty: 30 0RF lidocaine 5 % adhesive patch,medicated 1 patch topical DAILY Qty: 15 0RF Rx Instructions: leave on most painful area for up to 12 hrs aspirin [Adult Aspirin Regimen] 81 mg tablet,delayed release (DR/EC) 81 mg PO DAILY azithromycin 250 mg tablet See Rx Instructions PO .COMPLEX Qty: 6 0RF Rx Instructions: take 500 mg today (day 1), then 250 mg for 4 days (days 2-5) PO rosuvastatin [Crestor] 10 mg tablet 10 mg PO DAILY Qty: 30 5RF Print Language: Divehi
[2024-05-08 03:12] VITALS: BP 118/63; PULSE 86; RESP 24; TEMP 37.8; O2SAT 98
[2024-05-08] MEDS: Acetaminophen 325 MG TABLET 975 MG PO (03:34)
[2024-05-08 03:43] LABS: Appearance Urine Clear; Color Urine Yellow; Glucose Urine UA Negative (Negative); Leukocyte Esterase Urine Negative (Negative); Nitrite Urine Negative (Negative); PH 5.5 (5.0-9.0); Specific Gravity - Urine >= 1.030 (1.005-1.025); UMIC TRIGGER UACC YES; Urine Blood Small (1+) (Negative); Urine Ketones Negative (Negative); Urine Protein Negative (Neg-Trace)
[2024-05-08 03:52] LABS: Bacteria Urine None Seen (None Seen); Hyaline Casts Urine 0-2 /LPF (0-2); Squamous Epithelial Cell Urine 0-2 /HPF (0-2); WBC Urine 0-5 /HPF (0-5)
--- NOTE | 2024-05-08 04:27 | PC.NURSE ---
pt awaiting a ride, daughter was suppose to pick him up, daughter not answering the phone.
[2024-05-08 06:16] VITALS: BP 118/63; PULSE 86; RESP 24; TEMP 37.2; O2SAT 98
== END 2024-05-08 06:16 | disposition home or self-care (01) ==
PROVIDERS: Emergency Medicine; Emergency Provider Emergency Medicine Emergency Medical Services; PCP Internal Medicine
DX: J10.1 Influenza due to other identified influenza virus with other respiratory manifestations (principal); R53.81 Other malaise; R50.9 Fever, unspecified; R05.9 Cough, unspecified; Z03.818 Encounter for observation for suspected exposure to other biological agents ruled out; I10 Essential (primary) hypertension; E78.00 Pure hypercholesterolemia, unspecified; Z95.0 Presence of cardiac pacemaker; Z79.899 Other long term (current) drug therapy
CPT/HCPCS: 0241U; 71046; 71275; 74177; 80053; 81001; 84484; 85027; 93005; 96360; 99284; 99285; Q9967

== ENCOUNTER → 2024-05-07 21:28 | Outpatient (BNV) | payer MEDICARE, SELFPAY | PROVIDERS: PCP Internal Medicine; Visit Provider Radiology Diagnostic Radiology | DX: J81.0 Acute pulmonary edema (principal); R07.9 Chest pain, unspecified | CPT/HCPCS: 71275; 74177 ==

== ENCOUNTER → 2024-05-07 22:03 | Outpatient (BNV) | payer MEDICARE, SELFPAY | PROVIDERS: Emergency Provider Emergency Medicine Emergency Medical Services; PCP Internal Medicine; Visit Provider Internal Medicine | DX: I45.10 Unspecified right bundle-branch block (principal) | CPT/HCPCS: 93010 ==

== ENCOUNTER 2024-05-22 11:09 | Outpatient (AMB) | payer MEDICARE, SELFPAY ==
--- NOTE | 2024-05-22 11:15 | A.OFFPC_ITS ---
Vital Signs 05/22/24 11:17 Height 5 ft 8 in Weight 179 lb 6 oz BMI 27.3 BP 90/50 L Blood Pressure Location Lt brachial Position Sitting Pulse 84 Pulse Source Pulse Oximeter Temp 97.3 F Temp Source Temporal Artery Scan Pulse Oximetry (%) 96 Oxygen Delivery Method Room Air Intake Visit Reasons: Follow up Intake Note: Patient is here to follow up on PAfib, CISCO, CAD, HTN. 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: Not Required per policy Accompanied by: Self / Same As Patient Allergies clopidogrel Adverse Reaction (Intermediate, Verified 05/22/24 11:17) Diarrhea atorvastatin [ATORVASTATIN] Adverse Reaction (Mild, Verified 05/22/24 11:17) MUSCLE PAIN ALL OVER Medication List - Last Reconciled 05/22/24 by Leslie Bettencourt PA-C acetaminophen 500 mg PO QID PRN acetaminophen ER (Tylenol Arthritis Pain) 650 mg PO Q8H PRN aspirin (Adult Aspirin Regimen) 81 mg PO DAILY cholecalciferol (vitamin D3) (Vitamin D3) 50 mcg PO DAILY codeine-guaifenesin 10-100 mg/5 mL 10 mL PO BEDTIME PRN 10 days coQ10 (ubiquinol) 200 mg PO DAILY ezetimibe 10 mg PO DAILY folic acid 1 mg PO DAILY lidocaine 5% 1 patch topical DAILY metoprolol succinate ER 100 mg PO DAILY 90 days pantoprazole 40 mg PO DAILY rosuvastatin (Crestor) 10 mg PO DAILY Tobacco use date assessed: 05/22/24 Fall risk assessment: No Falls in past year Last assessed Fall Risk: 05/22/24 Dental Screening Dental Screen Date: 04/11/24 HPI Follow up HPI Details 73-year-old male with past medical histo ry of hypercholesterolemia, GERD, pulmonary nodule, hypertension, coronary artery disease, obstructive sleep apnea, atrial fibrillation, impaired glucose tolerance and chronic lymphocytic leukemia last seen 03/2024 coming in for follow up.? In review of the notes, patient was seen in [facility] 05/07/2024 for influenza given Tylenol and discharged home. Presenting with a pruritic rash. Symptoms began approximately one month ago, coinciding with the use of a new soap. Patient was recently treated by antibiotics with states he had the rash prior to initiating the antibiotic or benzonatate. The rash is characterized by itching and appears in patches on the back, forearms, and abdomen. The use of Benadryl and Eucerin cream has provided some relief from itching and rash has been improving. The patient noted worsening of symptoms until starting a new treatment regimen, resulting in some symptom improvement. [facility] Medical History (Updated 05/22/24 @ 11:54 by Leslie Bettencourt PA-C) Chronic lymphocytic leukemia Benign essential hypertension Acute lacunar infarction Pulmonary nodules Autoimmune hemolytic anemia HTN (hypertension) Benign microscopic hematuria Overweight (BMI 25.0-29.9) Vitamin D deficiency History of autoimmune hemolytic anemia GERD (gastroesophageal reflux disease) Pure hypercholesterolemia Cardiac pacemaker Complete heart block CAD (coronary artery disease) Surgical History History of laparoscopic cholecystectomy S/P CABG (coronary artery bypass graft) History of permanent cardiac pacemaker placement History of splenectomy History of colonoscopy Family History Father Tuberculosis Mother No problems noted. Brother Colon cancer Brother Schizophrenia Lung disease Family/Other FH: mental illness Brother Alcoholism Other Mental health problem Social History Household Members: Spouse Housing: House Are you a primary complex care nurse to a significant other at home: No Do you presently have visiting nurse or other home services: No Alcohol intake: never Comment: iv d/robert Patient Tobacco Use Status: Never used Tobacco e-Cigarette/Vaping Use: Never Used Second Hand Smoke Exposure: Yes service: No Current occupational status: retired Cognitive needs: No Hearing needs: No Vision needs: No Questionnaire Thrive Questionnaire Date Thrive assessed: 04/11/24 RYAN-7 AMB Questionnaire RYAN-7 Date RYAN - 7 assessed: 04/11/24 Source: Developed by Drs. Tim Hoyos, Adelaide Yo, [employer] and colleagues, with an educational donna from [employer]. Review of Systems Const Denies body aches, Denies chills and Denies fever(s) Eyes Reports no additional complaints ENT Reports no additional complaints Card Denies chest pain, Denies leg edema, Denies lightheadedness, Denies dyspnea and Denies dyspnea on exertion Resp Denies cough, Denies dyspnea and Denies dyspnea on exertion GI Reports no additional complaints Reports no additional complaints Musc Reports no additional complaints Skin/Breast Reports system reviewed and no additional complaints, except as documented Physical exam (Primary Care) Vital Signs: Last Vital Signs Temp 97.3 F 05/22/24 11:17 Pulse 84 05/22/24 11:17 BP 90/50 L 05/22/24 11:17 Pulse Ox 96 05/22/24 11:17 Oxygen Delivery Method Room Air 05/22/24 11:17 BMI result Body Mass Index 27.3 Tobacco/Smoking Status: Tobacco use Status Tobacco use date assessed 05/22/24 05/22/24 11:20 Patient Tobacco Use Status Never used Tobacco 05/22/24 11:20 e-Cigarette/Vaping Use Never Used 05/22/24 11:20 Thrive Assessment: Date of Thrive Assessment Date Thrive assessed 04/11/24 05/22/24 11:20 Const General: cooperative, healthy appearing, comfortable and no acute distress Orientation/consciousness: patient oriented x3 HENMT Head: Yes normocephalic Ears: hearing grossly normal bilaterally General nose exam: Normal external nose present Eyes General: appearance normal, both eyes and all related structures Conjunctivae: conjunctivae normal Neck Neck: Yes full ROM and Yes no lymphadenopathy Resp Effort & Inspection: normal respiratory effort Auscultation: clear to auscultation bilaterally, no crackles, no rales, no rhonchi and no wheezes Cardio Rate: regular rate Rhythm: regular rhythm Skin Other: scattered areas of dry, flaky irritated skin on the forearms, abdomen and back General skin exam: no rashes or lesions noted Neuro General: patient oriented x3 Gait exam (Neuro): Normal gait present Extrem General: Yes normal to inspection, Yes full ROM and No edema Psych Affect: normal affect Attitude: cooperative Insight: Good insight present (Psych) Judgement: Good judgement present (Psych) Coding Level of Care Code Est Pt Level 3 (50876) Diagnoses Contact dermatitis L25.9 Assessment & Plan Assessment & Plan (1) Contact dermatitis: Code(s): L25.9 - Unspecified contact dermatitis, unspecified cause Category: Medical Plan: For probable contact dermatitis, I recommended stopping the use of the new soap and substituting it with a product suitable for sensitive skin. Hydroxyzine is prescribed at bedtime to manage pruritus and should not be used with Benadryl. Oral steroids will be used to reduce inflammation and itching. I advised avoiding potential irritants, such as new laundry detergents, until the follow- up appointment, where reassessment will occur. Plan This note was constructed using voice recognition software. While every effort has been made to ensure accuracy and chef german, still areas may have been included sometimes these areas may affect the content or meeting of the given symptoms. Total time spent caring for the patient today was 20 minutes. This includes time spent before the visit reviewing the chart, time spent during the visit, and time spent after the visit and documentation. Patient was informed and verbally consented to the use of an ambient scribe for clinic note documentation during this visit.
[2024-05-22 11:17] VITALS: BP 90/50; PULSE 84; TEMP 36.3; O2SAT 96; BMI 27.3
--- OUTSIDE RECORDS SUMMARY | 2024-05-22 13:36 | XMS_ITS | Patient Health Record ---
Author Organization [facility] Address [address] [place] [address] Care Team Providers Care Reproductive Healthcare Assistant Name Role Phone Romeo RAHMAN, [place] Primary Care Provider William Harris Jr Unavailable Allergies No Known Allergies Results Component Value Reference Range Notes Basic Metabolic Panel Fastin g Reviewed date:09/26/2023 04:05:03 PM Interpretation: Performing Lab:[facility], [address] [place] [id number] Notes/Report: Sodium 140 135-145 mmol/L Potassium 4.1 [...] Estimated Glomerular Filt Rate 56 NOTE: For -Indian individuals, multiply the result by 1.210. Chronic Kidney Disease: Estimated GFR < 60 mL/min/1.73m2 Severe Kidney Disease: Estimated GFR < 15 mL/min/1.73m2 Glucose Fasting 133 60-99 mg/dL A fasting glucose of 126 mg/dl or greater on more than one occasion is considered diagnostic of diabetes. Calcium 9.8 8.4-10.2 mg/dL Reason For Referral No Information Medications Medication SIG (Take, Route, Frequency, Duration) Notes [...] 1 tablet Orally Once a day Active Immunizations Vaccine Route Administration Date Status Comme nts Influenza Unknown 01/24/2018 Administered Influenza Unknown 02/06/2023 Administered Problems Problem Type SNOMED Code ICD Code Onset Dates Problem Status W/U Status Risk Notes Problem 314867783 Colon cancer screening (Z12.11) Active confirmed Problem History of polyp of colon (situation) (418791543) Personal history of colonic polyps (Z86.010) Active confirmed Problem 02351829 Encounter for ot her preprocedural examination (Z01.818) Active confirmed Problem 476576060 Gastroesophageal reflux disease without esophagitis (K21.9) Active confirmed Problem 913442543 Family history o f colon cancer (Z80.0) Active confirmed Problem 463025329 Long-term use of aspirin therapy (Z79.82) Active confirmed Vital Signs Temperature 97.5 degrees Fahrenheit 09/03/2023 Blood pressure diastolic 00 mm Hg 09/03/2023 Height 68 in 09/03/2023 Blood pressure systolic 000 mm Hg 09/03/2023 Weight 188 lb 6 oz lbs 09/03/2023 BMI 28.64 kg/m2 09/03/2023 Encounters Encounter Location Date Provider Diagnosis [facility] Outpatient [address], [place] [id number] 09/25/2023 William Slade Jr Encounter for screening colonoscopy Z12.11 and Personal history of colonic polyps Z86.010 [facility] [address] [place] [address] 09/03/2023 Williamparvin Slade Jr Colon cancer screening Z12.11 ; Gastroesophageal reflux disease without esophagitis K21.9 and Long-term use of aspirin therapy Z79.82 Assessments Encounter Date Diagnosis (ICD Code) Assessment Notes Treatment Notes Treatment Clinical Notes Section Notes 09/25/2023 Encounter for screening colonoscopy (ICD-10 - Z12.11) 09/25/2023 Personal history of colonic polyps (ICD-10 - Z86.010) 09/03/2023 Colon cancer screening (ICD-10 - Z12.11) Currently, he is doing well. His reflux disease stable. We discussed gastroesophageal reflux disease today. We recommended he continue treatment with pantoprazole. History of colon cancer screening. This will be arranged. He understands risks and benefits and agrees to proceed. He is advised stop aspirin one week before the procedure. 09/03/2023 Gastroesophageal reflux disease without esophagitis (ICD-10 - K21.9) Currently, he is doing well. His reflux disease stable. We discussed gastroesophageal reflux disease today. We recommended he continue treatment with pantoprazole. History of colon cancer screening. This will be arranged. He understands risks and benefits and agrees to proceed. He is advised stop aspirin one week before the procedure. 09/03/2023 Long-term use of aspirin therapy (ICD-10 - Z79.82) Currently, he is doing well. His reflux disease stable. We discussed gastroesophageal reflux disease today. We recommended he continue treatment with pantoprazole. History of colon cancer screening. This will be arranged. He understands risks and benefits and agrees to proceed. He is advised stop aspirin one week before the procedure. Plan Of Treatment Future Test Test Name Order Date UPPER GI ENDOSCOPY 12/22/2011 COLONOSCOPY 12/22/2011 COLONOSCOPY 04/12/2017 COLONOSCOPY 09/04/2018 COLONOSCOPY 09/03/2023 Insurance Providers Payer Name Payer Address Payer Phone Subscriber Number Group Number Insured Name Patient Relationship to Insured Coverage Start Date Coverage End Date MEDICARE OF [place] [address] [place] [address] [id number] DAYSI LOPEZ Self - patient is the insured MEDEX ATTN CLAIMS [address] [place] [phone] [id number] Self - patient is the insured Medical (General) History Medical History History ICD Code colonoscopy 10/04, normal, five-year foll owup Hyperlipidemia coronary artery disease with history of NH, and bypass 2014 splenectomy gastroesophageal reflux disease, EGD 201 2, no BE or H&P Autoimmune hemolytic anemia/CLL Lacunar infarct Hypertension Pulmonary nodules Vitamin D deficiency Surgical History Surgery Date(Month/Year) dental extractions splenectomy CABG X 3 Pacemaker placement for complete heart b lock
--- OUTSIDE RECORDS SUMMARY | 2024-05-22 13:36 | XMS_ITS ---
Author Organization [facility] Address [address] [place] [address] Care Team Providers Care Adjunct Spanish Instructor Name Role Phone Romeo RAHMAN, [place] Primary Care Provider William Harris Jr Unavailable Allergies No Known Allergies REASON FOR VISIT Patient presents today for a consultation Medications Medication SIG (Take, Route, Frequency, Duration) [...] 1 tablet Orally Once a day Active Problems Problem Type SNOMED Code ICD Code Onset Dates Problem Status W/U Status Risk Notes Problem 511197004 Colon cancer screening (Z12.11) Active confirmed Problem 602451792 Long-term use of aspirin therapy (Z79.82) Active confirmed Vital Signs Temperature 97.5 degrees Fahrenheit 09/03/19 24 Blood pressure systolic 000 mm Hg 06/17/20 24 Blood pressure diastolic 00 mm Hg 024 Height 68 in 09/03/2023 Weight 188 lb 6 oz lbs 09/03/2023 BMI 28.64 kg/m2 09/03/2023 Encounters Encounter Location Date Provider Diagnosis [facility] [address] [place] [address] 09/03/2023 William Slade Jr Colon cancer screening Z12.11 ; Gastroesophageal reflux disease without esophagitis K21.9 and Long-term use of aspirin therapy Z79.82 Assessments Encounter Date Diagnosis (ICD Code) Assessment Notes Treatment Notes Treatment Clinical Notes Section Notes 09/03/2023 Colon cancer screening (ICD-10 - Z12.11) [...] week before the procedure. Plan Of Treatment Medication Medication Name Sig Start Date Stop Date Notes MiraLax (colon prep) 17 GM/SCOOP mixed with Gatorade or Crystal Light Orally begin at 5:00 p.m. the day before the procedure for 1 day 09/03/2023 Future Test Test Name Order Date COLONOSCOPY 09/03/2023 Next Appt Details Follow Up: 1 Year, Reason: Progress Notes * TANIA LOPEZOB: 0 (72 yo M)Acc No.[id number]:09/03/2023 Progress Notes Patient:?JOHN, DAYSI Provider:?William Slade MD :1950???Age:72 Y???Sex:Male Navdeep e:09/03/2023 Address: [place], [id number] Pcp:Emile Walters MD Subjective: * Chief Complaints: * ???1. Patient presents today for a consultation. * HPI: ???New symptom(s):? The patient is a pleasant 72-year-old man seen today in consultation. He has a long-standing history of gastroesophageal reflux disease with substernal burning precipitated by typical foods. This include spicy foods and fatty foods. Symptoms are generally well-controlled on pantoprazole 40 mg daily. He has no dysphagia, hematemesis, or melena. Weight and appetite have been stable. Previous evaluation with endoscopy in 2011 showed no H. pylori or Phealn's esophagus. We reviewed this today. ?Is also due for colorectal cancer screening. His last colonoscopy in 2019 was negative for polyps. Five-year followup was recommended because of his family history of colon cancer. He has no rectal bleeding or problems with his bowels. ?He has been diagnosed with autoimmune hemolytic anemia and has been treated with prednisone, splenectomy, and rituximab. He also has coexisting CLL. * ROS:?General/Constitutional:?Change in appetite?denies.?Fatigue?denies.?ENT:?Patient denies?difficulty swallowing.?Respiratory:?Patient denies?shortness of breath.?Cardiovascular:?Patient denies?chest pain.?Gastrointestinal:?Comments?See HPI for details.?Genitourinary:?Difficulty urinating?denies.?Incontinence?denies.?Musculoskeletal:?Patient denies?muscle aches.?Skin:?Patient denies?pruritis.?Neurologic:?Patient denies?low back pain.?Psychiatric:?Patient denies?mental or physical abuse.? * Medical History:?Colonoscopy 10/04, normal, five-year followup, Hyperlipidemia, coronary artery disease with history of [place], and bypass, 2015 splenectomy, gastroesophageal reflux disease, EGD 2011, no BE or H&P, Autoimmune hemolytic anemia/CLL, Lacunar infarct, Hypertension, Pulmonary nodules, Vitamin D deficiency. * Surgical History:?dental ext ractions , splenectomy , CABG X 3 , Pacemaker placement for complete heart block . * Family History:?Father: dece ased.?Mother: , diagnosed with Diabetes.?Siblings: brother diagnosed with colon cancer at age 53.? Patient has a brother diagnosed with colon cancer at age 53 and underwent surgery. living. No family history of liver cancer. * Social History:?Tobacco Use:?Tobacco Use/Smoking?Are you a: nonsmoker.?Drugs/Alcohol:?Alcohol Screen?Points: 1, Interpretation: Negative.?Miscellaneous:?Marital status: . 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 * Medications:?Taking predniSO NE 20 MG Tablet 1 tablet Orally Once a day, Notes: twice a day, Taking Folic Acid 1 MG Tablet 1 tablet Orally Once a day, Taking Ezetimibe 10 MG Tablet 1 tablet Orally Once a day, Taking Aspirin 81 MG Tablet Chewable 1 tablet Orally Once a day, Taking Co Q 10 100 MG Capsule 1 capsule with a meal Orally Once a day, Taking Vitamin D3 1000 UNIT Capsule 1 capsule Orally Once a day, Taking Pantoprazole Sodium 40 MG Tablet Delayed Release 1 tablet Orally Once a day, Taking Rosuvastatin Calcium 40 MG Tablet 1 tablet Orally Once a day, Taking Metoprolol Succinate ER 100 MG Tablet Extended Release 24 Hour 1 tablet Orally Once a day, Discontinued Colyte with Flavor Packs 240 GM Solution Reconstituted As directed Orally Over the specified time., Medication List reviewed and reconciled with the patient * Allergies:?N.K.D.A. Objective: * Vitals:?Wt: 188 lb 6 oz, Ht: 68 in, BMI:28.64 Index, BP: 000/00 mm Hg, Temp: 97.5. * Examination: ???General Examination: ?GENERAL APPEARANCE:?in no acute distress.?HEAD:?normocephalic.?EYES:?sclera non-icteric.?ORAL CAVITY:?mucosa moist.?NECK/THYROID:?no lymphadenopathy.?SKIN:?anicteric.?HEART:?S1, S2 normal, no murmurs.?LUNGS:?clear to auscultation bilaterally.?CHEST:?normal shape and expansion.?ABDOMEN:?soft, nontender, nondistended, bowel sounds present, no organomegaly .?EXTREMITIES:?no clubbing, cyanosis, or edema.?PSYCH:?cognitive function intact.? Assessment: * Assessment: 1.?Gastroesophageal reflux d isease without esophagitis - K21.9 (Primary)?2.?Colon cancer screening - Z12.11?3.?Long-term use of aspirin therapy - Z79.82? Currently, he is doing well. His reflux disease stable. We discussed gastroesophageal reflux disease today. We recommended he continue treatment with pantoprazole. History of colon cancer screening. This will be arranged. He understands risks and benefits and agrees to proceed. He is advised stop aspirin one week before the procedure. Plan: * Treatment: * Procedure Codes:?3017F COLOR ECTAL CA SCREEN DOC REV, G9903 Pt scrn co id as non user, G9744 PATIENT NOT ELIG D/T ACTIVE DX HTN * Preventive Medicine:? ??Counseling:?Care goal follow-up plan:?Above Normal BMI Follow-up?Giving encouragement to exercise,?BMI management provided?Yes.? * Follow Up:?1 Year * * Sign off status: Completed true * Provider:?William Slade MD Date:?0 09/03/2023 Generated for Kota brumfield/Anabela/eTcarysmitting on:?05/22/2024 01:36 PM EST History and Physical Notes * HPI (History of Present Illness) Category Sub-Category Detail Notes Category Not es New symptom(s) The patient is a pleasant 72-year-old man seen today in consultation. He has a long-standing history of gastroesophageal reflux disease with substernal burning precipitated by typical foods. This include spicy foods and fatty foods. Symptoms are generally well-controlled on pantoprazole 40 mg daily. He has no dysphagia, hematemesis, or melena. Weight and appetite have been stable. Previous evaluation with endoscopy in 2011 showed no H. pylori or Phelan's esophagus. We reviewed this today. Is also due for colorectal cancer screening. His last colonoscopy in 2019 was negative for polyps. Five-year followup was recommended because of his family history of colon cancer. He has no rectal bleeding or problems with his bowels. He has been diagnosed with autoimmune hemolytic anemia and has been treated with prednisone, splenectomy, and rituximab. He also has coexisting CLL. Examination Category Sub-Category Detail Notes Category Not es General Examination GENERAL APPEARANCE: in no acute di stress HEAD: normocephalic EYES: sclera non-icteric NECK/THYROID: no lymphadenopathy HEART: S1, S2 normal, no mu rmurs CHEST: normal shape and exp ansion LUNGS: clear to auscultatio n bilaterally ABDOMEN: soft, nontender, non distended, bowel sounds present, no organomegaly SKIN: anicteric EXTREMITIES: no clubbing, cyanosi s, or edema PSYCH: cognitive function i ntact ORAL CAVITY: mucosa moist
--- OUTSIDE RECORDS SUMMARY | 2024-05-22 13:36 | XMS_ITS ---
Author Organization [facility] Address [address] [place] [address] Care Team Providers Care Breaker Table Worker Name Role Phone Romeo RAHMAN, [place] Primary Care Provider William Harris Jr REASON FOR VISIT screening Problems Problem Type SNOMED Code ICD Code Onset Dates Problem Status W/U Status Risk Notes Problem History of polyp of colon (situation) (462072681) Personal history of colonic polyps (Z86.010) Active confirmed Encounters Encounter Location Date Provider Diagnosis [facility] Out[place] [address] [place] [phone] 09/25/2023 William Slade Jr Encounter for screening colonoscopy Z12.11 and Personal history of colonic polyps Z86.010 Assessments Encounter Date Diagnosis (ICD Code) Assessment Notes Treatment Notes Treatment Clinical Notes Section Notes 09/25/2023 Encounter for screening colonoscopy (ICD-10 - Z12.11) 09/25/2023 Personal history of colonic polyps (ICD-10 - Z86.010) Plan Of Treatment No Information Progress Notes * TANIA LOPEZOB: 0 (73 yo M)Acc No.[id number]:09/25/2023 COLON WITH MAC Patient:?DAYSI LOPEZ Provider:?William Slade MD :1950???Age:72 Y???Sex:Male Navdeep e:09/25/2023 Address[address] [id number] Pcp:Emile Walters MD Subjective: * Chief Complaints: * ???1. Screening. * Medical History:? Objective: * Vitals:? Assessment: * Assessment: 1.?Encounter for screening c olonoscopy - Z12.11 (Primary)???2.?Personal history of colonic polyps - Z86.010??? Plan: * Treatment: * Procedure Codes:?28872 DIAGN OSTIC COLONOSCOPY, G0105 COLOREC CANCR SCR; COLNSCPY HI RISK, 0529F INTRVL 3+YRS PTS CLNSCP DOCD, 0528F RCMND FLW-UP 10 YRS DOCD * * The named appointment provid er may or may not be the originator of this progress note, and it is not deemed complete until electronically signed by the appointment provider. Sign off status: Pending * Provider:?William Slade MD Date:?0 09/25/2023 Generated for Kota brumfield/Anabela/Debitting on:?05/22/2024 01:36 PM EST
== END 2024-05-22 11:59 | disposition home or self-care (01) ==
PROVIDERS: PCP Internal Medicine
DX: L25.9 Unspecified contact dermatitis, unspecified cause (principal)

== ENCOUNTER → 2024-05-22 11:09 | Outpatient (BNVA) | payer MEDICARE, SELFPAY | PROVIDERS: PCP Internal Medicine | DX: L25.9 Unspecified contact dermatitis, unspecified cause (principal) | CPT/HCPCS: 99212 ==

== ENCOUNTER 2024-05-24 08:20 | Outpatient (REF) | payer MEDICARE, SELFPAY ==
--- OUTSIDE RECORDS SUMMARY | 2024-05-24 08:24 | XMS_ITS ---
Author Organization [facility] Address [address] [place] [address] Care Team Providers Care Media Services Specialist Name Role Phone Romeo RAHMAN, Emile Primary Care Provider William Harris Jr [phone] REASON FOR VISIT screening Problems Problem Type SNOMED Code ICD Code Onset Dates Problem Status W/U Status Risk Notes Problem History of polyp of colon (situation) (538674189) Personal history of colonic polyps (Z86.010) Active confirmed Encounters Encounter Location Date Provider Diagnosis [facility] Outpatient [address] [place] [id number] 09/25/2023 William Slade Jr Encounter for screening colonoscopy Z12.11 and Personal history of colonic polyps Z86.010 Assessments Encounter Date Diagnosis (ICD Code) Assessment Notes Treatment Notes Treatment Clinical Notes Section Notes 09/25/2023 Encounter for screening colonoscopy (ICD-10 - Z12.11) 09/25/2023 Personal history of colonic polyps (ICD-10 - Z86.010) Plan Of Treatment No Information Progress Notes * TANIA LOPEZOB: 0 (73 yo M)Acc No.[id number]:09/25/2023 COLON WITH MAC Patient:?DAYSI LOPEZ Provider:?William Slade MD :1950???Age:72 Y???Sex:Male Navdeep e:09/25/2023 Address:[address] [id number] Pcp:Emile Walters MD Subjective: * Chief Complaints: * ???1. Screening. * Medical History:? Objective: * Vitals:? Assessment: * Assessment: 1.?Encounter for screening c olonoscopy - Z12.11 (Primary)???2.?Personal history of colonic polyps - Z86.010??? Plan: * Treatment: * Procedure Codes:?96513 DIAGN OSTIC COLONOSCOPY, G0105 COLOREC CANCR SCR; [...] MD Date:?0 09/25/2023 Generated for Kota brumfield/Anabela/Debitting on:?05/24/2024 08:24 AM EST
--- OUTSIDE RECORDS SUMMARY | 2024-05-24 08:24 | XMS_ITS ---
Author Organization [facility] Address [address] [place] [address] Care Team Providers Care Dental Technician Apprentice Name Role Phone Romeo RAHMAN, [place] Primary Care Provider William Harris Jr Unavailable [phone] Allergies No Known Allergies REASON FOR VISIT [...] Problem Status W/U Status Risk Notes Problem 058548737 Colon cancer screening (Z12.11) Active confirmed Problem 456001970 Long-term use of aspirin therapy (Z79.82) Active confirmed Vital Signs Temperature 97.5 degrees Fahrenheit 09/03/19 24 Blood pressure systolic 000 mm Hg 06/17/20 24 Blood pressure diastolic 00 mm Hg 024 Height 68 in 09/03/2023 Weight 188 lb 6 oz lbs 09/03/2023 BMI 28.64 kg/m2 09/03/2023 Encounters Encounter Location Date Provider Diagnosis [facility] [address] [place] [address] 09/03/2023 William Slade Jr Colon cancer screening [...] * TANIA LOPEZOB: 0 (72 yo M)Acc No.[id number]:09/03/2023 Progress Notes Patient:?JOHN, DAYSI Provider:?William Slade MD :1950???Age:72 Y???Sex:Male Navdeep e:09/03/2023 Address: [address] [place], [place] Pcp:Emile Walters MD Subjective: * Chief Complaints: [...] or Phelan's esophagus. We reviewed this today. ?Is also [...] Hyperlipidemia, coronary artery disease with history of [place], and bypass, 2015 splenectomy, gastroesophageal reflux disease, [...] Interpretation: Negative.?Miscellaneous:?Marital status: . 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 * Medications:?Taking predniSO NE 20 MG Tablet [...] MD Date:?0 09/03/2023 Generated for Kota brumfield/Anabela/eTcarysmitting on:?05/24/2024 08:23 AM EST History and Physical Notes * HPI [...]
[2024-05-24 10:23] LABS: Alanine Aminotransferase 34 U/L (0-40); Albumin Level 3.7 g/dL (3.5-5.0); Alkaline Phosphatase 155 U/L (39-117); Aspartate Amino Transferase 53 U/L (5-37); Bilirubin Direct 0.6 mg/dL (0.0-0.5); Bilirubin Total 4.3 mg/dL (0.0-1.0); Cholesterol 104 mg/dL (<200); HDL Cholesterol 37 mg/dL (>40); LDL Cholesterol Calculated 52 mg/dL (<100); Triglycerides 79 mg/dL (<150)
== END 2024-05-24 08:21 | disposition home or self-care (01) ==
LOC: HO.LAB 08:20
PROVIDERS: PCP Internal Medicine; Visit Provider Internal Medicine Cardiovascular Disease
DX: I25.10 Atherosclerotic heart disease of native coronary artery without angina pectoris (principal)
CPT/HCPCS: 36415; 80061; 80076

== ENCOUNTER → 2024-07-16 23:59 | Outpatient (BNV) | payer MEDICARE, SELFPAY ==
--- NOTE | 2024-07-21 14:54 | A.OFFVIS_ITS ---
Intake Visit Reasons: Remote device check- [facility] Allergies clopidogrel Adverse Reaction (Intermediate, Verified 07/10/24 13:36) Diarrhea atorvastatin [ATORVASTATIN] Adverse Reaction (Mild, Verified 07/10/24 13:36) MUSCLE PAIN ALL OVER PFSH Medical History Chronic lymphocytic leukemia Benign essential hypertension Acute lacunar infarction Pulmonary nodules Autoimmune hemolytic anemia HTN (hypertension) Benign microscopic hematuria Overweight (BMI 25.0-29.9) Vitamin D deficiency History of autoimmune hemolytic anemia GERD (gastroesophageal reflux disease) Pure hypercholesterolemia Cardiac pacemaker Complete heart block CAD (coronary artery disease) Surgical History History of laparoscopic cholecystectomy S/P CABG (coronary artery bypass graft) History of permanent cardiac pacemaker placement History of splenectomy History of colonoscopy Family History Father Tuberculosis Mother No problems noted. Brother Colon cancer Brother Schizophrenia Lung disease Family/Other FH: mental illness Brother Alcoholism Other Mental health problem Social History Household Members: Spouse Housing: House Are you a primary technical healthcare consultant to a significant other at home: No Do you presently have visiting nurse or other home services: No Alcohol intake: never Comment: iv d/robert Patient Tobacco Use Status: Never used Tobacco e-Cigarette/Vaping Use: Never Used Second Hand Smoke Exposure: Yes Use of substances other than those prescribed or required for medical reasons: No Have you been hit, kicked, punched, or otherwise hurt by someone within the past year? If so, by whom?: No Do you feel safe in your current relationship?: Yes Do you have thoughts of harming others: None Do you have a plan to hurt others: No Plan Do you have the means to hurt others: No Recently lost weight without trying: No service: No Current occupational status: retired Cognitive needs: No Hearing needs: No Vision needs: No Office Procedures Cardiac Device Check Cardiac Device Check Details: Remote pacemaker report generated 07/16/2024. Pacemaker function is adequate [id number] Cardiac Device Interrogation, pacemaker Procedure code (CPT) selection complete Assessment & Plan Assessment & Plan (1) Cardiac pacemaker: Code(s): Z95.0 - Presence of cardiac pacemaker Category: Medical Plan: See above Coding Level of Care Code Procedure Only Diagnoses Cardiac pacemaker Z95.0 CPT Codes Cardiac Device Check - Cardiac Device 12: [id number] Cardiac Device Interrogation, pacemaker ([id number])
== END ==
PROVIDERS: PCP Internal Medicine; Visit Provider Internal Medicine Cardiovascular Disease
DX: Z45.018 Encounter for adjustment and management of other part of cardiac pacemaker (principal)
CPT/HCPCS: 93294

== ENCOUNTER 2024-07-22 10:44 | Outpatient (AMB) | payer MEDICARE, SELFPAY ==
--- NOTE | 2024-07-22 11:16 | MHC.OFFWIV ---
Intake Vital Signs 07/22/24 11:17 Weight 190 lb BP 120/72 Blood Pressure Location Lt brachial Position Sitting Pulse 99 Pulse Source Pulse Oximeter Pulse Oximetry (%) 100 Oxygen Delivery Method Room Air Intake Visit Reasons: EP-lower back pain Intake Note: Patient here for lower back pain that has been present for 3 weeks. Patient Tobacco Use Status: Never used Tobacco Allergies clopidogrel Adverse Reaction (Intermediate, Verified 07/22/24 11:18) Diarrhea atorvastatin [ATORVASTATIN] Adverse Reaction (Mild, Verified 07/22/24 11:18) MUSCLE PAIN ALL OVER Do you need a note to return to daycare/school/sports/work: No HPI HPI Comments History of Present Illness Details This is a 73-year-old male with a past medical history of CLL, paroxysmal atrial fibrillation s/p pacemaker placement not currently anticoagulated, coronary artery disease s/p CABG, obstructive sleep apnea and hypertension presenting for evaluation of low back pain. Patient states 3 weeks ago he was doing yard work and woke up 3 days thereafter with low back pain in his left low back that has now rated to his right low back. Patient denies any radiation of pain into his lower extremities. Patient states that he is very stiff when he wakes up in the morning which will loosen up throughout the day. Patient has been taking Tylenol only at night without relief of his symptoms. [facility] Medical History (Updated 07/22/24 @ 12:28 by Jodee Mclean PA-C) Chronic lymphocytic leukemia Benign essential hypertension Acute lacunar infarction Pulmonary nodules Autoimmune hemolytic anemia HTN (hypertension) Benign microscopic hematuria Overweight (BMI 25.0-29.9) Vitamin D deficiency History of autoimmune hemolytic anemia GERD (gastroesophageal reflux disease) Pure hypercholesterolemia Cardiac pacemaker Complete heart block CAD (coronary artery disease) Surgical History History of laparoscopic cholecystectomy S/P CABG (coronary artery bypass graft) History of permanent cardiac pacemaker placement History of splenectomy History of colonoscopy Family History Father Tuberculosis Mother No problems noted. Brother Colon cancer Brother Schizophrenia Lung disease Family/Other FH: mental illness Brother Alcoholism Other Mental health problem Social History Household Members: Spouse Housing: House Are you a primary special needs caregiver to a significant other at home: No Do you presently have visiting nurse or other home services: No Alcohol intake: never Comment: iv d/robert Patient Tobacco Use Status: Never used Tobacco e-Cigarette/Vaping Use: Never Used Second Hand Smoke Exposure: Yes service: No Current occupational status: retired Cognitive needs: No Hearing needs: No Vision needs: No Review of Systems Const All systems reviewed & are unremarkable except as noted in HPI and below Reports no additional complaints Eyes Reports no additional complaints ENT Reports no additional complaints and Denies neck pain Card Reports no additional complaints Resp Reports no additional complaints GI Reports no additional complaints Reports no additional complaints Musc Reports back pain, Denies myalgias, Denies neck pain, Denies numbness, Reports stiffness and Denies tingling Skin/Breast Reports system reviewed and no additional complaints, except as documented Neuro Reports no additional complaints, Denies numbness and Denies tingling Psych Reports no additional complaints Endo Reports no additional complaints Hermelindo/Lymph Reports no additional complaints Aller/Immun Reports no additional complaints Physical Exam Vital Signs: Last Vital Signs Pulse 99 07/22/24 11:17 BP 120/72 07/22/24 11:17 Pulse Ox 100 07/22/24 11:17 Oxygen Delivery Method Room Air 07/22/24 11:17 Const General: cooperative, healthy appearing, comfortable, no acute distress, well developed, alert and awake; No acute distress Nutritional Appearance: average body habitus Orientation/consciousness: patient oriented x3 Limitations: no limitations (ambulating independently) Back/Spine/Pelvis Thoracic/Lumbar Spine: thoracic and lumbar spine normal to inspection, thoraco-lumbar ROM normal, straight leg raise negative bilaterally and paraspinal muscle tenderness (low lumbar; no sciatic notch tenderness) bilaterally Sacroiliac joints: bilaterally nontender Sacrum: no ecchymosis and no erythema Skin General skin exam: no rashes or lesions noted Neuro General: patient oriented x3 Gait exam (Neuro): Normal gait present, not antalgic, not ataxic and not shuffling Motor exam (neuro): 5/5 motor strength present throughout (lower extremities bilaterally) Psych Appearance: grossly normal Mental Status: mental status grossly normal Insight: Good insight present (Psych) Judgement: Good judgement present (Psych) Assessment & Plan Assessment & Plan (1) Low back pain: Comment: Patient's history and examination are consistent with low back pain without any radicular symptoms or sciatic pain. Patient will be discharged home and Naprosyn. Code(s): M54.50 - Low back pain, unspecified Qualifiers: Chronicity: acute Back pain laterality: bilateral Sciatica presence: without sciatica Qualified Code(s): M54.50 - Low back pain, unspecified Plan: Naprosyn b.i.d. times 10 days. Patient will follow up with his primary care physician within 7-14 days for a re-evaluation of his symptoms and possible referral for physical therapy evaluation. Medications: New naproxen (Naprosyn) 500 mg PO BID 20 tabs 0RF Coding Level of Care Code Est Pt Level 3 (63450) Diagnoses Acute bilateral low back pain without sciatica M54.50 Chronicity: acute Back pain laterality: bilateral Sciatica presence: without sciatica Time Spent (min) 25
[2024-07-22 11:17] VITALS: BP 120/72; PULSE 99; O2SAT 100
--- OUTSIDE RECORDS SUMMARY | 2024-07-22 12:23 | XMS_ITS | Patient Health Record ---
Author Organization [facility] Address [address] [place] [address] Care Team Providers Care Retrieval Specialist Name Role Phone Romeo RAHMAN, [place] Primary Care Provider William Harris Jr Unavailable [phone] Allergies No Known Allergies Results Component Value Reference Range Notes Basic Metabolic Panel Fastin g Reviewed date:09/26/2023 04:05:03 PM Interpretation: Performing Lab:[facility], [address] [place] [id number] Notes/Report: Sodium 140 135-145 mmol/L Potassium 4.1 [...] Estimated Glomerular Filt Rate 56 NOTE: For -Andor[place] individuals, multiply the result by 1.210. Chronic [...] Problem Status W/U Status Risk Notes Problem 675997362 Colon cancer screening (Z12.11) Active confirmed Problem Personal history of colonic polyps (Z86.010) Active confirmed Problem 87727276 Encounter for ot her preprocedural examination (Z01.818) Active confirmed Problem 669939362 Gastroesophageal reflux disease without esophagitis (K21.9) Active confirmed Problem 407744962 Family history o f colon cancer (Z80.0) Active confirmed Problem 797016223 Long-term use of aspirin therapy (Z79.82) Active confirmed Vital Signs Temperature 97.5 degrees Fahrenheit 09/03/2023 Blood pressure diastolic 00 mm Hg 09/03/2023 Height 68 in 09/03/2023 Blood pressure systolic 000 mm Hg 09/03/2023 Weight 188 lb 6 oz lbs 09/03/2023 BMI 28.64 kg/m2 09/03/2023 Encounters Encounter Location Date Provider Diagnosis [facility] Outpatient [address], [place] [phone] 09/25/2023 William Slade Jr Encounter for screening colonoscopy Z12.11 and Personal history of colonic polyps Z86.010 [facility] [address] [place] [address] 09/03/2023 William Quintanasai Black Colon cancer screening Z12.11 ; Gastroesophageal reflux [...] OF [place] [address] [place] [address] [id number] DAYSI LOPEZ Self - patient is the insured [employer] ATT[employer] CLAIMS [address] [place] [address] [id number] LOPEZ, DAYSI Self - patient is the insured Medical (General) History Medical History History ICD Code colonoscopy 10/04, normal, five-year foll owup Hyperlipidemia coronary artery disease with history of [place], and bypass 2014 splenectomy gastroesophageal reflux disease, EGD 201 2, no BE or H&P Autoimmune hemolytic anemia/CLL Lacunar infarct Hypertension Pulmonary nodules Vitamin D deficiency Surgical History Surgery Date(Month/Year) dental extractions splenectomy CABG X 3 Pacemaker placement for complete heart b lock
--- OUTSIDE RECORDS SUMMARY | 2024-07-22 12:24 | XMS_ITS ---
Author Organization [facility] Address [address] [place] [address] Care Team Providers Care Sock Knitting Machine Operator Name Role Phone Romeo RAHMAN, [place] Primary Care Provider William Harris Jr Unavailable [...] Problem Status W/U Status Risk Notes Problem 603852758 Colon cancer screening (Z12.11) Active confirmed Problem 057802998 Long-term use of aspirin therapy (Z79.82) Active confirmed Vital Signs Temperature 97.5 degrees Fahrenheit 09/03/19 24 Blood pressure systolic 000 mm Hg 06/17/20 24 Blood pressure diastolic 00 mm Hg 024 Height 68 in 09/03/2023 Weight 188 lb 6 oz lbs 09/03/2023 BMI 28.64 kg/m2 09/03/2023 Encounters Encounter Location Date Provider Diagnosis [facility] [address] [place] [address] 09/03/2023 William Slade Jr Colon cancer screening [...] * TANIA LOPEZOB: 0 (72 yo M)Acc No.[id number]:09/03/2023 Progress Notes Patient:?JOHN, DAYSI Provider:?William Slade MD :1950???Age:72 Y???Sex:Male Navdeep e:09/03/2023 Address: [address], [id number] Pcp:Emile Walters MD Subjective: * Chief Complaints: [...] Hyperlipidemia, coronary artery disease with history of [place], and bypass, 2015 splenectomy, gastroesophageal reflux disease, [...] Interpretation: Negative.?Miscellaneous:?Marital status: . 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 * Medications:?Taking predniSO NE 20 MG Tablet [...] MD Date:?0 09/03/2023 Generated for Kota brumfield/Anabela/eTcarysmitting on:?07/22/2024 12:23 PM EDT History and Physical Notes * HPI (History [...]
--- OUTSIDE RECORDS SUMMARY | 2024-07-22 12:24 | XMS_ITS ---
Author Organization [facility] Address [address] [place] [address] Care Team Providers Care Senior Property Accountant Name Role Phone Romeo RAHMAN, Emile Primary Care Provider Jodie Slade Jr, William Corbin [phone] REASON FOR VISIT screening Problems Problem Type SNOMED Code ICD Code Onset Dates Problem Status W/U Status Risk Notes Problem Personal history of colonic polyps (Z86.010) Active confirmed Encounters Encounter Location Date Provider Diagnosis [facility] Outpatient [address] [place] [phone] 09/25/2023 William Slade Jr Encounter for screening colonoscopy Z12.11 and Personal history of colonic polyps Z86.010 Assessments Encounter Date Diagnosis (ICD Code) Assessment Notes Treatment Notes Treatment Clinical Notes Section Notes 09/25/2023 Encounter for screening colonoscopy (ICD-10 - Z12.11) 09/25/2023 Personal history of colonic polyps (ICD-10 - Z86.010) Plan Of Treatment No Information Progress Notes * TANIA LOPEZOB: 0 (73 yo M)Acc No.[id number]:09/25/2023 COLON WITH MAC Patient:?JOHN DAYSI Provider:?William Slade MD :1950???Age:72 Y???Sex:Male Navdeep e:09/25/2023 Address: [address] [id number] Pcp:Emile Walters MD Subjective: * Chief Complaints: * ???1. Screening. * Medical History:? Objective: * Vitals:? Assessment: * Assessment: 1.?Encounter for screening c olonoscopy - Z12.11 (Primary)???2.?Personal history of colonic polyps - Z86.010??? Plan: * Treatment: * Procedure Codes:?12913 DIAGN OSTIC COLONOSCOPY, G0105 COLOREC CANCR SCR; [...] MD Date:?0 09/25/2023 Generated for Kota brumfield/Anabela/Debitting on:?07/22/2024 12:23 PM EDT
== END 2024-07-22 13:05 | disposition home or self-care (01) ==
PROVIDERS: PCP Internal Medicine; Visit Provider Physician Assistant
DX: M54.50 Low back pain, unspecified (principal)

== ENCOUNTER → 2024-07-22 10:44 | Outpatient (BNVA) | payer MEDICARE, SELFPAY | PROVIDERS: PCP Internal Medicine; Visit Provider Physician Assistant | DX: M54.50 Low back pain, unspecified (principal) | CPT/HCPCS: 99212 ==

== ENCOUNTER 2024-08-12 09:02 | Outpatient (REF) | payer MEDICARE, SELFPAY ==
--- OUTSIDE RECORDS SUMMARY | 2024-08-12 09:30 | XMS_ITS | Patient Health Record ---
Author Organization [facility] Address [address] [place] [address] Care Team Providers Care Supervisor Fiberglass Boat Assembly Name Role Phone Romeo RAHMAN, [place] Primary Care Provider William Harris Jr Unavailable Allergies No Known Allergies Results Component Value Reference Range Notes Basic Metabolic Panel Fastin g Reviewed date:09/26/2023 04:05:03 PM Interpretation: Performing Lab:[facility], [address] [place] [id number] Notes/Report: Sodium 140 135-145 mmol/L Potassium 4.1 [...] Estimated Glomerular Filt Rate 56 NOTE: For -[place]enezuel[place] individuals, multiply the result by 1.210. Chronic [...] Problem Status W/U Status Risk Notes Problem 936006292 Colon cancer screening (Z12.11) Active confirmed Problem History of polyp of colon (situation) (874965490) Personal history of colonic polyps (Z86.010) Active confirmed Problem 51172592 Encounter for ot her preprocedural examination (Z01.818) Active confirmed Problem 344733921 Gastroesophageal reflux disease without esophagitis (K21.9) Active confirmed Problem 314425931 Family history o f colon cancer (Z80.0) Active confirmed Problem 324558734 Long-term use of aspirin therapy (Z79.82) Active confirmed Vital Signs Temperature 97.5 degrees Fahrenheit 09/03/2023 Blood pressure diastolic 00 mm Hg 09/03/2023 Height 68 in 09/03/2023 Blood pressure systolic 000 mm Hg 09/03/2023 Weight 188 lb 6 oz lbs 09/03/2023 BMI 28.64 kg/m2 09/03/2023 Encounters Encounter Location Date Provider Diagnosis [facility] Outpatient [address] [place], [place] [phone] 09/25/2023 William Slade Jr Encounter for screening colonoscopy Z12.11 and Personal history of colonic polyps Z86.010 [facility] [address] [place] [address] 09/03/2023 Williamparvin Slade Jr Colon cancer screening [...] OF [place] [address] [place] [address] [id number] DAYSI LOPEZ Self - patient is the insured [employer] ATT[employer] CLAIMS [address] [place] [address] [id number] LOPEZDAYSI Self - patient is the insured Medical (General) History Medical History History ICD Code colonoscopy 10/04, normal, five-year foll owup Hyperlipidemia coronary artery disease with history of [place], and bypass 2014 splenectomy gastroesophageal reflux disease, EGD 201 2, no BE or H&P Autoimmune hemolytic anemia/CLL Lacunar infarct Hypertension Pulmonary nodules Vitamin D deficiency Surgical History Surgery Date(Month/Year) dental extractions splenectomy CABG X 3 Pacemaker placement for complete heart b lock
[2024-08-12 10:19] LABS: Basophils Absolute Auto 0.1 X10*3/uL (0.0-0.2); Basophils Percent Auto 0.6 % (0-2); Eosinophils Absolute Auto 0.6 X10*3/uL (0.0-0.4); Eosinophils Percent Auto 4.5 % (0-4); Hematocrit 47.4 % (42.0-52.0); Hemoglobin 16.2 g/dl (14.0-18.0); Imm Gran Abs Auto 0.12 X10*3/uL (0.00-0.03); Imm Gran Pct Auto 0.9 % (0.0-0.4); Lymphocytes Absolute Auto 5.5 X10*3/uL (1.2-4.9); Lymphocytes Percent Auto 43.4 % (20-40); MANUAL DIFF FLAG SCAN; Mean Corpuscular HGB Conc 34.2 g/dl (31.0-36.0); Mean Corpuscular Hemoglobin 33.8 pg (27.0-33.0); Mean Platelet Volume 10.4 fL (9.4-12.4); Monocytes Absolute Auto 1.8 X10*3/uL (0.1-1.2); Monocytes Percent Auto 14.5 % (2-11); Neutrophils Absolute Auto 4.6 x10*3/uL (2.0-8.3); Neutrophils Percent Auto 36.1 % (45-73); Platelet Count 399 X10*3/uL (160-400); Red Blood Count 4.79 X10*6/uL (4.60-5.80); Red Cell Distribution Width 12.6 % (11.0-16.0); SCAN SMEAR FLAG 1; White Blood Count 12.7 X10*3/uL (4.8-10.8)
[2024-08-12 10:28] LABS: Appearance Urine Clear; Color Urine Yellow; Glucose Urine UA Negative (Negative); Leukocyte Esterase Urine Negative (Negative); Nitrite Urine Negative (Negative); Specific Gravity - Urine <= 1.005 (1.005-1.025); UMIC TRIGGER UACC YES; Urine Blood Small (1+) (Negative); Urine Ketones Negative (Negative); Urine Protein Negative (Neg-Trace)
[2024-08-12 10:43] LABS: Bacteria Urine None Seen (None Seen); Hyaline Casts Urine 0-2 /LPF (0-2); RBC Urine 0-2 /HPF (0-2); Squamous Epithelial Cell Urine 0-2 /HPF (0-2); WBC Urine 0-5 /HPF (0-5)
[2024-08-12 10:52] LABS: SLIDE REVIEW VERIFIED
[2024-08-12 11:07] LABS: Alanine Aminotransferase 27 U/L (0-40); Albumin Level 4.1 g/dL (3.5-5.0); Alkaline Phosphatase 117 U/L (39-117); Anion Gap 13 (12-20); Aspartate Amino Transferase 37 U/L (5-37); Bilirubin Total 1.3 mg/dL (0.0-1.0); Blood Urea Nitrogen 24 mg/dL (9-16); Calcium 9.6 mg/dL (8.4-10.2); Carbon Dioxide 25 mmol/L (22-29); Chloride 104 mmol/L (96-108); Cholesterol 128 mg/dL (<200); Estimated Glomerular Filt Rate > 60; Glucose Fasting 84 mg/dL (60-99); HDL Cholesterol 41 mg/dL (>40); LDL Cholesterol Calculated 68 mg/dL (<100); Potassium 4.2 mmol/L (3.3-5.1); Sodium 138 mmol/L (135-145); Total Protein 7.2 g/dL (6.5-8.0); Triglycerides 97 mg/dL (<150)
== END 2024-08-12 09:03 | disposition home or self-care (01) ==
LOC: HO.LAB 09:02
PROVIDERS: PCP Internal Medicine; Visit Provider Internal Medicine
DX: D64.9 Anemia, unspecified (principal); E78.00 Pure hypercholesterolemia, unspecified
CPT/HCPCS: 36415; 80053; 80061; 81001; 85025

== ENCOUNTER 2024-08-28 13:45 | Outpatient (AMB) | payer MEDICARE, SELFPAY ==
--- NOTE | 2024-08-28 14:06 | A.OFFPC_ITS ---
Vital Signs 08/28/24 14:07 Height 5 ft 8 in Weight 187 lb 3.2 oz BMI 28.5 BP 118/64 Blood Pressure Location Lt brachial Position Sitting Respiration 18 Pulse 86 Pulse Source Pulse Oximeter Temp 98.4 F Temp Source Oral Pulse Oximetry (%) 96 Oxygen Delivery Method Room Air Intake Visit Reasons: CLL, hyperlipidemia Bowstring Maker Required: No Accompanied by: Self / Same As Patient Allergies clopidogrel Adverse Reaction (Intermediate, Verified 09/04/24 08:45) Diarrhea atorvastatin (ATORVASTATIN) Adverse Reaction (Mild, Verified 09/04/24 08:45) MUSCLE PAIN ALL OVER Medication List - Last Reconciled 08/28/24 by APOORVA Pittman aspirin (Adult Aspirin Regimen) 81 mg PO DAILY cholecalciferol (vitamin D3) (Vitamin D3) 50 mcg PO DAILY coQ10 (ubiquinol) 200 mg PO DAILY ezetimibe 10 mg PO DAILY folic acid 1 mg PO DAILY metoprolol succinate ER 100 mg PO DAILY 90 days pantoprazole 40 mg PO DAILY rosuvastatin (Crestor) 10 mg PO DAILY Tobacco use date assessed: 08/28/24 Fall risk assessment: No Falls in past year Last assessed Fall Risk: 08/28/24 Dental Screening Dental Screen Date: 08/28/24 Did you have a dental visit in the last 12 months?: No Did you have a dental problem in the last 6 months where you did not have access to dental care?: No Was dental information given to patient?: No HPI CLL, hyperlipidemia HPI Details The patient is a 74-year-old male with significant past medical history CLL, IFG, paroxysmal atrial fibrillation, CISCO, NSVT, benign essential hyperte nsion, acute lacunar infarction, autoimmune hemolytic anemia, CAD, cardiac pacemaker, pulmonary nodules presenting for follow up appointment. Reports lower back pain across the back, also feeling pain the SI joint area Reports that before he gets lower back and would go away, but this time the pain has been steady since States that the pain is not severe, but yesterday is was a little bit stronger. Reports that he is sleeping ok. Reports taking Tylenol at night only, for the pain. Lower back: he is not sure how to describes the pain in his lower back. Reports that if he sits in an angle, it is hard for him to get up. Reports that it was hard for him to tie his shoe today due to the pain. Negative SLR test on exam. No chest pain or sob no abdominal pain/change in bowel denies urinary s/sx [facility] Medical History (Updated 09/14/24 @ 16:56 by APOORVA Pittman) Chronic lymphocytic leukemia Benign essential hypertension Acute lacunar infarction Pulmonary nodules Autoimmune hemolytic anemia HTN (hypertension) Benign microscopic hematuria Overweight (BMI 25.0-29.9) Vitamin D deficiency History of autoimmune hemolytic anemia GERD (gastroesophageal reflux disease) Pure hypercholesterolemia Cardiac pacemaker Complete heart block CAD (coronary artery disease) Surgical History History of laparoscopic cholecystectomy S/P CABG (coronary artery bypass graft) History of permanent cardiac pacemaker placement History of splenectomy History of colonoscopy Family History Father Tuberculosis Mother No problems noted. Brother Colon cancer Brother Schizophrenia Lung disease Family/Other FH: mental illness Brother Alcoholism Other Mental health problem Social History Household Members: Spouse Housing: House Are you a primary critical care specialist to a significant other at home: No Do you presently have visiting nurse or other home services: No Alcohol intake: never Comment: iv d/robert Patient Tobacco Use Status: Never used Tobacco e-Cigarette/Vaping Use: Never Used Second Hand Smoke Exposure: Yes service: No Current occupational status: retired Cognitive needs: No Hearing needs: No Vision needs: No Questionnaire PHQ-9 Over the last 2 weeks, how often have you been bothered by any of the following problems? 1. Little interest or pleasure in doing things: not at all 2. Feeling down, depressed, or hopeless: not at all 3. Trouble falling or staying asleep, or sleeping too much: not at all 4. Feeling tired or having little energy: not at all 5. Poor appetite or overeating: several days 6. Feeling bad about yourself - or that you are a failure or have let yourself or your family down: not at all 7. Trouble concentrating on things, such as reading the newspaper or watching television: not at all 8. Moving or speaking so slowly that other people could have noticed. Or the opposite - being so fidgety or restless that you have been moving around a lot more than usual: not at all 9. Thoughts that you would be better off or of hurting yourself in some way: not at all Total score: 1 Depression Screening Interpretation: Negative Depression Screening Done: Yes Source: Developed by Drs. Tim Hoyos, Adelaide Yo, Tone Light and colleagues, with an educational donna from [employer]. Thrive Questionnaire Date Thrive assessed: 08/28/24 I am a: Patient What is your living situation today?: I have a steady place to live Within the past 12 months, did the food you bought not last and you didn't have the money to get more?: I choose not to answer this question Within the past 12 months, did you worry whether your food would run out before you got money to buy more?: Often true Do you have trouble paying for medicines?: No Do you have trouble getting transportation to medical appointments?: No Do you have trouble paying your heating and electricity bill?: No Do you have trouble taking care of your child, family member or friend?: No Do you have trouble with day-to-day activities such as bathing, preparing meals, shopping, managing finances, etc.?: No Are you currently unemployed and looking for a job?: No Are you interested in more education?: No Please select the resources that you would like help with: None Currently or been in a relationship where the following occur: I choose not to answer THRIVE Score: 1 AUDIT C Alcohol Use Questionnaire (AUDIT-C) 1. How often do you have a drink containing alcohol?: 2-4 times a month 2. How many drinks containing alcohol do you have on a typical day when you are drinking?: 3 or 4 3. How often do you have six or more drinks on one occasion?: Never Total Score: 3 Score Reviewed/Action Taken: No RYAN-7 AMB Questionnaire RYAN-7 Date RYAN - 7 assessed: 08/28/24 Feeling nervous, anxious, or on edge: 0 = Not at all Not being able to stop or control worryin = Not at all Worrying too much about different things: 0 = Not at all Trouble relaxin = Not at all Being so restless that it is hard to sit still: 0 = Not at all Becoming easily annoyed or irritable: 0 = Not at all Source: Developed by Drs. Tim Hoyos, Adelaide Yo, [employer]one [employer] and colleagues, with an educational donna from [employer]. Review of Systems Const Denies headache(s) Eyes Denies loss of vision ENT Denies vertigo, Denies dizziness, Denies headache(s) and Denies sore throat Card Denies chest pain, Denies leg edema and Denies lightheadedness Resp Denies cough, Denies hemoptysis and Denies wheezing GI Denies abdominal pain, Denies melena, Denies constipation, Denies diarrhea and Denies vomiting Denies dysuria, Denies urinary frequency and Denies urinary urgency Musc Reports back pain (Low back), Reports arthralgias (right hip areas-description consistent with SI joint), Denies joint swelling, Denies numbness and Denies tingling Neuro Denies Abnormal speech present, Denies behavioral changes, Denies vertigo, Denies dizziness, Denies headache(s), Denies loss of vision, Denies memory loss, Denies numbness and Denies tingling Psych Denies anxiety, Denies behavioral changes, Denies depression, Denies memory loss and Denies panic attacks Hermelindo/Lymph Denies easy bleeding and Denies easy bruising Aller/Immun Denies wheezing Physical exam (Primary Care) Vital Signs: Last Vital Signs Temp 98.4 F 08/28/24 14:07 Pulse 86 08/28/24 14:07 Resp 18 08/28/24 14:07 BP 118/64 08/28/24 14:07 Pulse Ox 96 08/28/24 14:07 Oxygen Delivery Method Room Air 08/28/24 14:07 BMI result Body Mass Index 28.5 Tobacco/Smoking Status: Tobacco use Status Tobacco use date assessed 08/28/24 08/28/24 14:09 Patient Tobacco Use Status Never used Tobacco 08/28/24 14:09 e-Cigarette/Vaping Use Never Used 08/28/24 14:09 PHQ-9: PHQ-9 Score PHQ-9: Total score 1 09/14/24 16:10 Depression Screening Interpretation: Negative Thrive Assessment: Date of Thrive Assessment Date Thrive assessed 08/28/24 08/28/24 14:09 Currently or been in a relationship where the following occur: I choose not to answer Const General: healthy appearing, no acute distress, alert and awake Nutritional Appearance: well nourished Orientation/consciousness: oriented to person, oriented to place and oriented to time HENMT Ears: TM's normal bilaterally General nose exam: Normal nasal mucous membranes and turbinates present Eyes Conjunctivae: conjunctivae normal Sclerae: sclerae normal Pupils: Equal, round and reactive pupils present Neck Neck: Yes no lymphadenopathy and Yes no JVD Thyroid: Thyroid normal Carotids: no bruits Chest Chest palpation & inspection: Pacemaker present Resp Effort & Inspection: normal respiratory effort and not tachypneic Auscultation: no crackles, no rales, no rhonchi and no wheezes Cardio Rate: regular rate Rhythm: regular rhythm Heart sounds: no murmurs and normal S1 and S2 GI Palpation (GI): Soft to palpation, nontender, no hepatomegaly and no splenomegaly Auscultation: normal bowel sounds General: Yes no CVA tenderness Back/Spine/Pelvis Back: no CVA tenderness Thoracic/Lumbar Spine: straight leg raise negative bilaterally and No lumbar spinal tenderness Sacroiliac joints: on the right tender Skin General skin exam: no rashes or lesions noted and dry skin Neuro General: oriented to person, oriented to place and oriented to time Cranial nerves: Yes Equal, round and reactive pupils present Speech: No Abnormal speech present Gait exam (Neuro): Normal gait present Motor exam (neuro): no tremor noted Extrem Right upper extremity: full ROM Left upper extremity: full ROM Right lower extremity: full ROM; no edema Left lower extremity: full ROM; no edema Psych Mental Status: mental status grossly normal Speech and movement: Normal speech and movement present Affect: normal affect Attitude: cooperative Thought process: Normal thought process present Results Reviewed Results Reviewed: Laboratory Tests 05/24/24 08/12/24 08/28/24 09:02 09:14 08:29 WBC 13.7 H RBC 4.69 Hgb 15.7 Hct 44.7 MCV 95.3 MCH 33.5 H RDW 13.6 Plt Count 372 Sodium 137 Potassium 4.5 Chloride 106 Carbon Dioxide 26 Anion Gap 10 L BUN 20 H Creatinine 1.09 Estim Creat Clear Calc 63.4 Estimated GFR > 60 Random Glucose 109 Haptoglobin 152 Calcium 9.2 D Total Bilirubin 1.8 H AST 40 H ALT 32 Alkaline Phosphatase 123 H Total Protein 7.0 Albumin 4.0 Triglycerides 79 Cholesterol 104 LDL Cholesterol, Calc 52 HDL Cholesterol 37 L Urine Color Yellow Urine Appearance Clear Urine pH 6.0 Ur Specific [place] <= 1.005 Urine Protein Negative Urine Glucose (UA) Negative Urine Ketones Negative Urine Blood Small (1+) H Urine Nitrite Negative Ur Leukocyte Esterase Negative Urine RBC 0-2 Urine WBC 0-5 Ur Squamous Epith Cells 0-2 Urine Bacteria None Seen Hyaline Casts 0-2 Coding Level of Care Code Est Pt Level 4 (22558) Diagnoses Autoimmune hemolytic anemia D59.10 Chronic lymphocytic leukemia C91.10 Coronary artery disease involving [place] coronary artery of [place] heart without angina pectoris I25.10 Coronary Disease-Associated Artery/Lesion type: [place] artery [place] vs. transplanted heart: [place] heart Associated angina: without angina S/P CABG (coronary artery bypass graft) Z95.1 Complete heart block I44.2 Pure hypercholesterolemia E78.00 Benign essential hypertension I10 Acute lacunar infarction I63.81 Impaired fasting glucose R73.01 Gastroesophageal reflux disease without esophagitis K21.9 Esophagitis presence: without esophagitis Vitamin D deficiency E55.9 Pulmonary nodule R91.1 Benign microscopic hematuria R31.1 Overweight (BMI 25.0-29.9) E66.3 Acute bilateral low back pain without sciatica M54.50 Chronicity: acute Back pain laterality: bilateral Sciatica presence: without sciatica Chronic right sacroiliac joint pain M53.3; G89.29 Time Spent (min) 43 Assessment & Plan Assessment & Plan (1) Autoimmune hemolytic anemia: Comment: S/P Tx with prednisone and splenectomy back in 2014; restarted Tx with prednisone and started on Rituximab from 09/15/21 to 10/06/21; prednisone D/Robert on 12/09/21 Code(s): D59.10 - Autoimmune hemolytic anemia, unspecified Category: Medical Plan: His H/H is stable at 15.7/44.7 on his recent labs and he now appears stable again with NO relapse He's had Tx with Rituximab at least twice in the past, from 09/15/21 through 10/06/21 and from 07/16/2023 through 08/06/2023 He has also been treated with oral Prednisone a couple of times when he's had flare ups of his hemolytic anemia Follow up with hematology (Dr. Fuller) as scheduled (2) Chronic lymphocytic leukemia: Code(s): C91.10 - Chronic lymphocytic leukemia of B-cell type not having achieved remission Category: Medical Plan: Patient also has concomitant CLL and this appears stable Will continue to monitor his CBC regularly Follow up with hematology/oncology as scheduled (3) CAD (coronary artery disease): Comment: 3-vessel bypass in 2013 Code(s): I25.10 - Atherosclerotic heart disease of [place] coronary artery without angina pectoris Category: Medical Qualifiers: Coronary Disease-Associated Artery/Lesion type: [place] artery [place] vs . transplanted heart: [place] heart Associated angina: without angina Qualified Code(s): I25.10 - Atherosclerotic heart disease of [place] coronary artery without angina pectoris Plan: S/P triple vessel bypass in 2013 Myocardial perfusion study done in November 2020 came out normal; graft remained patent at the time Continue Aspirin 81 mg QD Follow up with cardiology as scheduled (4) S/P CABG (coronary artery bypass graft): Comment: Status post 3 vessel coronary artery bypass grafting, 2013 Code(s): Z95.1 - Presence of aortocoronary bypass graft Category: Surgical Plan: Repeat myocardial perfusion study in November 2020 came out normal, with patent graft Continue Aspirin 81 mg QD (needs to be on lifelong anticoagulation) and aggressive risk reduction and secondary prevention (5) Complete heart block: Comment: S/P pacemaker insertion Code(s): I44.2 - Atrioventricular block, complete Category: Medical Plan: S/P pacemaker insertion - pacer has been working properly and is being monitored remotely by cardiology Follow up with cardiology as scheduled (6) Pure hypercholesterolemia: Code(s): E78.00 - Pure hypercholesterolemia, unspecified Category: Medical Plan: Total 104, Tri 79, LDL 52 and HDL 37 Reinforced low cholesterol diet Continue Ezetimibe 10 mg QD He was also on Rosuvastatin 40 mg QD in the past but appears to have stopped taking this sometime last year - he is not sure why but thinks that it may have something to do with muscle pains He was started back on Rosuvastatin by cardiology yesterday but only on 10 mg QD Continue Co Q10 200 mg daily (7) Benign essential hypertension: Code(s): I10 - Essential (primary) hypertension Category: Medical Plan: Reinforced low sodium diet - goal is systolic BP of at least 130 mm or less Continue Metoprolol ER 100 mg QD (8) Acute lacunar infarction: Code(s): I63.81 - Other cerebral infarction due to occlusion or stenosis of small artery Category: Medical Plan: Brain MRI done in February 2021 revealed (+) small focus of lacunar infarction in the left brainstem - patient presented to the ER then with transient diplopia, which gradually resolved and has not recurred since; no other symptoms at present Continue Aspirin 81 mg QD; he was also started on Clopidogrel 75 mg QD by neurology but he could not tolerate Rx (diarrhea) Have recommended again aggressive risk reduction to minimize/prevent recurrence - need to keep his BP and cholesterol levels controlled as tightly as possible Follow up with neurology as scheduled (9) Impaired fasting glucose: Code(s): R73.01 - Impaired fasting glucose Category: Medical Plan: His FBS was at 84 mg/dl on his recent labs; HgbA1c was normal and < 4.0% although this may not be accurate due to his anemia and CLL Reinforced low calorie/low carb diet, exercise as tolerated Will recheck his FBS and HgbA1c in 6 months for follow up (10) GERD (gastroesophageal reflux disease): Code(s): K21.9 - Gastro-esophageal reflux disease without esophagitis Category: Medical Qualifiers: Esophagitis presence: without esophagitis Qualified Code(s): K21.9 - Gastro-esophageal reflux disease without esophagitis Plan: Dietary restrictions reinforced Continue Pantoprazole 40 mg QD (11) Vitamin D deficiency: Code(s): E55.9 - Vitamin D deficiency, unspecified Category: Medical Plan: Continue Vitamin D3 2000 units QD (12) Pulmonary nodule: Code(s): R91.1 - Solitary pulmonary nodule Category: Medical Plan: Stable - continue yearly CT screening and follow-up with Dr. Shirley as scheduled (13) Benign microscopic hematuria: Code(s): R31.1 - Benign essential microscopic hematuria Category: Medical Plan: Asymptomatic - will continue to monitor regularly Workups done in the past have all been negative/normal (14) Overweight (BMI 25.0-29.9): Code(s): E66.3 - Overweight Category: Medical Plan: Reinforced diet/exercise as tolerated/lose weight (15) Low back pain: Comment: Patient's history and examination are consistent with low back pain without any radicular symptoms or sciatic pain. Patient will be discharged home and Naprosyn. Code(s): M54.50 - Low back pain, unspecified Category: Medical Qualifiers: Chronicity: acute Back pain laterality: bilateral Sciatica presence: without sciatica Qualified Code(s): M54.50 - Low back pain, unspecified Plan: Lumbar x-ray on 10/29/2023 showed no abnormalities. Reports that his pain feels different from before. Will repeat LUMBAR X-RAY to further evaluate (16) Chronic right sacroiliac joint pain: Code(s): M53.3 - Sacrococcygeal disorders, not elsewhere classified; G89.29 - Other chronic pain Category: Medical Plan: The patient reports pain to the right SI Joint. Will x-ray the area to further evaluate Plan Follow up in 6 months Orders: Orders Complete Blood Count Auto Diff 6 Months R73.01 - Impaired fasting glucose, I48.0 - Paroxysmal atrial fibrillation, G47.33 - Obstructive sleep apnea (adult) (pediatric), G47.10 - Hypersomnia, unspecified, I10 - Essential (primary) hypertension, I63.81 - Other cerebral infarction due to occlusion or stenosis of small artery, R91.8 - Other nonspecific abnormal finding of lung field, I25.10 - Atherosclerotic heart disease of [place] coronary artery without angina pectoris, I44.2 - Atrioventricular block, complete, D58.9 - Hereditary hemolytic anemia, unspecified, E55.9 - Vitamin D deficiency, unspecified, K21.9 - Gastro- esophageal reflux disease without esophagitis, E78.00 - Pure hypercholesterolemia, unspecified, Z95.1 - Presence of aortocoronary bypass graft Lipid Panel 6 Months R73.01 - Impaired fasting glucose, I48.0 - Paroxysmal atrial fibrillation, G47.33 - Obstructive sleep apnea (adult) (pediatric), G47.10 - Hypersomnia, unspecified, I10 - Essential (primary) hypertension, I63.81 - Other cerebral infarction due to occlusion or stenosis of small artery, R91.8 - Other nonspecific abnormal finding of lung field, I25.10 - Atherosclerotic heart disease of [place] coronary artery without angina pectoris, I44.2 - Atrioventricular block, complete, D58.9 - Hereditary hemolytic anemia, unspecified, E55.9 - Vitamin D deficiency, unspecified, K21.9 - Gastro-esophag eal reflux disease without esophagitis, E78.00 - Pure hypercholesterolemia, unspecified, Z95.1 - Presence of aortocoronary bypass graft XR lumbar spine 2-3V 08/28/24 M54.50 - Low back pain, unspecified XR sacroiliac joint min 3V 08/28/24 M53.3 - Sacrococcygeal disorders, not elsewhere classified Comprehensive [place]. Panel Fast 6 Months R73.01 - Impaired fasting glucose, I48.0 - Paroxysmal atrial fibrillation, G47.33 - Obstructive sleep apnea (adult) (pediatric), G47.10 - Hypersomnia, unspecified, I10 - Essential (primary) hypertension, I63.81 - Other cerebral infarction due to occlusion or stenosis of small artery, R91.8 - Other nonspecific abnormal finding of lung field, I25.10 - Atherosclerotic heart disease of [place] coronary artery without angina pectoris, I44.2 - Atrioventricular block, complete, D58.9 - Hereditary hemolytic anemia, unspecified, E55.9 - Vitamin D deficiency, unspecified, K21.9 - Gastro- esophageal reflux disease without esophagitis, E78.00 - Pure hypercholesterolemia, unspecified, Z95.1 - Presence of aortocoronary bypass graft TSH reflex Free T4 6 Months R73.01 - Impaired fasting glucose, I48.0 - Paroxysmal atrial fibrillation, G47.33 - Obstructive sleep apnea (adult) (pediatric), G47.10 - Hypersomnia, unspecified, I10 - Essential (primary) hypertension, I63.81 - Other cerebral infarction due to occlusion or stenosis of small artery, R91.8 - Other nonspecific abnormal finding of lung field, I25.10 - Atherosclerotic heart disease of [place] coronary artery without angina pectoris, I44.2 - Atrioventricular block, complete, D58.9 - Hereditary hemolytic anemia, unspecified, E55.9 - Vitamin D deficiency, unspecified, K21.9 - Gastro- esophageal reflux disease without esophagitis, E78.00 - Pure hypercholesterolemia, unspecified, Z95.1 - Presence of aortocoronary bypass graft UA CC w/rflx Micro + Cult 6 Months R73.01 - Impaired fasting glucose, I48.0 - Paroxysmal atrial fibrillation, G47.33 - Obstructive sleep apnea (adult) (pediatric), G47.10 - Hypersomnia, unspecified, I10 - Essential (primary) hypertension, I63.81 - Other cerebral infarction due to occlusion or stenosis of small artery, R91.8 - Other nonspecific abnormal finding of lung field, I25.10 - Atherosclerotic heart disease of [place] coronary artery without angina pectoris, I44.2 - Atrioventricular block, complete, D58.9 - Hereditary hemolytic anemia, unspecified, E55.9 - Vitamin D deficiency, unspecified, K21.9 - Gastro- esophageal reflux disease without esophagitis, E78.00 - Pure hypercholesterolemia, unspecified, Z95.1 - Presence of aortocoronary bypass graft Vitamin D 25-OH Total 6 Months R73.01 - Impaired fasting glucose, I48.0 - Paroxysmal atrial fibrillation, G47.33 - Obstructive sleep apnea (adult) (pediatric), G47.10 - Hypersomnia, unspecified, I10 - Essential (primary) hypertension, I63.81 - Other cerebral infarction due to occlusion or stenosis of small artery, R91.8 - Other nonspecific abnormal finding of lung field, I25.10 - Atherosclerotic heart disease of [place] coronary artery without angina pectoris, I44.2 - Atrioventricular block, complete, D58.9 - Hereditary hemolytic anemia, unspecified, E55.9 - Vitamin D deficiency, unspecified, K21.9 - Gastro- esophageal reflux disease without esophagitis, E78.00 - Pure hypercholesterolemia, unspecified, Z95.1 - Presence of aortocoronary bypass graft Hemoglobin A1c 6 Months R73.01 - Impaired fasting glucose
[2024-08-28 14:07] VITALS: BP 118/64; PULSE 86; RESP 18; TEMP 36.9; O2SAT 96; BMI 28.5
--- OUTSIDE RECORDS SUMMARY | 2024-08-28 16:10 | XMS_ITS | Patient Health Record ---
Author Organization [facility] Address [address] [place] [address] Care Team Providers Care Choke Setter Name Role Phone Romeo RAHMAN, [place] Primary Care Provider William Harris Jr Unavailable Allergies No Known Allergies Results Component Value Reference Range Notes Basic Metabolic Panel Fastin g Reviewed date:09/26/2023 04:05:03 PM Interpretation: Performing Lab:[facility], [address] [place] [id number] Notes/Report: Sodium 140 135-145 mmol/L Potassium 4.1 [...] Estimated Glomerular Filt Rate 56 NOTE: For -Citizen Of [place] individuals, multiply the result by 1.210. Chronic [...] Problem Status W/U Status Risk Notes Problem 430619080 Colon cancer screening (Z12.11) Active confirmed Problem History of polyp of colon (situation) (021872287) Personal history of colonic polyps (Z86.010) Active confirmed Problem 77836402 Encounter for ot her preprocedural examination (Z01.818) Active confirmed Problem 658618151 Gastroesophageal reflux disease without esophagitis (K21.9) Active confirmed Problem 945138079 Family history o f colon cancer (Z80.0) Active confirmed Problem 876209441 Long-term use of aspirin therapy (Z79.82) Active confirmed Vital Signs Temperature 97.5 degrees Fahrenheit 09/03/2023 Blood pressure diastolic 00 mm Hg 09/03/2023 Height 68 in 09/03/2023 Blood pressure systolic 000 mm Hg 09/03/2023 Weight 188 lb 6 oz lbs 09/03/2023 BMI 28.64 kg/m2 09/03/2023 Encounters Encounter Location Date Provider Diagnosis [facility] [place] [address] [place] [id number] 09/25/2023 William Slade Jr Encounter for screening colonoscopy Z12.11 and Personal history of colonic polyps Z86.010 [facility] [address] [place] [address] 09/03/2023 Williamparvin Slade Jr Colon cancer screening [...] OF [place] [address] [place] [address] [id number] DAYSI LOPEZ Self - patient is the insured [employer] ATT[employer] CLAIMS [address] [place] [address] [id number] [id number] Self - patient is the insured Medical (General) History Medical History History ICD Code colonoscopy 10/04, normal, five-year foll owup Hyperlipidemia coronary artery disease with history of [place], and bypass 2014 splenectomy gastroesophageal reflux disease, EGD 201 2, no BE or H&P Autoimmune hemolytic anemia/CLL Lacunar infarct Hypertension Pulmonary nodules Vitamin D deficiency Surgical History Surgery Date(Month/Year) dental extractions splenectomy CABG X 3 Pacemaker placement for complete heart b lock
== END 2024-08-28 14:58 | disposition home or self-care (01) ==
LOC: HO.HMCH 13:45
PROVIDERS: PCP Internal Medicine
DX: D59.10 Autoimmune hemolytic anemia, unspecified (principal); C91.10 Chronic lymphocytic leukemia of B-cell type not having achieved remission; I44.2 Atrioventricular block, complete; I63.81 Other cerebral infarction due to occlusion or stenosis of small artery; I25.10 Atherosclerotic heart disease of native coronary artery without angina pectoris; Z95.1 Presence of aortocoronary bypass graft; E78.00 Pure hypercholesterolemia, unspecified; I10 Essential (primary) hypertension; R73.01 Impaired fasting glucose; K21.9 Gastro-esophageal reflux disease without esophagitis; E55.9 Vitamin D deficiency, unspecified; R91.1 Solitary pulmonary nodule

== ENCOUNTER → 2024-08-28 13:45 | Outpatient (BNVA) | payer MEDICARE, SELFPAY | PROVIDERS: PCP Internal Medicine | DX: I25.10 Atherosclerotic heart disease of native coronary artery without angina pectoris (principal); D59.10 Autoimmune hemolytic anemia, unspecified; C91.10 Chronic lymphocytic leukemia of B-cell type not having achieved remission; I44.2 Atrioventricular block, complete; E78.00 Pure hypercholesterolemia, unspecified; I10 Essential (primary) hypertension; I63.81 Other cerebral infarction due to occlusion or stenosis of small artery; R73.01 Impaired fasting glucose; K21.9 Gastro-esophageal reflux disease without esophagitis; E55.9 Vitamin D deficiency, unspecified; Z95.1 Presence of aortocoronary bypass graft; R91.1 Solitary pulmonary nodule; R31.1 Benign essential microscopic hematuria; M54.50 Low back pain, unspecified; M53.3 Sacrococcygeal disorders, not elsewhere classified; G89.29 Other chronic pain; E66.3 Overweight; Z68.28 Body mass index [BMI] 28.0-28.9, adult; Z71.3 Dietary counseling and surveillance | CPT/HCPCS: 99212 ==

== ENCOUNTER 2024-09-05 12:41 | Outpatient (REF) | payer MEDICARE, SELFPAY ==
--- NOTE | ~2024-09-05 | XR_ITS ---
EXAMINATION: XR SACROILIAC JOINTS CLINICAL INFORMATION: M53.3 - Sacrococcygeal disorders, not elsewhere classified COMPARISON: Correlated to CT abdomen and pelvis dated May 08, 2024. TECHNIQUE: AP and oblique views of the sacroiliac joints FINDINGS: No acute cortical disruption. No gross lytic or blastic lesions. No vacuum phenomenon. XR/XR sacroiliac joint min 3V IMPRESSION: No sacroiliitis. Electronically signed by: Ian Boggs MD 09/05/2024 01:20 PM EDT
--- NOTE | ~2024-09-05 | XR_ITS ---
EXAMINATION: XR LUMBOSACRAL SPINE CLINICAL INFORMATION: M54.50 - Low back pain, unspecified COMPARISON: October 29, 2023 TECHNIQUE: AP and lateral views. FINDINGS: Marginal osteophyte formation and endplate sclerosis at multiple levels of the lower thoracic spine and L4-5. Superior endplate compression deformity representing 20% volume loss at L4. No acute cortical disruption. No gross malalignment. Vascular clips in the right upper quadrant abdomen and left upper quadrant abdomen. Vascular complications, aorta and iliac arteries.. XR/XR lumbar spine 2-3V IMPRESSION: Multilevel thoracolumbar spondylosis. 20% volume loss superior endplate compression deformity at L4 suggesting subacute to old. Atherosclerosis disease. Electronically signed by: Ian Boggs MD 09/05/2024 01:19 PM EDT
--- OUTSIDE RECORDS SUMMARY | 2024-09-05 12:44 | XMS_ITS | Patient Health Record ---
Author Organization [facility] Address [address] [place] [address] Care Team Providers Care Cell Cleaner Name Role Phone Romeo RAHMAN, [place] Primary Care Provider William Harris Jr Unavailable [phone] Allergies No Known Allergies Results Component Value Reference Range Notes Basic Metabolic Panel Fastin g Reviewed date:09/26/2023 04:05:03 PM Interpretation: Performing Lab:[facility], [address] [place] [id number] Notes/Report: Sodium 140 135-145 mmol/L Potassium 4.1 [...] Estimated Glomerular Filt Rate 56 NOTE: For -[place] individuals, multiply the result by 1.210. Chronic [...] Problem Status W/U Status Risk Notes Problem 120603505 Colon cancer screening (Z12.11) Active confirmed Problem History of polyp of colon (situation) (065355930) Personal history of colonic polyps (Z86.010) Active confirmed Problem 48435343 Encounter for ot her preprocedural examination (Z01.818) Active confirmed Problem 524011938 Gastroesophageal reflux disease without esophagitis (K21.9) Active confirmed Problem 737151185 Family history o f colon cancer (Z80.0) Active confirmed Problem 245522729 Long-term use of aspirin therapy (Z79.82) Active confirmed Encounters Encounter Location Date Provider Diagnosis [facility] [place] [address] [place] [id number] 09/25/2023 William Slade Jr Encounter for screening colonoscopy Z12.11 and Personal history of colonic polyps Z86.010 Assessments Encounter Date Diagnosis (ICD Code) Assessment Notes Treatment Notes Treatment Clinical Notes Section Notes 09/25/2023 Encounter for screening colonoscopy (ICD-10 - Z12.11) 09/25/2023 Personal history of colonic polyps (ICD-10 - Z86.010) Plan Of Treatment Future Test Test Name Order Date UPPER GI ENDOSCOPY 12/22/2011 COLONOSCOPY 12/22/2011 COLONOSCOPY 04/12/2017 COLONOSCOPY 09/04/2018 COLONOSCOPY 09/03/2023 Insurance Providers Payer Name Payer Address Payer Phone Subscriber Number Group Number Insured Name Patient Relationship to Insured Coverage Start Date Coverage End Date MED[place]ARE OF [place] [address] [place] [address] [id number] DAYSI LOPEZ Self - patient is the insured [employer] ATT[employer] CLAIMS [address] [place] [address] [id number] DAYSI LOPEZ Self - patient is the insured Medical (General) History Medical History History ICD Code colonoscopy 10/04, normal, five-year foll owup Hyperlipidemia coronary artery disease with history of [place], and bypass 2014 splenectomy gastroesophageal reflux disease, EGD 201 2, no BE or H&P Autoimmune hemolytic anemia/CLL Lacunar infarct Hypertension Pulmonary nodules Vitamin D deficiency Surgical History Surgery Date(Month/Year) dental extractions splenectomy CABG X 3 Pacemaker placement for complete heart b lock
== END 2024-09-05 12:42 | disposition home or self-care (01) ==
LOC: HO.XRAY 12:41
PROVIDERS: PCP Internal Medicine
DX: M53.3 Sacrococcygeal disorders, not elsewhere classified (principal); M54.50 Low back pain, unspecified
CPT/HCPCS: 72100; 72202

== ENCOUNTER → 2024-09-05 12:45 | Outpatient (BNV) | payer MEDICARE, SELFPAY | PROVIDERS: PCP Internal Medicine; Visit Provider Radiology Diagnostic Radiology | DX: M53.3 Sacrococcygeal disorders, not elsewhere classified (principal); M47.815 Spondylosis without myelopathy or radiculopathy, thoracolumbar region; I70.90 Unspecified atherosclerosis | CPT/HCPCS: 72100; 72202 ==

== ENCOUNTER 2024-10-07 14:16 | Outpatient (AMB) | payer MEDICARE, SELFPAY ==
[2024-10-07 14:27] VITALS: BP 110/64; PULSE 74; BMI 28.5
--- NOTE | 2024-10-07 14:27 | MHC.OFFVIS ---
Vital Signs 10/07/24 14:27 Height 5 ft 8 in Weight 187 lb 6.287 oz BMI 28.5 BP 110/64 Blood Pressure Location Lt brachial Position Sitting Pulse 74 Intake Visit Reasons: 6m follow up Intake Note: 6 month follow-up with [facility] check feeling good Motor Vehicle Assembly Supervisor Required: No Allergies clopidogrel Adverse Reaction (Intermediate, Verified 09/25/24 08:33) Diarrhea atorvastatin (ATORVASTATIN) Adverse Reaction (Mild, Verified 09/25/24 08:33) MUSCLE PAIN ALL OVER Medication List - Last Reconciled 10/07/24 by Preston Cash MD aspirin (Adult Aspirin Regimen) 81 mg PO DAILY cholecalciferol (vitamin D3) (Vitamin D3) 50 mcg PO DAILY coQ10 (ubiquinol) 200 mg PO DAILY ezetimibe 10 mg PO DAILY folic acid 1 mg PO DAILY metoprolol succinate ER 100 mg PO DAILY 90 days pantoprazole 40 mg PO DAILY prednisone 2.5 mg PO DAILY rosuvastatin (Crestor) 10 mg PO DAILY HPI Comments Details: Dallin comes for follow-up. He said his hemoglobin has remained elevated but he is slightly dropping. He is closely followed by Hematology. He is currently taking prednisone once a week. He has no cardiac symptoms. He remains fairly active and has no exertional chest pain or shortness of breath. Denies any prolonged palpitation irregular heartbeat. No orthopnea, PND, leg edema. No lightheadedness, syncope. Taking all his medications regularly. [facility] Medical History Chronic lymphocytic leukemia Benign essential hypertension Acute lacunar infarction Pulmonary nodules Autoimmune hemolytic anemia HTN (hypertension) Benign microscopic hematuria Overweight (BMI 25.0-29.9) Vitamin D deficiency History of autoimmune hemolytic anemia GERD (gastroesophageal reflux disease) Pure hypercholesterolemia Cardiac pacemaker Complete heart block CAD (coronary artery disease) Surgical History History of laparoscopic cholecystectomy S/P CABG (coronary artery bypass graft) History of permanent cardiac pacemaker placement History of splenectomy History of colonoscopy Family History Father Tuberculosis Mother No problems noted. Brother Colon cancer Brother Schizophrenia Lung disease Family/Other FH: mental illness Brother Alcoholism Other Mental health problem Social History Household Members: Spouse Housing: House Are you a primary outdoor emergency care technician to a significant other at home: No Do you presently have visiting nurse or other home services: No Alcohol intake: never Comment: iv d/robert Patient Tobacco Use Status: Never used Tobacco e-Cigarette/Vaping Use: Never Used Second Hand Smoke Exposure: Yes service: No Current occupational status: retired Cognitive needs: No Hearing needs: No Vision needs: No Review of Systems Const Denies chills, Denies fatigue, Denies fever(s), Denies frequent falls, Denies weakness, Denies weight gain and Denies weight loss ENT Denies dizziness Card Denies chest pain, Denies leg edema, Denies lightheadedness, Denies palpitations, Denies dyspnea, Denies dyspnea on exertion, Denies orthopnea and Denies other (loss of consciousness) Resp Denies cough, Denies dyspnea and Denies dyspnea on exertion GI Denies hematochezia and Denies change in stool character Musc Denies abnormal gait, Denies muscle weakness, Denies numbness, Denies radiating pain into limb and Denies tingling Neuro Denies abnormal gait, Denies dizziness, Denies frequent falls, Denies numbness, Denies tingling and Denies weakness Endo Denies fatigue and Denies palpitations Physical Exam Vital Signs: Last Vital Signs Pulse 74 10/07/24 14:27 BP 110/64 10/07/24 14:27 BMI result Body Mass Index 28.5 Const General: cooperative, comfortable, no acute distress, alert and awake Nutritional Appearance: average body habitus Orientation/consciousness: patient oriented x3 Limitations: no limitations Neck Neck: Yes trachea midline, Yes supple and Yes no JVD Carotids: no bruits Chest Chest palpation & inspection: Pacemaker present Resp Effort & Inspection: normal respiratory effort Auscultation: clear to auscultation bilaterally Cardio Jugular venous distension: no JVD Palpation: normal PMI Rate: regular rate Rhythm: regular rhythm Heart sounds: S1 normal heart sound present, S2 normal heart sound present, no click, no gallops, no murmurs and no rubs GI Auscultation: normal bowel sounds Skin General skin exam: no rashes or lesions noted Neuro General: patient oriented x3 and no focal motor deficits Extrem General: Yes no clubbing, cyanosis or edema Office Procedures Cardiac Device Check Cardiac Device Check Details: Dual-chamber [place] pacemaker in place. Programmed in DDDR at 60 beats per minute. Atrial pacing 6.2% of the time. No significant arrhythmias noted. Atrial and ventricular pacing thresholds are adequate and in auto capture mode. Atrial ventricular sensing is adequate. Pacing lead impedance is stable. Battery life is at 4.2-4.6 years [id number][id number] Cardiac Device Check, pacemaker dual lead Procedure code (CPT) selection complete Assessment & Plan Assessment & Plan (1) CAD (coronary artery disease): Comment: 3-vessel bypass in 2013 Code(s): I25.10 - Atherosclerotic heart disease of [place] coronary artery without angina pectoris Category: Medical Qualifiers: Associated angina: without angina Coronary Disease-Associated Artery/Lesion type: [place] artery [place] vs. transplanted heart: [place] heart Qualified Code(s): I25.10 - Atherosclerotic heart disease of [place] coronary artery without angina pectoris Plan: CAD with remote coronary artery bypass grafting with no recent symptoms suggestive of ischemia. He has had good functional capacity. Continue low-dose aspirin therapy for life. Continue aggressive risk factor modification. Currently on rosuvastatin ezetimibe therapy. Target goal LDL less than 70 mg/dL. Advised lipid panel in near future. Continue aggressive blood pressure control which is currently well optimized. Continue current therapy. Advised to monitor blood pressure at home maintain a log. Goal blood pressure less than 130/84. Low-salt diet was advised. (2) Cardiac pacemaker: Code(s): Z95.0 - Presence of cardiac pacemaker Category: Medical Plan: Cardiac pacemaker in-situ for postoperative complete heart block. This has resolved patient is not significantly dependent on a pacemaker. Will monitor remotely every 3 months. Follow up in the clinic in 1 year's time. (3) Paroxysmal atrial fibrillation: Code(s): I48.0 - Paroxysmal atrial fibrillation Category: Medical Plan: Prior history of pacer detected atrial fibrillation which was brief episodes. No significant episodes since. Most likely probably related to treatment of sleep apnea. Continue aggressive blood pressure control. Continue to monitor pacer telemetry. Avoidance of stimulants was discussed. No change in therapy and no indication for anticoagulant therapy. Will follow up in the clinic in 1 year's time, sooner p.r.n.. Thank you for allowing me to partake in his care Orders: Orders Lipid Panel Today I25.10 - Atherosclerotic heart disease of [place] coronary artery without angina pectoris Coding Level of Care Code Est Pt Level 4 (65528) Complex EM visit Add On G2211 Diagnoses Coronary artery disease involving [place] coronary artery of [place] heart without angina pectoris I25.10 Associated angina: without angina Coronary Disease-Associated Artery/Lesion type: [place] artery [place] vs. transplanted heart: [place] heart Cardiac pacemaker Z95.0 Paroxysmal atrial fibrillation I48.0 CPT Codes Cardiac Device Check - Cardiac Device 2: [id number]-TG Cardiac Device Check, pacemaker dual lead ([id number])
--- OUTSIDE RECORDS SUMMARY | 2024-10-07 15:31 | XMS_ITS | Patient Health Record ---
Author Organization [facility] Address [address] [place] [address] Care Team Providers Care Shell Maker Lockstitch Name Role Phone Elizabeth Walters MDh Primary Care Provider William Harris Jr [phone] Allergies No Known Allergies Reason For Referral No Information Medications Medication [...] Problem Status W/U Status Risk Notes Problem 576195125 Colon cancer screening (Z12.11) Active confirmed Problem History of polyp of colon (situation) (525432150) Personal history of colonic polyps (Z86.010) Active confirmed Problem 10984767 Encounter for ot her preprocedural examination (Z01.818) Active confirmed Problem 899044962 Gastroesophageal reflux disease without esophagitis (K21.9) Active confirmed Problem 668557079 Family history o f colon cancer (Z80.0) Active confirmed Problem 083620336 Long-term use of aspirin therapy (Z79.82) Active confirmed Plan Of Treatment Future Test Test Name Order Date UPPER GI ENDOSCOPY 12/22/2011 COLONOSCOPY 12/22/2011 COLONOSCOPY 04/12/2017 COLONOSCOPY 09/04/2018 COLONOSCOPY 09/03/2023 Insurance Providers Payer Name Payer Address Payer Phone Subscriber Number Group Number Insured Name Patient Relationship to Insured Coverage Start Date Coverage End Date MEDICARE OF [place] [address] [place] [address] [phone] [id number] DAYSI LOPEZ Self - patient is the insured [employer] ATTN CLAIMS [address] [place] [address] [id number] DAYSI LOPEZ Self - patient is the insured Medical (General) History Medical History History ICD Code colonoscopy 10/04, normal, five-year foll owup Hyperlipidemia coronary artery disease with history of [place], and bypass 2014 splenectomy gastroesophageal reflux disease, EGD 201 2, no BE or H&P Autoimmune hemolytic anemia/CLL Lacunar infarct Hypertension Pulmonary nodules Vitamin D deficiency Surgical History Surgery Date(Month/Year) dental extractions splenectomy CABG X 3 Pacemaker placement for complete heart b lock
== END 2024-10-07 15:18 | disposition home or self-care (01) ==
LOC: HO.HCS 14:16
PROVIDERS: PCP Internal Medicine; Visit Provider Internal Medicine Cardiovascular Disease
DX: I25.10 Atherosclerotic heart disease of native coronary artery without angina pectoris (principal); Z95.0 Presence of cardiac pacemaker; I48.0 Paroxysmal atrial fibrillation
CPT/HCPCS: 93280; 99214; G2211

== ENCOUNTER → 2024-10-07 14:16 | Outpatient (BNVA) | payer MEDICARE, SELFPAY | PROVIDERS: PCP Internal Medicine; Visit Provider Internal Medicine Cardiovascular Disease | DX: Z45.018 Encounter for adjustment and management of other part of cardiac pacemaker (principal); I25.10 Atherosclerotic heart disease of native coronary artery without angina pectoris; I48.0 Paroxysmal atrial fibrillation | CPT/HCPCS: 93280; 99212 ==

== ENCOUNTER 2024-10-09 08:17 | Outpatient (REF) | payer MEDICARE, SELFPAY ==
--- OUTSIDE RECORDS SUMMARY | 2024-10-09 08:33 | XMS_ITS | Patient Health Record ---
Author Organization [facility] Address [address] [place] [address] Care Team Providers Care Software Support Representative Name Role Phone Elizabeth Walters MDh Primary Care Provider William Harris Jr [phone] Allergies No Known Allergies Reason For Referral [...] Problem Status W/U Status Risk Notes Problem 897495215 Colon cancer screening (Z12.11) Active confirmed Problem Personal history of colonic polyps (Z86.010) Active confirmed Problem 43849842 Encounter for ot her preprocedural examination (Z01.818) Active confirmed Problem 073694500 Gastroesophageal reflux disease without esophagitis (K21.9) Active confirmed Problem 481222929 Family history o f colon cancer (Z80.0) Active confirmed Problem 001752309 Long-term use of aspirin therapy (Z79.82) Active confirmed Plan Of Treatment Future Test Test Name Order Date UPPER GI ENDOSCOPY 12/22/2011 COLONOSCOPY 12/22/2011 COLONOSCOPY 04/12/2017 COLONOSCOPY 09/04/2018 COLONOSCOPY 09/03/2023 Insurance Providers Payer Name Payer Address Payer Phone Subscriber Number Group Number Insured Name Patient Relationship to Insured Coverage Start Date Coverage End Date MEDICARE OF [place] [address] [place] [address] [id number] DAYSI LOPEZ Self - patient is the insured [employer] ATTN CLAIMS [address] [place] [address] [phone] [id number] DAYSI LOPEZ Self - patient is the insured Medical (General) History Medical History History ICD Code colonoscopy 10/04, normal, five-year foll owup Hyperlipidemia coronary artery disease with history of [place], and bypass 2014 splenectomy gastroesophageal reflux disease, EGD 201 2, no BE or H&P Autoimmune hemolytic anemia/CLL Lacunar infarct Hypertension Pulmonary nodules Vitamin D deficiency Surgical History Surgery Date(Month/Year) dental extractions splenectomy CABG X 3 Pacemaker placement for complete heart b lock
[2024-10-09 08:57] LABS: Cholesterol 112 mg/dL (<200); HDL Cholesterol 32 mg/dL (>40); Triglycerides 115 mg/dL (<150)
== END 2024-10-09 08:18 | disposition home or self-care (01) ==
LOC: HO.LAB 08:17
PROVIDERS: PCP Internal Medicine; Visit Provider Internal Medicine Cardiovascular Disease
DX: I25.10 Atherosclerotic heart disease of native coronary artery without angina pectoris (principal)
CPT/HCPCS: 36415; 80061

== ENCOUNTER 2024-10-27 12:25 | Emergency (ER) | payer MEDICARE, SELFPAY ==
[2024-10-27 13:25] VITALS: BP 116/55; PULSE 85; RESP 16; TEMP 37.2; O2SAT 95; BMI 27.9
--- NOTE | 2024-10-27 13:25 | ED_ITS ---
HPI - General Adult General Chief complaint: Upper Respiratory Symptoms Stated complaint: Covid? Pain all over, Coughing, weak, chills Time Seen by Provider: 10/27/24 14:25 Source: patient, RN notes reviewed, old records reviewed and marketing research intern Mode of arrival: ambulatory Limitations: language barrier History of Present Illness ED Provider: Travis HPI narrative: Patient is a 74-year-old male with pmhx CLL, paroxysmal afib, HTN, autoimmune hemolytic anemia, CAD, pacemaker, GERD, s/p CABG presenting with complaint of body aches, fatigue/weakness, chills, cough since yesterday. Denies chest pain or palpitations. Denies abdominal pain, nausea, vomiting, diarrhea. with similar symptoms. Questioning Covid. MD complaint: body aches Onset (ago): day(s) Related Data Home Medications ?Medication ?Instructions ?Recorded ?Confirmed aspirin 81 mg tablet,delayed 81 mg PO DAILY 01/11/20 0 10/23/24 release (Adult Aspirin Regimen) cholecalciferol (vitamin D3) 50 50 mcg PO DAILY 10/23/24 mcg (2,000 unit) tablet (Vitamin D3) coQ10 (ubiquinol) 100 mg capsule 200 mg PO DAILY 12/0110/23/24 Previous Rx's ?Medication ?Instructions ?Recorded folic acid 1 mg tablet 1 mg PO DAILY #89 tabs 08/05 metoprolol succinate 100 mg 100 mg PO DAILY 90 days #9 0 tabs 06/15/24 tablet,extended release 24 hr rosuvastatin 10 mg tablet (Crestor) 10 mg PO DAILY #90 tabs 07/08/24 ezetimibe 10 mg tablet 10 mg PO DAILY #90 tabs 09/16 10/10 pantoprazole 40 mg tablet,delayed 40 mg PO DAILY #90 t abs 10/13/24 release nirmatrelvir 300 mg (150 mg See Rx Instructions PO .CO MPLEX 10/27/24 x2)-ritonavir 100 mg tablet,dose #30 ea pack (Paxlovid) ondansetron 4 mg disintegrating 4 mg PO Q8H PRN nausea and 10/27/24 tablet vomiting #10 tabs Allergies Allergy/AdvReac Type Severity Reaction Status Date / Time clopidogrel AdvReac Intermediate Diarrhea Verified 10/27/24 13:26 atorvastatin (ATORVASTATIN) AdvReac Mild MUSCLE Verified 10/27/24 13:26 PAIN ALL OVER Review of Systems Review of Systems: as per hpi Yes all other systems are reviewed and are negative Constitutional: Constitutional: Reports as per HPI [facility] Past Medical History Medical History Chronic lymphocytic leukemia Benign essential hypertension Acute lacunar infarction Pulmonary nodules Autoimmune hemolytic anemia HTN (hypertension) Benign microscopic hematuria Overweight (BMI 25.0-29.9) Vitamin D deficiency History of autoimmune hemolytic anemia GERD (gastroesophageal reflux disease) Pure hypercholesterolemia Cardiac pacemaker Complete heart block CAD (coronary artery disease) Surgical History History of laparoscopic cholecystectomy S/P CABG (coronary artery bypass graft) History of permanent cardiac pacemaker placement History of splenectomy History of colonoscopy Family History Family History Father Tuberculosis Mother No problems noted. Brother Colon cancer Brother Schizophrenia Lung disease Family/Other FH: mental illness Brother Alcoholism Other Mental health problem Social History Social History Household Members: Spouse Housing: House Are you a primary residential caregiver to a significant other at home: No Do you presently have visiting nurse or other home services: No Alcohol intake: never Comment: iv d/robert Patient Tobacco Use Status: Never used Tobacco e-Cigarette/Vaping Use: Never Used Second Hand Smoke Exposure: Yes service: No Current occupational status: retired Cognitive needs: No Hearing needs: No Vision needs: No Physical Exam ED Vital Signs: Vital Signs - 24 hr 10/27/24 13:25 Temperature 99.0 F Pulse Rate 85 Respiratory Rate 16 Blood Pressure 116/55 L Pulse Oximetry 95 Oxygen Delivery Method Room Air BMI result Body Mass Index 27.9 Vital signs have been reviewed and appear to be correct. Blood pressure normal. Heart rate normal. Respiratory rate normal. Temperature normal. Oxygen saturation normal. Const General: cooperative, healthy appearing and no acute distress Orientation/consciousness: oriented to person, oriented to place, oriented to time and patient oriented x3 Limitations: no limitations HENMT Head: Yes normocephalic and Yes atraumatic Ears: external ears normal General nose exam: Normal external nose present Face and sinus: Yes face symmetric Mouth: oropharynx normal and moist mucous membranes Throat: Yes uvula midline Eyes Pupils: Equal, round and reactive pupils present Neck Neck: Yes normal visual inspection and Yes supple Resp Effort & Inspection: normal respiratory effort and able to speak in complete sentences Auscultation: clear to auscultation bilaterally Cardio Rate: regular rate Rhythm: regular rhythm Heart sounds: S1 normal heart sound present and S2 normal heart sound present GI Palpation (GI): Soft to palpation and nontender Auscultation: normoactive bowel sounds General: Yes no CVA tenderness Back/Spine/Pelvis Back: no CVA tenderness Skin General skin exam: elasticity normal and turgor normal Neuro General: oriented to person, oriented to place, oriented to time, patient oriented x3, moves all extremities, no focal motor deficits and CN's II-XI intact bilaterally Cranial nerves: Yes Equal, round and reactive pupils present Cognition (Neuro): normal cognition Extrem General: Yes full ROM, Yes no pedal edema and Yes no calf tenderness Psych Mental Status: mental status grossly normal Affect: normal affect Thought process: Normal thought process present Course Course Course Narrative: This is a rapid medical exam performed by Cecil Robles NP: Additional HPI, ROS, PE not included below will be deferred to primary provider. Patient is a 74-year-old male with pmhx CLL, paroxysmal afib, HTN, autoimmune hemolytic anemia, CAD, pacemaker, GERD, s/p CABG presenting with complaint of body aches, fatigue/weakness, chills, cough since yesterday. with similar symptoms. Questioning Covid. Plan: viral serology Medical Decision Making Medical Decision Making MDM Narrative: Patient is a 74-year-old male with pmhx CLL, paroxysmal afib, HTN, autoimmune hemolytic anemia, CAD, pacemaker, GERD, s/p CABG presenting with complaint of body aches, fatigue/weakness, chills, cough since yesterday. On exam patient is awake, A+Ox3, VS WNL, afebrile, normal neurological exam without focal deficits, physical exam findings as above. Given reported symptoms and physical exam findings, initial differential includes but is not limited to viral illness, COVID, flu, RSV. Viral serology positive for COVID-19. Given history of CLL, will treat patient with antiviral medication, patient states he is not currently on any medications for his CLL at this time. Renal function within normal limits. Prescription for Paxlovid as well as Zofran sent to pharmacy. Advised patient to follow up with PCP this week. Strict return precautions discussed. Patient verbalized understanding of and agreement with plan. In-person cuff stitcher was utilized for all interactions, assessments, and discussions. Differential Diagnosis Differential Diagnoses: The differential diagnosis associated with the presentation includes as per [facility] Admission/Observation Consideration of admission/observation: Escalation of care including admission/observation considered Patient would have been admitted to the hospital had their clinical presentation warranted hospital admission. Lab Data [facility] Lab Attestation statement: I reviewed the patient's lab results. as per [facility] Labs: Lab Results 10/27/24 Range/Units 13:33 Influenza Type A (PCR) NEGATIVE (Negative) Influenza Type B (PCR) NEGATIVE (Negative) RSV RNA Qual (PCR) NEGATIVE (Negative) SARS-CoV-2 RNA (RT-PCR) POSITIVE A (Negative) Independent Historian Clinical information obtained from an independent historian. History obtained from or confirmed by: Spouse External Record Review External record reviewed: Inpatient record, Office record and Outpatient record Prescription Management I considered prescription management with: Antiviral Discharge Plan Discharge Clinical Impression: COVID-19 Patient Disposition: Home, Self-Care Instructions: COVID-19 (Coronavirus Disease 2019) (ED), COVID-19 and Chronic Health Conditions (ED), COVID-19: Slow the Coronavirus Spread (ED), Face Coverings (Masks) and COVID-19 (ED) Additional Instructions: You were evaluated in the emergency department today for cough and body aches. Your COVID test was resulted as positive. You should continue to isolate at home for another 4 days. You should continue to wear mask for 5 days after that. You are being treated with an antiviral medication called Paxlovid due to your chronic lymphocytic leukemia. Call your primary care provider and notify them of your COVID diagnosis. Be sure to get plenty of rest, plenty of fluids. You can take 650 mg of Tylenol or 400 mg ibuprofen every 6 hours as needed for fever or discomfort. Return to the emergency department with worsening shortness of breath, chest pain, fever that does not improve with Tylenol or ibuprofen, persistent vomiting, or any other concerning symptoms. You should follow-up with your primary care provider. Prescriptions: New Paxlovid 300 mg (150 mg x 2)-100 mg tablets,dose pack See Rx Instructions .ROUTE .COMPLEX Qty: 30 0RF Rx Instructions: take TWO 150 mg tablets of nirmatrelvir with ONE 100 mg tablet of ritonavir twice daily for 5 days ondansetron 4 mg tablet,disintegrating 4 mg PO Q8H PRN (Reason: nausea and vomiting) Qty: 10 0RF No Action metoprolol succinate 100 mg tablet extended release 24 hr 100 mg PO DAILY 90 Days Qty: 90 3RF rosuvastatin [Crestor] 10 mg tablet 10 mg PO DAILY Qty: 90 3RF ezetimibe 10 mg tablet 10 mg PO DAILY Qty: 90 3RF pantoprazole 40 mg tablet,delayed release (DR/EC) 40 mg PO DAILY Qty: 90 0RF cholecalciferol (vitamin D3) [Vitamin D3] 50 mcg (2,000 unit) Tablet 50 mcg PO DAILY folic acid 1 mg Tablet 1 mg PO DAILY Qty: 89 4RF coQ10 (ubiquinol) 100 mg Capsule 200 mg PO DAILY aspirin [Adult Aspirin Regimen] 81 mg tablet,delayed release (DR/EC) 81 mg PO DAILY Print Language: Telugu
[2024-10-27 14:18] LABS: Resp Syncy Virus RNA Qual PCR NEGATIVE (Negative); SARS COV2 PCR INHOUSE POSITIVE (Negative)
--- OUTSIDE RECORDS SUMMARY | 2024-10-27 16:02 | XMS_ITS | Patient Health Record ---
Author Organization [facility] Address [address] [place] [address] Care Team Providers [facility] Wellness Coordinator Name Role Phone Elizabeth Walters MDh Primary Care Provider William Harris Jr Allergies No Known Allergies Reason For Referral [...] Problem Status W/U Status Risk Notes Problem 525352873 Colon cancer screening (Z12.11) Active confirmed Problem Personal history of colonic polyps (Z86.010) Active confirmed Problem 58640351 Encounter for ot her preprocedural examination (Z01.818) Active confirmed Problem 246933736 Gastroesophageal reflux disease without esophagitis (K21.9) Active confirmed Problem 433939179 Family history o f colon cancer (Z80.0) Active confirmed Problem 139441721 Long-term use of aspirin therapy (Z79.82) Active confirmed Plan Of Treatment Future Test Test Name Order Date UPPER GI ENDOSCOPY 12/22/2011 COLONOSCOPY 12/22/2011 COLONOSCOPY 04/12/2017 COLONOSCOPY 09/04/2018 COLONOSCOPY 09/03/2023 Insurance Providers Payer Name Payer Address Payer Phone Subscriber Number Group Number Insured Name Patient Relationship to Insured Coverage Start Date Coverage End Date MEDICARE OF [place] [address] [place] [address] [id number] DAYSI LOPEZ Self - patient is the insured [employer] ATT[employer] CLAIMS [address] [place] [address] [id number] DAYSI LOPEZ Self - patient is the insured Medical (General) History Medical History History ICD Code colonoscopy 10/04, normal, five-year foll owup Hyperlipidemia coronary artery disease with history of ID, and bypass 2014 splenectomy gastroesophageal reflux disease, EGD 201 2, no BE or H&P Autoimmune hemolytic anemia/CLL Lacunar infarct Hypertension Pulmonary nodules Vitamin D deficiency Surgical History Surgery Date(Month/Year) dental extractions splenectomy CABG X 3 Pacemaker placement for complete heart b lock
[2024-10-27 16:05] VITALS: BP 116/55; PULSE 85; RESP 16; TEMP 37.2; O2SAT 95
== END 2024-10-27 16:05 | disposition home or self-care (01) ==
LOC: HO.ED 16:00
PROVIDERS: Registered Nurse Emergency; Emergency Provider Emergency Medicine
DX: U07.1 COVID-19 (principal); I48.0 Paroxysmal atrial fibrillation; Z95.0 Presence of cardiac pacemaker; Z79.899 Other long term (current) drug therapy
CPT/HCPCS: 87637; 99282; 99283

== ENCOUNTER 2024-10-27 20:44 | Emergency (ER) | payer MEDICARE, SELFPAY ==
--- NOTE | ~2024-10-27 | CT_ITS ---
CLINICAL HISTORY: covid exclude focal infiltrate CT chest without contrast Comparison: CR - XR CHEST 1V - 10/27/24 23:[address]/SR - CT ANGIO CHEST PE PROTOCOL - 05/08/24 00:05 EST Findings: Left subclavian pacemaker with leads in the right atrium and right ventricle. Normal heart size. Atrophic thyroid gland. Small hiatal hernia. Mild scattered peripheral ground-glass opacities and interlobular septal thickening. No consolidation, pleural effusion or pneumothorax. Aortic and coronary atherosclerosis. No aneurysm. Degenerative changes of the spine. Median sternotomy. IMPRESSION: Mild scattered peripheral ground-glass opacities and interlobular septal thickening. No consolidation. This document has been electronically signed by: Mary Dawn MD on 10/28/2024 02:00:19
--- NOTE | ~2024-10-27 | CT_ITS ---
CLINICAL HISTORY: severe mid low back pain, atraumatic CT lumbar spine without contrast Comparison: CR/SR - XR LUMBAR SPINE 2-3 VIEWS - 09/05/24 13:[address] - CT ABDOMEN PELVIS W CON - 10/11/20 06:03 EDT Findings: Normal vertebral body alignment. Superior endplate compression fracture of L4 with 1 mm retropulsion, new when compared to 08/2024. Chronic inferior endplate compression fracture of L1. Mild multilevel degenerative changes. Aortic atherosclerosis. No aneurysm. IMPRESSION: Superior endplate compression fracture of L4 with 1 mm retropulsion, new when compared to 08/2024. This document has been electronically signed by: Mary Dawn MD on 10/28/2024 01:57:05
--- NOTE | ~2024-10-27 | XR_ITS ---
CLINICAL HISTORY: covid, fever, cough 1 view chest x-ray Comparison: CT/SR - CT ANGIO CHEST PE PROTOCOL - 05/08/24 00:05 EST CR - XR CHEST 2V - 05/07/24 21:39 EST Findings: Interstitial prominence and bibasilar ground-glass opacities likely related to viral infection. Retrocardiac opacity may be atelectasis or pneumonia. No large effusion or pneumothorax. Normal heart size. Left subclavian pacemaker with leads in the right atrium and right ventricle. No acute fracture. IMPRESSION: 1. Interstitial prominence and bibasilar ground-glass opacities, likely representing viral infection. 2. Retrocardiac opacity, may represent atelectasis or pneumonia. This document has been electronically signed by: Mary Dawn MD on 10/28/2024 00:47:26
[2024-10-27 21:22] VITALS: BP 118/60; BP 131/61; PULSE 102; PULSE 104; RESP 22; TEMP 38.7; O2SAT 93; O2SAT 96; BMI 27.4
[2024-10-27 22:29] LABS: Hematocrit 39.4 % (42.0-52.0); Hemoglobin 14.2 g/dl (14.0-18.0); Imm Gran Abs Auto 0.10 X10*3/uL (0.00-0.03); Imm Gran Pct Auto 0.8 % (0.0-0.4); Lymphocytes Absolute Auto 3.5 X10*3/uL (1.2-4.9); MANUAL DIFF FLAG SCAN; Mean Corpuscular HGB Conc 36.0 g/dl (31.0-36.0); Mean Corpuscular Hemoglobin 34.4 pg (27.0-33.0); Mean Corpuscular Volume 95.4 fL (80.0-98.0); NRBC Abs Auto 0.040 X10*3/uL (0.0-0.012); NRBC Pct Auto 0.3 /100WBC (0.0-0.2); Platelet Count 333 X10*3/uL (160-400); Red Blood Count 4.13 X10*6/uL (4.60-5.80); SCAN SMEAR FLAG 1; White Blood Count 12.7 X10*3/uL (4.8-10.8)
[2024-10-27 22:43] LABS: Anion Gap 14 (12-20); Blood Urea Nitrogen 18 mg/dL (9-16); Calcium 9.5 mg/dL (8.4-10.2); Carbon Dioxide 25 mmol/L (22-29); Chloride 101 mmol/L (96-108); Creatinine Clr Calc Pharmacy 54.1; Estimated Glomerular Filt Rate > 60; Magnesium 1.7 mg/dL (1.6-2.6); Potassium 4.2 mmol/L (3.3-5.1); Sodium 136 mmol/L (135-145)
--- NOTE | 2024-10-27 22:53 | ED.GENADULT ---
HPI - General Adult General Chief complaint: General Medical Stated complaint: +COVID, worsening symptoms Time Seen by Provider: 10/27/24 21:54 History of Present Illness ED Provider: Dustin Simpson MD HPI narrative: 74 male returns back to the ER after being discharged with diagnosis of COVID. Now felt unable to get out of bed. Also complain of low back pain without injury or fall. Denies incontinence or focal weakness or sensory changes is sick at home can help him out of bed. pmh: CLL, paroxysmal afib, HTN, autoimmune hemolytic anemia, CAD, pacemaker, GERD, s/p CABG presenting with complaint of body aches, fatigue/weakness, chills Related Data Home Medications ?Medication ?Instructions ?Recorded ?Confirmed aspirin 81 mg tablet,delayed 81 mg PO DAILY 01/11/20 10/23/24 release (Adult Aspirin Regimen) cholecalciferol (vitamin D3) 50 50 mcg PO DAILY 08/31/20 10/23/24 mcg (2,000 unit) tablet (Vitamin D3) coQ10 (ubiquinol) 100 mg capsule 200 mg PO DAILY 12/01/20 10/23/24 Previous Rx's ?Medication ?Instructions ?Recorded folic acid 1 mg tablet 1 mg PO DAILY #89 tabs 08/06/23 metoprolol succinate 100 mg 100 mg PO DAILY 90 days #90 tabs 06/15/24 tablet,extended release 24 hr rosuvastatin 10 mg tablet (Crestor) 10 mg PO DAILY #90 tabs 07/08/24 ezetimibe 10 mg tablet 10 mg PO DAILY #90 tabs 10/02/24 pantoprazole 40 mg tablet,delayed 40 mg PO DAILY #90 tabs 10/13/24 release nirmatrelvir 300 mg (150 mg See Rx Instructions PO .COMPLEX 10/27/24 x2)-ritonavir 100 mg tablet,dose #30 ea pack (Paxlovid) ondansetron 4 mg disintegrating 4 mg PO Q8H PRN nausea and 10/27/24 tablet vomiting #10 tabs acetaminophen 325 mg tablet 650 mg (2 x 325 mg) PO Q6H PRN 10/28/24 (Tylenol) fever or pain #60 tabs lidocaine 5 % topical patch 1 patch topical DAILY #30 ea 10/28/24 Allergies Allergy/AdvReac Type Severity Reaction Status Date / Time clopidogrel AdvReac Intermediate Diarrhea Verified 10/27/24 21:29 atorvastatin (ATORVASTATIN) AdvReac Mild MUSCLE Verified 10/27/24 21:29 PAIN ALL OVER [facility] Past Medical History Medical History Chronic lymphocytic leukemia Benign essential hypertension Acute lacunar infarction Pulmonary nodules Autoimmune hemolytic anemia HTN (hypertension) Benign microscopic hematuria Overweight (BMI 25.0-29.9) Vitamin D deficiency History of autoimmune hemolytic anemia GERD (gastroesophageal reflux disease) Pure hypercholesterolemia Cardiac pacemaker Complete heart block CAD (coronary artery disease) Surgical History History of laparoscopic cholecystectomy S/P CABG (coronary artery bypass graft) History of permanent cardiac pacemaker placement History of splenectomy History of colonoscopy Family History Family History Father Tuberculosis Mother No problems noted. Brother Colon cancer Brother Schizophrenia Lung disease Family/Other FH: mental illness Brother Alcoholism Other Mental health problem Social History Social History Household Members: Spouse Housing: House Are you a primary rn transitional care to a significant other at home: No Do you presently have visiting nurse or other home services: No Alcohol intake: never Comment: iv d/robert Patient Tobacco Use Status: Never used Tobacco Smoked in Last 30 Days: No e-Cigarette/Vaping Use: Never Used Second Hand Smoke Exposure: Yes Use of substances other than those prescribed or required for medical reasons: No Advance Directives: No Advance Directives Information Provided: No service: No Current occupational status: retired Cognitive needs: No Hearing needs: No Vision needs: No Physical Exam ED Exam Exam: EXAM: Gen: Alert, awake, well appearing, well hydrated. Head: Atraumatic Eyes: Anicteric, Normal conjunctiva. ENT: Moist mucosa, no pallor. ? Neck: Supple. Skin: ?No observable rash or bruising on exposed or examined skin Respiratory: Breathing comfortably, No distress.Clear to auscultation bilaterally, symmetric chest expansion, No wheeze, rales, ronchi. Cardiovascular: Regular rate and rhythm. No murmurs or rub. Well perfused periphery, warm extremities. No edema. ? Abdominal: No focal tenderness. Soft, no objective distension. No palpable masses or obvious organomegaly. ?No guarding, no rebound tenderness or other peritoneal findings. : No flank tenderness. Neuro: Alert. Gross movement of all extremities intact. ? Psych: Calm. Cooperative. MSK: No grossly visible deformity. No focal midline back tenderness. No bruising. Vital signs: See flowsheet Vital Signs: Vital Signs - 24 hr 10/27/24 21:22 10/27/24 23:30 10/28/24 00:00 Temperature 101.6 F H 100.3 F 98.7 F Pulse Rate 102 H 99 90 Respiratory Rate 22 H 20 18 Blood Pressure 131/61 120/67 120/60 Pulse Oximetry 96 95 97 Oxygen Delivery Method Room Air Room Air Room Air BMI result Body Mass Index 27.4 Course Course Course Narrative: Time: 08:41 Date: 10/28/24 Provider: Gifty Rizvi DO Patient in physician observation for case management needs. No acute events reported overnight.? No current issues or complaints. VS stable. Patient is PT/CM eval. Will continue to monitor. Reevaluation(s) Reevaluation #1: Time: : Date: 10/28/24 Provider: Gifty Rizvi DO Physician observation ended at 12pm. Patient has been cleared for discharge by the PT/CM with VNA services. Medications Administered Discontinued Medications Generic Name Dose Route Start Last Admin Trade Name Freq PRN Reason Stop Dose Admin Acetaminophen 975 mg 10/27/24 23:27 10/28/24 01:44 Acetaminophen 325 Mg Tablet PO 10/27/24 23:28 975 mg ONCE ONE Administration Sodium Chloride 1,000 mls @ 999 mls/hr 10/27/24 22:00 10/27/24 23:25 Ns IV 10/27/24 23:00 Infused .Q1H1M LINSEY Infusion Medical Decision Making Medical Decision Making MDM Narrative: Medical Decision Makin-YEAR-OLD MALE WITH MULTIPLE COMORBID MEDICAL CONDITIONS DIAGNOSED WITH COVID EARLIER. NO HYPOXIA OR RESPIRATORY DISTRESS SENT HOME BUT RETURNS DUE TO GENERALIZED WEAKNESS AND FATIGUE LIKELY SECONDARY TO VIRAL SYNDROME, DECONDITIONING. NO HYPOXIA HERE. LOW-GRADE FEVER. WE WILL CONTINUE WITH ANTIPYRETICS HE WAS PROVIDED PAXLOVID. MAY NEED ACUTE REHAB Plan for chest x-ray. Chest x-ray reveals viral pattern possible retrocardiac opacity. CT chest and lumbar PT case management consult Preliminary Favored Differential Diagnosis: Low back strain, compression fracture, DECONDITIONING, GENERALIZED WEAKNESS, VIRAL SYNDROME among additional considered etiologies Testing Interpreted Independently: Not Applicable Radiology or Lab testing Results Reviewed: Not Applicable Consults: Not Applicable Independent Historians/External Chart Reviews: Not Applicable Social Determinants of Health Impacting MDM/Planning: Not Applicable Lab Data MDM Lab Attestation statement: I reviewed the patient's lab results. 10/27/24 22:19 10/27/24 22:19 Labs: Lab Results 10/27/24 Range/Units 22:19 WBC 12.7 H (4.8-10.8) X10*3/uL RBC 4.13 L (4.60-5.80) X10*6/uL Hgb 14.2 (14.0-18.0) g/dl Hct 39.4 L (42.0-52.0) % MCV 95.4 (80.0-98.0) fL MCH 34.4 H (27.0-33.0) pg MCHC 36.0 (31.0-36.0) g/dl RDW 16.9 H (11.0-16.0) % Plt Count 333 (160-400) X10*3/uL MPV 9.5 (9.4-12.4) fL Immature Gran % (Auto) 0.8 H (0.0-0.4) % Neut % (Auto) 46.2 (45-73) % Lymph % (Auto) 27.6 (20-40) % Ellis % (Auto) 24.6 H (2-11) % Eos % (Auto) 0.3 (0-4) % Baso % (Auto) 0.5 (0-2) % Lymph # (Auto) 3.5 (1.2-4.9) X10*3/uL Ellis # (Auto) 3.1 H (0.1-1.2) X10*3/uL Eos # (Auto) 0.0 (0.0-0.4) X10*3/uL Baso # (Auto) 0.1 (0.0-0.2) X10*3/uL Abs Immat Gran (auto) 0.10 H (0.00-0.03) X10*3/uL Absolute Neuts (auto) 5.9 (2.0-8.3) x10*3/uL Absolute Nucleated RBC 0.040 H (0.0-0.012) X10*3/uL Nucleated RBC % (auto) 0.3 H (0.0-0.2) /100WBC Smear Tech's Comments VERIFIED Sodium 136 (135-145) mmol/L Potassium 4.2 (3.3-5.1) mmol/L Chloride 101 (96-108) mmol/L Carbon Dioxide 25 (22-29) mmol/L Anion Gap 14 (12-20) BUN 18 H (9-16) mg/dL Creatinine 1.14 (0.5-1.4) mg/dL Estim Creat Clear Calc 54.1 Estimated GFR > 60 Random Glucose 96 (60-115) mg/dL Calcium 9.5 (8.4-10.2) mg/dL Magnesium 1.7 (1.6-2.6) mg/dL Discharge Plan Discharge Clinical Impression: COVID-19, Compression fracture of fourth lumbar vertebra Patient Disposition: Home, Self-Care Instructions: Vertebral Compression Fracture (ED), COVID-19 (Coronavirus Disease 2019) (ED) Additional Instructions: disposition HOME WITH HOME [facility] return for any worsening symptoms such as difficulty breathing, unable to eat or drink, chest pain or any other concerns take tylenol as needed for pain, use lidocaine patches return for numbness, weakness, loss of control of bowel or bladder IMPRESSION: Superior endplate compression fracture of L4 with 1 mm retropulsion, new when compared to 08/2024 Prescriptions: New lidocaine 5 % adhesive patch,medicated 1 patch topical DAILY Qty: 30 0RF Rx Instructions: leave on most painful area for up to 12 hrs acetaminophen [Tylenol] 325 mg tablet 650 mg PO Q6H PRN (Reason: fever or pain) Qty: 60 0RF Rx Instructions: no more than 4,000mg in 24 hours No Action metoprolol succinate 100 mg tablet extended release 24 hr 100 mg PO DAILY 90 Days Qty: 90 3RF rosuvastatin [Crestor] 10 mg tablet 10 mg PO DAILY Qty: 90 3RF ezetimibe 10 mg tablet 10 mg PO DAILY Qty: 90 3RF pantoprazole 40 mg tablet,delayed release (DR/EC) 40 mg PO DAILY Qty: 90 0RF cholecalciferol (vitamin D3) [Vitamin D3] 50 mcg (2,000 unit) Tablet 50 mcg PO DAILY folic acid 1 mg Tablet 1 mg PO DAILY Qty: 89 4RF coQ10 (ubiquinol) 100 mg Capsule 200 mg PO DAILY Paxlovid 300 mg (150 mg x 2)-100 mg tablets,dose pack See Rx Instructions .ROUTE .COMPLEX Qty: 30 0RF Rx Instructions: take TWO 150 mg tablets of nirmatrelvir with ONE 100 mg tablet of ritonavir twice daily for 5 days ondansetron 4 mg tablet,disintegrating 4 mg PO Q8H PRN (Reason: nausea and vomiting) Qty: 10 0RF aspirin [Adult Aspirin Regimen] 81 mg tablet,delayed release (DR/EC) 81 mg PO DAILY Referrals: Reed PRASAD [Outside] Print Language: [place] Rican
[2024-10-27 23:30] VITALS: BP 120/67; PULSE 99; RESP 20; TEMP 37.9; O2SAT 95
[2024-10-28] VITALS: BP 120/60; PULSE 90; RESP 18; TEMP 37.1; O2SAT 97
--- NOTE | 2024-10-28 07:17 | PC.NURSE ---
Medical History Acute lacunar infarction Autoimmune hemolytic anemia Benign essential hypertension Benign microscopic hematuria CAD (coronary artery disease) Cardiac pacemaker Chronic lymphocytic leukemia Complete heart block GERD (gastroesophageal reflux disease) History of autoimmune hemolytic anemia HTN (hypertension) Overweight (BMI 25.0-29.9) Pulmonary nodules Pure hypercholesterolemia Vitamin D deficiency
--- NOTE | 2024-10-28 08:14 | PC.NURSE ---
PT eval completed
[2024-10-28 14:00] VITALS: BP 139/60; PULSE 79; RESP 18; TEMP 36.4; O2SAT 96
[2024-10-28 15:41] VITALS: BP 139/60; PULSE 79; RESP 18; TEMP 36.4; O2SAT 96
== END 2024-10-28 15:42 | disposition home or self-care (01) ==
PROVIDERS: Emergency Provider Emergency Medicine; PCP Internal Medicine
DX: U07.1 COVID-19 (principal); B34.9 Viral infection, unspecified; R53.83 Other fatigue; M54.9 Dorsalgia, unspecified; R53.1 Weakness; Z79.899 Other long term (current) drug therapy; Z95.0 Presence of cardiac pacemaker
CPT/HCPCS: 36415; 71045; 71250; 72131; 80048; 83735; 85025; 96360; 97161; 99284

== ENCOUNTER → 2024-10-27 23:29 | Outpatient (BNV) | payer MEDICARE, SELFPAY | PROVIDERS: Emergency Provider Emergency Medicine; Visit Provider Radiology Diagnostic Radiology | DX: R05.9 Cough, unspecified (principal) | CPT/HCPCS: 71045 ==

== ENCOUNTER → 2024-10-28 00:55 | Outpatient (BNV) | payer MEDICARE, SELFPAY | PROVIDERS: Emergency Provider Emergency Medicine; Visit Provider Radiology Diagnostic Radiology | DX: J84.89 Other specified interstitial pulmonary diseases (principal); S32.040A Wedge compression fracture of fourth lumbar vertebra, initial encounter for closed fracture | CPT/HCPCS: 71250; 72131 ==

== ENCOUNTER 2024-12-22 09:34 | Outpatient (REF) | payer MEDICARE, SELFPAY ==
--- OUTSIDE RECORDS SUMMARY | 2023-09-25 08:20 | XMS_ITS ---
Author Organization [facility] Address [address] [place] [address] Care Team Providers Care Flight Attendant/Inflight Manager Name Role Phone Romeo RAHMAN, Emile Primary Care Provider William Harris Jr [phone] REASON FOR VISIT screening Problems Problem Type SNOMED Code ICD Code Onset Dates Problem Status W/U Status Risk Notes Problem History of polyp of colon (situation) (498959923) Personal history of colonic polyps (Z86.010) Active confirmed Encounters Encounter Location Date Provider Diagnosis [facility] [place] [address] [place] [phone] 09/25/2023 William Slade Jr Encounter for screening colonoscopy Z12.11 and Personal history of colonic polyps Z86.010 Assessments Encounter Date Diagnosis (ICD Code) Assessment Notes Treatment Notes Treatment Clinical Notes Section Notes 09/25/2023 Encounter for screening colonoscopy (ICD-10 - Z12.11) 09/25/2023 Personal history of colonic polyps (ICD-10 - Z86.010) Plan Of Treatment No Information Progress Notes * LOPEZTANIA NORMANOB: 0 (74 yo M)Acc No.[id number]:09/25/2023 COLON WITH MAC Patient: DAYSI HSU Provider: Anderia Slade MD :1950 A ge:72 Y S ex:Male Date:09/25/2023 Address:[address] [id number] Pcp:Emile Walters MD Subjective: * Chief Complaints: [...] 09/25/2023 Generated for Kota brumfield/Anabela/Koffi on: 1 10:56 AM EDT
--- NOTE | ~2024-12-22 | MM_ITS ---
EXAMINATION: DXA BONE DENSITY AXIAL HISTORY: Evaluate for osteoporosis TECHNIQUE: ChallengePost Dual energy absorptiometry (DEXA) of the lumbar spine, total left hip, and femoral neck was performed. COMPARISON: There are no prior studies for comparison. FINDINGS: The bone mineral density of the lumbar spine is 1.145 g/cm2, corresponding to a T-score of -0.6, and a Z-score of -0.1. This is indicative of normal bone mineral density. The bone mineral density of the left total hip is 0.858 g/cm2, corresponding to a T-score of -1.7, and a Z-score of -0.9. This is indicative of osteopenia. The bone mineral density of the left femoral neck is 0.748 g/cm2, corresponding to a T-score of -2.5, and a Z-score of -1.2. This is indicative of osteoporosis. MM/XR DEXA axial skeleton IMPRESSION: Based on bone mineral density, and according to World Health Organization (WHO) criteria, the diagnosis is consistent with osteoporosis. Statistically, 68% of repeat scans fall within 1 SD (+/- 0.010 g/cm2 for AP spine L1-L4) and 1 SD (+/- 0.012 g/cm2 for femur total) FRAX is a trademark of the [employer]'s [place] for Metabolic Bone Disease, a World Health Organization (WHO) Collaborating Center. Electronically signed by: Tim iPnzon MD 12/22/2024 10:35 AM EDT
--- OUTSIDE RECORDS SUMMARY | 2024-12-22 10:56 | XMS_ITS | Patient Health Record ---
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 Name Role Phone Elizabeth Walters MDh Primary [...] Problem Status W/U Status Risk Notes Problem 857882358 Colon cancer screening (Z12.11) Active confirmed Problem History of polyp of colon (situation) (963046059) Personal history of colonic polyps (Z86.010) Active confirmed Problem 88972605 Encounter for ot her preprocedural examination (Z01.818) Active confirmed Problem 579006486 Gastroesophageal reflux disease without esophagitis (K21.9) Active confirmed Problem 717321035 Family history o f colon cancer (Z80.0) Active confirmed Problem 110202233 Long-term use of aspirin therapy (Z79.82) Active confirmed Plan Of Treatment Future Test Test Name Order Date UPPER GI ENDOSCOPY 12/22/2011 COLONOSCOPY 12/22/2011 COLONOSCOPY 04/12/2017 COLONOSCOPY 09/04/2018 COLONOSCOPY 09/03/2023 Insurance Providers Payer Name Payer Address Payer Phone Subscriber Number Group Number Insured Name Patient Relationship to Insured Coverage Start Date Coverage End Date MED[place]ARE OF [place] [address] [place] [address] [id number] DAYSI LOPEZ Self - patient is the insured MED[employer] ATTN CLAIMS [address] [place] [address] [id number] DAYSI LOPEZ Self - patient is the insured Medical (General) History Medical History History ICD Code colonoscopy 10/04, normal, five-year foll owup Hyperlipidemia coronary artery disease with history of [place], and bypass 2014 splenectomy gastroesophageal reflux disease, EGD 201 2, no BE or H&P Autoimmune hemolytic anemia/CLL Lacunar infarct Hypertension Pulmonary nodules Vitamin D deficiency Surgical History Surgery Date(Month/Year) dental extractions splenectomy CABG X 3 Pacemaker placement for complete heart b lock
== END 2024-12-22 09:35 | disposition home or self-care (01) ==
LOC: HO.MAMMO 09:34
PROVIDERS: PCP Internal Medicine; Visit Provider Nurse Practitioner Family
DX: Z13.820 Encounter for screening for osteoporosis (principal); M48.56XA Collapsed vertebra, not elsewhere classified, lumbar region, initial encounter for fracture; Z79.52 Long term (current) use of systemic steroids
CPT/HCPCS: 77080

== ENCOUNTER → 2024-12-22 10:00 | Outpatient (BNV) | payer MEDICARE, SELFPAY | PROVIDERS: PCP Internal Medicine; Visit Provider Radiology Diagnostic Radiology | DX: Z13.820 Encounter for screening for osteoporosis (principal) | CPT/HCPCS: 77080 ==

== ENCOUNTER 2025-01-07 07:42 | Outpatient (AMB) | payer MEDICARE, SELFPAY ==
--- OUTSIDE RECORDS SUMMARY | 2023-09-25 08:20 | XMS_ITS ---
Author Organization [facility] Address [address] [place] [address] Care Team Providers Care Technical Operations Specialist Name Role Phone Romeo RAHMAN, Emile Primary Care Provider William Harris Jr REASON FOR VISIT screening Problems Problem Type SNOMED Code ICD Code Onset Dates Problem Status W/U Status Risk Notes Problem History of polyp of colon (situation) (394571559) Personal history of colonic polyps (Z86.010) Active confirmed Encounters Encounter Location Date Provider Diagnosis [facility] [place] [address] [place] [phone] 09/25/2023 William Slade Jr Encounter for screening colonoscopy Z12.11 and Personal history of colonic polyps Z86.010 Assessments Encounter Date Diagnosis (ICD Code) Assessment Notes Treatment Notes Treatment Clinical Notes Section Notes 09/25/2023 Encounter for screening colonoscopy (ICD-10 - Z12.11) 09/25/2023 Personal history of colonic polyps (ICD-10 - Z86.010) Plan Of Treatment No Information Progress Notes * LOPEZTANIA NORMANOB: 0 (74 yo M)Acc No.[id number]:09/25/2023 COLON WITH MAC Patient: DAYSI HSU Provider: Andreia Slade MD :1950 A ge:72 Y S ex:Male Date:09/25/2023 Address:[address] [id number] Pcp:Emile Walters MD Subjective: * Chief Complaints: [...] 0 09/25/2023 Generated for Kota brumfield/Anabela/Koffi on: 07:45 AM EDT
--- OUTSIDE RECORDS SUMMARY | 2025-01-07 07:45 | XMS_ITS | Patient Health Record ---
Author Organization [facility] Address [address] [place] [address] Care Team Providers Care Industrial Design Intern Name Role Phone Elizabeth Walters MDh Primary Care Provider William Harris Jr Allergies No Known Allergies Reason For Referral No Information Medications Medication SIG (Take, Route, Frequency, Duration) Notes Start Date End Date Status predniSONE 20 MG 1 tablet Orally Once a day; Duration: 30 day(s) twice a day Active Folic Acid 1 MG 1 tablet Orally Once a day; Duration: 30 day(s) Active Ezetimibe 10 MG 1 tablet Orally Once a day; Duration: 30 day(s) Active MiraLax (colon prep) 17 GM/SCOOP mixed with Gatorade or Crystal Light Orally begin at 5:00 p.m. the day before the procedure; Duration: 1 day 09/03/2023 Active Aspirin 81 MG [...] Problem Status W/U Status Risk Notes Problem Colon cancer screening (953464666) Colon cancer screening (Z12.11) Active confirmed Problem History of polyp of colon (situation) (485456145) Personal history of colonic polyps (Z86.010) Active confirmed Problem Pre-procedure evaluation check (011402660) Encounter for other preprocedural examination (Z01.818) Active confirmed Problem Gastroesophageal reflux disease without esophagitis (548617671) Gastroesophageal reflux disease without esophagitis (K21.9) Active confirmed Problem Family History of Cancer of Colon (Situation) (091137310) Family history of colon cancer (Z80.0) Active confirmed Problem Long-term current use of antiplatelet drug (441251948852596) Long-term use of aspirin therapy (Z79.82) Active confirmed Plan Of Treatment Future Test Test Name Order Date UPPER GI ENDOSCOPY 12/22/2011 COLONOSCOPY 12/22/2011 COLONOSCOPY 04/12/2017 COLONOSCOPY 09/04/2018 COLONOSCOPY 09/03/2023 Insurance Providers Payer Name Payer Address Payer Phone Subscriber Number Group Number Insured Name Patient Relationship to Insured Coverage Start Date Coverage End Date MED[place]ARE OF [place] [address] [place] [address] [id number] DAYSI LOPEZ Self - patient is the insured MED[employer] ATTN CLAIMS [address] [place] [address] [id number] DAYSI LOPEZ Self - patient is the insured Medical (General) History Medical History History ICD Code colonoscopy 10/04, normal, five-year foll owup Hyperlipidemia coronary artery disease with history of [place], and bypass 2014 splenectomy gastroesophageal reflux disease, EGD 201 2, no BE or H&P Autoimmune hemolytic anemia/CLL Lacunar infarct Hypertension Pulmonary nodules Vitamin D deficiency Surgical History Surgery Date(Month/Year) dental extractions splenectomy CABG X 3 Pacemaker placement for complete heart b lock
--- NOTE | 2025-01-07 07:58 | A.OFFVIS_ITS ---
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: No Accompanied by: Self / Same As Patient Allergies clopidogrel Adverse Reaction (Intermediate, Verified 12/25/24 08:15) Diarrhea atorvastatin (ATORVASTATIN) Adverse Reaction (Mild, Verified 12/25/24 08:15) MUSCLE PAIN ALL OVER Medication List - Last Reconciled 01/07/25 by Yeset Lucas Dejesus MD acetaminophen (Tylenol) 650 mg (2 x 325 mg) PO Q6H PRN aspirin (Adult Aspirin Regimen) 81 mg PO DAILY calcium carbonate-vitamin D3 600 mg-10 mcg (400 unit) (Calcium 600 with Vitamin D3) 1 tab PO BID coQ10 (ubiquinol) 200 mg PO DAILY folic acid 1 mg PO DAILY lidocaine 5% 1 patch topical DAILY metoprolol succinate ER 100 mg PO DAILY 90 days pantoprazole 40 mg PO DAILY prednisone 10 mg PO DAILY rosuvastatin (Crestor) 20 mg PO DAILY HPI Comments Details: 74 years old with past medical history of vitamin-D deficiency, CLL with long- term prednisone use, paroxysmal atrial fibrillation, CISCO, hypertension, pulmonary nodules, CAD, hemolytic anemia, refer to endocrinology for management of osteoporosis. He reports long-term use of steroids is noted, with recent dosages being 7.5 to 10 mg, adjusted based on red blood cell levels. The patient reports almost continuous steroid use in the last year. He denies personal history of bone fractures, was told that he had a lumbar spine fracture when he was admitted for [facility] on September 2024. At that time he was initially presenting with back pain and muscle pain, but does symptoms are currently resolved. He reports family history of osteoporosis in the mother, but no history of fractures. He denies any history of calcium problems or kidney stones He denies any family history of calcium problems insulin He does not take any other medications that could be related to osteoporosis Alcohol limited to social occasions. The patient does not smoke. He takes calcium carbonate 600 mg/vitamin-D 400 IU twice daily, he started this 2 weeks ago He reports drinking 1 gal of milk weekly, he also eats cheese at least 3 servings a week, he does not eat a significant amount of green leafy vegetables Dental history includes full dentures since age 44 due to significant dental damage. ROS: General: Denies unintentional weight loss, fever, or fatigue. Musculoskeletal: Denies bone pain, joint pain, muscle weakness, or history of fractures. Endocrine: Denies heat or cold intolerance, polyuria, or polydipsia. Gastrointestinal: Denies malabsorption symptoms, chronic diarrhea, or abdominal pain. Neurological: Denies numbness, tingling, or gait disturbances. Genitourinary: Denies history of kidney stones or hematuria. Physical exam General: Well appearing. NAD. Neck/Thyroid: Thyroid not palpable, no nodules. CV: RRR, no murmur. No edema. Resp:Lungs clear to auscultation bilaterally Abdomen: Soft, nontender. nondistended Extremities/Neuro: No weakness or tremor of outstretched hands MSK: No pain to palpation of spinous processes Labs Laboratory Tests 12/25/24 01/01/25 08:08 08:32 WBC 10.8 Hgb 14.7 Sodium 141 Potassium 4.6 BUN 25 H Creatinine 1.07 Estim Creat Clear Calc 63.0 Estimated GFR > 60 Total Bilirubin 4.6 H AST 42 H ALT 25 Alkaline Phosphatase 86 Lactate Dehydrogenase 348 H Albumin 4.2 25-OH Vitamin D Total 41.8 Imaging DEXA scan 12/22/2024 FINDINGS: The bone mineral density of the lumbar spine is 1.145 g/cm2, corresponding to a T-score of -0.6, and a Z-score of -0.1. This is indicative of normal bone mineral density. The bone mineral density of the left total hip is 0.858 g/cm2, corresponding to a T-score of -1.7, and a Z-score of -0.9. This is indicative of osteopenia. The bone mineral density of the left femoral neck is 0.748 g/cm2, corresponding to a T-score of -2.5, and a Z-score of -1.2. This is indicative of osteoporosis. IMPRESSION: Based on bone mineral density, and according to World Health Organization (WHO) criteria, the diagnosis is consistent with osteoporosis. CT lumbar spine 10/28/24 Findings: Normal vertebral body alignment. Superior endplate compression fracture of L4 with 1 mm retropulsion, new when compared to 08/2024. Chronic inferior endplate compression fracture of L1. Mild multilevel degenerative changes. Aortic atherosclerosis. No aneurysm. IMPRESSION: Superior endplate compression fracture of L4 with 1 mm retropulsion, new when compared to 08/2024. [facility] Medical History Chronic lymphocytic leukemia Benign essential hypertension Acute lacunar infarction Pulmonary nodules Autoimmune hemolytic anemia HTN (hypertension) Benign microscopic hematuria Overweight (BMI 25.0-29.9) Vitamin D deficiency History of autoimmune hemolytic anemia GERD (gastroesophageal reflux disease) Pure hypercholesterolemia Cardiac pacemaker Complete heart block CAD (coronary artery disease) Surgical History History of laparoscopic cholecystectomy S/P CABG (coronary artery bypass graft) History of permanent cardiac pacemaker placement History of splenectomy History of colonoscopy Family History Father Tuberculosis Mother No problems noted. Brother Colon cancer Brother Schizophrenia Lung disease Family/Other FH: mental illness Brother Alcoholism Other Mental health problem Social History Household Members: Spouse Housing: House Are you a primary care provider to a significant other at home: No Do you presently have visiting nurse or other home services: No Alcohol intake: never Comment: iv d/robert Patient Tobacco Use Status: Never used Tobacco e-Cigarette/Vaping Use: Never Used Second Hand Smoke Exposure: Yes service: No Current occupational status: retired Cognitive needs: No Hearing needs: No Vision needs: No Physical Exam Vital Signs: Last Vital Signs Pulse 79 01/07/25 07:59 BP 104/58 L 01/07/25 07:59 Pulse Ox 98 01/07/25 07:59 Oxygen Delivery Method Room Air 01/07/25 07:59 BMI result Body Mass Index 28.1 Assessment & Plan Assessment & Plan (1) Osteoporosis: Code(s): M81.0 - Age-related osteoporosis without current pathological fracture Category: Medical Plan Patient has osteoporosis likely in the setting of chronic steroid use for CLL. His bone density scan shows a T-score of -2.5 in the left femoral neck, which is consistent with osteoporosis, but he also meets criteria for osteoporosis given lumbar spine fracture without significant trauma. Differential diagnosis in this patient include age-related osteoporosis, hyperparathyroidism, hypothyroidism. Vitamin-D deficiency and CKD seem less likely as patient has normal levels of vitamin-D and normal creatinine. We discussed in general the pathophysiology of osteoporosis, it is a for incision phone osteopenia and normal bone density. We discussed the rationale for treatment of osteoporosis and general and especially in patients with steroid induced osteoporosis as well as treatment alternatives. We will order labs to rule out secondary osteoporosis: PTH, 24 hours urine calcium, TSH, BMP Advised the patient to continue taking vitamin-D and calcium supplement Advised the patient in regards to physical activity, especially weight-bearing exercises Discussed fall prevention Instructions for a 24 hours urine collection we will provided to the patient in writing Orders: Orders Parathyroid Hormone Intact Today M81.0 - Age-related osteoporosis without current pathological fracture Thyroid Stimulating Hormone Today M81.0 - Age-related osteoporosis without current pathological fracture Basic Metabolic Panel Today M81.0 - Age-related osteoporosis without current pathological fracture Creatinine, 24 Hr Group Today M81.0 - Age-related osteoporosis without current pathological fracture Calcium, 24 Hr Ur Today M81.0 - Age-related osteoporosis without current pathological fracture Patient Instructions: Please have blood/urine work up done at [facility] on [address] [place] [address] 24-Hour Urine Calcium Collection Instructions Purpose: This test measures the amount of calcium excreted in your urine over a 24-hour period. It helps evaluate calcium metabolism and diagnose certain conditions. Supplies Needed: 24-hour urine collection container (provided by the lab or clinic) Urine hat or collection device (optional, for easier collection) Written instructions (this sheet) Instructions: Start the Collection: Choose a day when you can be at home or have easy access to a bathroom. Upon waking up on the first day, urinate and discard this first morning urine. Do not collect this sample. Note the exact time?this is your start time. Collect All Urine: For the next 24 hours, collect all urine you pass into the provided container. Each time you urinate, collect it in a clean container and transfer it to the 24-hour collection jug. Store the collection container in a cool place, preferably in a refrigerator or on ice, during the collection period. Finish the Collection: Exactly 24 hours after your start time, urinate one last time and add this urine to the container. This completes the collection. After Collection: Ensure the lid is tightly closed. Label the container with your name, date, and start/end times. Return the container to the laboratory or your physician?s office as soon as possible after completion. Important Tips: Do not miss any urine during the 24-hour period. If you do, the test may need to be repeated. Do not allow toilet paper, stool, or other materials to get into the urine sample. Continue your usual diet unless instructed otherwise. Some tests may require you to avoid certain foods or medications?follow any additional instructions provided by your physician. Coding Level of Care Code New Pt Level 5 (07757) Diagnoses Osteoporosis M81.0 Time Spent (min) 60 Comment Time spent reviewing previous records, labs, imaging, provider notes; and education
[2025-01-07 07:59] VITALS: BP 104/58; PULSE 79; O2SAT 98; BMI 28.1
== END 2025-01-07 08:33 | disposition home or self-care (01) ==
PROVIDERS: PCP Internal Medicine; Visit Provider Student in an Organized Health Care Education/Training Program
DX: M81.0 Age-related osteoporosis without current pathological fracture (principal)
CPT/HCPCS: 99205

== ENCOUNTER → 2025-01-07 07:42 | Outpatient (BNVA) | payer MEDICARE, SELFPAY | PROVIDERS: PCP Internal Medicine; Visit Provider Student in an Organized Health Care Education/Training Program | DX: M81.0 Age-related osteoporosis without current pathological fracture (principal) | CPT/HCPCS: 99202 ==

== ENCOUNTER 2025-01-12 10:04 | Outpatient (REF) | payer MEDICARE, SELFPAY ==
--- OUTSIDE RECORDS SUMMARY | 2023-09-25 08:20 | XMS_ITS ---
Author Organization [facility] Address [address] [place] [address] Care Team Providers Care Corrections Specialist Name Role Phone Romeo RAHMAN, Emile Primary Care Provider William Harris Jr [phone] REASON FOR VISIT screening Problems Problem Type SNOMED Code ICD Code Onset Dates Problem Status W/U Status Risk Notes Problem History of polyp of colon (situation) (101833966) Personal history of colonic polyps (Z86.010) Active confirmed Encounters Encounter Location Date Provider Diagnosis [facility] [place] [address] [place] [phone] 09/25/2023 William Slade Jr Encounter for screening colonoscopy Z12.11 and Personal history of colonic polyps Z86.010 Assessments Encounter Date Diagnosis (ICD Code) Assessment Notes Treatment Notes Treatment Clinical Notes Section Notes 09/25/2023 Encounter for screening colonoscopy (ICD-10 - Z12.11) 09/25/2023 Personal history of colonic polyps (ICD-10 - Z86.010) Plan Of Treatment No Information Progress Notes * LOPEZTANIA NORMANOB: 0 (74 yo M)Acc No.[id number]:09/25/2023 COLON WITH MAC Patient: DAYSI HSU Provider: Andreia Slade MD :1950 A ge:72 Y S ex:Male Date:09/25/2023 Address:[address] [id number] Pcp:Emile Walters MD Subjective: * Chief Complaints: [...] 0 09/25/2023 Generated for Kota brumfield/Anabela/Koffi on: 1 11:59 AM EDT
[2025-01-12 11:09] LABS: Parathyroid Hormone Intact 92.4 pg/mL (8.7-77.1)
[2025-01-12 11:19] LABS: Anion Gap 12 (12-20); Blood Urea Nitrogen 22 mg/dL (9-16); Calcium 9.4 mg/dL (8.4-10.2); Carbon Dioxide 28 mmol/L (22-29); Chloride 105 mmol/L (96-108); Estimated Glomerular Filt Rate > 60; Potassium 4.8 mmol/L (3.3-5.1); Sodium 140 mmol/L (135-145); Thyroid Stimulating Hormone 1.87 uIU/mL (0.32-4.0)
--- OUTSIDE RECORDS SUMMARY | 2025-01-12 11:59 | XMS_ITS | Patient Health Record ---
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 Operator Name Role Phone Elizabeth Walters MDh Primary Care Provider William Harris Jr [phone] Allergies No Known Allergies Reason For [...] Status Risk Notes Problem Colon cancer screening (017843439) Colon cancer screening (Z12.11) Active confirmed Problem History of polyp of colon (situation) (555781834) Personal history of colonic polyps (Z86.010) Active confirmed Problem Pre-procedure evaluation check (902412605) Encounter for other preprocedural examination (Z01.818) Active confirmed Problem Gastroesophageal reflux disease without esophagitis (189387677) Gastroesophageal reflux disease without esophagitis (K21.9) Active confirmed Problem Family History of Cancer of Colon (Situation) (063892425) Family history of colon cancer (Z80.0) Active confirmed Problem Long-term current use of antiplatelet drug (580543861139813) Long-term use of aspirin therapy (Z79.82) Active confirmed Plan Of Treatment Future Test Test Name Order Date UPPER GI ENDOSCOPY 12/22/2011 COLONOSCOPY 12/22/2011 COLONOSCOPY 04/12/2017 COLONOSCOPY 09/04/2018 COLONOSCOPY 09/03/2023 Insurance Providers Payer Name Payer Address Payer Phone Subscriber Number Group Number Insured Name Patient Relationship to Insured Coverage Start Date Coverage End Date [place]ARE OF [place] [address] [place] [address] [id number] DAYSI LOPEZ Self - patient is the insured MEDEX ATTN CLAIMS [address] [place] [address] [id number] DAYSI LOPEZ Self - patient is the insured Medical (General) History Medical History History ICD Code colonoscopy 10/04, normal, five-year foll owup Hyperlipidemia coronary artery disease with history of [place], and bypass 2014 splenectomy gastroesophageal reflux disease, EGD 201 2, no BE or H&P Autoimmune hemolytic anemia/CLL Lacunar infarct Hypertension Pulmonary nodules Vitamin D deficiency Surgical History Surgery Date(Month/Year) dental extractions splenectomy CABG X 3 Pacemaker placement for complete heart b lock
== END 2025-01-12 10:05 | disposition home or self-care (01) ==
LOC: HO.LAB 10:04
PROVIDERS: PCP Internal Medicine; Visit Provider Student in an Organized Health Care Education/Training Program
DX: M81.0 Age-related osteoporosis without current pathological fracture (principal); Z13.29 Encounter for screening for other suspected endocrine disorder
CPT/HCPCS: 36415; 80048; 83970; 84443

== ENCOUNTER 2025-01-14 12:31 | Outpatient (REF) | payer MEDICARE, SELFPAY ==
--- OUTSIDE RECORDS SUMMARY | 2023-09-25 08:20 | XMS_ITS ---
Author Organization [facility] Address [address] [place] [address] Care Team Providers Care Flight Operations Specialist Name Role Phone Romeo RAHMAN, Emile Primary Care Provider William Harris Jr REASON FOR VISIT screening Problems Problem Type SNOMED Code ICD Code Onset Dates Problem Status W/U Status Risk Notes Problem History of polyp of colon (situation) (656300750) Personal history of colonic polyps (Z86.010) Active confirmed Encounters Encounter Location Date Provider Diagnosis [facility] [place] [address] [place] [phone] 09/25/2023 William Slade Jr Encounter for screening colonoscopy Z12.11 and Personal history of colonic polyps Z86.010 Assessments Encounter Date Diagnosis (ICD Code) Assessment Notes Treatment Notes Treatment Clinical Notes Section Notes 09/25/2023 Encounter for screening colonoscopy (ICD-10 - Z12.11) 09/25/2023 Personal history of colonic polyps (ICD-10 - Z86.010) Plan Of Treatment No Information Progress Notes * LOPEZTANIA NORMANOB: 0 (74 yo M)Acc No.[id number]:09/25/2023 COLON WITH MAC Patient: DAYSI HSU Provider: Andreia Slade MD :1950 A ge:72 Y S ex:Male Date:09/25/2023 Address:[address] [id number] Pcp:Emile Walters MD Subjective: * Chief Complaints: [...] 0 09/25/2023 Generated for Kota brumfield/Anabela/Koffi on: 03:49 PM EDT
[2025-01-14 14:06] LABS: Creatinine, mg/dL 28.78
[2025-01-14 14:18] LABS: Total Volume 24 Hour Urine 3040 mL
--- OUTSIDE RECORDS SUMMARY | 2025-01-14 15:50 | XMS_ITS | Patient Health Record ---
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 Name Role Phone Elizabeth Walters MDh Primary Care Provider William Harris Jr [phone] Allergies No Known Allergies Reason For Referral [...] Status Risk Notes Problem Colon cancer screening (088028107) Colon cancer screening (Z12.11) Active confirmed Problem History of polyp of colon (situation) (214105523) Personal history of colonic polyps (Z86.010) Active confirmed Problem Pre-procedure evaluation check (056619986) Encounter for other preprocedural examination (Z01.818) Active confirmed Problem Gastroesophageal reflux disease without esophagitis (439441023) Gastroesophageal reflux disease without esophagitis (K21.9) Active confirmed Problem Family History of Cancer of Colon (Situation) (532499032) Family history of colon cancer (Z80.0) Active confirmed Problem Long-term current use of antiplatelet drug (251649585400060) Long-term use of aspirin therapy (Z79.82) Active confirmed Plan Of Treatment Future Test Test Name Order Date UPPER GI ENDOSCOPY 12/22/2011 COLONOSCOPY 12/22/2011 COLONOSCOPY 04/12/2017 COLONOSCOPY 09/04/2018 COLONOSCOPY 09/03/2023 Insurance Providers Payer Name Payer Address Payer Phone Subscriber Number Group Number Insured Name Patient Relationship to Insured Coverage Start Date Coverage End Date [place]ARE OF [place] [address] [place] [address] [id number] DAYSI LOPEZ Self - patient is the insured MEDEX ATTN CLAIMS [address] [place] [address] [id number] DAYSI LOPEZ Self - patient is the [...]
[2025-01-16 17:18] LABS: Calcium/Creatinine Ratio 58 mg/g creat (30-210); Creatinine 24Hr Urine 0.94 g/24 h (0.50-2.15)
== END 2025-01-14 12:32 | disposition home or self-care (01) ==
LOC: HO.LNP 12:31
PROVIDERS: Visit Provider Student in an Organized Health Care Education/Training Program
DX: M81.0 Age-related osteoporosis without current pathological fracture (principal)
CPT/HCPCS: 82340; 82570

== ENCOUNTER → 2025-01-14 23:59 | Outpatient (BNV) | payer MEDICARE, SELFPAY ==
--- NOTE | 2025-01-21 12:30 | MHC.OFFVIS ---
Intake Visit Reasons: Remote device check- [facility] Allergies clopidogrel Adverse Reaction (Intermediate, Verified 01/21/25 09:32) Diarrhea atorvastatin (ATORVASTATIN) Adverse Reaction (Mild, Verified 01/21/25 09:32) MUSCLE PAIN ALL OVER PFSH Medical History Chronic lymphocytic leukemia Benign essential hypertension Acute lacunar infarction Pulmonary nodules Autoimmune hemolytic anemia HTN (hypertension) Benign microscopic hematuria Overweight (BMI 25.0-29.9) Vitamin D deficiency History of autoimmune hemolytic anemia GERD (gastroesophageal reflux disease) Pure hypercholesterolemia Cardiac pacemaker Complete heart block CAD (coronary artery disease) Surgical History History of laparoscopic cholecystectomy S/P CABG (coronary artery bypass graft) History of permanent cardiac pacemaker placement History of splenectomy History of colonoscopy Family History Father Tuberculosis Mother No problems noted. Brother Colon cancer Brother Schizophrenia Lung disease Family/Other FH: mental illness Brother Alcoholism Other Mental health problem Social History Household Members: Spouse Housing: House Are you a primary nurse healthcare manager to a significant other at home: No Do you presently have visiting nurse or other home services: No Alcohol intake: never Comment: iv d/robert Patient Tobacco Use Status: Never used Tobacco e-Cigarette/Vaping Use: Never Used Second Hand Smoke Exposure: Yes service: No Current occupational status: retired Cognitive needs: No Hearing needs: No Vision needs: No Office Procedures Cardiac Device Check Cardiac Device Check Details: Remote pacemaker report generated 01/14/2025. Pacemaker function is adequate [id number] Cardiac Device Interrogation, pacemaker Procedure code (CPT) selection complete Assessment & Plan Assessment & Plan (1) Cardiac pacemaker: Code(s): Z95.0 - Presence of cardiac pacemaker Category: Medical Plan: See above Coding Level of Care Code Procedure Only Diagnoses Cardiac pacemaker Z95.0 CPT Codes Cardiac Device Check - Cardiac Device 12: [id number] Cardiac Device Interrogation, pacemaker ([id number])
== END ==
PROVIDERS: PCP Internal Medicine; Visit Provider Internal Medicine Cardiovascular Disease
DX: Z45.018 Encounter for adjustment and management of other part of cardiac pacemaker (principal)
CPT/HCPCS: 93294

== ENCOUNTER 2025-01-21 09:18 | Outpatient (AMB) | payer MEDICARE, SELFPAY ==
--- OUTSIDE RECORDS SUMMARY | 2023-09-25 07:20 | XMS_ITS ---
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 Name Role Phone Romeo RAHMAN, Emile Primary Care Provider William Harris Jr REASON FOR VISIT screening Problems Problem Type SNOMED Code ICD Code Onset Dates Problem Status W/U Status Risk Notes Problem History of polyp of colon (situation) (438348279) Personal history of colonic polyps (Z86.010) Active confirmed Encounters Encounter Location Date Provider Diagnosis [facility] Outpatient [address] [place] [address] [phone] 09/25/2023 William Slade Jr Encounter for screening colonoscopy Z12.11 and Personal history of colonic polyps Z86.010 Assessments Encounter Date Diagnosis (ICD Code) Assessment Notes Treatment Notes Treatment Clinical Notes Section Notes 09/25/2023 Encounter for screening colonoscopy (ICD-10 - Z12.11) 09/25/2023 Personal history of colonic polyps (ICD-10 - Z86.010) Plan Of Treatment No Information Progress Notes * LOPEZTANIA NORMANOB: 0 (74 yo M)Acc No.[id number]:09/25/2023 COLON WITH MAC Patient: DAYSI HSU Provider: Andreia Slade MD :[id number] A ge:72 Y S ex:Male Date:09/25/2023 Address:[address] [id number] Pcp:Emile Walters MD Subjective: * Chief Complaints: * 1 . Screening. * Medical History: Objective: * Vitals: Assessment: * Assessment: 1. E ncounter for screening colonoscopy - Z12.11 (Primary) 2 . P ersonal history of colonic polyps - Z86.010 Plan: * Treatment: * Procedure Codes: 4 5378 DIAGNOSTIC COLONOSCOPY, G0105 COLOREC CANCR SCR; COLNSCPY HI RISK, 0529F INTRVL 3+YRS PTS CLNSCP DOCD, 0528F RCMND FLW-UP 10 YRS DOCD * * The named appointment provid er may or may not be the originator of this progress note, and it is not deemed complete until electronically signed by the appointment provider. Sign off status: Pending * Provider: Andreia Slade MD Date: 0 09/25/2023 Generated for Kota brumfield/Anabela/Koffi on: 03/23/2024 10:12 AM EST
--- NOTE | 2025-01-21 09:30 | A.OFFVIS_ITS ---
Vital Signs 01/21/25 09:31 Height 5 ft 8 in Weight 186 lb 13.848 oz BMI 28.4 BP 118/62 Blood Pressure Location Rt brachial Position Sitting Pulse 83 Pulse Source Pulse Oximeter Pulse Oximetry (%) 97 Oxygen Delivery Method Room Air Intake Visit Reasons: osteoporosis Intake Note: Patient presents today for follow-up on osteoporosis. Patient reports completing the ordered laboratory tests as instructed. No new complaints or concerns reported at this time. Client Account Assistant Required: No Accompanied by: Self / Same As Patient Allergies clopidogrel Adverse Reaction (Intermediate, Verified 01/21/25 09:32) Diarrhea atorvastatin (ATORVASTATIN) Adverse Reaction (Mild, Verified 01/21/25 09:32) MUSCLE PAIN ALL OVER HPI Comments Details: 74 years old with past medical history of vitamin-D deficiency, CLL with long- term prednisone use, paroxysmal atrial fibrillation, CISCO, hypertension, pulmonary nodules, CAD, hemolytic anemia, refer to endocrinology for management of osteoporosis. He reports long-term use of steroids is noted, with recent dosages being 7.5 to 10 mg, adjusted based on red blood cell levels. The patient reports almost continuous steroid use in the last year. He denies personal history of bone fractures, was told that he had a lumbar spine fracture when he was admitted for [facility] on September 2024. At that time he was initially presenting with back pain and muscle pain, but does symptoms are currently resolved. He reports family history of osteoporosis in the mother, but no history of fractures. He denies any history of calcium problems or kidney stones He denies any family history of calcium problems insulin He does not take any other medications that could be related to osteoporosis Alcohol limited to social occasions. The patient does not smoke. He takes calcium carbonate 600 mg/vitamin-D 400 IU twice daily, he started this 2 weeks ago He reports drinking 1 gal of milk weekly, he also eats cheese at least 3 servings a week, he does not eat a significant amount of green leafy vegetables Dental history includes full dentures since age 44 due to significant dental damage. ROS: General: Denies unintentional weight loss, fever, or fatigue. Musculoskeletal: Denies bone pain, joint pain, muscle weakness, or history of fractures. Endocrine: Denies heat or cold intolerance, polyuria, or polydipsia. Gastrointestinal: Denies malabsorption symptoms, chronic diarrhea, or abdominal pain. Neurological: Denies numbness, tingling, or gait disturbances. Genitourinary: Denies history of kidney stones or hematuria. Physical exam General: Well appearing. NAD. Neck/Thyroid: Thyroid not palpable, no nodules. CV: RRR, no murmur. No edema. Resp:Lungs clear to auscultation bilaterally Abdomen: Soft, nontender. nondistended Extremities/Neuro: No weakness or tremor of outstretched hands MSK: No pain to palpation of spinous processes Interval history: No falls or fractures Takes Vitamin D and calcium combined 600mg calcium and Vit D 400 IU BID Labs Laboratory Tests 12/25/24 01/01/25 08:08 08:32 WBC 10.8 Hgb 14.7 Sodium 141 Potassium 4.6 BUN 25 H Creatinine 1.07 Estim Creat Clear Calc 63.0 Estimated GFR > 60 Total Bilirubin 4.6 H AST 42 H ALT 25 Alkaline Phosphatase 86 Lactate Dehydrogenase 348 H Albumin 4.2 25-OH Vitamin D Total 41.8 Imaging DEXA scan 12/22/2024 FINDINGS: The bone mineral density of the lumbar spine is 1.145 g/cm2, corresponding to a T-score of -0.6, and a Z-score of -0.1. This is indicative of normal bone mineral density. The bone mineral density of the left total hip is 0.858 g/cm2, corresponding to a T-score of -1.7, and a Z-score of -0.9. This is indicative of osteopenia. The bone mineral density of the left femoral neck is 0.748 g/cm2, corresponding to a T-score of -2.5, and a Z-score of -1.2. This is indicative of osteoporosis. IMPRESSION: Based on bone mineral density, and according to World Health Organization (WHO) criteria, the diagnosis is consistent with osteoporosis. CT lumbar spine 10/28/24 Findings: Normal vertebral body alignment. Superior endplate compression fracture of L4 with 1 mm retropulsion, new when compared to 08/2024. Chronic inferior endplate compression fracture of L1. Mild multilevel degenerative changes. Aortic atherosclerosis. No aneurysm. IMPRESSION: Superior endplate compression fracture of L4 with 1 mm retropulsion, new when compared to 08/2024. [facility] Medical History Chronic lymphocytic leukemia Benign essential hypertension Acute lacunar infarction Pulmonary nodules Autoimmune hemolytic anemia HTN (hypertension) Benign microscopic hematuria Overweight (BMI 25.0-29.9) Vitamin D deficiency History of autoimmune hemolytic anemia GERD (gastroesophageal reflux disease) Pure hypercholesterolemia Cardiac pacemaker Complete heart block CAD (coronary artery disease) Surgical History History of laparoscopic cholecystectomy S/P CABG (coronary artery bypass graft) History of permanent cardiac pacemaker placement History of splenectomy History of colonoscopy Family History Father Tuberculosis Mother No problems noted. Brother Colon cancer Brother Schizophrenia Lung disease Family/Other FH: mental illness Brother Alcoholism Other Mental health problem Social History Household Members: Spouse Housing: House Are you a primary field care coordinator to a significant other at home: No Do you presently have visiting nurse or other home services: No Alcohol intake: never Comment: iv d/robert Patient Tobacco Use Status: Never used Tobacco e-Cigarette/Vaping Use: Never Used Second Hand Smoke Exposure: Yes service: No Current occupational status: retired Cognitive needs: No Hearing needs: No Vision needs: No Physical Exam Vital Signs: Last Vital Signs Pulse 83 01/21/25 09:31 BP 118/62 01/21/25 09:31 Pulse Ox 97 01/21/25 09:31 Oxygen Delivery Method Room Air 01/21/25 09:31 BMI result Body Mass Index 28.4 Assessment & Plan Assessment & Plan (1) Osteoporosis: Code(s): M81.0 - Age-related osteoporosis without current pathological fracture Category: Medical Qualifiers: Osteoporosis type: age-related Presence of current pathological fracture: without current pathological fracture Qualified Code(s): M81.0 - Age- related osteoporosis without current pathological fracture Plan Patient has osteoporosis likely in the setting of chronic steroid use for CLL. His bone density scan shows a T-score of -2.5 in the left femoral neck, which is consistent with osteoporosis, but he also meets criteria for osteoporosis given lumbar spine fracture without significant trauma. Differential diagnosis in this patient include age-related osteoporosis, hyperparathyroidism, hypothyroidism. Vitamin-D deficiency and CKD seem less likely as patient has normal levels of vitamin-D and normal creatinine. Labs results from last visit showed low creatinine in 24 hours urine collection and elevated PTH with normal calcium. Possibly a lab error. Will repeat labs in a different location. Plan We discussed in general the pathophysiology of osteoporosis, it is a for incision phone osteopenia and normal bone density. We discussed the rationale for treatment of osteoporosis and general and especially in patients with steroid induced osteoporosis as well as treatment alternatives. We will reorder labs to rule out secondary osteoporosis: PTH, 24 hours urine calcium, TSH, BMP Advised the patient to continue taking vitamin-D and calcium supplement Advised the patient in regards to physical activity, especially weight-bearing exercises Discussed fall prevention Instructions for a 24 hours urine collection we will provided to the patient in writing Orders: Orders Calcium, 24 Hr Ur Today M81.0 - Age-related osteoporosis without current pathological fracture Creatinine, 24 Hr Group Today M81.0 - Age-related osteoporosis without current pathological fracture Comprehensive Met. Panel Today M81.0 - Age-related osteoporosis without current pathological fracture Phosphorus Today M81.0 - Age-related osteoporosis without current pathological fracture Parathyroid Hormone Intact Today M81.0 - Age-related osteoporosis without current pathological fracture Vitamin D 25-OH Total Today M81.0 - Age-related osteoporosis without current pathological fracture Patient Instructions: Por favor, hagase los examenes de laboratorio en la direccion: [address] [place] [id number] Instrucciones para la Recolecci?n de Calcio en Orina de 24 Horas Prop?sito: Esta prueba mide la cantidad de calcio excretado en la orina will un per?odo de 24 horas. Ayuda a evaluar el metabolismo del calcio y a diagnosticar ciertas condiciones. Materiales Necesarios: * Recipiente para recolecci?n de orina de 24 horas (proporcionado por el laboratorio o la cl?estefani) * Dispositivo para recolectar orina (opcional, para facilitar la recolecci?n) * Instrucciones escritas (esta hoja) Instrucciones: Inicio de la Recolecci?n: * Elija un d?a en el que pueda estar en casa o tenga f?cil acceso a un ba?o. * Al despertarse el primer d?a, orine y deseche esta primera orina de la ma?justus. No la recoja. Anote la hora exacta; esta ser? sol hora de inicio. Recolecci?n de Toda la Orina: * Will las siguientes 24 horas, recolecte toda la orina que elimine en el recipiente proporcionado. * Cada vez que orine, h?nasreen en un recipiente limpio y luego transfi?ralo al recipiente de recolecci?n de 24 horas. * Mantenga el recipiente de recolecci?n en un lugar fresco, preferiblemente en el refrigerador o sobre hielo, will el per?odo de recolecci?n. Finalizaci?n de la Recolecci?n: * Exactamente 24 horas despu?s de la hora de inicio, orine por ?ltima vez y agregue esta orina al recipiente. [place] completa la recolecci?n. Despu?s de la Recolecci?n: * Aseg?rese de que la tapa est? linda cerrada. * Etiquete el recipiente con sol nombre, la fecha y las horas de inicio y finalizaci?n. * Devuelva el recipiente al laboratorio o al consultorio de sol m?dico lo antes posible despu?s de completar la recolecci?n. Consejos Importantes: * No omita ninguna micci?n will el per?odo de 24 horas. Si lo hace, es posible que deba repetir la prueba. * No permita que papel higi?jennifer, heces u otros materiales entren en la muestra de orina. * Contin?e con sol dieta habitual, a menos que se le indique lo contrario. * Algunas pruebas pueden requerir que evite ciertos alimentos o medicamentos; siga cualquier instrucci?n adicional proporcionada por sol m?dico. Coding Level of Care Code Est Pt Level 3 (05815) Diagnoses Age-related osteoporosis without current pathological fracture M81.0 Osteoporosis type: age-related Presence of current pathological fracture: without current pathological fracture
[2025-01-21 09:31] VITALS: BP 118/62; PULSE 83; O2SAT 97; BMI 28.4
--- OUTSIDE RECORDS SUMMARY | 2025-01-21 10:12 | XMS_ITS | Patient Health Record ---
Author Organization [facility] Address [address] [place] [address] Care Team Providers Care Drum Cleaner Name Role Phone Elizabeth Walters MDh Primary [...] Status Risk Notes Problem Colon cancer screening (985202892) Colon cancer screening (Z12.11) Active confirmed Problem History of polyp of colon (situation) (349282048) Personal history of colonic polyps (Z86.010) Active confirmed Problem Pre-procedure evaluation check (746792182) Encounter for other preprocedural examination (Z01.818) Active confirmed Problem Gastroesophageal reflux disease without esophagitis (098735897) Gastroesophageal reflux disease without esophagitis (K21.9) Active confirmed Problem Family History of Cancer of Colon (Situation) (453560207) Family history of colon cancer (Z80.0) Active confirmed Problem Long-term current use of antiplatelet drug (669867428508306) Long-term use of aspirin therapy (Z79.82) Active confirmed Plan Of Treatment Future Test Test Name Order Date UPPER GI ENDOSCOPY 12/22/2011 COLONOSCOPY 12/22/2011 COLONOSCOPY 04/12/2017 COLONOSCOPY 09/04/2018 COLONOSCOPY 09/03/2023 Insurance Providers Payer Name Payer Address Payer Phone Subscriber Number Group Number Insured Name Patient Relationship to Insured Coverage Start Date Coverage End Date MEDICARE OF [place] [address] [place] [address] [id number] DAYSI LOPEZ Self - patient is the insured [employer] ATT[employer] CLAIMS [address] [place] [address] [id number] DAYSI LOPEZ Self - patient is the insured Medical (General) History Medical History History ICD Code colonoscopy 10/04, normal, five-year foll owup Hyperlipidemia coronary artery disease with history of [place], and bypass 2014 splenectomy gastroesophageal reflux disease, EGD 201 2, no BE or H&P Autoimmune hemolytic anemia/CLL Lacunar infarct Hypertension Pulmonary nodules Vitamin D deficiency Surgical History Surgery Date(Month/Year) dental extractions splenectomy CABG X 3 Pacemaker placement for complete heart b lock
== END 2025-01-21 10:05 | disposition home or self-care (01) ==
LOC: HO.ENCR 09:19
PROVIDERS: PCP Internal Medicine; Visit Provider Student in an Organized Health Care Education/Training Program
DX: M81.0 Age-related osteoporosis without current pathological fracture (principal)
CPT/HCPCS: 99213

== ENCOUNTER → 2025-01-21 09:18 | Outpatient (BNVA) | payer MEDICARE, SELFPAY | PROVIDERS: PCP Internal Medicine; Visit Provider Student in an Organized Health Care Education/Training Program | DX: M81.0 Age-related osteoporosis without current pathological fracture (principal); Z79.52 Long term (current) use of systemic steroids; Z85.6 Personal history of leukemia; Z95.0 Presence of cardiac pacemaker; Z95.5 Presence of coronary angioplasty implant and graft; M85.88 Other specified disorders of bone density and structure, other site; E21.3 Hyperparathyroidism, unspecified; E03.9 Hypothyroidism, unspecified | CPT/HCPCS: 99212 ==

== ENCOUNTER 2025-02-21 09:18 | Outpatient (REF) | payer MEDICARE, SELFPAY ==
[2025-02-21 10:29] LABS: Appearance Urine Cloudy; Glucose Urine UA Negative (Negative); PH 6.0 (5.0-9.0); Specific Gravity - Urine 1.020 (1.005-1.025); UMIC TRIGGER UACC YES
== END 2025-02-21 09:19 | disposition home or self-care (01) ==
LOC: HO.LAB 09:18
PROVIDERS: PCP Internal Medicine
DX: R30.0 Dysuria (principal)
CPT/HCPCS: 81001

== ENCOUNTER 2025-02-27 08:12 | Outpatient (AMB) | payer MEDICARE, SELFPAY ==
--- NOTE | 2025-02-27 08:24 | A.OFFVIS_ITS ---
Vital Signs 3 02/27/25 08:26 Height 5 ft 8 in Weight 185 lb 3.013 oz BMI 28.2 BP 114/60 Blood Pressure Location Rt brachial Position Sitting Pulse 80 Pulse Source Pulse Oximeter Pulse Oximetry (%) 98 Oxygen Delivery Method Room Air Intake Visit Reasons: osteoporosis Intake Note: Patient presents here today for follow-up on Osteoporosis, patient reports completing the ordered laboratory tests as instructed. * Calcium, 24 Hr Ur, Creatinine, 24 Hr Group, Comprehensive Met. Panel, Phosphorus, Parathyroid Hormone Intact, Vitamin D 25-OH Total: Labs completed on 02/11/2025 at [facility] Coord[facility] Required: No Accompanied by: Self / Same As Patient Allergies clopidogrel Adverse Reaction (Intermediate, Verified 02/27/25 08:25) Diarrhea atorvastatin (ATORVASTATIN) Adverse Reaction (Mild, Verified 02/27/25 08:25) MUSCLE PAIN ALL OVER HPI Comments Details: 74 years old with past medical history of vitamin-D deficiency, CLL with long- term prednisone use, paroxysmal atrial fibrillation, CISCO, hypertension, pulmonary nodules, CAD, hemolytic anemia, refer to endocrinology for management of osteoporosis. He reports long-term use of steroids is noted, with recent dosages being 7.5 to 10 mg, adjusted based on red blood cell levels. The patient reports almost continuous steroid use in the last year. He denies personal history of bone fractures, was told that he had a lumbar spine fracture when he was admitted for [facility] on September 2024. At that time he was initially presenting with back pain and muscle pain, but does symptoms are currently resolved. He reports family history of osteoporosis in the mother, but no history of fractures. He denies any history of calcium problems or kidney stones He denies any family history of calcium problems insulin He does not take any other medications that could be related to osteoporosis Alcohol limited to social occasions. The patient does not smoke. He takes calcium carbonate 600 mg/vitamin-D 400 IU twice daily, he started this 2 weeks ago He reports drinking 1 gal of milk weekly, he also eats cheese at least 3 servings a week, he does not eat a significant amount of green leafy vegetables Dental history includes full dentures since age 44 due to significant dental damage. ROS: General: Denies unintentional weight loss, fever, or fatigue. Musculoskeletal: Denies bone pain, joint pain, muscle weakness, or history of fractures. Endocrine: Denies heat or cold intolerance, polyuria, or polydipsia. Gastrointestinal: Denies malabsorption symptoms, chronic diarrhea, or abdominal pain. Neurological: Denies numbness, tingling, or gait disturbances. Genitourinary: Denies history of kidney stones or hematuria. Physical exam General: Well appearing. NAD. Neck/Thyroid: Thyroid not palpable, no nodules. CV: RRR, no murmur. No edema. Resp:Lungs clear to auscultation bilaterally Abdomen: Soft, nontender. nondistended Extremities/Neuro: No weakness or tremor of outstretched hands MSK: No pain to palpation of spinous processes Interval history: No falls or fractures Takes Vitamin D and calcium combined 600mg calcium and Vit D 400 IU BID Currently taking prednisone 5 mg daily No planned dental extraction of implant. Labs 01/27/25 Laboratory Tests 12/25/24 01/01/25 08:08 08:32 WBC 10.8 Hgb 14.7 Sodium 141 Potassium 4.6 BUN 25 H Creatinine 1.07 Estim Creat Clear Calc 63.0 Estimated GFR > 60 Total Bilirubin 4.6 H AST 42 H ALT 25 Alkaline Phosphatase 86 Lactate Dehydrogenase 348 H Albumin 4.2 25-OH Vitamin D Total 41.8 Imaging DEXA scan 12/22/2024 FINDINGS: The bone mineral density of the lumbar spine is 1.145 g/cm2, corresponding to a T-score of -0.6, and a Z-score of -0.1. This is indicative of normal bone mineral density. The bone mineral density of the left total hip is 0.858 g/cm2, corresponding to a T-score of -1.7, and a Z-score of -0.9. This is indicative of osteopenia. The bone mineral density of the left femoral neck is 0.748 g/cm2, corresponding to a T-score of -2.5, and a Z-score of -1.2. This is indicative of osteoporosis. IMPRESSION: Based on bone mineral density, and according to World Health Organization (WHO) criteria, the diagnosis is consistent with osteoporosis. CT lumbar spine 10/28/24 Findings: Normal vertebral body alignment. Superior endplate compression fracture of L4 with 1 mm retropulsion, new when compared to 08/2024. Chronic inferior endplate compression fracture of L1. Mild multilevel degenerative changes. Aortic atherosclerosis. No aneurysm. IMPRESSION: Superior endplate compression fracture of L4 with 1 mm retropulsion, new when compared to 08/2024. [facility] Medical History Chronic lymphocytic leukemia Benign essential hypertension Acute lacunar infarction Pulmonary nodules Autoimmune hemolytic anemia HTN (hypertension) Benign microscopic hematuria Overweight (BMI 25.0-29.9) Vitamin D deficiency History of autoimmune hemolytic anemia GERD (gastroesophageal reflux disease) Pure hypercholesterolemia Cardiac pacemaker Complete heart block CAD (coronary artery disease) Surgical History History of laparoscopic cholecystectomy S/P CABG (coronary artery bypass graft) History of permanent cardiac pacemaker placement History of splenectomy History of colonoscopy Family History Father Tuberculosis Mother No problems noted. Brother Colon cancer Brother Schizophrenia Lung disease Family/Other FH: mental illness Brother Alcoholism Other Mental health problem Social History Household Members: Spouse Housing: House Are you a primary technical healthcare consultant to a significant other at home: No Do you presently have visiting nurse or other home services: No Alcohol intake: never Comment: iv d/robert Patient Tobacco Use Status: Never used Tobacco e-Cigarette/Vaping Use: Never Used Second Hand Smoke Exposure: Yes service: No Current occupational status: retired Cognitive needs: No Hearing needs: No Vision needs: No Physical Exam Vital Signs: Last Vital Signs Pulse 80 02/27/25 08:26 BP 114/60 02/27/25 08:26 Pulse Ox 98 02/27/25 08:26 Oxygen Delivery Method Room Air 02/27/25 08:26 BMI result Body Mass Index 28.2 Assessment & Plan Assessment & Plan (1) Osteoporosis: Code(s): M81.0 - Age-related osteoporosis without current pathological fracture Category: Medical Qualifiers: Osteoporosis type: age-related Presence of current pathological fracture: without current pathological fracture Qualified Code(s): M81.0 - Age- related osteoporosis without current pathological fracture Plan Patient has osteoporosis likely in the setting of chronic steroid use for CLL. His bone density scan shows a T-score of -2.5 in the left femoral neck, which is consistent with osteoporosis, but he also meets criteria for osteoporosis given lumbar spine fracture without significant trauma. Differential diagnosis in this patient include age-related osteoporosis, hyperparathyroidism, hypothyroidism. Vitamin-D deficiency and CKD seem less likely as patient has normal levels of vitamin-D and normal creatinine. Repeated labs showed normal PTH, Ca, Cr and other labs, effectively ruling out primary hyperparathyroidism. We discussed that osteoporosis medications include bisphosphonates, denosumab, selective estrogen receptor modulators (SERMs), and anabolic agents such as teriparatide, abaloparatide, and romosozumab. Bisphosphonates are often first- line due to their proven efficacy and long-term safety, but can cause gastrointestinal irritation, rare osteonecrosis of the jaw, and atypical femoral fractures. Denosumab, administered subcutaneously every six months, avoids GI side effects and is suitable for patients with renal impairment, but carries risks of hypocalcemia, infections, and a rebound increase in fracture risk if discontinued abruptly. SERMs like raloxifene are mainly used for vertebral fracture prevention and may reduce breast cancer risk, but can worsen vasomotor symptoms and increase thromboembolic risk. Anabolic agents are reserved for patients at highest fracture risk, offering the greatest increases in bone mass, but are limited by cost, daily injections, and potential for hypercalcemia or, in the case of romosozumab, cardiovascular events. Plan We discussed in general the pathophysiology of osteoporosis, osteopenia and normal bone density. We discussed the rationale for treatment of osteoporosis and general and especially in patients with steroid induced osteoporosis as well as treatment alternatives. Start Prolia 60 mg SQ every 6 months Repeat DXA in 2 years Advised the patient in regards to physical activity, especially weight-bearing exercises Discussed fall prevention Advised the patient to call if concerns about medication side effects discussed above or if he experiences a fracture during the treatment. Follow up in 6 months Orders: Orders 2 Basic Metabolic Panel 6 Months M81.0 - Age-related osteoporosis without current pathological fracture Vitamin D 25-OH (D2 and D3) 6 Months M81.0 - Age-related osteoporosis without current pathological fracture Medications: New 2 denosumab (Prolia) 60 mg subcut [id number] 1 mL 2RF Coding Level of Care Code Est Pt Level 4 (24767) Add On Problem Visit Only Diagnoses Age-related osteoporosis without current pathological fracture M81.0 Osteoporosis type: age-related Presence of current pathological fracture: without current pathological fracture
[2025-02-27 08:26] VITALS: BP 114/60; PULSE 80; O2SAT 98; BMI 28.2
== END 2025-02-27 08:55 | disposition home or self-care (01) ==
LOC: HO.ENCR 08:13
PROVIDERS: PCP Internal Medicine; Visit Provider Student in an Organized Health Care Education/Training Program
DX: M81.0 Age-related osteoporosis without current pathological fracture (principal)
CPT/HCPCS: 99214; G2211

== ENCOUNTER → 2025-02-27 08:12 | Outpatient (BNVA) | payer MEDICARE, SELFPAY | PROVIDERS: PCP Internal Medicine; Visit Provider Student in an Organized Health Care Education/Training Program | DX: M81.0 Age-related osteoporosis without current pathological fracture (principal) | CPT/HCPCS: 96127; 99212 ==

== ENCOUNTER 2025-02-27 10:24 | Outpatient (AMB) | payer MEDICARE, SELFPAY ==
[2025-02-27 10:26] VITALS: BP 110/70; PULSE 64; O2SAT 95; BMI 28.0
--- NOTE | 2025-02-27 10:26 | A.OFFPC_ITS ---
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: No Accompanied by: Self / Same As Patient Allergies clopidogrel Adverse Reaction (Intermediate, Verified 02/27/25 10:50) Diarrhea atorvastatin (ATORVASTATIN) Adverse Reaction (Mild, Verified 02/27/25 10:50) MUSCLE PAIN ALL OVER Medication List - Last Reconciled 02/27/25 by Emile Walters MD acetaminophen (Tylenol) 650 mg (2 x 325 mg) PO Q6H PRN aspirin (Adult Aspirin Regimen) 81 mg PO DAILY calcium carbonate-vitamin D3 600 mg-10 mcg (400 unit) (Calcium 600 with Vitamin D3) 1 tab PO BID coQ10 (ubiquinol) 200 mg PO DAILY denosumab (Prolia) 60 mg subcut [id number] ezetimibe 10 mg PO DAILY folic acid 1 mg PO DAILY lidocaine 5% 1 patch topical DAILY metoprolol succinate ER 100 mg PO DAILY 90 days pantoprazole 40 mg PO DAILY prednisone 5 mg PO DAILY rosuvastatin (Crestor) 20 mg PO DAILY Tobacco use date assessed: 02/27/25 Fall risk assessment: No Falls in past year Last assessed Fall Risk: 02/27/25 Dental Screening Dental Screen Date: 02/27/25 Did you have a dental visit in the last 12 months?: No Did you have a dental problem in the last 6 months where you did not have access to dental care?: No Was dental information given to patient?: No HPI CLL/HTN/CAD HPI Details Patient comes in today for his follow up visit States that he feels okay He was just seen by endocrinology for follow up earlier this morning for his osteoporosis and was started on Prolia injections every 6 months He is also currently on Prednisone 5 mg QD for his hemolytic anemia His lab markers got worse when his Prednisone dose was tapered down below 5 mg so hematology is considering starting him again on Rituximab for steroid sparing therapy (he did well on Rituximab a couple of times over the past few years) He denies any headaches or dizziness Denies any chest pains, no shortness of breath No nausea/vomiting, no abdominal pain No change in bowel habits noted He had some follow up labs done yesterday - to discuss his results [facility] Medical History Chronic lymphocytic leukemia Benign essential hypertension Acute lacunar infarction Pulmonary nodules Autoimmune hemolytic anemia HTN (hypertension) Benign microscopic hematuria Overweight (BMI 25.0-29.9) Vitamin D deficiency History of autoimmune hemolytic anemia GERD (gastroesophageal reflux disease) Pure hypercholesterolemia Cardiac pacemaker Complete heart block CAD (coronary artery disease) Surgical History History of laparoscopic cholecystectomy S/P CABG (coronary artery bypass graft) History of permanent cardiac pacemaker placement History of splenectomy History of colonoscopy Family History Father Tuberculosis Mother No problems noted. Brother Colon cancer Brother Schizophrenia Lung disease Family/Other FH: mental illness Brother Alcoholism Other Mental health problem Social History Household Members: Spouse Housing: House Are you a primary child care nurse to a significant other at home: No Do you presently have visiting nurse or other home services: No Alcohol intake: never Comment: iv d/robert Patient Tobacco Use Status: Never used Tobacco e-Cigarette/Vaping Use: Never Used Second Hand Smoke Exposure: Yes service: No Current occupational status: retired Cognitive needs: No Hearing needs: No Vision needs: No Questionnaire PHQ-9 Over the last 2 weeks, how often have you been bothered by any of the following problems? 1. Little interest or pleasure in doing things: not at all 2. Feeling down, depressed, or hopeless: not at all 3. Trouble falling or staying asleep, or sleeping too much: not at all 4. Feeling tired or having little energy: not at all 5. Poor appetite or overeating: several days 6. Feeling bad about yourself - or that you are a failure or have let yourself or your family down: not at all 7. Trouble concentrating on things, such as reading the newspaper or watching television: not at all 8. Moving or speaking so slowly that other people could have noticed. Or the opposite - being so fidgety or restless that you have been moving around a lot more than usual: not at all 9. Thoughts that you would be better off or of hurting yourself in some way: not at all Total score: 1 Depression Screening Interpretation: Negative Depression Screening Done: Yes 23697 - PHQ-9 Billing: Yes Source: Developed by Drs. Tim Hoyos, Adelaide Yo, Tone Light and colleagues, with an educational donna from [employer]. Thrive Questionnaire Date Thrive assessed: 02/27/25 I am a: Patient What is your living situation today?: I have a steady place to live Within the past 12 months, did the food you bought not last and you didn't have the money to get more?: I choose not to answer this question Within the past 12 months, did you worry whether your food would run out before you got money to buy more?: Often true Do you have trouble paying for medicines?: No Do you have trouble getting transportation to medical appointments?: No Do you have trouble paying your heating and electricity bill?: No Do you have trouble taking care of your child, family member or friend?: No Do you have trouble with day-to-day activities such as bathing, preparing meals, shopping, managing finances, etc.?: No Are you currently unemployed and looking for a job?: No Are you interested in more education?: No Please select the resources that you would like help with: None Currently or been in a relationship where the following occur: I choose not to answer THRIVE Score: 1 AUDIT C Alcohol Use Questionnaire (AUDIT-C) 1. How often do you have a drink containing alcohol?: 2-4 times a month 2. How many drinks containing alcohol do you have on a typical day when you are drinking?: 3 or 4 3. How often do you have six or more drinks on one occasion?: Never Total Score: 3 Score Reviewed/Action Taken: Yes RYAN-7 AMB Questionnaire RYAN-7 Date RYAN - 7 assessed: 02/27/25 Feeling nervous, anxious, or on edge: 0 = Not at all Not being able to stop or control worryin = Not at all Worrying too much about different things: 0 = Not at all Trouble relaxin = Not at all Being so restless that it is hard to sit still: 0 = Not at all Becoming easily annoyed or irritable: 0 = Not at all Feeling afraid as if something awful might happen: 0 = Not at all Total RYAN-7 score (0-4 normal; 5-9 mild; 10-14 moderate; 15-21 severe): 0 Source: Developed by Drs. Tim Hoyos, Adelaide Yo, Tone Light and colleagues, with an educational donna from [employer]. Review of Systems Const Denies chills, Reports fatigue, Denies fever(s) and Denies headache(s) ENT Denies dysphagia, Denies dizziness, Denies otalgia, Denies headache(s), Denies neck pain, Denies odynophagia and Denies sore throat (had sore throat for a few days last month) Card Denies chest pain, Denies palpitations and Denies dyspnea Resp Denies chest congestion, Denies cough, Denies dyspnea and Denies wheezing GI Denies abdominal pain, Denies constipation, Denies dysphagia, Denies heartburn, Denies diarrhea, Denies nausea, Denies odynophagia and Denies vomiting Denies difficulty urinating, Denies dysuria, Denies nocturia and Denies urinary frequency Musc Denies back pain, Reports arthralgias (on and off over both knees) and Denies neck pain Skin/Breast Denies rash Neuro Denies dizziness and Denies headache(s) Endo Reports fatigue and Denies palpitations Aller/Immun Denies wheezing Physical exam (Primary Care) Vital Signs: Last Vital Signs Pulse 64 02/27/25 10:26 BP 110/70 02/27/25 10:26 Pulse Ox 95 02/27/25 10:26 Oxygen Delivery Method Room Air 02/27/25 10:26 BMI result Body Mass Index 28.0 Tobacco/Smoking Status: Tobacco use Status Tobacco use date assessed 02/27/25 02/27/25 10:31 Patient Tobacco Use Status Never used Tobacco 02/27/25 10:31 e-Cigarette/Vaping Use Never Used 02/27/25 10:31 PHQ-9: PHQ-9 Score PHQ-9: Total score 1 02/27/25 12:53 Depression Screening Interpretation: Negative Thrive Assessment: Date of Thrive Assessment Date Thrive assessed 02/27/25 02/27/25 10:31 Currently or been in a relationship where the following occur: I choose not to answer Const General: no acute distress and alert HENMT Ears: TM's normal bilaterally and EAC's normal Throat: Yes posterior oropharynx normal and Yes tonsils normal (no TP congestion) Neck Neck: Yes supple and No lymphadenopathy Thyroid: Thyroid normal Resp Auscultation: clear to auscultation bilaterally, no rales and no wheezes Cardio Rate: regular rate Rhythm: regular rhythm Heart sounds: no murmurs GI Palpation (GI): Soft to palpation and nontender Auscultation: normal bowel sounds General: Yes no CVA tenderness Back/Spine/Pelvis Back: no CVA tenderness Thoracic/Lumbar Spine: No lumbar spinal tenderness Skin Rashes: no rashes Extrem General: Yes no clubbing, cyanosis or edema Right lower extremity: knee Details: tenderness; no swelling Left lower extremity: knee Details: tenderness; no swelling Results Reviewed Results Reviewed: Laboratory Tests 02/26/25 08:53 WBC 11.2 H Hgb 12.8 L Hct 36.0 L Plt Count 414 H Sodium 140 Potassium 4.0 Creatinine 0.94 Estimated GFR > 60 Random Glucose 100 Calcium 9.0 AST 47 H ALT 25 Lactate Dehydrogenase 445 H Coding Level of Care Code Est Pt Level 4 (37005) Diagnoses Autoimmune hemolytic anemia D59.10 Chronic lymphocytic leukemia C91.10 Coronary artery disease involving [place] coronary artery of [place] heart without angina pectoris I25.10 Associated angina: without angina Coronary Disease-Associated Artery/Lesion type: [place] artery [place] vs. transplanted heart: [place] heart S/P CABG (coronary artery bypass graft) Z95.1 Complete heart block I44.2 Pure hypercholesterolemia E78.00 Benign essential hypertension I10 Acute lacunar infarction I63.81 Impaired fasting glucose R73.01 Gastroesophageal reflux disease without esophagitis K21.9 Esophagitis presence: without esophagitis Vitamin D deficiency E55.9 Pulmonary nodule R91.1 Benign microscopic hematuria R31.1 Overweight (BMI 25.0-29.9) E66.3 Additional Codes PHQ-9 - 98339 - PHQ-9 Billing: Yes ([id number]) Assessment & Plan Assessment & Plan (1) Autoimmune hemolytic anemia: Comment: S/P Tx with prednisone and splenectomy back in 2014; restarted Tx with predniso ne and started on Rituximab from 09/15/21 to 10/06/21; prednisone D/Robert on 12/09/21 Code(s): D59.10 - Autoimmune hemolytic anemia, unspecified Category: Medical Plan: His H/H is at 12.8/36.30 on his labs done yesterday He's had Tx with Rituximab at least twice in the past, from 09/15/21 through 10/06/21 and from 07/16/2023 through 08/06/2023 He has also been treated with oral Prednisone a couple of times when he's had flare ups of his hemolytic anemia He is currently back on Prednisone 5 mg QD for his hemolytic anemia His lab markers got worse when his Prednisone dose was tapered down below 5 mg so hematology is considering starting him again on Rituximab for steroid sparing therapy Follow up with hematology (Dr. Fuller) as scheduled (2) Chronic lymphocytic leukemia: Code(s): C91.10 - Chronic lymphocytic leukemia of B-cell type not having achieved remission Category: Medical Plan: Patient also has concomitant CLL and this appears stable Will continue to monitor his CBC regularly Follow up with hematology/oncology as scheduled (3) CAD (coronary artery disease): Comment: 3-vessel bypass in 2013 Code(s): I25.10 - Atherosclerotic heart disease of [place] coronary artery without angina pectoris Category: Medical Qualifiers: Associated angina: without angina Coronary Disease-Associated Artery/Lesion type: [place] artery [place] vs. transplanted heart: [place] heart Qualified Code(s): I25.10 - Atherosclerotic heart disease of [place] coronary artery without angina pectoris Plan: S/P triple vessel bypass in 2013 Myocardial perfusion study done in November 2020 came out normal; graft remained patent at the time Continue Aspirin 81 mg QD Follow up with cardiology as scheduled (4) S/P CABG (coronary artery bypass graft): Comment: Status post 3 vessel coronary artery bypass grafting, 2013 Code(s): Z95.1 - Presence of aortocoronary bypass graft Category: Surgical Plan: Repeat myocardial perfusion study in November 2020 came out normal, with patent graft Continue Aspirin 81 mg QD (needs to be on lifelong anticoagulation) and aggressive risk reduction and secondary prevention (5) Complete heart block: Comment: S/P pacemaker insertion Code(s): I44.2 - Atrioventricular block, complete Category: Medical Plan: S/P pacemaker insertion - pacer has been working properly and is being monitored remotely by cardiology Follow up with cardiology as scheduled (6) Pure hypercholesterolemia: Code(s): E78.00 - Pure hypercholesterolemia, unspecified Category: Medical Plan: Results of his labs done yesterday reviewed and discussed with patient but they did not include his cholesterol levels Reinforced low cholesterol diet Continue Ezetimibe 10 mg QD He was also on Rosuvastatin 40 mg QD in the past but appears to have stopped taking this sometime last year - he is not sure why but thinks that it may have something to do with muscle pains He was started back on Rosuvastatin by cardiology a few months ago and is now on 20 mg QD We will also have him recheck his labs and fasting lipids in 4 months for follow up (7) Benign essential hypertension: Code(s): I10 - Essential (primary) hypertension Category: Medical Plan: Reinforced low sodium diet - goal is systolic BP of at least 130 mm or less Continue Metoprolol ER 100 mg QD (8) Acute lacunar infarction: Code(s): I63.81 - Other cerebral infarction due to occlusion or stenosis of small artery Category: Medical Plan: Brain MRI done in February 2021 revealed (+) small focus of lacunar infarction in the left brainstem - patient presented to the ER then with transient diplopia, which gradually resolved and has not recurred since; no other symptoms at present Continue Aspirin 81 mg QD; he was also started on Clopidogrel 75 mg QD by neurology but he could not tolerate Rx (diarrhea) Have recommended again aggressive risk reduction to minimize/prevent recurrence - need to keep his BP and cholesterol levels controlled as tightly as possible Follow up with neurology as scheduled (9) Impaired fasting glucose: Code(s): R73.01 - Impaired fasting glucose Category: Medical Plan: His FBS was at 103 mg/dl and HgbA1c was normal and < 4.0% previously although his HgbA1c may not be accurate due to his anemia and CLL Reinforced low calorie/low carb diet, exercise as tolerated Will recheck his FBS and HgbA1c in 4 months for follow up (10) GERD (gastroesophageal reflux disease): Code(s): K21.9 - Gastro-esophageal reflux disease without esophagitis Category: Medical Qualifiers: Esophagitis presence: without esophagitis Qualified Code(s): K21.9 - Gastro-esophageal reflux disease without esophagitis Plan: Dietary restrictions reinforced Continue Pantoprazole 40 mg QD (11) Vitamin D deficiency: Code(s): E55.9 - Vitamin D deficiency, unspecified Category: Medical Plan: Continue Vitamin D3 2000 units QD (12) Pulmonary nodule: Code(s): R91.1 - Solitary pulmonary nodule Category: Medical Plan: Stable - continue yearly CT screening and follow-up with Dr. Shirley as scheduled (13) Benign microscopic hematuria: Code(s): R31.1 - Benign essential microscopic hematuria Category: Medical Plan: Asymptomatic - will continue to monitor regularly Workups done in the past have all been negative/normal (14) Overweight (BMI 25.0-29.9): Code(s): E66.3 - Overweight Category: Medical Plan: Reinforced diet/exercise as tolerated/lose weight Plan Follow up in 4 months Orders: Orders Comprehensive [place]. Panel Fast 4 Months E78.00 - Pure hypercholesterolemia, unspecified TSH reflex Free T4 4 Months E78.00 - Pure hypercholesterolemia, unspecified UA CC w/rflx Micro + Cult 4 Months R30.0 - Dysuria Complete Blood Count Auto Diff 4 Months D64.9 - Anemia, unspecified Lipid Panel 4 Months E78.00 - Pure hypercholesterolemia, unspecified Vitamin D 25-OH Total 4 Months E55.9 - Vitamin D deficiency, unspecified
== END 2025-02-27 10:59 | disposition home or self-care (01) ==
LOC: HO.HMCH 10:25
PROVIDERS: PCP Internal Medicine; Visit Provider Internal Medicine
DX: D59.10 Autoimmune hemolytic anemia, unspecified (principal); C91.10 Chronic lymphocytic leukemia of B-cell type not having achieved remission; I44.2 Atrioventricular block, complete; I63.81 Other cerebral infarction due to occlusion or stenosis of small artery; I25.10 Atherosclerotic heart disease of native coronary artery without angina pectoris; Z95.1 Presence of aortocoronary bypass graft; E78.00 Pure hypercholesterolemia, unspecified; I10 Essential (primary) hypertension; R73.01 Impaired fasting glucose; K21.9 Gastro-esophageal reflux disease without esophagitis; E55.9 Vitamin D deficiency, unspecified; R91.1 Solitary pulmonary nodule; R31.1 Benign essential microscopic hematuria

== ENCOUNTER → 2025-03-17 12:35 | Outpatient (REF) | payer MEDICARE, SELFPAY ==
--- OUTSIDE RECORDS SUMMARY | 2023-09-25 07:20 | XMS_ITS ---
Author Organization [facility] Address [address] [place] [address] Care Team Providers Care Clam Picker Name Role Phone Romeo RAHMAN, Emile Primary Care Provider William Harris Jr REASON FOR VISIT screening Problems Problem Type SNOMED Code ICD Code Onset Dates Problem Status W/U Status Risk Notes Problem History of polyp of colon (situation) (110531389) Personal history of colonic polyps (Z86.010) Active confirmed Encounters Encounter Location Date Provider Diagnosis [facility] [place] [address] [place] [phone] 09/25/2023 William Slade Jr Encounter for screening colonoscopy Z12.11 and Personal history of colonic polyps Z86.010 Assessments Encounter Date Diagnosis (ICD Code) Assessment Notes Treatment Notes Treatment Clinical Notes Section Notes 09/25/2023 Encounter for screening colonoscopy (ICD-10 - Z12.11) 09/25/2023 Personal history of colonic polyps (ICD-10 - Z86.010) Plan Of Treatment No Information Progress Notes * TANIA LOPEZOB: 0 (74 yo M)Acc No.[id number]:09/25/2023 COLON WITH MAC Patient: DAYSI HSU Provider: Andreia Slade MD :1950 A ge:72 Y S ex:Male Date:09/25/2023 Address:[address] [id number] Pcp:Emile Walters MD Subjective: * Chief Complaints: * S creening Assessment: * Assessment: 1. E ncounter for screening colonoscopy - Z12.11 (Primary) 2 . P ersonal history of colonic polyps - Z86.010 Plan: * Procedure Codes: 4 5378 DIAGNOSTIC [id number] COLOREC CANCR SCR; COLNSCPY HI [id number] INTRVL 3+YRS PTS CLNSCP [id number] RCMND FLW-UP 10 YRS DOCD Billing Information: * Procedure Codes: 21246 DIAGNOSTIC COLONOSCOPY. G0105 COLOREC CANCR SCR; COLNSCPY HI RISK. 0529F INTRVL 3+YRS PTS CLNSCP DOCD. 0528F RCMND FLW-UP 10 YRS DOCD. * The named appointment provid er may or may not be the originator of this progress note, and it is not deemed complete until electronically signed by the appointment provider. Sign off status: Pending * Provider: Andreia Slade MD Date: 0 09/25/2023 Generated for Kota brumfield/Anabela/Debitting on: 04:30 PM EST
--- NOTE | 2025-03-17 13:48 | CA_ITS ---
Transthoracic Echocardiogram Patient (Last, First, Middle): Dallin Stoner, Gender: M Date of : 1950 Age: 74 Procedure Date: 03/17/2025 Procedure Type: Transthoracic Echocardiogram Location: OP Height: 172. cm Weight: 83.46 kg BSA: 1.97 m2 Heart Rate: 64 bpm BP: 128 / 60 mmHg Pharmacy Technician Per Diem: STEFFANIE Referring MD: Ramona Fulton NP Symptoms: Assess cardiac function pre Rituximab therapy Study Quality: Adequate ECG Rhythm: Sinus Conclusions: - The left ventricular systolic function is normal. The calculated ejection fraction is 58% by biplane method. - No obvious valvular pathology seen on this study. Findings Left Ventricle Normal left ventricular cavity size. There is mildly increased left ventricular wall thickness. The left ventricular systolic function is normal. The calculated ejection fraction is 58% by biplane method. There is no evidence of regional wall motion abnormalities. Diastolic function is normal for age. Right Ventricle Normal right ventricular cavity size. There is mildly decreased right ventricular systolic function. Atria Both atria are normal in size. Aortic Valve There is a normal trileaflet aortic valve. There is no aortic valve stenosis. There is no aortic valve regurgitation. Mitral Valve The mitral valve appears normal. There is no mitral valve regurgitation. There is no mitral valve stenosis. Pulmonic Valve The pulmonic valve is likely normal. Tricuspid Valve There is trace tricuspid valve regurgitation. There is no evidence of pulmonary hypertension. Great Vessels The asc aorta and aortic arch are normal in size. Venous The inferior vena cava is normal in size and collapses greater than 50% with inspiration. Pericardium/Pleural There is no evidence of pericardial effusion. Prior Study Comparison Changes noted compared to prior study dated: 02/25/2021. No overt wall motion abnormality noted. Recommendations, Care & Conclusions No obvious valvular pathology seen on this study. Measurements 2D Linear Measurements IVSd: 1.11 0.6-0.9/0.6-1.0 cm LVIDd: 4.21 3.9-5.3/4.2-5.9 cm LVIDd Index: 2.14 2.4-3.2/2.2-3.1 cm/m2 LVIDs: 2.40 2.0-3.6 cm LVPWd: 1.05 0.7-1.1 cm LA Diam: 4.00 2.7-3.8/3.0-4.0 cm LAIDs Index: 2.03 1.5-2.3 cm/m2 LV Mass: 191.21 67-162/88-224 g LV Mass Index: 97.06 43-95/49-115 g/m2 LVOT Diam: 2.10 3.0+(-)1.3 cm 2D Systolic Function EF 4C: 57.40 >55% EF 2C: 58.50 >55% EF BiP: 58.30 >55% Mitral Valve MV Pk E: 0.56 MV PK A: 0.78 MV Decel Time: 336.00 E/A: 0.70 E'Lateral: 9.25 E'Medial: 5.87 E/E' Med: 9.50 E/E' Lat: 6.00 PHT: 99.00 MVA PHT: 2.22 Decel Jerome: 1.66 Aortic Valve AoV Pk Elvis: 1.40 AoV Mn Elvis: 0.94 AoV VTI: 0.28 AoV Pk Grad: 8.00 Aov Mn Grad: 4.00 JUSTIN Cont.VTI: 2.49 LVOT LVOT Pk Elvis: 1.01 LVOT Mn Elvis: 0.67 LVOT VTI: 0.20 LVOT Pk Grad: 4.00 LVOT Mn Grad: 2.00 LVOT Diam: 2.10 LVOT Area: 3.46 Diastolic Function MV Pk E: 0.56 MV Pk A: 0.78 E/A: 0.70 E'Medial: 5.87 E/E' Med: 9.50 E' Laterial: 9.25 E/E' Lat: 6.00 Right Ventricle TAPSE (mm): 13.80 TVS' Elvis: 8.31 Tricuspid Valve TR Pk Elvis: 1.43 TR Pk Grad: 8.00 RA Press: 3.00 RVSP: 11.00 Great Vessels Aorta Sinus of Valsalva: 3.60 2.0-3.5 cm Ao Asc: 3.40 2.1-3.4 cm Ao Arch: 3.20 Pulmonary Veins Pulm Vein S/D 2.10 Pulmonary Valve PV Pk Elvis: 0.88 Peak PV Grad: 3.00 Updated in Other Vendor System with Status of Final Kar Fox MD electronically signed on 03/19/2025 11:07:24 AM with status of Final
--- OUTSIDE RECORDS SUMMARY | 2025-03-17 16:30 | XMS_ITS | Patient Health Record ---
Author Organization [facility] Address [address] [place] [address] Care Team Providers Care Munitions Handler Name Role Phone Enrique Walters MDneth Primary Care Provider William Harris Jr [phone] Allergies No Known Allergies Reason For Referral No Information Medications Medication SIG (Take, Route, Frequency, Duration) Notes Start Date End Date Status predniSONE 20 MG Tablet 1 tablet Orally Once a day; Duration: 30 day(s) twice a day Active Folic Acid 1 MG Tablet 1 tablet Orally O nce a day; Duration: 30 day(s) Active Ezetimibe 10 MG Tablet 1 tablet Orally O nce a day; Duration: 30 day(s) Active MiraLax (colon prep) 17 GM/SCOOP Powder mixed with Gatorade or Crystal Light Orally begin at 5:00 p.m. the day before the procedure; Duration: 1 day 09/03/2023 Active Aspirin 81 MG Tablet Chewable 1 tablet Orally Once a day Active Co Q 10 100 MG Capsule 1 capsule with a meal Orally Once a day Active Vitamin D3 1000 UNIT Capsule 1 capsule Orally Once a day Active Pantoprazole Sodium 40 MG Tablet Delayed Release 1 tablet Orally Once a day Active Rosuvastatin Calcium 40 MG Tablet 1 tablet Orally Once a day Active Metoprolol Succinate ER 100 MG Tablet Extended Release 24 Hour 1 tablet Orally Once a day Active Immunizations Vaccine Route Administration Date Status Comme nts Influenza Unknown 01/24/2018 Administered Influenza Unknown 02/06/2023 Administered Social History Social History Additional Details Category Social Info Options Details Miscellaneous: Marital status: 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 Problems Problem Type SNOMED Code ICD Code Onset Dates Problem Status W/U Status Risk Notes Problem Colon cancer screening (404930566) Colon cancer screening (Z12.11) Active confirmed Problem History of polyp of colon (situation) (267649447) Personal history of colonic polyps (Z86.010) Active confirmed Problem Pre-procedure evaluation check (464310312) Encounter for other preprocedural examination (Z01.818) Active confirmed Problem Gastroesophageal reflux disease without esophagitis (476389024) Gastroesophageal reflux disease without esophagitis (K21.9) Active confirmed Problem Family History of Cancer of Colon (Situation) (181010509) Family history of colon cancer (Z80.0) Active confirmed Problem Long-term current use of antiplatelet drug (141263213528209) Long-term use of aspirin therapy (Z79.82) Active confirmed Plan Of Treatment Future Test Test Name Order Date UPPER GI ENDOSCOPY 12/22/2011 COLONOSCOPY 12/22/2011 COLONOSCOPY 04/12/2017 COLONOSCOPY 09/04/2018 COLONOSCOPY 09/03/2023 Insurance Providers Payer Name Payer Address Payer Phone Subscriber Number Group Number Insured Name Patient Relationship to Insured Coverage Start Date Coverage End Date MEDICARE OF [place] [address] [facility] [place] [address] [id number] DAYSI LOPEZ Self - patient is the insured MED[employer] ATTN CLAIMS [address] [place] [address] [phone] [id number] DAYSI LOPEZ Self - patient is the insured Medical (General) History Medical History History ICD Code colonoscopy 10/04, normal, five-year foll owup Hyperlipidemia coronary artery disease with history of MD, and bypass 2014 splenectomy gastroesophageal reflux disease, EGD 201 2, no BE or H&P Autoimmune hemolytic anemia/CLL Lacunar infarct Hypertension Pulmonary nodules Vitamin D deficiency Surgical History Surgery Date(Month/Year) dental extractions splenectomy CABG X 3 Pacemaker placement for complete heart b lock
== END ==
LOC: HO.CARD 12:35
PROVIDERS: PCP Internal Medicine; Visit Provider Nurse Practitioner Family
DX: D59.10 Autoimmune hemolytic anemia, unspecified (principal)
CPT/HCPCS: 93306

== ENCOUNTER → 2025-03-17 13:48 | Outpatient (BNV) | payer MEDICARE, SELFPAY | PROVIDERS: PCP Internal Medicine; Visit Provider Internal Medicine | DX: Z79.899 Other long term (current) drug therapy (principal) | CPT/HCPCS: 93306 ==